=== PATIENT | male | born 1965 | race Caucasian/White ===

== ENCOUNTER → 2019-05-02 08:43 | Outpatient (BNVA) | payer MEDICARE, SELFPAY | PROVIDERS: Family Provider Family Medicine; PCP Family Medicine; Visit Provider Nurse Practitioner | DX: F25.9 Schizoaffective disorder, unspecified (principal); F41.1 Generalized anxiety disorder; F17.210 Nicotine dependence, cigarettes, uncomplicated | CPT/HCPCS: 99213 ==

== ENCOUNTER 2019-07-16 07:11 | Day surgery (SDC) | payer MEDICARE, SELFPAY ==
[2019-07-13 14:31] VITALS: BMI 25.8
[2019-07-16 07:33] VITALS: BP 123/80; PULSE 85; RESP 18; TEMP 36.7; O2SAT 100
--- NOTE | 2019-07-16 07:41 | ANES.PREANE2 ---
Pre-Anesthetic Assessment Pre-Anesthetic Assessment: Height/Weight: Height 1.75 m Weight 79.379 kg Temp Pulse Resp BP Pulse Ox 98.1 F 85 18 123/80 100 07/16/19 07:33 07/16/19 07:33 07/16/19 07:33 07/16/19 07:33 07/16/19 07:33 Preop Diagnosis: p Proposed Procedure: Operation Date: 07/16/19 08:35 Proposed Procedures p Colonoscopy G0105 Z86.010(Not Applicable) - Lex Babcock MD Last intake: Intake Last Liquid Date 07/16/19 Last Liquid Time 00:00 Last Solid Date 07/14/19 Social: Social History: Alcohol and Tobacco Exam: Pre-Anes Outpt Exam: alert, oriented x 3, clear to auscultation bilaterally and regular rate & rhythm Airway: Submandibular: WNL Cervical ROM: WNL MP: 2 Dentition: False (upper and lower) History/ROS: No significant history except as noted Pulmonary: Pulmonary: COPD CV/HEM: CV/HEM: None reported : : None reported Hepatic: Hepatic: None reported GI: GI: GERD Metabolic: Metabolic: Hyperlipidemia Musc/skel: Musc/skel: Lower Back Pain Neuropsych: Comments: schizoaffective disorder Anesthetic Plan: ASA status: 3 Anesthesia: Anesthesia Evaluation and MAC Risk of > 500 ml blood loss (7ml/kg in children): No PFSH Anesthesia PFSH: Medical History Anxiety BPH (benign prostatic hyperplasia) Chronic low back pain COPD (chronic obstructive pulmonary disease) Dyslipidemia Enrolled in chronic care management Generalized anxiety disorder GERD (gastroesophageal reflux disease) Nicotine dependence, cigarettes, uncomplicated Schizoaffective disorder, unspecified Surgical History History of appendectomy History of tonsillectomy Family History Other Cancer Social History Smoking and tobacco status: current every day smoker cigarettes Packs smoked per day: 1 and smokeless tobacco Smoking risk assessment/counseling performed?: Yes Tobacco counseling given: counseling >3 minutes Alcohol intake: never Data Anesthesia Cardiac Studies: No Data to Display
[2019-07-16] MEDS: sodium chloride 0.9% 1,000 ML 30 ML IV (07:43)
--- NOTE | 2019-07-16 08:35 | P.HP_ITS ---
Same Day Surgery H&P Indication for Procedure/HPI DATE OF PROCEDURE: July 16, 2019 CHIEF COMPLAINT/INDICATIONFOR SURGICAL PROCEDURE: History of colon polyp PREOP DIAGNOSIS: p PLANNED PROCEDRUE: Operation Date: 07/16/19 08:35 Proposed Procedures p Colonoscopy G0105 Z86.010(Not Applicable) - Lex Babcock MD Medications/Allergies* Home Medications Medication Instructions Recorded Confirmed Type albuterol sulfate 90 mcg/actuation 2 puff INHALATION Q6H PRN 04/11/19 07/16/19 History aerosol inhaler aspirin 81 mg tablet,delayed 81 mg PO DAILY 06/18/19 07/16/19 History release pukthetmanajchkp-ygmmsewsq-nbnhaqr 1 each PO PRN PRN 06/18/19 07/16/19 History 2 mg-7.8 mg-325 mg efferves. tablet celecoxib 200 mg PO DAILY 07/16/19 07/16/19 History famotidine mg PO DAILY PRN 07/16/19 History Allergies/Adverse Reactions Allergy/AdvReac Type Severity Reaction Status Date / Time Penicillins Allergy Severe throat Verified 06/18/19 09:40 swell Current Medications: Generic Name Dose Route Start Last Admin Trade Name Freq PRN Reason Stop Dose Admin Sodium Chloride 1,000 mls @ 30 mls/hr 07/16/19 07:30 07/16/19 07:43 Sodium Chloride 0.9% IV 30 mls/hr .Q24H [place] Administration Pertinent History/Comorbid Conditions* Medical History (Updated 06/18/19 @ 09:54 by Lex Babcock MD) Anxiety BPH (benign prostatic hyperplasia) Chronic low back pain COPD (chronic obstructive pulmonary disease) Dyslipidemia Enrolled in chronic care management Generalized anxiety disorder GERD (gastroesophageal reflux disease) Nicotine dependence, cigarettes, uncomplicated Schizoaffective disorder, unspecified Surgical History (Updated 04/17/19 @ 09:09 by Mali Lerma DO) History of appendectomy History of tonsillectomy Family History (Updated 04/11/19 @ 15:59 by Christina De Leon LPN) Cancer Social History Smoking and tobacco status: current every day smoker cigarettes Packs smoked per day: 1 and smokeless tobacco Smoking risk assessment/counseling performed?: Yes Tobacco counseling given: counseling >3 minutes Alcohol intake: never Pertinent Exam Findings alert, oriented x 3, clear to auscultation bilaterally, regular rate & rhythm, operative site marked and procedure specific exam findings Recommendations Surgery/Procedure today Coding Level of Care Code Acute 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
[2019-07-16 08:54] VITALS: BP 127/87; PULSE 77; RESP 18; TEMP 36.7; O2SAT 99
[2019-07-16 09:17] VITALS: BP 119/92; PULSE 79; RESP 18; O2SAT 98
== END 2019-07-16 09:20 | disposition home or self-care (01) ==
PROVIDERS: Family Provider Family Medicine; PCP Family Medicine; Visit Provider Internal Medicine
PROC: 0DJD8ZZ Inspection of Lower Intestinal Tract, Via Natural or Artificial Opening Endoscopic (ICD-10-PCS; CPT 45378; principal; 2019-07-16 08:30)
DX: Z86.010 Personal history of colon polyps (principal); J44.9 Chronic obstructive pulmonary disease, unspecified; K21.9 Gastro-esophageal reflux disease without esophagitis; E78.5 Hyperlipidemia, unspecified; F17.210 Nicotine dependence, cigarettes, uncomplicated; F25.9 Schizoaffective disorder, unspecified
CPT/HCPCS: 45378; 12345; J2001; J2704; J7030

== ENCOUNTER → 2019-07-25 07:41 | Outpatient (BNVA) | payer MEDICARE, SELFPAY | PROVIDERS: Family Provider Family Medicine; PCP Family Medicine; Visit Provider Nurse Practitioner | DX: F25.9 Schizoaffective disorder, unspecified (principal); F41.1 Generalized anxiety disorder | CPT/HCPCS: 99213 ==

== ENCOUNTER → 2019-09-24 08:21 | Outpatient (BNVA) | payer MEDICARE, SELFPAY | PROVIDERS: Family Provider Family Medicine; PCP Family Medicine; Visit Provider Family Medicine | DX: E78.5 Hyperlipidemia, unspecified (principal); N40.1 Benign prostatic hyperplasia with lower urinary tract symptoms; R35.0 Frequency of micturition; Z79.891 Long term (current) use of opiate analgesic; G89.29 Other chronic pain; M54.5 Low back pain; Z12.5 Encounter for screening for malignant neoplasm of prostate; F17.210 Nicotine dependence, cigarettes, uncomplicated | CPT/HCPCS: 80053; 80061; 80307; 80373; 85025; G0103 ==

== ENCOUNTER → 2019-11-02 09:58 | Outpatient (BNVA) | payer MEDICARE, SELFPAY | PROVIDERS: Family Provider Family Medicine; PCP Family Medicine; Visit Provider Nurse Practitioner | DX: F41.1 Generalized anxiety disorder (principal); F25.9 Schizoaffective disorder, unspecified; F17.210 Nicotine dependence, cigarettes, uncomplicated | CPT/HCPCS: 99213 ==

== ENCOUNTER → 2020-02-06 16:05 | Outpatient (BNVA) | payer MEDICARE, SELFPAY | PROVIDERS: Family Provider Family Medicine; PCP Family Medicine; Visit Provider Nurse Practitioner Family | DX: Z20.828 Contact with and (suspected) exposure to other viral communicable diseases (principal); J06.9 Acute upper respiratory infection, unspecified | CPT/HCPCS: 87635 ==

== ENCOUNTER → 2020-02-20 07:45 | Outpatient (BNVA) | payer MEDICARE, SELFPAY | PROVIDERS: Family Provider Family Medicine; PCP Family Medicine; Visit Provider Nurse Practitioner | DX: F25.9 Schizoaffective disorder, unspecified (principal); F41.1 Generalized anxiety disorder | CPT/HCPCS: 99213 ==

== ENCOUNTER → 2020-06-09 07:38 | Outpatient (BNVA) | payer MEDICARE, SELFPAY | PROVIDERS: Family Provider Family Medicine; PCP Family Medicine; Visit Provider Nurse Practitioner | DX: F25.9 Schizoaffective disorder, unspecified (principal); F41.1 Generalized anxiety disorder | CPT/HCPCS: 99214 ==

== ENCOUNTER → 2020-09-11 09:43 | Outpatient (BNVA) | payer MEDICARE, SELFPAY | PROVIDERS: Family Provider Family Medicine; PCP Family Medicine; Visit Provider Nurse Practitioner | DX: F41.1 Generalized anxiety disorder (principal); F25.9 Schizoaffective disorder, unspecified; F17.210 Nicotine dependence, cigarettes, uncomplicated | CPT/HCPCS: 99214 ==

== ENCOUNTER → 2020-11-20 09:17 | Outpatient (BNVA) | payer MEDICARE, SELFPAY | PROVIDERS: Family Provider Family Medicine; PCP Family Medicine; Visit Provider Family Medicine | DX: E78.5 Hyperlipidemia, unspecified (principal); N40.1 Benign prostatic hyperplasia with lower urinary tract symptoms; R35.0 Frequency of micturition; M54.5 Low back pain; G89.29 Other chronic pain; J43.1 Panlobular emphysema; F17.219 Nicotine dependence, cigarettes, with unspecified nicotine-induced disorders | CPT/HCPCS: 80053; 80061; 85025; G0103 ==

== ENCOUNTER → 2020-12-08 08:45 | Outpatient (BNVA) | payer MEDICARE, SELFPAY | PROVIDERS: Family Provider Family Medicine; PCP Family Medicine; Visit Provider Nurse Practitioner | DX: F25.9 Schizoaffective disorder, unspecified (principal); F41.1 Generalized anxiety disorder; F17.210 Nicotine dependence, cigarettes, uncomplicated | CPT/HCPCS: 99214 ==

== ENCOUNTER → 2021-03-10 09:20 | Outpatient (BNVA) | payer MEDICARE, SELFPAY | PROVIDERS: Family Provider Family Medicine; PCP Family Medicine; Visit Provider Nurse Practitioner | DX: F41.1 Generalized anxiety disorder (principal); F25.9 Schizoaffective disorder, unspecified; F17.219 Nicotine dependence, cigarettes, with unspecified nicotine-induced disorders | CPT/HCPCS: 99214 ==

== ENCOUNTER → 2021-06-09 10:59 | Outpatient (BNVA) | payer MEDICARE, SELFPAY | PROVIDERS: Family Provider Family Medicine; PCP Family Medicine; Visit Provider Nurse Practitioner | DX: F41.1 Generalized anxiety disorder (principal); F25.9 Schizoaffective disorder, unspecified; F17.210 Nicotine dependence, cigarettes, uncomplicated | CPT/HCPCS: 99214 ==

== ENCOUNTER 2021-09-07 11:43 | Inpatient (IN) | payer MEDICARE, SELFPAY ==
[2021-09-07] VITALS (7 sets, daily range): BP systolic 121–131; BP diastolic 76–88; PULSE 58–77; RESP 16–18; TEMP 36.4–36.9; O2SAT 95–98; BMI 3319.7; BMI 23.0
--- NOTE | 2021-09-07 11:51 | W.ED.NAVMDI ---
HPI - Nausea/Vomiting/Diarrhea General: Chief complaint: Nausea/Vomiting/Diarrhea Stated complaint: n/v Time Seen by Provider: 09/07/21 11:50 Limitations: altered mental status History of Present Illness: Mr. Munoz is a 56-year-old gentleman with history of COPD, long-term opiate use, hypertension, hyperlipidemia, psychiatric disorder who presents to the emergency department due to altered mental status. He is accompanied by a neighbor who provide some clinical history. The patient himself has difficulty articulating why he is at the emergency department. He reports feeling generally unwell including abdominal pain and cough however cannot articulate associated symptoms. Per neighbor patient seemed to be somewhat off baseline yesterday however was markedly confused today. Typically he is alert and oriented. History otherwise limited by mental status. Onset (ago): unknown Review of Systems General: Reports: ROS unobtainable due to mental status [facility] PFSH: Medical History (Updated 09/17/21 @ 00:02 by Angie Spears MD) Anxiety BPH (benign prostatic hyperplasia) BPH w urinary obs/LUTS Chronic dryness of both eyes Chronic low back pain COPD (chronic obstructive pulmonary disease) Dyslipidemia Enrolled in chronic care management Generalized anxiety disorder GERD (gastroesophageal reflux disease) History of colon polyps Nicotine dependence, cigarettes, uncomplicated Psychiatric care Schizoaffective disorder, unspecified Urinary retention Surgical History History of appendectomy History of tonsillectomy Family History Other Cancer Social History Smoking and tobacco status: current every day smoker cigarettes Packs smoked per day: 1.5 and smokeless tobacco Smoking risk assessment/counseling performed?: Yes Tobacco counseling given: counseling >3 minutes Alcohol intake: never Physical Exam Const: COMMON NORMALS: alert GENERAL APPEARANCE: cooperative and well developed HENMT: COMMON NORMALS: normocephalic and atraumatic HEAD & SCALP: normocephalic and atraumatic THROAT: posterior oropharynx normal Eye: COMMON NORMALS: conjunctivae normal CONJUNCTIVA: Yes conjunctivae normal SCLERA: sclerae normal Neck/C-Spine: COMMON NORMALS: supple and no meningeal signs GENERAL: Yes trachea midline Resp: COMMON NORMALS: clear to auscultation bilaterally EFFORT & INSPECTION: Yes able to speak in complete sentences AUSCULTATION: clear to auscultation bilaterally Cardio: COMMON NORMALS: regular rate and regular rhythm RATE: regular rate RHYTHM: regular rhythm GI: COMMON NORMALS: Soft to palpation PALPATION: Yes Soft to palpation, Yes Tenderness to palpation present (GI), No Guarding due to palpation present (GI) and No Rigid due to palpation Extremity: GENERAL: Yes normal exam except as noted and No edema Neuro: COMMON NORMALS: CN's II-XII intact bilaterally, moves all extremities, no focal motor deficits and no sensory deficits noted SENSORIUM/ORIENTATION: Yes alert and No Orientation impaired MENINGEAL SIGNS: Yes no meningeal signs Psych: MEMORY/COGNITION: Yes memory grossly impaired Course ED course: - Patient was seen and evaluated by me at bedside - Patient placed on cardiac monitors, IV access obtained - Initial evaluation notable for exam as above. No focal neurologic deficits however patient mental status clearly abnormal, he is impulsive and inappropriate. No nuchal rigidity or reported fevers. - Labs personally interpreted by me. EKG with interventricular conduction delay/QRS segment abnormalities. No STEMI. - Ativan ordered, banana bag ordered. - Labs notable for no leukocytosis, normal hemoglobin. Metabolic panel with evidence of dehydration. ABG with minimal hypoxemia, no carboxyhemoglobin elevation. Urinalysis not concerning for urinary tract infection. Toxic ingestions negative. - Imaging notable for no acute pathology identified on head CT. No acute pathology identified on chest abdomen pelvis CT. - Upon serial reexamination after treatment the patient was similar. He continues to act somewhat bizarrely. - Based on patient history, evaluation, and testing as interpreted the most likely cause of the patient's condition is altered mental status of unclear cause - The results of ED evaluation were discussed with the patient including plan for admission due to requirement for level of care not available if discharged to prevent significant worsening/deterioration. - Admitting service was contacted and Dr Loving With the hospitalist service agreed to admit the patient - Patient was admitted without further deterioration or significant events. Note: Click bubbles or prepopulated ballard in note writing are used for assistance with data collection and billing and are inherently more limited than narrative and other text portions of this note. Please use narrative for additional clinical history and defer to narrative/free test for any case of contradictory information. If information appears in only free text or click bubble it should be considered present or absent as reported. Please contact note conventional mortgage underwriter for clarifications of clinical information or contradictory information. MDM is a brief summary, contradictory or erroneous seeming information should be clarified and full note should be reviewed. Vital Signs: Vital signs: Vital Signs Temperature 98.0 F 09/16/21 17:44 Pulse Rate 80 09/16/21 17:44 Respiratory Rate 16 09/16/21 17:44 Blood Pressure 131/76 09/16/21 17:44 Pulse Oximetry 100 09/16/21 17:44 MDM - Nausea/Vomiting/Diarrhea Medical Decision Making 56-year-old gentleman presenting with mental status change. Patient has nonfocal neurologic exam and is outside of tPA window. Patient has bizarre behavior at times with impulse control limitations. Admitted for further management with no clear etiology identified on ED evaluation. Medical Records I reviewed the patient's medical records. Lab Data I reviewed the patient's lab results. : 09/16/21 04:40 09/16/21 04:40 Radiology Impressions Chest/Abdomen/Pelvis CT 09/07/21 12:10 IMPRESSION: 1. No acute findings. 2. Emphysematous changes of the lungs. IMPRESSION: No acute findings. Large colonic stool burden. Head CT 09/07/21 12:10 IMPRESSION: No acute intracranial abnormality. Chest X-Ray 09/09/21 14:15 Impression: Atherosclerosis. Abdomen/Pelvis CT 09/11/21 08:02 IMPRESSION: 1. Mild gallbladder wall enhancement with suggestion of gallbladder wall edema and fluid in the gallbladder fossa. This appears new from previous. Recommend further evaluation with ultrasound. Visualized common bile duct appears decompressed. No visualized cholelithiasis 2. Tiny bilateral pleural effusions with compressive atelectasis in the lung bases is new from previous. 3. Urine distended bladder with small cystocele. 4. Mild RIGHT ureterectasis with surrounding induration is new from previous. No obstructing calculi. This may be due to chronic bladder outlet obstruction or developing pyelonephritis. Recommend correlation for UTI. 5. Prominent prostate measures 5.1 CM. Notified Kaya Burns MD at 09/11/2021 11:24 AM. Abdomen Ultrasound 09/11/21 11:33 IMPRESSION: 1. Diffuse gallbladder wall thickening without evidence of gallstones. Imaging appearance is nonspecific and could reflect cholecystitis or represent sequela of a secondary etiology. Correlate with clinical exam. 2. Mild hepatomegaly. Hepatobiliary Scan Nuclear Medicine 09/14/21 07:50 IMPRESSION: 1. Normal gallbladder filling and visualization of the small bowel. No cystic or common bile duct obstruction. 2. No gallbladder contraction after fatty meal. Gallbladder dysfunction/dyskinesia. Laboratory Results WBC 7.0 10^3/uL (4.0-10.0) 09/07/21 13:04 RBC 4.20 10^6/uL (4.1-5.3) 09/07/21 13:04 Hgb 13.2 g/dL (11.7-16.6) 09/07/21 13:04 Hct 36.4 % (42.0-52.0) L 09/07/21 13:04 MCV 86.7 fl (80-94) 09/07/21 13:04 MCH 31.4 pg (28.0-34.0) 09/07/21 13:04 MCHC 36.3 g/dL (30.0-36.0) H 09/07/21 13:04 RDW 11.6 % (12.1-15.1) L 09/07/21 13:04 Plt Count 369 10^3/cmm (130-400) 09/07/21 13:04 MPV 9.2 fL (7.4-10.4) 09/07/21 13:04 Neut % (Auto) 76.7 % 09/07/21 13:04 Lymph % (Auto) 17.2 % 09/07/21 13:04 [place] % (Auto) 5.3 % 09/07/21 13:04 Eos % (Auto) 0.4 % 09/07/21 13:04 Baso % (Auto) 0.1 % 09/07/21 13:04 Neut # (Auto) 5.40 10^3/uL (1.8-7.7) 09/07/21 13:04 Lymph # (Auto) 1.2 10^3/uL (0.8-4.8) 09/07/21 13:04 [place] # (Auto) 0.4 10^3/uL (0.2-0.9) 09/07/21 13:04 Eos # (Auto) 0.0 10^3/uL (0.0-0.8) 09/07/21 13:04 Baso # (Auto) 0.0 10^3/uL (0.0-0.1) 09/07/21 13:04 Nucleated RBC % (auto) 0 % 09/07/21 13:04 Nucleated RBCs # 0.0 /100WBC 09/07/21 13:04 Sodium 127 mmol/L (136-145) L 09/07/21 13:04 Potassium 3.9 mmol/L (3.5-5.1) 09/07/21 13:04 Chloride 90 mmol/L (98-107) L 09/07/21 13:04 Carbon Dioxide 22 mmol/L (22-29) 09/07/21 13:04 Anion Gap 18.9 (5-19) 09/07/21 13:04 BUN 15 mg/dL (6-20) 09/07/21 13:04 Creatinine 0.7 mg/dL (0.7-1.2) 09/07/21 13:04 GFR Calculation 115.8 mL/min (90-130) 09/07/21 13:04 Glucose 119 mg/dL (65-115) H 09/07/21 13:04 POC Glucose 109 mg/dL (70-110) 09/07/21 12:30 Calculated Osmolality 266 mOsm/kg (285-295) L 09/07/21 13:04 Lactate 0.9 mmol/L (0.5-2.2) 09/07/21 13:04 Calcium 8.9 mg/dL (8.5-10.5) 09/07/21 13:04 Total Bilirubin 0.3 mg/dL (0.15-1.2) 09/07/21 13:04 AST 37 U/L (0-40) 09/07/21 13:04 ALT 36 U/L (0-41) 09/07/21 13:04 Alkaline Phosphatase 54 IU/L (40-130) 09/07/21 13:04 Ammonia 31 umol/L (16-60) 09/07/21 13:04 Troponin T Baseline 10 ng/L (0-15) 09/07/21 13:04 Troponin T 120 Minute 9.87 ng/L (0-15) 09/07/21 14:59 Delta Troponin T -0.13 ABS# (0-10) L 09/07/21 14:59 C-Reactive Protein 3.0 mg/L (0.0-4.9) 09/07/21 13:04 Total Protein 7.0 g/dL (6.6-8.7) 09/07/21 13:04 Albumin 4.6 g/dL (3.5-5.2) 09/07/21 13:04 Globulin 2.4 g/dL (1.3-4.6) 09/07/21 13:04 TSH 0.34 uIU/mL (0.27-4.20) 09/07/21 13:04 Urine Color Yellow (Yellow) 09/07/21 15:13 Urine Appearance Clear (CLEAR) 09/07/21 15:13 Urine pH 5 (5-7) 09/07/21 15:13 Ur Specific [place] 1.020 (1.005-1.030) 09/07/21 15:13 Urine Protein Neg (Negative) 09/07/21 15:13 Urine Glucose (UA) Norm (Normal) 09/07/21 15:13 Urine Ketones 1+ (Negative) H 09/07/21 15:13 Urine Blood Neg (Negative) 09/07/21 15:13 Urine Nitrate Negative (Negative) 09/07/21 15:13 Urine Bilirubin Neg (Negative) 09/07/21 15:13 Urine Urobilinogen Norm mg/dL (Negative) 09/07/21 15:13 Ur Leukocyte Esterase Negative (Negative) 09/07/21 15:13 Salicylates < 0.3 mg/dL (3-10) L 09/07/21 13:04 Urine Opiates Screen Negative ng/mL (Negative) 09/07/21 15:13 Acetaminophen < 5.0 ug/mL (10-30) L 09/07/21 13:04 Ur Barbiturates Screen Negative ng/mL (Negative) 09/07/21 15:13 Ur Phencyclidine Scrn Negative ng/mL (Negative) 09/07/21 15:13 Ur Amphetamines Screen Negative ng/mL (Negative) 09/07/21 15:13 U Benzodiazepines Scrn Negative ng/mL (Negative) 09/07/21 15:13 Urine Cocaine Screen Negative ng/mL (Negative) 09/07/21 15:13 U Marijuana (THC) Screen Negative ng/mL (Negative) 09/07/21 15:13 Ethyl Alcohol < 10 mg/dL (0-10) 09/07/21 13:04 Discharge Plan Discharge Patient Disposition: Admitted As Inpatient Admit Provider: Andreea Loving Clinical Impression: Altered mental status, Hyponatremia, Constipation Condition: Stable Discharge Diet: Advance as tolerated Discharge Activity: Increase activity as tolerated Coding Level of Care Code ED Milieu Counselor for Chg Fwd Exam Comprehensive
--- NOTE | 2021-09-07 12:10 | CTR_ITS ---
PROCEDURE INFORMATION: Exam: CT Head Without Contrast Exam date and time: 09/07/2021 12:41 PM Age: 56 years old Clinical indication: Altered mental status/memory loss and dizziness; Confusion or disorientation; Additional info: AMS TECHNIQUE: Imaging protocol: Computed tomography of the head without contrast. Radiation optimization: All CT scans at this facility use at least one of these dose optimization techniques: automated exposure control; mA and/or kV adjustment per patient size (includes targeted exams where dose is matched to clinical indication); or iterative reconstruction. COMPARISON: No relevant prior studies available. RADIATION DOSE METRICS: Total DLP (mGy-cm): 826.7 FINDINGS: Brain: No hemorrhage. No edema. Mild diffuse cerebral atrophy. No significant white matter disease. No mass effect. Cerebral ventricles: No ventriculomegaly. Paranasal sinuses: Visualized sinuses are unremarkable. No fluid levels. Mastoid air cells: Visualized mastoid air cells are well aerated. Bones/joints: Unremarkable. No acute fracture. Soft tissues: Unremarkable. CT/CT head wo con* [id number] IMPRESSION: No acute intracranial abnormality.
--- NOTE | 2021-09-07 12:10 | CTR_ITS ---
PROCEDURE INFORMATION: Exam: CT Chest Without Contrast; Diagnostic Exam date and time: 09/07/2021 12:44 PM Age: 56 years old Clinical indication: Nausea and vomiting; Abdominal pain; Generalized; Cough; Chest pressure; Prior surgery; Surgery date: 6+ months; Surgery type: Appy; Additional info: AMS, cough, abd pain TECHNIQUE: Imaging protocol: Diagnostic computed tomography of the chest without contrast. Radiation optimization: All CT scans at this facility use at least one of these dose optimization techniques: automated exposure control; mA and/or kV adjustment per patient size (includes targeted exams where dose is matched to clinical indication); or iterative reconstruction. COMPARISON: CR Chest 2 views* [id number] 04/22/2015 2:02 PM RADIATION DOSE METRICS: Total DLP (mGy-cm): 1687.54 FINDINGS: Lungs: Mild to moderate centrilobular emphysematous changes centered in the upper lobes. Posterior dependent atelectasis noted. No consolidation. No masses. Pleural spaces: Unremarkable. No pneumothorax. No pleural effusion. Heart: No coronary artery calcifications. No cardiomegaly. No pericardial effusion. Lymph nodes: Unremarkable. No enlarged lymph nodes. Vasculature: Unremarkable. No aortic aneurysm. Bones/joints: Unremarkable. No acute fracture. Soft tissues: Unremarkable. PROCEDURE INFORMATION: Exam: CT Abdomen And Pelvis Without Contrast Exam date and time: 09/07/2021 12:44 PM Age: 56 years old Clinical indication: Nausea and vomiting; Abdominal pain; Generalized; Cough; Chest pressure; Prior surgery; Surgery date: 6+ months; Surgery type: Appy; Additional info: AMS, cough, abd pain TECHNIQUE: Imaging protocol: Computed tomography of the abdomen and pelvis without contrast. Radiation optimization: All CT scans at this facility use at least one of these dose optimization techniques: automated exposure control; mA and/or kV adjustment per patient size (includes targeted exams where dose is matched to clinical indication); or iterative reconstruction. COMPARISON: No relevant prior studies available. RADIATION DOSE METRICS: Total DLP (mGy-cm): 1687.54 FINDINGS: Liver: Normal. No mass. Gallbladder and bile ducts: Normal. No calcified stones. No ductal dilation. Pancreas: Normal. No ductal dilation. Spleen: Normal. No splenomegaly. Adrenal glands: Normal. No mass. Kidneys and ureters: No renal stones. No hydronephrosis. Stomach and bowel: Large colonic stool burden. No obstruction. No mucosal thickening. Appendix: Appendectomy. Intraperitoneal space: Unremarkable. No free air. No significant fluid collection. Vasculature: Unremarkable. No abdominal aortic aneurysm. Lymph nodes: Unremarkable. No enlarged lymph nodes. Urinary bladder: Unremarkable as visualized. Reproductive: Unremarkable as visualized. Bones/joints: No acute fracture. Soft tissues: Unremarkable. CT/CT chest abdpel [id number] IMPRESSION: 1. No acute findings. 2. Emphysematous changes of the lungs. IMPRESSION: No acute findings. Large colonic stool burden.
--- NOTE | 2021-09-07 12:11 | ECG_ITS ---
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 Measurements Intervals [place] Rate: 69 P: 34 LA: 175 QRS: 22 QRSD: 113 T: 47 QT: 419 QTc: 450 Interpretive Statements SINUS RHYTHM INCOMPLETE RIGHT BUNDLE BRANCH BLOCK [90+ ms QRS DURATION, TERMINAL R IN V1/V2, 40+ ms S IN I/aVL/V4/V5/V6] No previous ECG available for comparison Electronically Signed On 09-08-2021 16:43:00 CDT by Sonny Baum M.D. [email or web address] [email or web address] [id number]
[2021-09-07 12:34] LABS: Glucose Point of Care 109 mg/dL (70-110)
[2021-09-07 13:10] LABS: Basophils % 0.1 %; Eosinophils % 0.4 %; Hematocrit 36.4 % (42.0-52.0); Hemoglobin 13.2 g/dL (11.7-16.6); Lymphocytes # 1.2 10^3/uL (0.8-4.8); Lymphocytes % 17.2 %; Mean Corpuscular HGB Conc 36.3 g/dL (30.0-36.0); Mean Corpuscular Hemoglobin 31.4 pg (28.0-34.0); Mean Corpuscular Volume 86.7 fl (80-94); Mean Platelet Volume 9.2 fL (7.4-10.4); Monocytes # 0.4 10^3/uL (0.2-0.9); Monocytes % 5.3 %; Neutrophils % 76.7 %; Nucleated Red Blood Cells % 0 %; Platelet Count 369 10^3/cmm (130-400); Red Cell Distribution Width 11.6 % (12.1-15.1)
[2021-09-07 13:31] LABS: Lactate (Lactic Acid level) 0.9 mmol/L (0.5-2.2)
[2021-09-07 13:34] LABS: Troponin(5th) Baseline 10 ng/L (0-15)
--- NOTE | 2021-09-07 13:35 | PC.PHAR ---
pt unable to verify meds due to ams- medications verified using external med list- pt takes care of his own medications-
[2021-09-07 13:44] LABS: Alanine Aminotransferase 36 U/L (0-41); Albumin Level 4.6 g/dL (3.5-5.2); Alkaline Phosphatase 54 IU/L (40-130); Anion Gap 18.9 (5-19); Aspartate Amino Transferase 37 U/L (0-40); Blood Urea Nitrogen 15 mg/dL (6-20); Calcium 8.9 mg/dL (8.5-10.5); Carbon Dioxide 22 mmol/L (22-29); Chloride 90 mmol/L (98-107); Globulin 2.4 g/dL (1.3-4.6); Glomerular Filtration Rate 115.8 mL/min (90-130); Glucose 119 mg/dL (65-115); Osmolality Calculated 266 mOsm/kg (285-295); Potassium 3.9 mmol/L (3.5-5.1); Sodium 127 mmol/L (136-145); Thyroid Stimulating Hormone 0.34 uIU/mL (0.27-4.20); Total Bilirubin 0.3 mg/dL (0.15-1.2)
[2021-09-07 13:45] LABS: Acetaminophen < 5.0 ug/mL (10-30); Alcohol Level < 10 mg/dL (0-10); Salicylate < 0.3 mg/dL (3-10)
[2021-09-07 13:56] LABS: Ammonia 31 umol/L (16-60)
[2021-09-07] MEDS: LORazepam 2 mg/mL INJ 1 mL 1 MG IM (14:19)
[2021-09-07 15:21] LABS: Troponin 5 2HR 9.87 ng/L (0-15)
[2021-09-07 15:27] LABS: Troponin 5 2HR Delta -0.13 ABS# (0-10)
[2021-09-07 15:30] LABS: Add Urine Microscopic? NO; Charge for UA Resulting for Rev
[2021-09-07 15:41] LABS: Amphetamines Screen Urine Negative (Negative); Barbiturates Screen Urine Negative (Negative); Benzodiazepines Screen Urine Negative (Negative); Cocaine Screen Urine Negative (Negative); Opiate Screen Urine Negative (Negative); PCP Screen Urine Negative (Negative); THC Screen Urine Negative (Negative)
[2021-09-07 15:45] LABS: Bilirubin Urine Neg (Negative); Blood Urine Neg (Negative); Glucose Urine UA Norm (Normal); Ketones Urine 1+ (Negative); Leukocyte Esterase Urine Negative (Negative); Nitrate Urine Negative (Negative); Protein Urine Neg (Negative); Urine Appearance Clear (CLEAR); Urine Color Yellow (Yellow); Urobilinogen Urine Norm (Negative); pH Urine 5 (5-7)
[2021-09-07] MEDS: folic acid 1 MG, multivitamin inj 10 ML, thiamine 100 MG in sodium chloride 0.9% 1,000 ML 252.8 MG IV (16:01)
[2021-09-07 16:10] LABS: ABG PH Result 7.43 (7.35-7.45); Alveolar-Arterial Oxygen Gradi 3.7 mmHg (5-10); Base Excess ABG 0.2 mmol/L (-2.0-2.0); Blood Gas Allen Test Pos; Blood Gas Operator Identificat CAK; Blood Gas Sample Site Radial, left; Blood Gas Sample Type Arterial; Carboxyhemoglobin 1.4 %THgb (0.4-20.1); HCO3 ABG 24.3 mmol/L (22-26); HGB O2 Sat 93.8 % (95-100); Ionized Calcium Level - ABG 1.2 mmol/L (1.1-1.4); Methemoglobin 0.9 % (0.4-1.5); Oxygen Device ROOM AIR; PO2 ABG 74.4 mmHg (80.0-100.0); Potassium Level - ABG 3.9 mmol/L (3.5-5.0)
[2021-09-07 16:35] LABS: Rapid Plasma Reagin Syphilis Nonreactive (Nonreactive)
--- NOTE | 2021-09-07 16:52 | PC.NURSE ---
right hand jerking motion intermittent
--- NOTE | 2021-09-07 17:38 | P.HP_ITS ---
Providers/Chief Complaint Admitting Physician: Andreea Loving MD Primary Care Provider: Mali Lerma DO Chief Complaint: n/v History of Present Illness Michael Munoz IV is a 56 year old male who presented today with chief complaint altered mental status. Patient was reported by his neighbors today when he was acting not himself today. His thoughts were disorganized that prompted his visit to the ER. He lives alone, patient is stating that he cooks for himself and takes care of his daily activities, his son has not been in touch with him lately. Patient is stating that he was baptized lately and he wants to preach the world and spread the good. His speech is disorganized, tangential conversation. He is endorsing constipation and problems with his urination. When asked about his last bowel movement he stated it was a few years ago. He is endorsing weeks urinary stream, however no fever, dysuria. Hospital service was requested to admit him for management of constipation and hyponatremia Review of Systems Const: Reports: body aches Eyes: Denies: change in vision ENMT: Denies: throat pain Card: Denies: chest pain Resp: Denies: dyspnea GI: Denies: abdominal pain : Denies: flank pain Musc: Denies: neck pain Skin/Breast: Denies: rash Neuro: Denies: headache(s) Psych: Denies: anxiety Endo: Denies: polyuria Gerry/Lymph: Denies: easy bruising All/Imm: Denies: urticaria Medications/Allergies Home Medications Medication Instructions Recorded Confirmed Last Taken Type aspirin 81 mg tablet,delayed 81 mg PO DAILY 06/18/19 09/07/21 07/13/19 History release (Adult Aspirin Regimen) famotidine 10 mg tablet 10 mg PO DAILY PRN 07/16/19 09/07/21 Unknown History albuterol sulfate 90 mcg/actuation 2 puff INHALATION Q6H PRN #8.5 g 07/31/21 09/07/21 Unknown Rx aerosol inhaler (Ventolin HFA) celecoxib 200 mg capsule 200 mg PO DAILY #90 cap 07/31/21 09/07/21 Unknown Rx fluticasone 500 mcg-salmeterol 50 1 inh INHALATION BID #60 each 07/31/21 09/07/21 Unknown Rx mcg/dose blistr powdr for inhalation (Advair Diskus) tramadol 50 mg tablet 50 mg PO TID PRN #90 tab 07/31/21 09/07/21 Unknown Rx sertraline 50 mg tablet (Zoloft) 50 mg PO DAILY #90 tab 08/10/21 09/07/21 Unknown Rx benztropine 2 mg tablet 2 mg PO DAILY #90 tab 09/01/21 09/07/21 Unknown Rx hydroxyzine pamoate 25 mg capsule 25 mg PO TID PRN #270 cap 09/01/21 09/07/21 Unknown Rx (Vistaril) mirtazapine 30 mg tablet 30 mg PO .at bed #90 tab 09/01/21 09/07/21 Unknown Rx trazodone 100 mg tablet 100 mg PO .HS #90 tab 09/01/21 09/07/21 Unknown Rx ziprasidone HCl 80 mg capsule 80 mg PO BID #180 cap 09/01/21 09/07/21 Unknown Rx (Geodon) clonazepam 0.5 mg tablet (Klonopin) 0.5 mg PO DAILY #30 tab 09/02/21 09/07/21 Unknown Rx bupropion HCl 150 mg 24 hr tablet, 150 mg PO DAILY 09/07/21 09/07/21 Unknown H istory extended release fluticasone 500 mcg-salmeterol 50 1 ea INHALATION BID 09/07/21 09/07/21 Unknown History mcg/dose blistr powdr for inhalation (Wixela Inhub) gemfibrozil 600 mg tablet 600 mg PO BID 09/07/21 09/07/21 Unknown History Allergies Allergy/AdvReac Type Severity Reaction Status Date / Time Penicillins Allergy Severe throat Verified 09/07/21 13:34 swell PFSH Acute PFSH: Medical History Anxiety BPH (benign prostatic hyperplasia) Chronic dryness of both eyes Chronic low back pain COPD (chronic obstructive pulmonary disease) Dyslipidemia Enrolled in chronic care management Generalized anxiety disorder GERD (gastroesophageal reflux disease) Nicotine dependence, cigarettes, uncomplicated Psychiatric care Schizoaffective disorder, unspecified Surgical History History of appendectomy History of tonsillectomy Family History Other Cancer Social History Smoking and tobacco status: current every day smoker cigarettes Packs smoked per day: 1.5 and smokeless tobacco Smoking risk assessment/counseling performed?: Yes Tobacco counseling given: counseling >3 minutes Alcohol intake: never Vitals/I&O/Wt Last Vital Signs Temp 97.6 F 09/07/21 11:46 Pulse 68 09/07/21 16:30 Resp 16 09/07/21 11:46 BP 130/81 09/07/21 16:00 Pulse Ox 96 09/07/21 16:30 Weight last 48 hrs Weight 77.111 kg Weight 77.111 kg Physical Exam Narrative: elderly male Seems dehydrated S1, S2 No signs of stroke NIH 0 Abdomen soft No signs of edema Saturated on room air Disorganized thinking Delusional, manic phase Data : 09/08/21 04:48 09/08/21 04:48 A&P Assessment and plan (1) Altered mental status: Status: Acute (2) Hyponatremia: Status: Acute (3) Constipation: Status: Acute (4) COPD (chronic obstructive pulmonary disease): Status: Chronic Qualifiers: COPD type: emphysema Emphysema type: panlobular Qualified Code(s): J43.1 - Panlobular emphysema (5) BPH (benign prostatic hyperplasia): Status: Chronic Qualifiers: Lower urinary tract symptom detail: urinary frequency Lower urinary tract symptom presence: symptoms present Qualified Code(s): N40.1 - Benign prostatic hyperplasia with lower urinary tract symptoms; R35.0 - Frequency of micturition (6) Generalized anxiety disorder: Status: Acute Plan Metabolic encephalopathy: Multifactorial Delirium which could be related to hyponatremia Patient does carry history of schizoaffective disorder Chronicity is unknown at this point We will start him on normal saline Stop antidepressants and antipsychotic We will start him on normal saline Check TSH, urine and serum osmolarity, cortisol level Gentle fluid hydration Patient has been taking SSRI and antipsychotics, rule out SIADH Constipation : I will give him enema, mag citrate and lactulose COPD without acute exacerbation Patient is full code Regular diet DVT prophylaxis on board Will consult Dr. Sadler tomorrow Patient is not suicidal Attestations Medical Necessity Statement*: Anticipating discharge within 48 hours IV fluid hydration Time Spent in Patient Care: 30 Coding Level of Care Code Acute Time Study Observer for Chg Fwd Diagnoses Altered mental status R41.82 Hyponatremia E87.1 Constipation K59.00 COPD (chronic obstructive pulmonary disease) J43.1 COPD type: emphysema Emphysema type: panlobular BPH (benign prostatic hyperplasia) N40.1; R35.0 Lower urinary tract symptom detail: urinary frequency Lower urinary tract symptom presence: symptoms present Generalized anxiety disorder F41.1
[2021-09-07] MEDS: lactulose oral liq 20 gm/30 mL UDC 10 GM PO (18:06)
[2021-09-07] MEDS: magnesium citrate Btl 296 mL 150 ML PO (18:06)
[2021-09-07] MEDS: sodium chloride 0.9% 1,000 ML 75 ML IV (18:06)
[2021-09-07] MEDS: sennosides-docusate Tablet 1 TAB PO (18:07)
--- NOTE | 2021-09-07 18:11 | ECG_ITS ---
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 Measurements Intervals Geronimo Rate: 69 P: 50 MD: 164 QRS: 46 QRSD: 118 T: 54 QT: 413 QTc: 443 Interpretive Statements SINUS RHYTHM INCOMPLETE RIGHT BUNDLE BRANCH BLOCK [90+ ms QRS DURATION, TERMINAL R IN V1/V2, 40+ ms S IN I/aVL/V4/V5/V6] POSSIBLE INFERIOR MYOCARDIAL INFARCTION , OF INDETERMINATE AGE [30 ms Q WAVE IN II/aVF] Compared to ECG 09/07/2021 12:22:02 Myocardial infarct finding now present Electronically Signed On 09-08-2021 16:54:42 CDT by Sonny Baum M.D. [id number]
[2021-09-07 18:33] LABS: Procalcitonin 0.04 ng/mL (0-0.5)
[2021-09-07 19:41] LABS: Troponin 5 6HR 10.72 ng/L (0-15)
[2021-09-07 19:48] LABS: Troponin 5 6HR Delta 0.72 ng/L (0-12)
[2021-09-07 20:48] LABS: Glucose Point of Care 113 mg/dL (70-110)
--- NOTE | 2021-09-07 23:26 | PC.NURSE ---
Patient pulled out figueroa catheter
--- NOTE | 2021-09-07 23:31 | PC.NURSE ---
Spoke with Dr Hargrove at 2260 and ok to reinsert figueroa catheter per Dr Bbo who will assess patient in the a.m.
[2021-09-08] VITALS (8 sets, daily range): BP systolic 119–136; BP diastolic 74–96; PULSE 62–73; RESP 16–18; TEMP 36.6–36.8; O2SAT 94–98
[2021-09-08 05:14] LABS: Basophils % 0.2 %; Eosinophils # 0.1 10^3/uL (0.0-0.8); Eosinophils % 0.7 %; Hematocrit 37.5 % (42.0-52.0); Hemoglobin 13.6 g/dL (11.7-16.6); Lymphocytes # 1.4 10^3/uL (0.8-4.8); Lymphocytes % 13.5 %; Mean Corpuscular HGB Conc 36.3 g/dL (30.0-36.0); Mean Corpuscular Hemoglobin 31.2 pg (28.0-34.0); Mean Platelet Volume 9.2 fL (7.4-10.4); Monocytes # 0.7 10^3/uL (0.2-0.9); Monocytes % 6.3 %; Neutrophils # 8.41 10^3/uL (1.8-7.7); Nucleated Red Blood Cells % 0 %; Platelet Count 371 10^3/cmm (130-400); Red Blood Count 4.36 10^6/uL (4.1-5.3); Red Cell Distribution Width 11.6 % (12.1-15.1); White Blood Count 10.6 10^3/uL (4.0-10.0)
[2021-09-08 05:35] LABS: Blood Urea Nitrogen 8 mg/dL (6-20); Carbon Dioxide 23 mmol/L (22-29); Chloride 93 mmol/L (98-107); Glomerular Filtration Rate 138.4 mL/min (90-130); Glucose 98 mg/dL (65-115); Magnesium 2.1 mg/dL (1.7-2.3); Osmolality Calculated 262 mOsm/kg (285-295); Sodium 127 mmol/L (136-145)
[2021-09-08 05:36] LABS: Anion Gap 15.1 (5-19); Potassium 4.1 mmol/L (3.5-5.1)
[2021-09-08 05:47] LABS: Cortisol Random 28.36 ug/dL (2.47-19.5)
[2021-09-08 06:43] LABS: Glucose Point of Care 121 mg/dL (70-110)
[2021-09-08] MEDS: sennosides-docusate Tablet 1 TAB PO ×2 (08:07→16:40)
[2021-09-08] MEDS: sodium chloride 0.9% 1,000 ML 75 ML IV (08:07)
--- NOTE | 2021-09-08 10:42 | P.PN_ITS ---
Subjective Subjective: Sodium is at same level Patient was agitated last night however verbally redirectable He is not suicidal Is still talking about being baptized I have updated Dr. Sadler to evaluate him at the bedside Vitals/I&O/Wt Last Vital Signs Temp 98.1 F 09/08/21 07:29 Pulse 64 09/08/21 09:31 Resp 16 09/08/21 09:31 BP 136/85 09/08/21 07:29 Pulse Ox 94 09/08/21 09:31 09/07/21 09/08/21 09/08/21 22:59 06:59 14:59 Intake Total 240 / 240 1240 / 1240 Output Total 1200 / 1200 1075 / 2275 Balance -960 / -960 -1075 / -2035 1240 / 1240 Weight last 48 hrs Weight 77.111 kg Weight 77.111 kg Physical Exam Narrative: Patient looks euvolemic Disorganized thinking Delusional NIH 0 Nonfocal neuro exam S1, S2 Abdomen soft Saturating well on room air Pleasant and cooperative during my evaluation Urinary Catheter Management: Park: Cath Placed During This Visit: yes, but has since been removed by the nurse Reason for Continuing Indwelling Catheter: Accurate Measurement of Urinary Output in Critically Ill Patients Urinary Catheter Date of Insertion: 09/07/21 Urinary Catheter Time of Insertion: 23:15 Date Urinary Catheter Removed: 09/07/21 Time Urinary Catheter Discontinued: 22:50 Data : 09/08/21 04:48 09/08/21 04:48 A&P Assessment and plan (1) Altered mental status: Status: Acute (2) Hyponatremia: Status: Acute (3) Constipation: Status: Acute (4) Schizoaffective disorder, unspecified: Status: Acute (5) Generalized anxiety disorder: Status: Acute (6) Delusional disorder: Status: Acute Plan His altered mental status seems mostly factorial Dehydration, History of schizoaffective disorder Constipation Hyponatremia Concern related to SIADH He is euvolemic Cortisol TSH normal Sodium has not improved with normal saline Added salt tablets today Consulted Dr. Sadler Patient is not safe to return home at this point I have stopped his antipsychotics and antidepressants BPH: Park catheter was placed which patient has removed in agitation last night, Park catheter has been replaced this morning I do not see any active hematuria Added tamsulosin Constipation: Patient was given enema and bowel regimen Continue senna S, MiraLAX and lactulose Full code Might need transfer to neuropsych DVT prophylaxis added Attestations Medical Necessity Statement*: Transfer to neuropsych Time Spent in Patient Care: 30 Coding Level of Care Code Acute Priming Machine Operator for Chg Fwd Diagnoses Altered mental status R41.82 Hyponatremia E87.1 Constipation K59.00 Schizoaffective disorder, unspecified F25.9 Generalized anxiety disorder F41.1 Delusional disorder F22
[2021-09-08 11:41] LABS: Glucose Point of Care 129 mg/dL (70-110)
[2021-09-08] MEDS: enoxaparin 40 mg/0.4 mL Syringe SUBCUT (11:47)
[2021-09-08] MEDS: sodium chloride 1 gm Tablet PO ×2 (11:48→16:40)
--- NOTE | 2021-09-08 12:50 | PC.CHAP ---
Pastoral Care Encounter/Spiritual Assessment Type of Contact [] Declined merchandise coordinator visit [] Patient/Family/Request visit [] Outpatient visit [] Follow-up visit [] Physician referral [] Code/Alert [x] Routine visit [] Staff referral [] Actively dying [] Patient sleeping [] Family support [] [] Out of room [] Palliative care [] [x] Receiving care in room [] Pre-surgical visit [] Trauma [] Long length of stay [] ICU visit [] Other: Relational/Emotional Strength [] Patient feels connected with others/family/visitors/staff [] Distress [] Loneliness/isolation [] Abandonment Spirituality of Patient [] Person of Juliet [] Attends Mandaeism of their [place] [] Believes in Prayer [] Reads Bible or Methodist materials [] There are Spiritual issues to be addressed Wind Field Service Manager Interventions [] Prayer [] Active listening [] Non-anxious presence [] Spiritual/emotional support [] Crisis/trauma care [] Spiritual counseling [] Bereavement support [] Provided bereavement packet [] Provided Bible/devotional materials [] Provided toy/stuffed animal, coloring book to patient or family member [] Provided Communion [] Anointing/[place] [] Salvation [] Completed spiritual assessment [] Other: Impact on Illness or Injury [] Angry [] Fearful [] Anxious [] Often cries [] Exhaustion [] Unable to work [] Unable to attend methodist [] Unable to walk/stand [] Unable to read [] Unable to drive [] Unable to eat/drink [] Unable to sleep [] Unable to be with family [] Patient intubated [] Other: Summary Time spent with patient
[2021-09-08 18:01] LABS: Sodium 130 mmol/L (136-145)
--- NOTE | 2021-09-08 18:21 | PC.NURSE ---
Patient had been attempting to remove catheter during psychiatrist bedside assessment. Upon evaluation, this nurse found bulb at the base of patient's penis. Bulb was deflated and catheter was placed back into place. While aide was at bedside with patient's roommate, patient proceeded to completely remove figueroa catheter and hide under his leg. Patient reports he will not allow another one to be placed. Dr Loving notified.
--- NOTE | 2021-09-08 20:02 | P.NPUHP_ITS ---
Providers/Chief Complaint Admitting Physician: Andreea Loving MD Primary Care Provider: Mali Lerma DO Chief Complaint: n/v HPI NPU History of Present Illness History of Present Illness Michael Munoz IV is a 56 year old male with schizoaffective disorder depressed type currently on multiple psychiatric medications. Per note on admission to medical floor, patient had been more confused and disorganized for a few days prior to his admission. The patient reports that he is here in the hospital to help others that may benefit from his special abilities. The patient was admitted for hyponatremia and management of constipation. Hospital service was requested to admit him for management of constipation and hyponatremia. The patient reports history of auditory hallucinations in the past and reports that he had been compliant with his medications provided by Dr. Lerma. He reports no suicidal or homicidal thoughts. He reports problems with concentration and reports that he is ready to go home. Past Psychiatric Hx: notable for multiple inpatient hospitalizations, most recent two years ago outpatient tx: [facility] in the distant past per patient Medications: Geodon 80mg twice a day, Cogentin 2mg/daily, zoloft 50mg in am, Mirtazipine 30mg at night, Buproprion [id number] in am, Trazodone 100mg at night, Klonopin .5mg at night, Medical History? Anxiety BPH (benign prostatic hyperplasia) Chronic dryness of both eyes Chronic low back pain COPD (chronic obstructive pulmonary disease) Dyslipidemia Enrolled in chronic care management Generalized anxiety disorder GERD (gastroesophageal reflux disease) Nicotine dependence, cigarettes, uncomplicated ??Surgical History? History of appendectomy History of tonsillectomy Home Medications: Home Medications ?Medication ?Instructions ?Recorded ?Confirmed ?Last Taken ?Type aspirin 81 mg tablet,delayed 81 mg PO DAILY 06/18/19 09/07/2110/24 History release (Adult Aspirin Regimen) ? famotidine 10 mg tablet 10 mg PO DAILY PRN 07/16/19 09/07/21 Unknown History albuterol sulfate 90 mcg/actuation 2 puff INHALATION Q6H PRN #8.5 g 07/31/21 09/07/21 Unknown Rx aerosol inhaler (Ventolin HFA) ? celecoxib 200 mg capsule 200 mg PO DAILY #90 cap 07/31/21 09/07/21 Un known Rx fluticasone 500 mcg-salmeterol 50 1 inh INHALATION BID #60 each 07/31/21 09/07/21 Unknown Rx mcg/dose blistr powdr for ? inhalation (Advair Diskus) ? tramadol 50 mg tablet 50 mg PO TID PRN #90 tab 07/31/21 09/07/21 Unkn own Rx sertraline 50 mg tablet (Zoloft) 50 mg PO DAILY #90 tab 08/10/21 07/06/26 Unknown Rx benztropine 2 mg tablet 2 mg PO DAILY #90 tab 09/01/21 09/07/21 Unkno wn Rx hydroxyzine pamoate 25 mg capsule 25 mg PO TID PRN #270 cap 09/01/21 09/07/21 Unknown Rx (Vistaril) ? mirtazapine 30 mg tablet 30 mg PO .at bed #90 tab 09/01/21 09/07/21A Unknown Rx trazodone 100 mg tablet 100 mg PO .HS #90 tab 09/01/21 09/07/21 Unkno wn Rx ziprasidone HCl 80 mg capsule 80 mg PO BID #180 cap 09/01/21 09/07/21 Unknown Rx (Geodon) ? clonazepam 0.5 mg tablet (Klonopin) 0.5 mg PO DAILY #30 tab 09/02/21 09/07/21 Unknown Rx bupropion HCl 150 mg 24 hr tablet, 150 mg PO DAILY 09/07/2109/07 Unknown History extended release ? ?A ? ? ? fluticasone 500 mcg-salmeterol 50 1 ea INHALATION BID 09/07/21 Unknown History mcg/dose blistr powdr for ? inhalation (Wixela Inhub) ? gemfibrozil 600 mg tablet 600 mg PO BID 09/07/21 09/07/21 Unkno wn History Social Hx: born in [facility], raised by 2 parents, has 1 sibling, no hx of sexual, physical or emotional abuse, he is on disability, reports living in [place] by himself, has been x2, has adult aged children, reports [facility] a history of learning problems. 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 Drug/EtoH hx: denies, he smokes 1.5 ppd for several years. Meds NPU Home Medications Medication Instructions Recorded Confirmed Last Taken Type aspirin 81 mg tablet,delayed 81 mg PO DAILY 06/18/19 09/07/21 07/13/19 History release (Adult Aspirin Regimen) famotidine 10 mg tablet 10 mg PO DAILY PRN 07/16/19 09/07/21 Unknown History albuterol sulfate 90 mcg/actuation 2 puff INHALATION Q6H PRN #8.5 g 07/31/2106/26 Unknown Rx aerosol inhaler (Ventolin HFA) celecoxib 200 mg capsule 200 mg PO DAILY #90 cap 07/31/21 09/07/21 Unknown Rx fluticasone 500 mcg-salmeterol 50 1 inh INHALATION BID #60 each 07/31/21 09/07/21 Unknown Rx mcg/dose blistr powdr for inhalation (Advair Diskus) tramadol 50 mg tablet 50 mg PO TID PRN #90 tab 07/31/21 09/07/21 Unknown Rx sertraline 50 mg tablet (Zoloft) 50 mg PO DAILY #90 tab 08/10/21 09/07/21 Unknown Rx benztropine 2 mg tablet 2 mg PO DAILY #90 tab 09/01/21 09/07/21 Unknown Rx hydroxyzine pamoate 25 mg capsule 25 mg PO TID PRN #270 cap 09/01/21 09/07/21 Unknown Rx (Vistaril) mirtazapine 30 mg tablet 30 mg PO .at bed #90 tab 09/01/21 09/07/21 Unknown Rx trazodone 100 mg tablet 100 mg PO .HS #90 tab 09/01/21 09/07/21 Unknown Rx ziprasidone HCl 80 mg capsule 80 mg PO BID #180 cap 09/01/21 09/07/21 Unknown Rx (Geodon) clonazepam 0.5 mg tablet (Klonopin) 0.5 mg PO DAILY #30 tab 09/02/21 09/07/21 Unknown Rx bupropion HCl 150 mg 24 hr tablet, 150 mg PO DAILY 09/07/21 09/07/21 Unknown History extended release fluticasone 500 mcg-salmeterol 50 1 ea INHALATION BID 09/07/21 09/07/21 Unknown History mcg/dose blistr powdr for inhalation (Titodarren Danielub) gemfibrozil 600 mg tablet 600 mg PO BID 09/07/21 09/07/21 Unknown History Allergies Allergy/AdvReac Type Severity Reaction Status Date / Time Penicillins Allergy Severe throat Verified 09/07/21 13:34 swell PFS NPU PFS: Medical History Anxiety BPH (benign prostatic hyperplasia) Chronic dryness of both eyes Chronic low back pain COPD (chronic obstructive pulmonary disease) Dyslipidemia Enrolled in chronic care management Generalized anxiety disorder GERD (gastroesophageal reflux disease) Nicotine dependence, cigarettes, uncomplicated Psychiatric care Schizoaffective disorder, unspecified Surgical History History of appendectomy History of tonsillectomy Family History Other Cancer Social History Smoking and tobacco status: current every day smoker cigarettes Packs smoked per day: 1.5 and smokeless tobacco Smoking risk assessment/counseling performed?: Yes Tobacco counseling given: counseling >3 minutes Alcohol intake: never Mental Status Exam MSE Comments: Very confused white male who was sitting on the bed, he appeared to be uncomfortable and was trying to pull out his catheter repeatedly. He was difficult to redirect, on interview. His hygiene was poor. His gait was unable to assess. He knew his birthday, but was not alert and oriented to person place and time. His mood was described as allright, His affect was odd. He did not appear to be responding to internal stimuli. He was unable to spell the word world backwards. Attention appreciated his immediate recall was 3 out of 3 with 0 out of 3 words remembered after 3 minutes He he was unable to interpret any abstract proverbs with clear evidence of disorganized thinking, thought content show no evidence of thoughts to hurt himself or others his insight was impaired his judgment was poor Vitals/I&O/Wt Last Vital Signs Temp 98.1 F 09/08/21 11:01 Pulse 64 09/08/21 15:45 Resp 16 09/08/21 15:45 BP 119/96 09/08/21 15:45 Pulse Ox 96 09/08/21 15:45 09/08/21 09/08/21 09/08/21 06:59 14:59 22:59 Intake Total 1480 / 1480 240 / 1720 Output Total 1075 / 2275 1600 / 1600 Balance -1075 / -2035 1480 / 1480 -1360 / 120 Weight last 48 hrs Weight 77.111 kg Weight 77.111 kg Physical Exam Urinary Catheter Management: Park: Cath Placed During This Visit: yes, but has since been removed by the nurse Reason for Continuing Indwelling Catheter: Decision to DC Catheter Urinary Catheter Date of Insertion: 09/07/21 Urinary Catheter Time of Insertion: 23:15 Date Urinary Catheter Removed: 09/08/21 Time Urinary Catheter Discontinued: 18:00 Data NPU : 09/08/21 04:48 09/08/21 17:35 A&P Assessment and plan (1) Altered mental status: Status: Acute (2) Schizoaffective disorder, unspecified: Status: Acute (3) Hyponatremia: Status: Acute (4) Constipation: Status: Acute Plan 56 year old white male with acute mental status changes with a history of psycho sis currently with no reported outpatient provider. Once delirium resolves he would benefit from inpatient hospitalization at NPU to adjust medications. I will follow while on medicine floor. Attestations NPU Medical Necessity Statement*: He will continue to require at least 2 midnights on NPU once stabilized on medical floor with likely stay at NPU 4-6 additional days. 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
[2021-09-09] VITALS (8 sets, daily range): BP systolic 78–136; BP diastolic 60–79; PULSE 59–124; RESP 12–22; TEMP 36.5–39.1; O2SAT 90–100
[2021-09-09] MEDS: sodium chloride 0.9% 1,000 ML 75 ML IV ×2 (00:02→19:07)
[2021-09-09] MEDS: ziprasidone hcl 40 mg Capsule PO ×3 (00:45→11:11)
[2021-09-09] MEDS: ziprasidone 20 mg/mL SDV 10 MG IM (02:10)
[2021-09-09] MEDS: haloperidol inj 5 mg/mL INJ 1 mL 4 MG IM (02:53)
[2021-09-09 08:35] LABS: Basophils % 0.3 %; Eosinophils # 0.1 10^3/uL (0.0-0.8); Eosinophils % 0.3 %; Hematocrit 37.5 % (42.0-52.0); Hemoglobin 13.5 g/dL (11.7-16.6); Lymphocytes # 0.7 10^3/uL (0.8-4.8); Lymphocytes % 4.6 %; Mean Corpuscular Hemoglobin 31.3 pg (28.0-34.0); Mean Corpuscular Volume 86.8 fl (80-94); Mean Platelet Volume 9.3 fL (7.4-10.4); Monocytes # 0.2 10^3/uL (0.2-0.9); Monocytes % 1.3 %; Neutrophils # 13.85 10^3/uL (1.8-7.7); Neutrophils % 92.8 %; Nucleated Red Blood Cells % 0 %; Platelet Count 344 10^3/cmm (130-400); Red Blood Count 4.32 10^6/uL (4.1-5.3); Red Cell Distribution Width 11.8 % (12.1-15.1); White Blood Count 14.9 10^3/uL (4.0-10.0)
[2021-09-09] MEDS: sodium chloride 1 gm Tablet PO ×2 (08:36→17:54)
[2021-09-09] MEDS: sennosides-docusate Tablet 1 TAB PO (08:36)
[2021-09-09] MEDS: tamsulosin 0.4 mg Capsule 0.8 MG PO (08:36)
[2021-09-09 09:04] LABS: Anion Gap 15.6 (5-19); Blood Urea Nitrogen 8 mg/dL (6-20); Calcium 8.1 mg/dL (8.5-10.5); Carbon Dioxide 24 mmol/L (22-29); Chloride 95 mmol/L (98-107); Glomerular Filtration Rate 138.4 mL/min (90-130); Glucose 107 mg/dL (65-115); Osmolality Calculated 271 mOsm/kg (285-295); Potassium 3.6 mmol/L (3.5-5.1); Sodium 131 mmol/L (136-145)
--- NOTE | 2021-09-09 09:48 | PC.NURSE ---
patient is confused and attempting to disturb adjoining patient. Nurse and security have been notified.
[2021-09-09] MEDS: nitrofurantoin SR (BID) 100 mg Capsule PO ×2 (11:12→17:59)
--- NOTE | 2021-09-09 14:15 | XR_ITS ---
WS: [id number] Portable AP semiupright chest, PA and lateral chest, 04/22/2015. Clinical Data: r/o pneumonia Comparison: None. Findings: No nodules, masses or effusions are seen. The heart is normal. The pulmonary vascularity is not increased. No pneumonia or pneumothorax is seen. The aortic arch and descending thoracic aorta s how mild tortuosity. XR/XR chest 1V portable [id number] Impression: Atherosclerosis.
[2021-09-09] MEDS: acetaminophen 500 mg Tablet PO ×2 (14:44→21:22)
[2021-09-09] MEDS: enoxaparin 40 mg/0.4 mL Syringe SUBCUT (14:45)
[2021-09-09 16:17] LABS: Osmolality Serum 257 mOsm/kg (278-305)
[2021-09-09 16:17] LABS: Osmolality Urine 420 mOsm/kg (50-1200)
--- NOTE | 2021-09-09 16:35 | PM.MISC ---
Miscellaneous Note Purpose of Documentation: Courtesy note UROLOGY Note: I came to check on the patient today after having a conversation with Dr. leal night the patient pulled his Park catheter out. Catheter was replaced by nursing staff later without difficulty and his urine cleared. Since then the catheter has been removed and he has been voiding okay according to his one-on-one attendant. No further recommendations at this time. Please call if difficulty voiding becomes an issue. It would not surprise me if he had some intermittent blood in his urine related to forcible catheter withdrawal
[2021-09-09 17:06] LABS: Urine Random Sodium 93 mmol/L
[2021-09-09] MEDS: ziprasidone hcl 40 mg Capsule 80 MG PO (17:54)
--- NOTE | 2021-09-09 19:07 | P.PN_ITS ---
Subjective Subjective: Seen this morning. Patient forcefully removed out his Park yesterday but later it was removed. He is voiding okay since then. He also pulled out his IV several times. He spiked a fever 101.3 this morning and has elevated white count 14.9. He is requiring one-to-one sitter. Eventually he is to go to [facility]. Vitals/I&O/Wt Last Vital Signs Temp 102.4 F H 09/09/21 15:58 Pulse 124 H 09/09/21 15:58 Resp 12 09/09/21 15:58 BP 106/62 09/09/21 15:58 Pulse Ox 90 09/09/21 15:58 09/09/21 09/09/21 09/09/21 06:59 14:59 22:59 Intake Total 100 / 2820 240 / 240 Balance 100 / 1220 240 / 240 Physical Exam Narrative: Alert oriented Delusional disorganized thinking Nonfocal neuro exam Normal S1-S2 no murmurs rubs or gallops Abdomen soft, nontender Saturating well on room air Pleasant and cooperative during my evaluation however as I was leaving the room patient attempted to pull out his IV and tried to get out of bed again. Later on he was attempting to say prayers on his roommate. He has been hallucinating as well. Urinary Catheter Management: Park: Cath Placed During This Visit: yes, but has since been removed by the nurse Reason for Continuing Indwelling Catheter: Decision to DC Catheter Urinary Catheter Date of Insertion: 09/07/21 Urinary Catheter Time of Insertion: 23:15 Date Urinary Catheter Removed: 09/08/21 Time Urinary Catheter Discontinued: 18:00 Data : 09/09/21 08:12 09/09/21 08:12 A&P Assessment and plan (1) Delusional disorder: Status: Acute (2) Altered mental status: Status: Acute (3) Hyponatremia: Status: Acute (4) Constipation: Status: Acute (5) COPD (chronic obstructive pulmonary disease): Status: Chronic Qualifiers: COPD type: emphysema Emphysema type: panlobular Qualified Code(s): J43.1 - Panlobular emphysema (6) Dyslipidemia: Status: Chronic (7) BPH (benign prostatic hyperplasia): Status: Chronic Qualifiers: Lower urinary tract symptom presence: symptoms present Lower urinary tract symptom detail: urinary frequency Qualified Code(s): N40.1 - Benign prostatic hyperplasia with lower urinary tract symptoms; R35.0 - Frequency of micturition (8) Generalized anxiety disorder: Status: Acute (9) Schizoaffective disorder, unspecified: Status: Acute Plan #Schizoaffective disorder #Hyponatremia most likely secondary to SIADH #BPH #Constipation #Generalized anxiety disorder #Delusional disorder ?Sodium is better today. Continue salt tablets. 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 Will discuss with ps ychiatrdung regarding this. ? Psych following patient. Patient is supposed to go to Neuropsych Unit at some point once medically cleared. ? Patient had a temp of 101.3 today. WBC count rising. Unsure what source of infection might be. I will do urine culture and chest x-ray. I will monitor patient on floor today. Continue IV fluids for now. Since patient has been pulling out IVs over and over again I will treat for UTI empirically with Macrobid for now. Patient was complaining of abdominal pain when he first presented to the hospital. Urine culture to be sent as well. I will check procalcitonin. ?Park catheter removed yesterday. Dr. Garcia saw patient today as well. Urine has been clear. He is voiding without any issues. Tamsulosin is added and we will continue for now. ?Continue patient on bowel regimen Full code Transfer to neuropsych once medically clear. DVT prophylaxis added Attestations Medical Necessity Statement*: Patient will go to neuropsychiatric unit once medically cleared. I expect him to stay in the hospital at least next few days. 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
[2021-09-09 19:20] LABS: Urine Appearance Hazy (CLEAR); Urine Color Yellow (Yellow)
[2021-09-09 19:21] LABS: Add Urine Culture? Yes; Add Urine Microscopic? YES; Bacteria Urine 3+ /hpf; Bilirubin Urine Neg (Negative); Blood Urine 3+ (Negative); Glucose Urine UA Norm (Normal); Ketones Urine 1+ (Negative); Leukocyte Esterase Urine 2+ (Negative); Nitrate Urine Negative (Negative); Protein Urine Neg (Negative); RBC Urine 0-4 /hpf (0-2); Urobilinogen Urine Norm (Negative); WBC Urine TOO NUMEROUS TO CNT /hpf (0-5); pH Urine 7 (5-7)
[2021-09-10] VITALS (7 sets, daily range): BP systolic 87–110; BP diastolic 54–69; PULSE 60–90; RESP 12–18; TEMP 36.5–37.2; O2SAT 92–100
[2021-09-10] MEDS: ciprofloxacin 400 MG/200 ML PREMIX 200 MG IV (01:07)
[2021-09-10 01:19] LABS: Basophils % 0.2 %; Hematocrit 32.9 % (42.0-52.0); Hemoglobin 11.9 g/dL (11.7-16.6); Lymphocytes # 0.4 10^3/uL (0.8-4.8); Lymphocytes % 2.3 %; Mean Corpuscular HGB Conc 36.2 g/dL (30.0-36.0); Mean Corpuscular Hemoglobin 31.1 pg (28.0-34.0); Mean Corpuscular Volume 85.9 fl (80-94); Mean Platelet Volume 9.4 fL (7.4-10.4); Monocytes # 0.2 10^3/uL (0.2-0.9); Monocytes % 0.9 %; Neutrophils # 15.44 10^3/uL (1.8-7.7); Neutrophils % 95.9 %; Nucleated Red Blood Cells % 0 %; Platelet Count 230 10^3/cmm (130-400); Red Blood Count 3.83 10^6/uL (4.1-5.3); Red Cell Distribution Width 11.9 % (12.1-15.1); White Blood Count 16.1 10^3/uL (4.0-10.0)
[2021-09-10 01:44] LABS: Anion Gap 16.3 (5-19); Blood Urea Nitrogen 16 mg/dL (6-20); Calcium 7.7 mg/dL (8.5-10.5); Carbon Dioxide 21 mmol/L (22-29); Chloride 95 mmol/L (98-107); Creatinine Clr Calc Pharmacy 110.1938; Glomerular Filtration Rate 99.3 mL/min (90-130); Glucose 102 mg/dL (65-115); Magnesium 1.9 mg/dL (1.7-2.3); Osmolality Calculated 269 mOsm/kg (285-295); Potassium 3.3 mmol/L (3.5-5.1); Sodium 129 mmol/L (136-145)
[2021-09-10 01:44] LABS: Lactate (Lactic Acid level) 1.2 mmol/L (0.5-2.2)
[2021-09-10 01:50] LABS: Procalcitonin 24.95 ng/mL (0-0.5)
[2021-09-10] MEDS: ziprasidone hcl 40 mg Capsule 80 MG PO ×2 (06:25→17:06)
--- NOTE | 2021-09-10 06:27 | PC.NURSE ---
acording to sitter, patient was masturbating earlier and had asked sitter for vaseline
[2021-09-10] MEDS: sodium chloride 0.9% 1,000 ML 75 ML IV ×2 (06:29→20:54)
--- NOTE | 2021-09-10 07:44 | P.PN_ITS ---
Subjective Subjective: Seen this morning. Blood pressure overnight dropped. Procalcitonin 24. Blood cultures were drawn. Patient was started on IV ciprofloxacin. Nursing staff was able to obtain IV access. Urine culture still pending. WBC count 16,000 Denies chest pain, abdominal pain, urinary complaints. ROS completely negative except a mild cough. He is a smoker and attributes it to smoking. Howver patient is delusional and confused at times. Disorganized thoughts and thinking. Unable to provide a HPI Vitals/I&O/Wt Last Vital Signs Temp 97.7 F 09/10/21 07:42 Pulse 72 09/10/21 07:42 Resp 18 09/10/21 07:42 BP 106/68 09/10/21 07:42 Pulse Ox 98 09/10/21 07:42 09/09/21 09/10/21 09/10/21 22:59 06:59 14:59 Intake Total 360 / 1600 1152.5 / 2752.5 Output Total 425 / 425 Balance 360 / 1600 727.5 / 2327.5 Physical Exam Narrative: Alert oriented Delusional disorganized thinking Nonfocal neuro exam Normal S1-S2 no murmurs rubs or gallops Abdomen soft, nontender Saturating well on room air Pleasant and cooperative during my evaluation. Unable to provide a history. Urinary Catheter Management: Park: Cath Placed During This Visit: yes, but has since been removed by the nurse Reason for Continuing Indwelling Catheter: Acute Urinary Retention or Obstruction Urinary Catheter Date of Insertion: 09/07/21 Urinary Catheter Time of Insertion: 23:15 Date Urinary Catheter Removed: 09/08/21 Time Urinary Catheter Discontinued: 18:00 Data : 09/10/21 01:09 09/10/21 01:09 Micro: Microbiology 09/10/21 01:03 Blood Culture - Preliminary Blood SPECIMEN COLLECTED 09/10/21 01:09 Blood Culture - Preliminary Blood SPECIMEN COLLECTED A&P Assessment and plan (1) Delusional disorder: Status: Acute (2) Altered mental status: Status: Acute (3) Hyponatremia: Status: Acute (4) COPD (chronic obstructive pulmonary disease): Status: Chronic Qualifiers: COPD type: emphysema Emphysema type: panlobular Qualified Code(s): J43.1 - Panlobular emphysema (5) Dyslipidemia: Status: Chronic (6) BPH (benign prostatic hyperplasia): Status: Chronic Qualifiers: Lower urinary tract symptom detail: urinary frequency Lower urinary tract symptom presence: symptoms present Qualified Code(s): N40.1 - Benign prostatic hyperplasia with lower urinary tract symptoms; R35.0 - Frequency of micturition (7) Generalized anxiety disorder: Status: Acute (8) Schizoaffective disorder, unspecified: Status: Acute (9) Nicotine dependence, cigarettes, with unspecified nicotine-induced disorders: Status: Chronic Plan #Schizoaffective disorder #Hyponatremia most likely secondary to SIADH #BPH #Constipation #Generalized anxiety disorder #Delusional disorder #Sepsis secondary to unknown source, leukocytosis, hypotension ?Continue salt tablets.? Work-up consistent with SIADH. ? Psych following patient.? Patient is supposed to go to Neuropsych Unit at some point once medically cleared. ? Patient had temperature 101.3 yesterday. WBC count rising. Unknown source of infection at this time. Unable to start IV antibiotics due to multiple attempts by nursing staff to obtain IV but repeatedly patient pulling them out. He was placed on oral Macrobid to cover for potential UTI. Overnight he was started on IV ciprofloxacin since IV access was obtained. ? Blood cultures repeated and pending ? Urine culture pending ? Check sputum gram stain culture ? Chest CT abdomen pelvis done on admission 09/07 did not show any gross pathology. -We will switch to broad-spectrum antibiotics at this time Vanco, aztreonam. Patient is allergic to penicillins and has throat swelling due to it. ?Park catheter removed 09/08.? Dr. Garcia saw patient today as well.? Urine has been clear.? He is voiding without any issues.? Tamsulosin is added and we will continue for now. ?Continue patient on bowel regimen Full code Transfer to neuropsych once medically clear. DVT prophylaxis: Lovenox 40 daily Attestations Medical Necessity Statement*: Patient want to stay in the hospital for management of sepsis secondary to unknown source of infection at this time. After being medically cleared he will be transferred to psych unit for further management of its schizoaffective disorder. Coding Level of Care Code Acute Environmental Associate for [facility] Diagnoses Delusional disorder F22 Altered mental status R41.82 Hyponatremia E87.1 COPD (chronic obstructive pulmonary disease) J43.1 COPD type: emphysema Emphysema type: panlobular Dyslipidemia E78.5 BPH (benign prostatic hyperplasia) N40.1; R35.0 Lower urinary tract symptom detail: urinary frequency Lower urinary tract symptom presence: symptoms present Generalized anxiety disorder F41.1 Schizoaffective disorder, unspecified F25.9 Nicotine dependence, cigarettes, with unspecified nicotine-induced disorders F17.219
[2021-09-10] MEDS: aztreonam 1,000 MG in sodium chloride 0.9% (plus) 50 ML 100 MG IV ×2 (08:00→20:53)
[2021-09-10] MEDS: sennosides-docusate Tablet 1 TAB PO ×2 (08:04→17:06)
[2021-09-10] MEDS: tamsulosin 0.4 mg Capsule 0.8 MG PO (08:04)
[2021-09-10] MEDS: potassium chloride ER 20 mEq Tablet 40 MEQ PO (08:04)
[2021-09-10] MEDS: sodium chloride 1 gm Tablet PO ×2 (08:04→17:06)
[2021-09-10] MEDS: enoxaparin 40 mg/0.4 mL Syringe SUBCUT (12:25)
--- NOTE | 2021-09-10 18:01 | PC.NURSE ---
Patient sitting at side of bed and has been resting in bed most of shift, OOBTC and restroom. Patient continues to have sitter at bedside, confused inappropriate thoughts, family visited during shift. Patient pulled out an IV early in the day and has kept new one in. Frequent self turns, room clean and clutter free with call light in reach.
[2021-09-10] MEDS: trazodone 50 mg Tablet 25 MG PO (21:55)
[2021-09-10] MEDS: acetaminophen 500 mg Tablet PO (22:13)
[2021-09-11] VITALS (10 sets, daily range): BP systolic 98–130; BP diastolic 50–81; PULSE 70–137; RESP 16–21; TEMP 36.7–38.8; O2SAT 95–100
--- NOTE | 2021-09-11 00:01 | USCV_ITS ---
Michael Munoz IV Age: 56 Gender: M : 1965 Exam Date: 09/11/2021 00:14 Ordering Phys: Victoriano Hargrove MD Technologist: RUBY [place] [facility] [place]: 2+ pitting edema RUE x 2 hrs following IV infiltrate. RT arm feels hot to the touch, is painful. No hx DVT per patient. HISTORY: 2+ pitting edema RUE x 2 hrs following IV infiltrate. RT arm feels hot to the touch, is painful. No hx DVT per patient. PROCEDURES: Venous duplex imaging was performed in only the right upper extremity. The following venous structures were evaluated: internal jugular vein, subclavian vein, axillary vein, and brachial veins.in addition, the basilic vein, cephalic vein, radial vein, and ulnar vein. Serial compression, augmentation maneuvers, and spectral Doppler flow evaluation were performed which were normal. FINDINGS: The veins of the right upper extremity are readily compressible with normal venous flow dynamics including spontaneous flow, respiratory phasic variation and augmentation. CONCLUSIONS No right upper extremity DVT. Dr. Lora Hubbard DO (Electronically Signed) Final Date: 11 September 2021 07:26 S
[2021-09-11] MEDS: acetaminophen 500 mg Tablet PO (00:05)
--- NOTE | 2021-09-11 02:34 | PC.NURSE ---
IV line to right AC infiltrated, right arm hard, and swollen, IV removed, right arm elevated and warm compress applied, new IV started to left forearm, around 2300, Hospitalist notified, fever spiked to 101.9, BP dropped to 98/50 manually, pulse increased to 134, call placed to Hospitalist and new order received for one time dose of tylenol 500 mg, blood culture stat ordered and venous Doppler to right arm. cool compress applied to decrease temp, patient denied chest pain, nausea, SOB. Tele placed for continued monitoring.
[2021-09-11 06:30] LABS: Hematocrit 32.4 % (42.0-52.0); Hemoglobin 11.6 g/dL (11.7-16.6); Mean Corpuscular HGB Conc 35.8 g/dL (30.0-36.0); Mean Corpuscular Hemoglobin 30.8 pg (28.0-34.0); Mean Corpuscular Volume 85.9 fl (80-94); Mean Platelet Volume 10.2 fL (7.4-10.4); Platelet Count 167 10^3/cmm (130-400); Red Blood Count 3.77 10^6/uL (4.1-5.3); Red Cell Distribution Width 12.1 % (12.1-15.1); White Blood Count 11.9 10^3/uL (4.0-10.0)
[2021-09-11] MEDS: ziprasidone hcl 40 mg Capsule 80 MG PO ×2 (06:34→17:23)
[2021-09-11 06:47] LABS: Anion Gap 15.4 (5-19); Blood Urea Nitrogen 14 mg/dL (6-20); Calcium 7.7 mg/dL (8.5-10.5); Carbon Dioxide 21 mmol/L (22-29); Chloride 97 mmol/L (98-107); Glomerular Filtration Rate 115.8 mL/min (90-130); Glucose 116 mg/dL (65-115); Osmolality Calculated 271 mOsm/kg (285-295); Potassium 3.4 mmol/L (3.5-5.1); Sodium 130 mmol/L (136-145)
[2021-09-11 07:13] LABS: Slide Review Slide Review Perform
[2021-09-11 07:14] LABS: Absolute Segmented Neutrophil 8.8 10/cmm (1.6-7.1); Band Neutrophils Absolute 2.6 10^3/cmm (0.0-1.2); Lymphocytes 2 %; Segmented Neutrophils 74 %; Total Cells Counted 100 (0-100)
[2021-09-11 07:15] LABS: Eosinophils 0 %; Lymphocytes Absolute 0.2 10^3/cmm (1.2-3.4); Monocytes Absolute 0.2 10^3/cmm (0.1-0.6)
[2021-09-11 07:16] LABS: Absolute Neutrophil 11.4 10^3/cmm (1.4-6.5); Platelet Estimate Normal (Normal)
--- NOTE | 2021-09-11 08:02 | CT_ITS ---
WS: [id number] CT ABDOMEN PELVIS TECHNIQUE: Contrast-enhanced CT of the abdomen and pelvis with coronal and sagittal reformatted image s. CLINICAL INFORMATION: bandemia, urine positive for gram neg rods COMPARISON: CT September 07, 2021 DLP: 978.[address] scans at [facility] use at least one of these dose optimization techniques: automated e xposure control; mA and/or kV adjustment per patient size (includes targeted exams where dose is matc hed to clinical indication); or iterative reconstruction. FINDINGS: Tiny bilateral pleural effusions with slight atelectasis in the lung bases is new from September 07, 2021L rip bases otherwise well aerated. Mild diffuse fatty infiltration liver. Mild hepatomegaly. Normal spleen. Small esophageal hiatal anna ia. Normal portal vein and splenic vein. Mild gallbladder wall enhancement. Suggestion of a small bob unt of fluid in the gallbladder fossa with mild wall thickening. Recommend correlation with biliary f unction studies. This can be further evaluated with ultrasound. Adrenal glands are normal. Normal renal parenchymal enhancement. Mild to moderate RIGHT ureterectasis is new from previous with surrounding induration although no obstructing renal or ureteral calculi. Marked urinary distention of the bladder. Recommend correlation for UTI. Mild perinephric edema about both kidneys is nonspecific but can be seen with developing pyelonephritis. No significant hydroneph rosis in either kidney. Normal caliber abdominal aorta. Celiac and SMA are normal. Mild aortic calcification.Urine distended bladder. Small cystocele. No evidence of high-grade small or large bowel obstruction. Normal lumbar s pine. Prominent prostate measuring 5.[address]/CT abdomen pelvis w con* [id number] IMPRESSION: 1. Mild gallbladder wall enhancement with suggestion of gallbladder wall edema and fluid in the gallbladder fossa. This appears new from previous. Recommend further evaluation with ultrasound. Visualized common bile duct appears decompr essed. No visualized cholelithiasis 2. Tiny bilateral pleural effusions with compressive atelectasis in the lung b ases is new from previous. 3. Urine distended bladder with small cystocele. 4. Mild RIGHT ureterectasis with surrounding induration is new from previous. No obstructing calculi. This may be due to chronic bladder outlet obstruction or developing pyelonephritis. Recommend correlation for UTI. 5. Prominent prostate measures 5.1 CM. Notified Kaya Burns MD at 09/11/2021 11:24 AM.
[2021-09-11] MEDS: sodium chloride 1 gm Tablet PO ×2 (09:10→17:23)
[2021-09-11] MEDS: meropenem 1,000 MG in sodium chloride 0.9% (plus) 50 ML 100 MG IV (09:10)
[2021-09-11] MEDS: levofloxacin-dextrose 5 % 500 MG/100 ML PREMIX 100 MG IV (09:10)
[2021-09-11] MEDS: tamsulosin 0.4 mg Capsule 0.8 MG PO (09:11)
[2021-09-11] MEDS: sennosides-docusate Tablet 1 TAB PO ×2 (09:11→17:23)
[2021-09-11] MEDS: sodium chloride 0.9% 1,000 ML 75 ML IV (09:21)
[2021-09-11] MEDS: potassium chloride ER 20 mEq Tablet 40 MEQ PO ×2 (09:21→17:23)
[2021-09-11] MEDS: iohexol 350 mg/mL 100 mL Btl IV (10:54)
--- NOTE | 2021-09-11 11:33 | USR_ITS ---
PROCEDURE INFORMATION: Exam: US Abdomen, Limited; Right Upper Quadrant Exam date and time: 09/11/2021 4:34 PM Age: 56 years old Clinical indication: Other: See CT; Patient HX: PT denied pain. PT is npo; Additional info: R/O cholecystitis, TECHNIQUE: Imaging protocol: Real time ultrasound of the abdomen with image documentation. Limited exam focused on the right upper quadrant. COMPARISON: CT abdomen pelvis w con* [id number] 09/11/2021 10:46 AM FINDINGS: Liver: Mildly enlarged with the right hepatic lobe measuring 18.8 cm in length. No masses. Gallbladder: No evidence of gallstones, trace gallbladder sludge. Nonspecific gallbladder wall thickening. Biliary ducts: Normal. No stones. No dilation. Pancreas: Poorly visualized due to overlying bowel gas and soft tissues. Right kidney: Right kidney measures 13.1 cm in length. No mass. No hydronephrosis. US/US abdomen limited [id number] IMPRESSION: 1. Diffuse gallbladder wall thickening without evidence of gallstones. Imaging appearance is nonspecific and could reflect cholecystitis or represent sequela of a secondary etiology. Correlate with clinical exam. 2. Mild hepatomegaly.
--- NOTE | 2021-09-11 11:41 | PM.PN ---
Subjective Subjective: Seen this morning. Patient has developed a bandemia elevated white count. Overnight developed a fever. His IV infiltrated once again so a new 1 was placed. Does complain of some dysuria but otherwise no abdominal pain or any other symptoms at this time. Has a very mild cough which he attributes this to be his chronic cough. Vitals/I&O/Wt Last Vital Signs Temp 98.6 F 09/11/21 11:35 Pulse 88 09/11/21 11:35 Resp 16 09/11/21 11:35 BP 130/80 09/11/21 11:35 Pulse Ox 100 09/11/21 11:35 09/10/21 09/11/21 09/11/21 22:59 06:59 14:59 Intake Total 1530 / 2710 850 / 3560 1293.75 / 1293.75 Output Total 530 / 1130 1675 / 2805 Balance 1000 / 1580 -825 / 755 1293.75 / 1293.75 Physical Exam Narrative: Alert oriented Delusional disorganized thinking Nonfocal neuro exam Normal S1-S2 no murmurs rubs or gallops Abdomen soft, nontender overall with very mild tenderness at pelvic region, Lungs clear to auscultation b/l, no wheezes/ronchi or crackles Saturating well on room air Pleasant and cooperative during my evaluation. Unable to provide a history. Urinary Catheter Management: Figueroa: Cath Placed During This Visit: yes, but has since been removed by the nurse Reason for Continuing Indwelling Catheter: Other Urinary Catheter Date of Insertion: 09/07/21 Urinary Catheter Time of Insertion: 23:15 Date Urinary Catheter Removed: 09/10/21 Time Urinary Catheter Discontinued: 18:00 Data : 09/11/21 06:08 09/11/21 06:08 Micro: Microbiology 09/09/21 15:33 Urine Culture - Final Urine,Clean Catch Escherichia coli 09/10/21 01:03 Blood Culture - Preliminary Blood NEGATIVE TO DATE 09/10/21 06:08 Blood Culture - Preliminary Blood SPECIMEN COLLECTED 09/10/21 06:08 Blood Culture - Preliminary Blood SPECIMEN COLLECTED 09/10/21 01:09 Blood Culture - Preliminary Blood NEGATIVE TO DATE A&P Assessment and plan (1) Delusional disorder: Status: Acute (2) Altered mental status: Status: Acute (3) Hyponatremia: Status: Acute (4) Constipation: Status: Acute (5) Chronic dryness of both eyes: Status: Acute (6) COPD (chronic obstructive pulmonary disease): Status: Chronic Qualifiers: COPD type: emphysema Emphysema type: panlobular Qualified Code(s): J43.1 - Panlobular emphysema (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: Status: Acute (8) Dyslipidemia: Status: Chronic (9) Generalized anxiety disorder: Status: Acute (10) Schizoaffective disorder, unspecified: Status: Acute (11) Nicotine dependence, cigarettes, with unspecified nicotine-induced disorders: Status: Chronic (12) Chronic low back pain: Status: Chronic Qualifiers: Back pain laterality: bilateral Sciatica presence: without sciatica Qualified Code(s): M54.5 - Low back pain; G89.29 - Other chronic pain (13) BPH (benign prostatic hyperplasia): Status: Chronic Qualifiers: Lower urinary tract symptom presence: symptoms present Lower urinary tract symptom detail: urinary frequency Qualified Code(s): N40.1 - Benign prostatic hyperplasia with lower urinary tract symptoms; R35.0 - Frequency of micturition (14) UTI (urinary tract infection): Status: Acute (15) Hydronephrosis: Status: Acute (16) Ureteral dilatation: Status: Acute Plan #Sepsis secondary to UTI/Early Pyelonephritis/Need to rule out cholecystitis #Schizoaffective disorder #Hyponatremia most likely secondary to SIADH #BPH #Constipation #Generalized anxiety disorder #Delusional disorder ?Continue salt tablets.? Work-up consistent with SIADH. ? Psych following patient.? Patient is supposed to go to Neuropsych Unit at some point once medically cleared. ? Again febrile overnight. - UCx shows E.Coli pansensitive. Will switch to IV ciprofloxacin - CT abd/pevlis today shows: unilateral hydronephrosis, bladder outlet obstruction, fluid in GB fossa. Will check RUQ US. - Discussed with Dr. Garcia over phone. He will be back Tuesday. Will place figueroa. Challenge with this patient is to keep figueroa in because he keeps pulling it out. Will try with 2 stat locks and anchor it where he cannot reach it. ? Blood cultures repeated and pending ? Sputum gram stain culture pending. Not expectorating. ? Chest CT abdomen pelvis done on admission 09/07 did not show any gross pathology. ?Continue patient on bowel regimen Full code Transfer to neuropsych once medically clear. DVT prophylaxis: Lovenox 40 daily Attestations Medical Necessity Statement*: Patient want to st ay in the hospital for management of sepsis secondary to UTI/early pyelo .? After being med ically cleared he will be transferre d to psych unit fo r further manageme nt of its schizoaf fective disorder. Coding Level of Care Code Acute Information Clerk for [facility] Diagnoses Delusional disorder F22 Altered mental status R41.82 Hyponatremia E87.1 Constipation K59.00 Chronic dryness of both eyes H04.123 COPD (chronic obstructive pulmonary disease) J43.1 COPD type: emphysema Emphysema type: panlobular longterm (current) use of opiate analgesic Z79.891 Dyslipidemia E78.5 Generalized anxiety disorder F41.1 Schizoaffective disorder, unspecified F25.9 Nicotine dependence, cigarettes, with unspecified nicotine-induced disorders F17.219 Chronic low back pain M54.5; G89.29 Back pain laterality: bilateral Sciatica presence: without sciatica BPH (benign prostatic hyperplasia) N40.1; R35.0 Lower urinary tract symptom presence: symptoms present Lower urinary tract symptom detail: urinary frequency UTI (urinary tract infection) N39.0 Hydronephrosis N13.30 Ureteral dilatation N28.82 Time Spent (min) 30
[2021-09-11] MEDS: enoxaparin 40 mg/0.4 mL Syringe SUBCUT (12:53)
[2021-09-11] MEDS: lactulose oral liq 20 gm/30 mL UDC PO ×2 (12:53→22:52)
[2021-09-11] MEDS: ciprofloxacin 400 MG/200 ML PREMIX 200 MG IV ×2 (12:54→20:36)
[2021-09-11 21:04] LABS: Vancomycin Trough 5.5 ug/mL (10-15)
[2021-09-12] VITALS (11 sets, daily range): BP systolic 118–163; BP diastolic 72–84; PULSE 65–92; RESP 16–18; TEMP 36.2–36.9; O2SAT 93–99
[2021-09-12] MEDS: sodium chloride 0.9% 1,000 ML 75 ML IV ×2 (02:21→15:44)
[2021-09-12] MEDS: ciprofloxacin 400 MG/200 ML PREMIX 200 MG IV ×3 (04:17→20:26)
[2021-09-12 05:09] LABS: Basophils # 0.1 10^3/uL (0.0-0.1); Basophils % 0.5 %; Eosinophils % 0.3 %; Hematocrit 35.1 % (42.0-52.0); Hemoglobin 11.6 g/dL (11.7-16.6); Lymphocytes % 8.2 %; Mean Corpuscular Hemoglobin 30.5 pg (28.0-34.0); Mean Corpuscular Volume 92.4 fl (80-94); Mean Platelet Volume 10.7 fL (7.4-10.4); Monocytes # 0.5 10^3/uL (0.2-0.9); Monocytes % 4.3 %; Neutrophils # 10.47 10^3/uL (1.8-7.7); Neutrophils % 85.7 %; Nucleated Red Blood Cells % 0 %; Platelet Count 157 10^3/cmm (130-400); Red Cell Distribution Width 12.8 % (12.1-15.1); White Blood Count 12.2 10^3/uL (4.0-10.0)
[2021-09-12 05:31] LABS: Anion Gap 15.1 (5-19); Blood Urea Nitrogen 11 mg/dL (6-20); Calcium 8.2 mg/dL (8.5-10.5); Carbon Dioxide 20 mmol/L (22-29); Chloride 101 mmol/L (98-107); Glomerular Filtration Rate 138.4 mL/min (90-130); Glucose 102 mg/dL (65-115); Osmolality Calculated 274 mOsm/kg (285-295); Potassium 4.1 mmol/L (3.5-5.1); Sodium 132 mmol/L (136-145)
[2021-09-12 05:36] LABS: Slide Review Slide Review Perform
[2021-09-12] MEDS: ziprasidone hcl 40 mg Capsule 80 MG PO ×2 (06:28→17:26)
--- NOTE | 2021-09-12 07:41 | P.PN_ITS ---
Subjective Subjective: Seen this morning. No acute events overnight. Figueroa catheter was placed yesterday and is draining well. Afebrile overnight. WBC count 12,000 today. Blood culture positive 1 out of 4 bottles for gram-positive cocci with clusters therefore Vanco was reordered. Patient denies any pain, shortness of breath, nausea, vomiting. Does not talk very much as usual. Vitals/I&O/Wt Last Vital Signs Temp 98.4 F 09/12/21 04:00 Pulse 70 09/12/21 07:28 Resp 16 09/12/21 07:28 BP 128/81 09/12/21 04:00 Pulse Ox 95 09/12/21 07:28 09/11/21 09/12/21 09/12/21 22:59 06:59 14:59 Intake Total 1260 / 3153.75 450 / 3603.75 Output Total 2625 / 3075 375 / 3450 Balance -1365 / 78.75 75 / 153.75 Physical Exam Narrative: Alert oriented Delusional disorganized thinking but better today Nonfocal neuro exam Normal S1-S2 no murmurs rubs or gallops Abdomen soft, nontender overall with very mild tenderness at pelvic region (improved) Lungs clear to auscultation b/l, no wheezes/ronchi or crackles Saturating well on room air Urinary Catheter Management: Figueroa: Cath Placed During This Visit: yes, but has since been removed by the nurse Reason for Continuing Indwelling Catheter: Other Urinary Catheter Date of Insertion: 09/07/21 Urinary Catheter Time of Insertion: 23:15 Date Urinary Catheter Removed: 09/10/21 Time Urinary Catheter Discontinued: 18:00 Data : 09/12/21 04:26 09/12/21 04:26 Micro: Microbiology 09/10/21 06:08 Blood Culture - Preliminary Blood NEGATIVE TO DATE 09/10/21 06:08 Blood Culture - Preliminary Blood NEGATIVE TO DATE 09/10/21 13:35 MRSA Culture - Final Nose 09/10/21 01:03 Blood Culture - Preliminary Blood 09/09/21 15:33 Urine Culture - Final Urine,Clean Catch Escherichia coli A&P Assessment and plan (1) Ureteral dilatation: Status: Acute (2) UTI (urinary tract infection): Status: Acute (3) Hyponatremia: Status: Acute (4) Constipation: Status: Acute (5) Chronic dryness of both eyes: Status: Acute (6) COPD (chronic obstructive pulmonary disease): Status: Chronic Qualifiers: COPD type: emphysema Emphysema type: panlobular Qualified Code(s): J43.1 - Panlobular emphysema (7) Dyslipidemia: Status: Chronic (8) Generalized anxiety disorder: Status: Acute (9) Schizoaffective disorder, unspecified: Status: Acute (10) Nicotine dependence, cigarettes, with unspecified nicotine-induced disorders: Status: Chronic (11) BPH (benign prostatic hyperplasia): Status: Chronic Qualifiers: Lower urinary tract symptom detail: urinary frequency Lower urinary tract symptom presence: symptoms present Qualified Code(s): N40.1 - Benign prostatic hyperplasia with lower urinary tract symptoms; R35.0 - Frequency of micturition Plan #Sepsis secondary to UTI/Early Pyelonephritis, #R/o cholecystitis , Gall bladder wall thickening #Schizoaffective disorder #Hyponatremia secondary to SIADH #BPH #Constipation #Generalized anxiety disorder #Delusional disorder #Unilateral ureteral dilation, bladder outlet obstruction, no hydronephrosis. #Gallbladder sludge ?Continue salt tablets.? Work-up consistent with SIADH. ? Psych following patient.? Patient is supposed to go to Neuropsych Unit at some point once medically cleared. - UCx shows E.Coli pansensitive. COntinue ciprofloxacin - BCx 03/10 + for GM+ cocci in clusters. Bcx repeated and pending. COntinue on vancomycin. IF contaminant and second set negative, will dc vanc. - Continue figueroa catheter. - Discussed with Dr. Garcia over phone. Dr. Garcia will see patient Tuesday. Challenge with this patient is to keep figueroa in because he keeps pulling it out - CT abd/pevlis 09/11 shows: unilateral ureteral dilation, bladder outlet obstruction, fluid in GB fossa. Will check RUQ US. - RUQ US did not show cholecystitis but does have some sludging and gall bladder wall thickening. Will order HIDA scan. ? Sputum gram stain culture pending. Not expectorating. ? Chest CT abdomen pelvis done on admission 09/07 did not show any gross pathology. ?Continue patient on bowel regimen - He will need 14 days of antibiotics for UTI/Early pyelonephritis. Full code Transfer to neuropsych once medically clear. DVT prophylaxis: Lovenox 40 daily Attestations Medical Necessity Statement*: Needs continued hospitalization for management of UTI/Pyelo and psychiatric tx. Coding Level of Care Code Acute Sagger Preparer for Chg Fwd Diagnoses Ureteral dilatation N28.82 UTI (urinary tract infection) N39.0 Hyponatremia E87.1 Constipation K59.00 Chronic dryness of both eyes H04.123 COPD (chronic obstructive pulmonary disease) J43.1 COPD type: emphysema Emphysema type: panlobular Dyslipidemia E78.5 Generalized anxiety disorder F41.1 Schizoaffective disorder, unspecified F25.9 Nicotine dependence, cigarettes, with unspecified nicotine-induced disorders F17.219 BPH (benign prostatic hyperplasia) N40.1; R35.0 Lower urinary tract symptom detail: urinary frequency Lower urinary tract symptom presence: symptoms present
[2021-09-12] MEDS: acetaminophen 500 mg Tablet PO (09:34)
[2021-09-12] MEDS: sodium chloride 1 gm Tablet PO ×2 (09:35→17:25)
[2021-09-12] MEDS: tamsulosin 0.4 mg Capsule 0.8 MG PO (09:35)
[2021-09-12] MEDS: sennosides-docusate Tablet 1 TAB PO ×2 (09:35→17:26)
[2021-09-12] MEDS: lactulose oral liq 20 gm/30 mL UDC PO (11:57)
[2021-09-12] MEDS: enoxaparin 40 mg/0.4 mL Syringe SUBCUT (11:57)
--- NOTE | 2021-09-12 13:32 | PC.SOCIAL ---
IMM update pg 2 of IMM updated and reviewed w/ patient. Copy provided and Copy placed in chart.
[2021-09-13] VITALS (13 sets, daily range): BP systolic 128–150; BP diastolic 79–95; PULSE 55–73; RESP 15–18; TEMP 36.4–36.9; O2SAT 97–98
[2021-09-13] MEDS: lactulose oral liq 20 gm/30 mL UDC PO ×3 (00:01→23:22)
[2021-09-13] MEDS: trazodone 50 mg Tablet 25 MG PO (01:33)
[2021-09-13] MEDS: ciprofloxacin 400 MG/200 ML PREMIX 200 MG IV ×3 (03:38→21:09)
[2021-09-13] MEDS: sodium chloride 0.9% 1,000 ML 75 ML IV ×2 (05:23→18:38)
[2021-09-13] MEDS: ziprasidone hcl 40 mg Capsule 80 MG PO ×2 (06:09→17:36)
--- NOTE | 2021-09-13 07:34 | PM.PN ---
Subjective Subjective: Seen this morning no acute events overnight. He did have some n/v this morning right after breakfast. He says he ate too much and had a very heavy breakfast that he normally doesnt. Pt given zofran and he felt better. Vitals/I&O/Wt Last Vital Signs Temp 98.4 F 09/13/21 04:00 Pulse 55 L 09/13/21 05:49 Resp 16 09/13/21 04:00 BP 140/91 09/13/21 04:00 Pulse Ox 97 09/13/21 04:00 09/12/21 09/13/21 09/13/21 22:59 06:59 14:59 Intake Total 1868 / 3048 1630 / 4678 Output Total 2950 / 5500 1775 / 7275 Balance -1082 / -2452 -145 / -2597 Physical Exam Narrative: Alert orientedx3 Delusional disorganized thinking overall but apepars to be quite normal today Nonfocal neuro exam Normal S1-S2 no murmurs rubs or gallops Abdomen soft, nontender, BS + all 4 quadrants. Mild RUQ pain present to palpation. Lungs clear to auscultation b/l, no wheezes/ronchi or crackles Saturating well on room air Urinary Catheter Management: Figueroa: Cath Placed During This Visit: yes, but has since been removed by the nurse Reason for Continuing Indwelling Catheter: Other Urinary Catheter Date of Insertion: 09/07/21 Urinary Catheter Time of Insertion: 23:15 Date Urinary Catheter Removed: 09/10/21 Time Urinary Catheter Discontinued: 18:00 Data : 09/12/21 04:26 09/12/21 04:26 Micro: Microbiology 09/10/21 06:08 Blood Culture - Preliminary Blood NEGATIVE TO DATE 09/10/21 06:08 Blood Culture - Preliminary Blood NEGATIVE TO DATE A&P Assessment and plan (1) Ureteral dilatation: Status: Acute (2) Hydronephrosis: Status: Acute (3) UTI (urinary tract infection): Status: Acute (4) Delusional disorder: Status: Acute (5) Hyponatremia: Status: Acute (6) COPD (chronic obstructive pulmonary disease): Status: Chronic Qualifiers: COPD type: emphysema Emphysema type: panlobular Qualified Code(s): J43.1 - Panlobular emphysema (7) Dyslipidemia: Status: Chronic (8) BPH (benign prostatic hyperplasia): Status: Chronic Qualifiers: Lower urinary tract symptom detail: urinary frequency Lower urinary tract symptom presence: symptoms present Qualified Code(s): N40.1 - Benign prostatic hyperplasia with lower urinary tract symptoms; R35.0 - Frequency of micturition (9) Schizoaffective disorder, unspecified: Status: Acute (10) Generalized anxiety disorder: Status: Acute Plan #Sepsis secondary to UTI/Early Pyelonephritis, #R/o cholecystitis , Gall bladder wall thickening #Schizoaffective disorder #Hyponatremia secondary to SIADH #BPH #Constipation #Generalized anxiety disorder #Delusional disorder #Unilateral ureteral dilation, bladder outlet obstruction, no hydronephrosis. #Gallbladder sludge ?Continue salt tablets.? Work-up consistent with SIADH. ? Psych following patient.? Patient is supposed to go to Neuropsych Unit at some point once medically cleared. - UCx shows E.Coli pansensitive. COntinue ciprofloxacin - BCx 03/10 + for GM+ cocci in clusters. Bcx repeated and pending. COntinue on vancomycin. IF contaminant and second set negative, will dc vanc. - Continue figueroa catheter. - Discussed with Dr. Garcia over phone. Dr. Garcia will see patient Tuesday. Challenge with this patient is to keep figueroa in because he keeps pulling it out - CT abd/pevlis 09/11 shows: unilateral ureteral dilation, bladder outlet obstruction, fluid in GB fossa. Will check RUQ US. - RUQ US did not show acute cholecystitis but does have some sludging and gall bladder wall thickening with some free fluid.? Will order HIDA scan to rule out acalculous cholecystitis. WIll cover with cipro and flagyl. ? Sputum gram stain culture pending. Not expectorating. ? Chest CT abdomen pelvis done on admission 09/07 did not show any gross pathology. ?Continue patient on bowel regimen - He will need 14 days of antibiotics for UTI/Early pyelonephritis. - HIDA scan in AM Full code Transfer to neuropsych once medically clear. DVT prophylaxis: Lovenox 40 daily Attestations Medical Necessity Statement*: Needs continued ho spitalization for management of UTI/ Pyelo and psychiat anupam tx. Coding Level of Care Code Acute Scenic Designer for Chg Fwd Diagnoses Ureteral dilatation N28.82 Hydronephrosis N13.30 UTI (urinary tract infection) N39.0 Delusional disorder F22 Hyponatremia E87.1 COPD (chronic obstructive pulmonary disease) J43.1 COPD type: emphysema Emphysema type: panlobular Dyslipidemia E78.5 BPH (benign prostatic hyperplasia) N40.1; R35.0 Lower urinary tract symptom detail: urinary frequency Lower urinary tract symptom presence: symptoms present Schizoaffective disorder, unspecified F25.9 Generalized anxiety disorder F41.1
[2021-09-13] MEDS: sodium chloride 1 gm Tablet PO ×2 (09:32→17:36)
[2021-09-13] MEDS: sennosides-docusate Tablet 1 TAB PO ×2 (09:33→17:36)
[2021-09-13] MEDS: tamsulosin 0.4 mg Capsule 0.8 MG PO (09:33)
[2021-09-13] MEDS: ondansetron 2 mg/ML SDV 2 mL 4 MG IVP ×2 (09:42→17:36)
[2021-09-13] MEDS: enoxaparin 40 mg/0.4 mL Syringe SUBCUT (12:25)
[2021-09-13] MEDS: metroNIDAZOLE IV 500 MG/100 ML PREMIX 100 MG IV ×2 (14:07→21:18)
[2021-09-13 17:57] LABS: Vancomycin Trough 19.3 ug/mL (10-15)
--- NOTE | 2021-09-13 18:40 | PC.PHAR ---
Mr. Agosto Vancomycin trough at dosage of 1500mg IVPB every 8 hours is 19.3 which is within normal limits; however, because it is so close to our upper limit of 20 I am ordering another trough level to be obtained on 09/15/21 at 0145 just to be sure it does not go too high. Thank you, FIDELIA Solis.
[2021-09-14] VITALS (9 sets, daily range): BP systolic 124–154; BP diastolic 76–92; PULSE 59–77; RESP 16–17; TEMP 36.5–37.1; O2SAT 96–99
[2021-09-14] MEDS: metroNIDAZOLE IV 500 MG/100 ML PREMIX 100 MG IV ×3 (05:15→21:15)
[2021-09-14] MEDS: ciprofloxacin 400 MG/200 ML PREMIX 200 MG IV ×3 (05:15→21:13)
[2021-09-14 05:41] LABS: Basophils % 0.4 %; Eosinophils # 0.1 10^3/uL (0.0-0.8); Eosinophils % 1.3 %; Hematocrit 37.2 % (42.0-52.0); Hemoglobin 12.9 g/dL (11.7-16.6); Lymphocytes # 2.1 10^3/uL (0.8-4.8); Lymphocytes % 30.9 %; Mean Corpuscular HGB Conc 34.7 g/dL (30.0-36.0); Mean Corpuscular Volume 89.4 fl (80-94); Mean Platelet Volume 10.4 fL (7.4-10.4); Monocytes # 0.6 10^3/uL (0.2-0.9); Monocytes % 8.5 %; Neutrophils # 3.84 10^3/uL (1.8-7.7); Neutrophils % 57.6 %; Nucleated Red Blood Cells % 0 %; Platelet Count 254 10^3/cmm (130-400); Red Blood Count 4.16 10^6/uL (4.1-5.3); Red Cell Distribution Width 12.8 % (12.1-15.1); White Blood Count 6.7 10^3/uL (4.0-10.0)
[2021-09-14 06:06] LABS: Anion Gap 12.6 (5-19); Blood Urea Nitrogen 8 mg/dL (6-20); Calcium 8.5 mg/dL (8.5-10.5); Carbon Dioxide 25 mmol/L (22-29); Chloride 101 mmol/L (98-107); Glomerular Filtration Rate 138.4 mL/min (90-130); Glucose 105 mg/dL (65-115); Osmolality Calculated 279 mOsm/kg (285-295); Potassium 3.6 mmol/L (3.5-5.1); Sodium 135 mmol/L (136-145)
[2021-09-14 06:10] LABS: Procalcitonin 5.32 ng/mL (0-0.5)
[2021-09-14] MEDS: ziprasidone hcl 40 mg Capsule 80 MG PO ×2 (06:55→17:33)
--- NOTE | 2021-09-14 07:50 | NM_ITS ---
WS: [id number] NUCLEAR MEDICINE HIDA SCAN WITH GALLBLADDER EJECTION FRACTION HISTORY: HIDA scan, r/o acalculus cholecystitis COMPARISON: CT 09/11/2021 and ultrasound. TECHNIQUE: The patient was intravenously injected with 8.7 mCi of TC99m Mebrofenin. Immediate imaging over the right upper quadrant was followed by 5 minute image and additional images for a total of 60 minutes. Normal uptake of radiotracer throughout the liver. Activity identified in the gallbladder at 10 minutes and moderately distended by 60 minutes. Activity in the proximal small bowel was seen by 20 minutes. Good washout of the radiotracer from the liver by 60 minutes. The patient then drank 8 ounces of Ensure Plus. At 60 minutes the gallbladder did not contract and th ere was no ejection fraction. Gallbladder continued to mildly filled with contrast. Common bile duct is patent. Post fatty meal symptoms: None. NM/NM hepatobiliary w phar* [id number] IMPRESSION: 1. Normal gallbladder filling and visualization of the small bowel. No cystic or common bile duct obstruction. 2. No gallbladder contraction after fatty meal. Gallbladder dysfunction/dyskin esia.
--- NOTE | 2021-09-14 07:59 | PM.PN ---
Subjective Subjective: Seen this morning. He feels better. Labs normalized. Just returned from HIDA scan. Report pending Mental status also improved. Vitals/I&O/Wt Last Vital Signs Temp 97.7 F 09/14/21 07:32 Pulse 59 L 09/14/21 07:32 Resp 16 09/14/21 07:32 BP 137/81 09/14/21 07:32 Pulse Ox 97 09/14/21 07:32 09/13/21 09/14/21 09/14/21 22:59 06:59 14:59 Intake Total 1583.75 / 2273.75 850 / 3123.75 Output Total 1800 / 3125 1200 / 4325 Balance -216.25 / -851.25 -350 / -1201.25 Physical Exam Narrative: Alert orientedx3 Delusional disorganized thinking overall but apepars to be quite normal today Nonfocal neuro exam Normal S1-S2 no murmurs rubs or gallops Abdomen soft, nontender, BS + all 4 quadrants. Non tender to palpation Lungs clear to auscultation b/l, no wheezes/ronchi or crackles Saturating well on room air Urinary Catheter Management: Figueroa: Cath Placed During This Visit: yes, but has since been removed by the nurse Reason for Continuing Indwelling Catheter: Other Urinary Catheter Date of Insertion: 09/07/21 Urinary Catheter Time of Insertion: 23:15 Date Urinary Catheter Removed: 09/10/21 Time Urinary Catheter Discontinued: 18:00 Data : 09/14/21 04:47 09/14/21 04:47 A&P Assessment and plan (1) Ureteral dilatation: Status: Acute (2) UTI (urinary tract infection): Status: Acute (3) Delusional disorder: Status: Acute (4) Hyponatremia: Status: Acute (5) Constipation: Status: Acute (6) Chronic dryness of both eyes: Status: Acute (7) COPD (chronic obstructive pulmonary disease): Status: Chronic Qualifiers: COPD type: emphysema Emphysema type: panlobular Qualified Code(s): J43.1 - Panlobular emphysema (8) Dyslipidemia: Status: Chronic (9) BPH (benign prostatic hyperplasia): Status: Chronic Qualifiers: Lower urinary tract symptom presence: symptoms present Lower urinary tract symptom detail: urinary frequency Qualified Code(s): N40.1 - Benign prostatic hyperplasia with lower urinary tract symptoms; R35.0 - Frequency of micturition (10) Generalized anxiety disorder: Status: Acute (11) Schizoaffective disorder, unspecified: Status: Acute (12) Nicotine dependence, cigarettes, with unspecified nicotine-induced disorders: Status: Chronic Plan #Sepsis secondary to UTI/Early Pyelonephritis, - Resolving, improving #R/o cholecystitis , Gall bladder wall thickening #Schizoaffective disorder #Hyponatremia secondary to SIADH #BPH #Constipation #Generalized anxiety disorder #Delusional disorder #Unilateral ureteral dilation, bladder outlet obstruction, no hydronephrosis. #Gallbladder sludge ?Continue salt tablets.? Work-up consistent with SIADH. ? Psych following patient.? Patient is supposed to go to Neuropsych Unit at some point once medically cleared. - UCx shows E.Coli pansensitive. COntinue ciprofloxacin - BCx 03/10 + for GM+ cocci in clusters. Bcx repeated and pending. COntinue on vancomycin. IF contaminant and second set negative, will dc vanc. - Continue figueroa catheter. - Discussed with Dr. Garcia over phone. Dr. Garcia will see patient Tuesday. Challenge with this patient is to keep figueroa in because he keeps pulling it out - CT abd/pevlis 09/11 shows: unilateral ureteral dilation, bladder outlet obstruction, fluid in GB fossa. - RUQ US did not show acute cholecystitis but does have some sludging and gall bladder wall thickening with some free fluid.? Will order HIDA scan to rule out acalculous cholecystitis. WIll cover with cipro and flagyl. ? Sputum gram stain culture pending. Not expectorating. ? Chest CT abdomen pelvis done on admission 09/07 did not show any gross pathology. ?Continue patient on bowel regimen - He will need 14 days of antibiotics for UTI/Early pyelonephritis. - HIDA scan today. Report pending. - Will discuss with psych for further management Full code DVT prophylaxis: Lovenox 40 daily Will update son over the phone today. Attestations Medical Necessity Statement*: patient will need psych consult before discharge. medically improved. Coding Level of Care Code Acute Briquetting Machine Operator for g Fwd Diagnoses Ureteral dilatation N28.82 UTI (urinary tract infection) N39.0 Delusional disorder F22 Hyponatremia E87.1 Constipation K59.00 Chronic dryness of both eyes H04.123 COPD (chronic obstructive pulmonary disease) J43.1 COPD type: emphysema Emphysema type: panlobular Dyslipidemia E78.5 BPH (benign prostatic hyperplasia) N40.1; R35.0 Lower urinary tract symptom presence: symptoms present Lower urinary tract symptom detail: urinary frequency Generalized anxiety disorder F41.1 Schizoaffective disorder, unspecified F25.9 Nicotine dependence, cigarettes, with unspecified nicotine-induced disorders F17.219
[2021-09-14] MEDS: tamsulosin 0.4 mg Capsule 0.8 MG PO (10:47)
[2021-09-14] MEDS: sodium chloride 1 gm Tablet PO ×2 (10:47→17:29)
[2021-09-14] MEDS: sennosides-docusate Tablet 1 TAB PO ×2 (10:47→17:29)
[2021-09-14] MEDS: ondansetron 2 mg/ML SDV 2 mL 4 MG IVP ×2 (10:57→17:28)
[2021-09-14] MEDS: sodium chloride 0.9% 1,000 ML 75 ML IV (10:59)
[2021-09-14] MEDS: lactulose oral liq 20 gm/30 mL UDC PO (10:59)
--- NOTE | 2021-09-14 11:29 | PC.SOCIAL ---
IMM Updated Updated pt on IMM. No questions voiced. Provided pt a copy. Initialed, dated, & timed copy in chart.
[2021-09-14] MEDS: enoxaparin 40 mg/0.4 mL Syringe SUBCUT (12:55)
[2021-09-15] VITALS (9 sets, daily range): BP systolic 130–143; BP diastolic 78–89; PULSE 56–76; RESP 15–18; TEMP 36.6–37.1; O2SAT 96–100
[2021-09-15] MEDS: lactulose oral liq 20 gm/30 mL UDC PO ×2 (01:08→12:32)
[2021-09-15] MEDS: sodium chloride 0.9% 1,000 ML 75 ML IV ×2 (03:05→16:56)
[2021-09-15] MEDS: ciprofloxacin 400 MG/200 ML PREMIX 200 MG IV ×3 (03:05→20:02)
[2021-09-15] MEDS: metroNIDAZOLE IV 500 MG/100 ML PREMIX 100 MG IV ×3 (04:45→21:43)
[2021-09-15] MEDS: ziprasidone hcl 40 mg Capsule 80 MG PO ×2 (06:40→16:57)
[2021-09-15] MEDS: tamsulosin 0.4 mg Capsule 0.8 MG PO (08:51)
[2021-09-15] MEDS: sodium chloride 1 gm Tablet PO ×2 (08:51→16:56)
[2021-09-15] MEDS: sennosides-docusate Tablet 1 TAB PO ×2 (08:51→16:56)
[2021-09-15] MEDS: ondansetron 2 mg/ML SDV 2 mL 4 MG IVP ×2 (10:18→20:27)
--- NOTE | 2021-09-15 11:41 | PM.CONSULT ---
Providers/Reason For Consult Consulting Physician/Specialty*: Kevlin Rodriguez MD Reason for Consult*: Repeated nausea and vomiting Attending Physician: Kaya Burns MD Primary Care Provider: Mali Lerma DO History of Present Illness History of Present Illness Mr. Michael Munoz IV is a pleasant 56 year old male got admitted to the hospitalist service for management of constipation and hyponatremia. Apparently the patient has history of schizoaffective disorder on different psychiatric medications. Repeated episodes of nausea and vomiting without obvious explanation, further work-up was done and a CT of the abdomen pelvis with contrast was obtained on 09/11/2021 and did show; 1.? Mild gallbladder wall enhancement with suggestion of gallbladder wall edema and fluid in the gallbladder fossa. This appears new from previous. Recommend further evaluation with ultrasound. Visualized common bile duct appears decompressed. No visualized cholelithiasis 2.? Tiny bilateral pleural effusions with compressive atelectasis in the lung bases is new from previous. 3.? Urine distended bladder with small cystocele. 4.? Mild RIGHT? ureterectasis with surrounding induration is new from previous. No obstructing calculi. This may be due to chronic bladder outlet obstruction or developing pyelonephritis. Recommend correlation for UTI. 5.? Prominent prostate measures 5.1 CM. Following that an ultrasound of the gallbladder was done and showed 1. Diffuse gallbladder wall thickening without evidence of gallstones. Imaging appearance is nonspecific and could reflect cholecystitis or represent sequela of a secondary etiology. Correlate with clinical exam. 2. Mild hepatomegaly. ? HIDA scan was obtained; 1.? Normal gallbladder filling and visualization of the small bowel. No cystic or common bile duct obstruction. 2.? No gallbladder contraction after fatty meal. Gallbladder dysfunction/dyskinesia. ? General surgery was consulted for further management. During the evaluation on [facility] floor patient was having a dinner of spaghetti and meat loaf and seems that he has been enjoying his meal. Moreover patient undergone a HIDA scan and when I asked him during drinking his Ensure and getting the IV medication for his HIDA scan to be completed. Did not encounter any nausea vomiting bloating or abdominal pain or loose stools. Nursing staff on the floor mentioned that the patient whenever he starts his IV Flagyl he got nauseous Review of Systems General: Reports: 10 or more systems reviewed and unremarkable except in HPI and below Medications/Allergies Home Medications Medication Instructions Recorded Confirmed Last Taken Type aspirin 81 mg tablet,delayed 81 mg PO DAILY 06/18/19 09/07/21 07/13/19 History release (Adult Aspirin Regimen) famotidine 10 mg tablet 10 mg PO DAILY PRN 07/16/19 09/07/21 Unknown History albuterol sulfate 90 mcg/actuation 2 puff INHALATION Q6H PRN #8.5 g 07/31/21 09/07/21 Unknown Rx aerosol inhaler (Ventolin HFA) celecoxib 200 mg capsule 200 mg PO DAILY #90 cap 07/31/21 09/07/21 Unknown Rx fluticasone 500 mcg-salmeterol 50 1 inh INHALATION BID #60 each 07/31/21 09/07/21 Unknown Rx mcg/dose blistr powdr for inhalation (Advair Diskus) tramadol 50 mg tablet 50 mg PO TID PRN #90 tab 07/31/21 09/07/21 Unknown Rx sertraline 50 mg tablet (Zoloft) 50 mg PO DAILY #90 tab 08/10/21 09/07/21 Unknown Rx benztropine 2 mg tablet 2 mg PO DAILY #90 tab 09/01/21 09/07/21 Unknown Rx hydroxyzine pamoate 25 mg capsule 25 mg PO TID PRN #270 cap 09/01/21 09/07/21 Unknown Rx (Vistaril) mirtazapine 30 mg tablet 30 mg PO .at bed #90 tab 09/01/21 09/07/21 Unknown Rx trazodone 100 mg tablet 100 mg PO .HS #90 tab 09/01/21 09/07/21 Unknown Rx ziprasidone HCl 80 mg capsule 80 mg PO BID #180 cap 09/01/21 09/07/21 Unknown Rx (Geodon) clonazepam 0.5 mg tablet (Klonopin) 0.5 mg PO DAILY #30 tab 09/02/21 09/07/21 Unknown Rx bupropion HCl 150 mg 24 hr tablet, 150 mg PO DAILY 09/07/21 09/07/21 Unknown History extended release fluticasone 500 mcg-salmeterol 50 1 ea INHALATION BID 09/07/21 09/07/21 Unknown History mcg/dose blistr powdr for inhalation (Wixela Inhub) gemfibrozil 600 mg tablet 600 mg PO BID 09/07/21 09/07/21 Unknown History Allergies Allergy/AdvReac Type Severity Reaction Status Date / Time Penicillins Allergy Severe throat Verified 09/15/21 17:20 karyn Current Medications Generic Name Dose Route Start Last Admin Trade Name Freq PRN Reason Stop Dose Admin Acetaminophen 500 mg 09/07/21 17:39 09/12/21 09:34 Acetaminophen 500 Mg Tablet PO 500 mg Q4H PRN Administration fever Enoxaparin Sodium 40 mg 09/08/21 12:00 09/14/21 12:55 Enoxaparin 40 Mg/0.4 Ml Syringe SUBCUT 40 mg Q24H [place] Administration Sodium Chloride 1,000 mls @ 75 mls/hr 09/07/21 17:45 09/15/21 03:05 Sodium Chloride 0.9% IV 75 mls/hr .[id number] [place] Administration Ciprofloxacin/Dextrose 400 mg in 200 mls @ 200 mls/hr 09/11/21 12:00 09/15/21 05:02 Cipro IV Infused Q8H [place] Infusion Protocol Metronidazole 500 mg in 100 mls @ 100 mls/hr 09/13/21 12:45 09/15/21 06:09 Flagyl Iv IV Infused Q8H [place] Infusion Protocol Lactulose 20 gm 09/11/21 11:45 09/15/21 01:08 Lactulose Oral Liq 20 Gm/30 Ml Udc PO 20 gm Q12H [place] Administration Ondansetron HCl 4 mg 09/07/21 17:39 09/15/21 10:18 Ondansetron 2 Mg/Ml Sdv 2 Ml IVP 4 mg Q6H PRN Administration NAUSEA AND VOMITING Senna/Docusate Sodium 1 tab 09/07/21 18:00 09/15/21 08:51 Sennosides-Docusate Tablet PO 1 tab BID [place] Administration Sodium Chloride 1 gm 09/08/21 10:45 09/15/21 08:51 Sodium Chloride 1 Gm Tablet PO 1 gm BID [place] Administration Tamsulosin HCl 0.8 mg 09/09/21 09:00 09/15/21 08:51 Tamsulosin 0.4 Mg Capsule PO 0.8 mg DAILY [place] Administration Trazodone HCl 25 mg 09/10/21 21:38 09/13/21 01:33 Trazodone 50 Mg Tablet PO 25 mg BEDTIME PRN Administration insomnia Ziprasidone 80 mg 09/09/21 17:00 09/15/21 06:40 Ziprasidone Hcl 40 Mg Capsule PO 80 mg 0700,1700 [place] Administration PFSH Acute PFSH: Medical History Anxiety BPH (benign prostatic hyperplasia) Chronic dryness of both eyes Chronic low back pain COPD (chronic obstructive pulmonary disease) Dyslipidemia Enrolled in chronic care management Generalized anxiety disorder GERD (gastroesophageal reflux disease) Nicotine dependence, cigarettes, uncomplicated Psychiatric care Schizoaffective disorder, unspecified Surgical History History of appendectomy History of tonsillectomy Family History Other Cancer Social History Smoking and tobacco status: current every day smoker cigarettes Packs smoked per day: 1.5 and smokeless tobacco Smoking risk assessment/counseling performed?: Yes Tobacco counseling given: counseling >3 minutes Alcohol intake: never Vitals/I&O/Wt Last Vital Signs Temp 98.1 F 09/15/21 11:27 Pulse 73 09/15/21 11:27 Resp 15 09/15/21 11:27 BP 130/82 09/15/21 11:27 Pulse Ox 98 09/15/21 11:27 09/14/21 09/15/21 09/15/21 22:59 06:59 14:59 Intake Total 911.25 / 2821.25 893.75 / 3715.00 260 / 260 Output Total 775 / 775 1600 / 1600 Balance 911.25 / 2821.25 118.75 / 2940.00 -1340 / -1340 Physical Exam Const: COMMON NORMALS: no acute distress and patient oriented x3 GENERAL APPEARANCE: cooperative ORIENTATION/CONSCIOUSNESS: Yes awake, Yes oriented to person, Yes oriented to place and Yes oriented to time HENMT: COMMON NORMALS: normocephalic HEAD & SCALP: normocephalic Eye: COMMON NORMALS: Equal, round and reactive pupils present and no scleral icterus PUPIL: Yes Equal, round and reactive pupils present Lymph: LYMPHATIC: no lymphadenopathy noted Chest: COMMONS NORMALS: normal inspection of the chest Resp: COMMON NORMALS: normal respiratory effort and clear to auscultation bilaterally AUSCULTATION: clear to auscultation bilaterally Cardio: COMMON NORMALS: S1 normal heart sound present and S2 normal heart sound present; negative for No murmurs present (Cardio) HEART SOUNDS: S1 normal heart sound present and S2 normal heart sound present GI: COMMON NORMALS: Soft to palpation; negative for No hepatosplenomegaly present INSPECTION: Yes normal to inspection PALPATION: Yes Soft to palpation, No Firmness to palpation present (GI), No Tenderness to palpation present (GI), No Guarding due to palpation present (GI), No Rigid due to palpation and No No hepatosplenomegaly present Neuro: COMMON NORMALS: patient oriented x3 SENSORIUM/ORIENTATION: Yes oriented to person, Yes oriented to place and Yes oriented to time Psych: COMMON NORMALS: mental status grossly normal Skin: COMMON NORMALS: no rashes or lesions noted GENERAL SKIN EXAM: no rashes or lesions noted Urinary Catheter Management: [place]: Cath Placed During This Visit: yes, but has since been removed by the nurse Reason for Continuing Indwelling Catheter: Other Urinary Catheter Date of Insertion: 09/07/21 Urinary Catheter Time of Insertion: 23:15 Date Urinary Catheter Removed: 09/10/21 Time Urinary Catheter Discontinued: 18:00 Data : 09/16/21 04:40 09/16/21 04:40 Micro: Microbiology 09/10/21 01:09 Blood Culture - Final Blood NO GROWTH AFTER 5 DAYS 09/10/21 01:03 Blood Culture - Preliminary Blood Micrococcus and related genera A&P Assessment and plan (1) Dyskinesia of gallbladder: Based on history taking physical exam and reviewing the images with my personal interpretation. I believe that the patient's current status does not match with the findings of the HIDA scan. Patient seems to be enjoying and tolerating his dinner. Probably it would be better to have the patient follow-up as an outpatient for further evaluation and may potentially benefit from further work-up. Diagnostic EGD and potential gallbladder surgery down the road. I do not see an acute indication for surgical intervention at the moment, meanwhile as patient undergoing antimicrobial treatment for concern of pyelonephritis, I do believe that should be managed first before any potential surgical intervention and definitely follow-up as an outpatient. Patient agrees on the plan of care Assurance and education All questions have been answered and all concerns have been addressed to patient's satisfaction. Status: Chronic Consult Attestations Medical Necessity Statement: Per admitting service Coding Level of Care Code Acute Athletic Equipment Manager for Chg Fwd Exam Comprehensive Diagnoses Dyskinesia of gallbladder K82.8
[2021-09-15] MEDS: enoxaparin 40 mg/0.4 mL Syringe SUBCUT (12:31)
--- NOTE | 2021-09-15 13:00 | P.PN_ITS ---
Subjective Subjective: Seen this morning. Nursing staff reported that patient was vomiting yesterday. Also the patient is having nausea after every single meal. Even today when I saw him he was holding up a bucket and has been out quite a bit. Otherwise he has been afebrile overnight Figueroa catheter draining clear ye llow urine freely. Doing well. Mental status significantly improved. Also complains of pain in RUQ region. Vitals/I&O/Wt Last Vital Signs Temp 98.1 F 09/15/21 11:27 Pulse 73 09/15/21 11:27 Resp 15 09/15/21 11:27 BP 130/82 09/15/21 11:27 Pulse Ox 98 09/15/21 11:27 09/14/21 09/15/21 09/15/21 22:59 06:59 14:59 Intake Total 911.25 / 2821.25 893.75 / 3715.00 500 / 500 Output Total 775 / 775 1600 / 1600 Balance 911.25 / 2821.25 118.75 / 2940.00 -1100 / -1100 Physical Exam Narrative: Alert orientedx3, appears slightly uncomfortable, Delusional disorganized thinking overall but appears to be quite normal today Nonfocal neuro exam Normal S1-S2 no murmurs rubs or gallops Abdomen soft, nontender, BS + all 4 quadrants. Non tender to palpation overall except there is mild discomfort to palpation in RUQ region on deep palpation. Lungs clear to auscultation b/l, no wheezes/ronchi or crackles Saturating well on room air Urinary Catheter Management: Figueroa: Cath Placed During This Visit: yes, but has since been removed by the nurse Reason for Continuing Indwelling Catheter: Other Urinary Catheter Date of Insertion: 09/07/21 Urinary Catheter Time of Insertion: 23:15 Date Urinary Catheter Removed: 09/10/21 Time Urinary Catheter Discontinued: 18:00 Data : 09/14/21 04:47 09/14/21 04:47 Micro: Microbiology 09/10/21 01:09 Blood Culture - Final Blood NO GROWTH AFTER 5 DAYS 09/10/21 01:03 Blood Culture - Preliminary Blood Micrococcus and related genera A&P Assessment and plan (1) Ureteral dilatation: Status: Acute (2) Hydronephrosis: Status: Acute (3) UTI (urinary tract infection): Status: Acute (4) Delusional disorder: Status: Acute (5) Hyponatremia: Status: Acute (6) Constipation: Status: Acute (7) COPD (chronic obstructive pulmonary disease): Status: Chronic Qualifiers: COPD type: emphysema Emphysema type: panlobular Qualified Code(s): J43.1 - Panlobular emphysema (8) Dyslipidemia: Status: Chronic (9) BPH (benign prostatic hyperplasia): Status: Chronic Qualifiers: Lower urinary tract symptom presence: symptoms present Lower urinary tract symptom detail: urinary frequency Qualified Code(s): N40.1 - Benign prostatic hyperplasia with lower urinary tract symptoms; R35.0 - Frequency of micturition (10) Generalized anxiety disorder: Status: Acute (11) Schizoaffective disorder, unspecified: Status: Acute (12) Nicotine dependence, cigarettes, with unspecified nicotine-induced disorders: Status: Chronic (13) Chronic low back pain: Status: Chronic Qualifiers: Back pain laterality: bilateral Sciatica presence: without sciatica Qualified Code(s): M54.5 - Low back pain; G89.29 - Other chronic pain (14) Dyskinesia of gallbladder: Status: Acute Plan #Sepsis secondary to UTI/Early Pyelonephritis, - Resolving, improving #R/o cholecystitis , Gall bladder wall thickening #Schizoaffective disorder #Hyponatremia secondary to SIADH #BPH #Constipation #Generalized anxiety disorder #Delusional disorder #Unilateral ureteral dilation, bladder outlet obstruction, no hydronephrosis. #Dyskinetic gallbladder, abnormal HIDA ?Continue salt tablets.? Work-up consistent with SIADH. ? Psych following patient.? Patient is supposed to go to Neuropsych Unit at some point once medically cleared. - UCx shows E.Coli pansensitive. COntinue ciprofloxacin - BCx 03/10 + for GM+ cocci in clusters. Bcx repeated and pending. Cx shows micrococcus most likely contaminant. Stopped vancomycin. - Continue figueroa catheter. To remove as outpatient. Will need outpatient appt with Dr. Garcia. ? Chest CT abdomen pelvis done on admission 09/07 did not show any gross pathology. - CT abd/pevlis 09/11 shows: unilateral ureteral dilation, bladder outlet obstruction, fluid in GB fossa. - RUQ US did not show acute cholecystitis but does have some sludging and gall bladder wall thickening with some free fluid.? HIDA scan done showed dyskinetic gallbladder and no contraction after fatty meal. Most likely chronic cholecystitis. - Continue ciprofloxacin and flagyl. Antibiotics started on 09/11/2021. Will need to complete 14 days total for possibly early developing pyelno and confirmed UTI. ? Sputum gram stain culture ordered but not obtained since patient not expectorating. ?Continue patient on bowel regimen - Will discuss with psych for further management. THey will see patient today and make medication recommendations. - Discussed gallbladder with gen surgery. Initial plan was to manage as outpatient after discharge for cholecystectomy but due to patient's continued nausea after every meal along with RUQ pain, will consult gen surg for possible surgical intervention during hospital stay. Full code DVT prophylaxis: Lovenox 40 daily Updated son 09/14 over the phone. Attestations Medical Necessity Statement*: Will need surgical evaluation for cholecystect jaleel and needs psychiatric evaluation and medication adjustments for management of schizophrenia. Discharge to be decided after psych and surgical eval. He may be able to discharged in next 24-48 hours. Coding Level of Care Code Acute Court Administrator for g Fwd Diagnoses Ureteral dilatation N28.82 Hydronephrosis N13.30 UTI (urinary tract infection) N39.0 Delusional disorder F22 Hyponatremia E87.1 Constipation K59.00 COPD (chronic obstructive pulmonary disease) J43.1 COPD type: emphysema Emphysema type: panlobular Dyslipidemia E78.5 BPH (benign prostatic hyperplasia) N40.1; R35.0 Lower urinary tract symptom presence: symptoms present Lower urinary tract symptom detail: urinary frequency Generalized anxiety disorder F41.1 Schizoaffective disorder, unspecified F25.9 Nicotine dependence, cigarettes, with unspecified nicotine-induced disorders F17.219 Chronic low back pain M54.5; G89.29 Back pain laterality: bilateral Sciatica presence: without sciatica Dyskinesia of gallbladder K82.8
[2021-09-15] MEDS: trazodone 50 mg Tablet 25 MG PO (21:43)
[2021-09-16] VITALS (8 sets, daily range): BP systolic 127–154; BP diastolic 76–87; PULSE 65–80; RESP 12–17; TEMP 36.6–36.9; O2SAT 95–100
[2021-09-16] MEDS: lactulose oral liq 20 gm/30 mL UDC PO ×2 (00:37→11:09)
[2021-09-16] MEDS: ciprofloxacin 400 MG/200 ML PREMIX 200 MG IV ×2 (03:41→12:15)
[2021-09-16 04:51] LABS: Basophils # 0.1 10^3/uL (0.0-0.1); Basophils % 0.6 %; Eosinophils # 0.2 10^3/uL (0.0-0.8); Eosinophils % 1.8 %; Hematocrit 34.9 % (42.0-52.0); Hemoglobin 12.4 g/dL (11.7-16.6); Lymphocytes # 2.5 10^3/uL (0.8-4.8); Lymphocytes % 29.3 %; Mean Corpuscular HGB Conc 35.5 g/dL (30.0-36.0); Mean Corpuscular Hemoglobin 30.7 pg (28.0-34.0); Mean Corpuscular Volume 86.4 fl (80-94); Mean Platelet Volume 9.7 fL (7.4-10.4); Monocytes # 0.8 10^3/uL (0.2-0.9); Monocytes % 9.1 %; Neutrophils # 4.65 10^3/uL (1.8-7.7); Neutrophils % 55.5 %; Nucleated Red Blood Cells % 0 %; Platelet Count 319 10^3/cmm (130-400); Red Blood Count 4.04 10^6/uL (4.1-5.3); Red Cell Distribution Width 12.4 % (12.1-15.1); White Blood Count 8.4 10^3/uL (4.0-10.0)
[2021-09-16] MEDS: metroNIDAZOLE IV 500 MG/100 ML PREMIX 100 MG IV ×2 (05:05→13:47)
[2021-09-16 05:10] LABS: Anion Gap 12.7 (5-19); Blood Urea Nitrogen 9 mg/dL (6-20); Calcium 8.2 mg/dL (8.5-10.5); Carbon Dioxide 25 mmol/L (22-29); Chloride 97 mmol/L (98-107); Glomerular Filtration Rate 138.4 mL/min (90-130); Glucose 103 mg/dL (65-115); Osmolality Calculated 271 mOsm/kg (285-295); Potassium 3.7 mmol/L (3.5-5.1); Sodium 131 mmol/L (136-145)
[2021-09-16] MEDS: ondansetron 2 mg/ML SDV 2 mL 4 MG IVP (05:28)
[2021-09-16] MEDS: ziprasidone hcl 40 mg Capsule 80 MG PO (06:40)
[2021-09-16] MEDS: sodium chloride 1 gm Tablet PO (08:12)
[2021-09-16] MEDS: famotidine 20 mg Tablet PO (08:12)
[2021-09-16] MEDS: sennosides-docusate Tablet 1 TAB PO (08:13)
[2021-09-16] MEDS: tamsulosin 0.4 mg Capsule 0.8 MG PO (08:13)
--- NOTE | 2021-09-16 09:29 | PC.SOCIAL ---
IMM Update Pg. 2 of IMM Updated and reviewed with patient, who verbalized understanding. Copy provided.
--- NOTE | 2021-09-16 09:37 | PM.CONSULT ---
Providers/Reason For Consult Consulting Physician/Specialty*: Urology/Garcia Reason for Consult*: Urinary retention Requesting Physician: Dr. Burns Attending Physician: Angie Spears MD Primary Care Provider: Mali Lerma DO History of Present Illness History of Present Illness Michael Munoz IV is a 56 year old male who I evaluated for the first time at this hospital stay. He was admitted for altered mental status. CT scan was performed of his chest abdomen pelvis on admission showed a very distended bladder and a Park catheter was placed. On admission his creatinine was 0.6. On the day of our following his admission he forcibly withdrew his Park catheter. It was replaced without difficulty and urethral bleeding subsided and stopped eventually. Catheter was then taken down and he failed that voiding trial. CT scan of abdomen pelvis done for increasing abdominal discomfort showed again his bladder was distended and now he had new onset of right hydronephrosis. It was felt that the hydronephrosis was secondary to bladder outlet obstruction. Catheter has been maintained since that time and he seems to be tolerating it well. He does report some difficulty voiding previously. He is not able to give a lot of details but he did mention that shortly before he came to the hospital he drank 3 bottles of water and was not able to void. Cannot really give a history of how long he might of been having lower urinary tract symptoms. Recommended that the catheter maintained in place at discharge and follow-up in my office in 2 to 3 weeks for cystoscopy, voiding trial, possible self cath training. Would also start TAMSULOSIN 0.4 mg p.o. nightly at discharge. Medications/Allergies Home Medications Medication Instructions Recorded Confirmed Last Taken Type aspirin 81 mg tablet,delayed 81 mg PO DAILY 06/18/19 09/07/21 07/13/19 History release (Adult Aspirin Regimen) famotidine 10 mg tablet 10 mg PO DAILY PRN 07/16/19 09/07/21 Unknown History albuterol sulfate 90 mcg/actuation 2 puff INHALATION Q6H PRN #8.5 g 07/31/21 09/07/21 Unknown Rx aerosol inhaler (Ventolin HFA) celecoxib 200 mg capsule 200 mg PO DAILY #90 cap 07/31/21 09/07/21 Unknown Rx fluticasone 500 mcg-salmeterol 50 1 inh INHALATION BID #60 each 07/31/21 09/07/21 Unknown Rx mcg/dose blistr powdr for inhalation (Advair Diskus) tramadol 50 mg tablet 50 mg PO TID PRN #90 tab 07/31/21 09/07/21 Unknown Rx sertraline 50 mg tablet (Zoloft) 50 mg PO DAILY #90 tab 08/10/21 09/07/21 Unknown Rx benztropine 2 mg tablet 2 mg PO DAILY #90 tab 09/01/21 09/07/21 Unknown Rx hydroxyzine pamoate 25 mg capsule 25 mg PO TID PRN #270 cap 09/01/21 09/07/21 Unknown Rx (Vistaril) mirtazapine 30 mg tablet 30 mg PO .at bed #90 tab 09/01/21 09/07/21 Unknown Rx trazodone 100 mg tablet 100 mg PO .HS #90 tab 09/01/21 09/07/21 Unknown Rx ziprasidone HCl 80 mg capsule 80 mg PO BID #180 cap 09/01/21 09/07/21 Unknown Rx (Geodon) clonazepam 0.5 mg tablet (Klonopin) 0.5 mg PO DAILY #30 tab 09/02/21 09/07/21 Unknown Rx bupropion HCl 150 mg 24 hr tablet, 150 mg PO DAILY 09/07/21 09/07/21 Unknown History extended release fluticasone 500 mcg-salmeterol 50 1 ea INHALATION BID 09/07/21 09/07/21 Unknown History mcg/dose blistr powdr for inhalation (Wixela Inhub) gemfibrozil 600 mg tablet 600 mg PO BID 09/07/21 09/07/21 Unknown History Allergies Allergy/AdvReac Type Severity Reaction Status Date / Time Penicillins Allergy Severe throat Verified 09/15/21 17:20 karyn Current Medications Generic Name Dose Route Start Last Admin Trade Name Freq PRN Reason Stop Dose Admin Acetaminophen 500 mg 09/07/21 17:39 09/12/21 09:34 Acetaminophen 500 Mg Tablet PO 500 mg Q4H PRN Administration fever Enoxaparin Sodium 40 mg 09/08/21 12:00 09/15/21 12:31 Enoxaparin 40 Mg/0.4 Ml Syringe SUBCUT 40 mg Q24H MARIETTA Administration Famotidine 20 mg 09/16/21 09:00 09/16/21 08:12 Famotidine 20 Mg Tablet PO 20 mg BID MAR[place]ET[place] Administration Sodium Chloride 1,000 mls @ 75 mls/hr 09/07/21 17:45 09/15/21 16:56 Sodium Chloride 0.9% IV 75 mls/hr .[id number] MAIRETTA Administration Ciprofloxacin/Dextrose 400 mg in 200 mls @ 200 mls/hr 09/11/21 12:00 09/16/21 04:46 Cipro IV Infused Q8H [facility] Infusion Protocol Metronidazole 500 mg in 100 mls @ 100 mls/hr 09/13/21 12:45 09/16/21 06:31 Flagyl Iv IV Infused Q8H [facility] Infusion Protocol Lactulose 20 gm 09/11/21 11:45 09/16/21 00:37 Lactulose Oral Liq 20 Gm/30 Ml Udc PO 20 gm Q12H [place] Administration Ondansetron HCl 4 mg 09/07/21 17:39 09/16/21 05:28 Ondansetron 2 Mg/Ml Sdv 2 Ml IVP 4 mg Q6H PRN Administration NAUSEA AND VOMITING Senna/Docusate Sodium 1 tab 09/07/21 18:00 09/16/21 08:13 Sennosides-Docusate Tablet PO 1 tab BID [place] Administration Sodium Chloride 1 gm 09/08/21 10:45 09/16/21 08:12 Sodium Chloride 1 Gm Tablet PO 1 gm BID MAR[place]ETTA Administration Tamsulosin HCl 0.8 mg 09/09/21 09:00 09/16/21 08:13 Tamsulosin 0.4 Mg Capsule PO 0.8 mg DAILY MAR[place]ETTA Administration Trazodone HCl 25 mg 09/10/21 21:38 09/15/21 21:43 Trazodone 50 Mg Tablet PO 25 mg BEDTIME PRN Administration insomnia Ziprasidone 80 mg 09/09/21 17:00 09/16/21 06:40 Ziprasidone Hcl 40 Mg Capsule PO 80 mg 0700,1700 MAR[place]ETTA Administration PFSH Acute PFSH: Medical History (Updated 09/16/21 @ 09:46 by Misael Garcia MD) Anxiety BPH (benign prostatic hyperplasia) BPH w urinary obs/LUTS Chronic dryness of both eyes Chronic low back pain COPD (chronic obstructive pulmonary disease) Dyslipidemia Enrolled in chronic care management Generalized anxiety disorder GERD (gastroesophageal reflux disease) Nicotine dependence, cigarettes, uncomplicated Psychiatric care Schizoaffective disorder, unspecified Urinary retention Surgical History History of appendectomy History of tonsillectomy Family History Other Cancer Social History Smoking and tobacco status: current every day smoker cigarettes Packs smoked per day: 1.5 and smokeless tobacco Smoking risk assessment/counseling performed?: Yes Tobacco counseling given: counseling >3 minutes Alcohol intake: never Vitals/I&O/Wt Last Vital Signs Temp 98.5 F 09/16/21 07:48 Pulse 73 09/16/21 08:00 Resp 16 09/16/21 08:00 BP 127/80 09/16/21 07:48 Pulse Ox 96 09/16/21 08:00 09/15/21 09/16/21 09/16/21 22:59 06:59 14:59 Intake Total 1440 / 2240 759 / 2999 Output Total 1150 / 2750 1175 / 3925 750 / 750 Balance 290 / -510 -416 / -926 -750 / -750 Physical Exam Narrative: General: Alert, appropriate, cooperative. No acute distress. HEENT: Atraumatic normocephalic Neck: Good range of motion Chest: normal movements Respiratory: No labored respiration or audible wheezes Cardiovascular: Regular rhythm Abdomen is soft nontender, Bladder nondistended. Park draining clear urine Urinary Catheter Management: Park: Cath Placed During This Visit: yes, but has since been removed by the nurse Reason for Continuing Indwelling Catheter: Other Urinary Catheter Date of Insertion: 09/07/21 Urinary Catheter Time of Insertion: 23:15 Date Urinary Catheter Removed: 09/10/21 Time Urinary Catheter Discontinued: 18:00 Data : 09/16/21 04:40 09/16/21 04:40 Micro: Microbiology 09/10/21 06:08 Blood Culture - Final Blood NO GROWTH AFTER 5 DAYS 09/10/21 06:08 Blood Culture - Final Blood NO GROWTH AFTER 5 DAYS 09/10/21 01:03 Blood Culture - Final Blood Micrococcus and related genera A&P Assessment and plan (1) BPH w urinary obs/LUTS: Appears to be chronic. We will start TAMSULOSIN 0.4 mg p.o. nightly Status: Acute (2) Ureteral dilatation: Appears to be related to chronic bladder Neil obstruction. Status: Acute (3) Urinary retention: Etiology unclear but bladder was very distended at admission. Some sporadic history of voiding dysfunction but not clear Status: Acute (4) UTI (urinary tract infection): Status: Acute (5) Hydronephrosis: Secondary to bladder outlet obstruction Status: Acute Plan 1. Discharge with Park catheter in place. 2. Follow-up in 2 to 3 weeks with cystoscopy, voiding trial, [facility] instruction possibly. 3. Initiate TAMSULOSIN 0.4 mg p.o. nightly now and at discharge. Consult Attestations Medical Necessity Statement: See attending Coding Level of Care Code Acute Public Service Director for 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 Diagnoses BPH w urinary obs/LUTS N40.1; N13.8 Ureteral dilatation N28.82 Urinary retention R33.9 UTI (urinary tract infection) N39.0 Hydronephrosis N13.30
[2021-09-16] MEDS: enoxaparin 40 mg/0.4 mL Syringe SUBCUT (12:14)
[2021-09-16] MEDS: sodium chloride 0.9% 1,000 ML 75 ML IV (12:16)
--- NOTE | 2021-09-16 15:54 | P.DS_ITS ---
Discharge Providers Date of Admission: 09/07/21 15:49 Date of Discharge: September 16, 2021 Attending Provider at Admission: Andreea Loving MD Attending Provider at Discharge: Angie Spears MD Consults: Dr James with psychiatry Dr. Garcia with urology Dr Rodriguez with surgery Primary Care Provider: Mali Lerma DO Diagnoses at Discharge Discharge Diagnosis (1) Acute psychosis: Status: Acute (2) Urinary retention: Status: Acute (3) Ureteral dilatation: Status: Acute (4) BPH w urinary obs/LUTS: Status: Acute (5) Pyelonephritis due to Escherichia coli: Status: Acute (6) Sepsis due to Escherichia coli without acute organ dysfunction: Status: Acute (7) Dyskinesia of gallbladder: Status: Chronic (8) Hydronephrosis: Status: Acute Qualifiers: Hydronephrosis type: other Qualified Code(s): N13.39 - Other hydronephrosis (9) Schizoaffective disorder, unspecified: Status: Chronic Qualifiers: Schizoaffective disorder type: depressive Qualified Code(s): F25.1 - Schizoaffective disorder, depressive type Reason for Visit Reason for Visit: n/v Brief History: From H&P: Michael Munoz IV is a 56 year old male who presented today with chief complaint altered mental status.? Patient was reported by his neighbors today when he was acting not himself today.? His thoughts were disorganized that prompted his visit to the ER.? He lives alone, patient is stating that he cooks for himself and takes care of his daily activities, his son has not been in touch with him lately.? Patient is stating that he was baptized lately and he wants to preach the world and spread the good.? His speech is disorganized, tangential conversation.? He is endorsing constipation and problems with his urination.? When asked about his last bowel movement he stated it was a few years ago.? He is endorsing weeks urinary stream, however no fever, dysuria. Hospital Course Hospital Course Mr. Singleton was admitted due to sodium of 127 at presentation associated with altered mental status changes. He was having acute psychosis on top of his chronic schizoaffective depressive disorder. This was present at admission and escalated. He had had complaints of constipation and lower abdominal pain and ultimately was identified as having significant urinary retention for which a Figueroa catheter was placed. As his psychoses escalated he pulled out several Figueroa catheters. Psychiatry saw him and adjustments were made to multiple psychiatric medications. In addition he was started on antibiotics for urinary tract infection. There was suspicion of urinary tract infection at presentation based on symptoms. Initial urinalysis showed ketones. Initial CT imaging did not reveal acute abnormalities involving the kidneys. After repeated patient self removal of Figueroa combined with urinary retention from enlarged prostate, patient ended up developing hydronephrosis and ureterectasis with some induration but no obstructing calculi. Differential included chronic bladder outlet obstruction or developing pyelonephritis. White count peaked at 16,000, lactic acid was normal. Urine cultures grew out E. coli that was pansensitive. In the end patient was felt to have sepsis without organ dysfunction due to E. coli. He was identified as having fluid in the gallbladder. HIDA scan was suggestive of chronic cholecystitis and dyskinesia of the gallbladder. Dr. Rodriguez saw Mr. Munoz in the hospital setting. Even with the abnormalities noted, patient was tolerating oral intake without significant pain. Patient can follow-up with Dr. Rodriguez for outpatient EGD and potential gallbladder surgery down the road. No indication for surgical intervention at this time. With the acute psychosis here multiple psychiatric medications that have been on patient's home medication list as confirmed had been held during the hospital stay. At the time of discharge tramadol, sertraline, Vistaril, Remeron and bupropion are all being held until follow-up with [facility] for further discussion. Geodon dosing was continued. A lower dose of trazodone was continued. Cogentin has been continued as has as needed Klonopin. With this combination and treatment of genitourinary issues, patient had improvement quite remarkably. He was seen by Dr. Garcia who will follow him up in a few weeks. With recurrent urinary retention Mr. Singleton will be going home with Figueroa catheter and Flomax. He has evidence of prostate enlargement as well as constipation contributing to urinary retention but need to consider the possibility of medication side effect adding to this as well. At the time of discharge patient was alert and oriented to person, place and situation. He did not have any acutely obvious hallucinations or persistent outward delusions impacting his care. He was comfortable with managing his catheter. Arrangements were made for home health care to assist him via [facility]. He was excited about going home. He had a regular rhythm and lungs were clear. He received written and verbal instructions on management of the catheter as well as a review of medications that were being held. Home health will assist with medication management and adjusting his pillbox at home. It should be noted that I failed to initially prescribe Cipro and Flagyl but these were sent electronically to the pharmacy. Patient will be updated. Discharge Data Studies Completed and Pending Completed Studies During Hospitalization Category Date Time Status CT abdomen pelvis w con* [id number] Urgent Cat Scan 09/11/21 08:[address] chest abdomen pelvis [[place] [id number] Cat Scan 09/07/21 12:10 Completed ] Urgent CT head wo con* [id number] Urgent Cat Scan 09/07/21 12:10 Completed XR chest 1V portable [id number] Urgent Exams 09/09/21 14:15 Completed NM hepatobiliary w phar* [id number] Routine Nuc Med 09/14/21 07:50 [place] [id number] Routine Ultrasound 09/11/21 00:01 Completed US abdomen limited [id number] Stat Ultrasound 09/11/21 11:33 Completed Pending at discharge Category Date Time Status Sputum Culture and Gram Stain Stat Lab 09/10/21 07:44 Uncollected Radiology Impressions Chest/Abdomen/Pelvis CT 09/07/21 12:10 IMPRESSION: 1. No acute findings. 2. Emphysematous changes of the lungs. IMPRESSION: No acute findings. Large colonic stool burden. Head CT 09/07/21 12:10 IMPRESSION: No acute intracranial abnormality. Chest X-Ray 09/09/21 14:15 Impression: Atherosclerosis. Abdomen/Pelvis CT 09/11/21 08:02 IMPRESSION: 1. Mild gallbladder wall enhancement with suggestion of gallbladder wall edema and fluid in the gallbladder fossa. This appears new from previous. Recommend further evaluation with ultrasound. Visualized common bile duct appears decompressed. No visualized cholelithiasis 2. Tiny bilateral pleural effusions with compressive atelectasis in the lung bases is new from previous. 3. Urine distended bladder with small cystocele. 4. Mild RIGHT ureterectasis with surrounding induration is new from previous. No obstructing calculi. This may be due to chronic bladder outlet obstruction or developing pyelonephritis. Recommend correlation for UTI. 5. Prominent prostate measures 5.1 CM. Notified Kaya Burns MD at 09/11/2021 11:24 AM. Abdomen Ultrasound 09/11/21 11:33 IMPRESSION: 1. Diffuse gallbladder wall thickening without evidence of gallstones. Imaging appearance is nonspecific and could reflect cholecystitis or represent sequela of a secondary etiology. Correlate with clinical exam. 2. Mild hepatomegaly. Hepatobiliary Scan Nuclear Medicine 09/14/21 07:50 IMPRESSION: 1. Normal gallbladder filling and visualization of the small bowel. No cystic or common bile duct obstruction. 2. No gallbladder contraction after fatty meal. Gallbladder dysfunction/dyskinesia. Laboratory Results WBC 8.4 10^3/uL (4.0-10.0) 09/16/21 04:40 RBC 4.04 10^6/uL (4.1-5.3) L 09/16/21 04:40 Hgb 12.4 g/dL (11.7-16.6) 09/16/21 04:40 Hct 34.9 % (42.0-52.0) L 09/16/21 04:40 MCV 86.4 fl (80-94) 09/16/21 04:40 MCH 30.7 pg (28.0-34.0) 09/16/21 04:40 MCHC 35.5 g/dL (30.0-36.0) 09/16/21 04:40 RDW 12.4 % (12.1-15.1) 09/16/21 04:40 Plt Count 319 10^3/cmm (130-400) 09/16/21 04:40 MPV 9.7 fL (7.4-10.4) 09/16/21 04:40 Neut % (Auto) 55.5 % 09/16/21 04:40 Lymph % (Auto) 29.3 % 09/16/21 04:40 [place] % (Auto) 9.1 % 09/16/21 04:40 Eos % (Auto) 1.8 % 09/16/21 04:40 Baso % (Auto) 0.6 % 09/16/21 04:40 Neut # (Auto) 4.65 10^3/uL (1.8-7.7) 09/16/21 04:40 Lymph # (Auto) 2.5 10^3/uL (0.8-4.8) 09/16/21 04:40 [place] # (Auto) 0.8 10^3/uL (0.2-0.9) 09/16/21 04:40 Eos # (Auto) 0.2 10^3/uL (0.0-0.8) 09/16/21 04:40 Baso # (Auto) 0.1 10^3/uL (0.0-0.1) 09/16/21 04:40 Nucleated RBC % (auto) 0 % 09/16/21 04:40 Total Counted 100 (0-100) 09/11/21 06:08 Atypical Lymphs % 0.0 % (0-5) 09/11/21 06:08 Absolute Neutrophils 11.4 10^3/cmm (1.4-6.5) H 09/11/21 06:08 Segmented Neutrophils 74 % 09/11/21 06:08 Abs Segm Neuts (Man) 8.8 10/cmm (1.6-7.1) H 09/11/21 06:08 Band Neutrophils 22.0 % 09/11/21 06:08 Abs Band Neuts (Man) 2.6 10^3/cmm (0.0-1.2) H 09/11/21 06:08 Absolute Lymphocytes 0.2 10^3/cmm (1.2-3.4) L 09/11/21 06:08 Lymphocytes (Manual) 2 % 09/11/21 06:08 Monocytes (Manual) 2.0 % 09/11/21 06:08 Absolute Monocytes 0.2 10^3/cmm (0.1-0.6) 09/11/21 06:08 Eosinophils (Manual) 0 % 09/11/21 06:08 Absolute Eosinophils 0.0 10^3/cmm (0.0-0.7) 09/11/21 06:08 Basophils (Manual) 0.0 % 09/11/21 06:08 Absolute Basophils 0.0 10^3/cmm (0.0-0.2) 09/11/21 06:08 Metamyelocytes 0.0 % 09/11/21 06:08 Myelocytes 0.0 % 09/11/21 06:08 Nucleated RBCs # 0.0 /100WBC 09/16/21 04:40 Platelet Estimate Normal (Normal) 09/11/21 06:08 Specimen Type Arterial 09/07/21 15:59 Sample Site Radial, left 09/07/21 15:59 ABG pH 7.43 (7.35-7.45) 09/07/21 15:59 ABG pCO2 37.0 mmHg (35-45) 09/07/21 15:59 ABG pO2 74.4 mmHg (80.0-100.0) L 09/07/21 15:59 ABG HCO3 24.3 mmol/L (22-26) 09/07/21 15:59 ABG O2 Saturation 96.0 09/07/21 15:59 ABG Base Excess 0.2 mmol/L (-2.0-2.0) 09/07/21 15:59 Yury Test Pos 09/07/21 15:59 A-a O2 Gradient 3.7 mmHg (5-10) L 09/07/21 15:59 Hematocrit 40.0 % (42-52) L 09/07/21 15:59 Hgb O2 Saturation 93.8 % (95-100) L 09/07/21 15:59 Carboxyhemoglobin 1.4 %THgb (0.4-20.1) 09/07/21 15:59 Methemoglobin 0.9 % (0.4-1.5) 09/07/21 15:59 Total Hemoglobin 13.0 g/dL (14-18) L 09/07/21 15:59 Sodium 125.0 mmol/L (131-143) L 09/07/21 15:59 Potassium 3.9 mmol/L (3.5-5.0) 09/07/21 15:59 Glucose 110.0 mg/dL (70-115) 09/07/21 15:59 Ionized Calcium 1.2 mmol/L (1.1-1.4) 09/07/21 15:59 O2 Delivery Device Room air 09/07/21 15:59 FiO2 21.0 % 09/07/21 15:59 Final Inspection Supervisor ID Cak 09/07/21 15:59 Sodium 131 mmol/L (136-145) L 09/16/21 04:40 Potassium 3.7 mmol/L (3.5-5.1) 09/16/21 04:40 Chloride 97 mmol/L (98-107) L 09/16/21 04:40 Carbon Dioxide 25 mmol/L (22-29) 09/16/21 04:40 Anion Gap 12.7 (5-19) 09/16/21 04:40 BUN 9 mg/dL (6-20) 09/16/21 04:40 Creatinine 0.6 mg/dL (0.7-1.2) L 09/16/21 04:40 GFR Calculation 138.4 mL/min (90-130) H 09/16/21 04:40 Glucose 103 mg/dL (65-115) 09/16/21 04:40 POC Glucose 129 mg/dL (70-110) H 09/08/21 10:58 Serum Osmolality 257 mOsm/kg (278-305) L 09/07/21 19:13 Calculated Osmolality 271 mOsm/kg (285-295) L 09/16/21 04:40 Lactate 1.2 mmol/L (0.5-2.2) 09/10/21 01:03 Calcium 8.2 mg/dL (8.5-10.5) L 09/16/21 04:40 Magnesium 1.9 mg/dL (1.7-2.3) 09/10/21 01:09 Total Bilirubin 0.3 mg/dL (0.15-1.2) 09/07/21 13:04 AST 37 U/L (0-40) 09/07/21 13:04 ALT 36 U/L (0-41) 09/07/21 13:04 Alkaline Phosphatase 54 IU/L (40-130) 09/07/21 13:04 Ammonia 31 umol/L (16-60) 09/07/21 13:04 Troponin T Baseline 10 ng/L (0-15) 09/07/21 13:04 Troponin T 120 Minute 9.87 ng/L (0-15) 09/07/21 14:59 Delta Troponin T -0.13 ABS# (0-10) L 09/07/21 14:59 Troponin T Hi Sens 6Hr 10.72 ng/L (0-15) 09/07/21 19:13 Troponin T Hi Sens 6Hr Delta 0.72 ng/L (0-12) 09/07/21 19:13 C-Reactive Protein 3.0 mg/L (0.0-4.9) 09/08/21 04:48 Total Protein 7.0 g/dL (6.6-8.7) 09/07/21 13:04 Albumin 4.6 g/dL (3.5-5.2) 09/07/21 13:04 Globulin 2.4 g/dL (1.3-4.6) 09/07/21 13:04 Procalcitonin 5.32 ng/mL (0-0.5) H 09/14/21 04:47 TSH 0.34 uIU/mL (0.27-4.20) 09/07/21 13:04 Random Cortisol 28.36 ug/dL (2.47-19.5) H 09/08/21 04:48 Urine Color Yellow (Yellow) 09/09/21 15:33 Urine Appearance Hazy (CLEAR) A 09/09/21 15:33 Urine pH 7 (5-7) 09/09/21 15:33 Ur Specific [place] 1.010 (1.005-1.030) 09/09/21 15:33 Urine Protein Neg (Negative) 09/09/21 15:33 Urine Glucose (UA) Norm (Normal) 09/09/21 15:33 Urine Ketones 1+ (Negative) H 09/09/21 15:33 Urine Blood 3+ (Negative) H 09/09/21 15:33 Urine Nitrate Negative (Negative) 09/09/21 15:33 Urine Bilirubin Neg (Negative) 09/09/21 15:33 Urine Urobilinogen Norm mg/dL (Negative) 09/09/21 15:33 Ur Leukocyte Esterase 2+ (Negative) H 09/09/21 15:33 Urine RBC 0-4 /hpf (0-2) H 09/09/21 15:33 Urine WBC Too numerous to cnt /hpf (0-5) H 09/09/21 15:33 Ur Squamous Epith Cells 5-10 /hpf (0-5) H 09/09/21 15:33 Amorphous Sediment Not Reportable 09/09/21 15:33 Urine Bacteria 3+ /hpf (NONE) H 09/09/21 15:33 Urine Osmolality 420 mOsm/kg (50-1200) 09/07/21 18:15 Ur Random Sodium 93 mmol/L 09/09/21 15:33 Vancomycin Trough 19.3 ug/mL (10-15) H 09/13/21 17:13 Salicylates < 0.3 mg/dL (3-10) L 09/07/21 13:04 Urine Opiates Screen Negative ng/mL (Negative) 09/07/21 15:13 Acetaminophen < 5.0 ug/mL (10-30) L 09/07/21 13:04 Ur Barbiturates Screen Negative ng/mL (Negative) 09/07/21 15:13 Ur Phencyclidine Scrn Negative ng/mL (Negative) 09/07/21 15:13 Ur Amphetamines Screen Negative ng/mL (Negative) 09/07/21 15:13 U Benzodiazepines Scrn Negative ng/mL (Negative) 09/07/21 15:13 Urine Cocaine Screen Negative ng/mL (Negative) 09/07/21 15:13 U Marijuana (THC) Screen Negative ng/mL (Negative) 09/07/21 15:13 Ethyl Alcohol < 10 mg/dL (0-10) 09/07/21 13:04 RPR Nonreactive (Nonreactive) 09/07/21 15:58 Vitals Last Vital Signs Temp 98.0 F 09/16/21 15:38 Pulse 80 09/16/21 15:38 Resp 16 09/16/21 15:38 BP 131/76 09/16/21 15:38 Pulse Ox 100 09/16/21 15:38 Discharge Plan Discharge Patient Disposition: Home Health Service Condition: Stable Prescriptions: New tamsulosin 0.4 mg Capsule 0.8 mg PO DAILY Qty: 60 12RF sodium chloride 1 gram Tablet 1 g PO BID Qty: 60 0RF Cipro 500 mg tablet 500 mg PO BID Qty: 14 0RF metronidazole 500 mg tablet 500 mg PO TID Qty: 21 0RF Continued albuterol sulfate [Ventolin HFA] 90 mcg/actuation HFA aerosol inhaler 2 puff INHALATION Q6H PRN (Reason: Shortness Of Breath) Qty: 8.5 5RF celecoxib 200 mg capsule 200 mg PO DAILY Qty: 90 1RF benztropine 2 mg tablet 2 mg PO DAILY Qty: 90 0RF Wixela Inhub 500-50 mcg/dose blister with device 1 ea inhalation BID 0RF gemfibrozil 600 mg tablet 600 mg PO BID 0RF Changed trazodone 100 mg tablet 50 mg PO BEDTIME PRN (Reason: insomnia) Qty: 90 0RF Geodon 80 mg capsule 80 mg PO BID@07,17 Qty: 180 0RF Rx Instructions: with food Klonopin 0.5 mg tablet 0.5 mg PO DAILY PRN (Reason: Anxiety) Qty: 30 2RF Held tramadol 50 mg tablet 50 mg PO TID PRN (Reason: pain) Qty: 90 2RF Hold Instructions: hold until discuss need to resume with psychiatry/[facility] upon follow up sertraline [Zoloft] 50 mg tablet 50 mg PO DAILY Qty: 90 0RF Hold Instructions: hold until discuss need to resume with psychiatry/[facility] upon follow up hydroxyzine pamoate [Vistaril] 25 mg capsule 25 mg PO TID PRN (Reason: anxiety) Qty: 270 0RF Hold Instructions: hold until discuss need to resume with psychiatry/[facility] upon follow up mirtazapine 30 mg tablet 30 mg PO .at bed Qty: 90 0RF Hold Instructions: hold until discuss need to resume with psychiatry/[facility] upon follow up bupropion HCl 150 mg tablet extended release 24 hr 150 mg PO DAILY 0RF Hold Instructions: hold until discuss need to resume with psychiatry/[facility] upon follow up Discontinued fluticasone propion-salmeterol [Advair Diskus] 500-50 mcg/dose blister with device 1 inh INHALATION BID Qty: 60 5RF aspirin [Adult Aspirin Regimen] 81 mg tablet,delayed release (DR/EC) 81 mg PO DAILY 0RF famotidine 10 mg Tablet 10 mg PO DAILY PRN (Reason: Acid Reflux) 0RF Discharge Orders: Discharge Order (Routine); Ordered 09/16/21 Ordered By: Angie Spears Referrals: [facility] [Outside] Kaycee Yung, PMHNP [Staff Physician] - 09/18/21 10:15 am (Acute psychosis/delusions, multiple psych medications held, see dc summary for details, had urinary issues, figueroa in place right now for plan 2-3 weeks) Misael Garcia MD [Physician] - 2 weeks (Dr. Garcia's office will call you with an appointment. 2 to 3 weeks: Cystoscopy, voiding trial, possible [facility] instruction.) Lambert,Mali, DO [Primary Care Provider] - 1-3 days (Dr. Lerma's office will call you with an appointment.) Discharge Diet: Advance as tolerated Discharge Activity: Increase activity as tolerated Patient Instructions: Tamsulosin (By mouth), Figueroa Catheter Care, How to Stop Smoking (ED), Urinary Retention in Men (GEN), Enlarged Prostate (BPH) (DC), Urinary Leg Bag (GEN), Opioid Safety Activity Restrictions/Additional Instructions: Urology instructions: 1. Maintain Figueroa catheter until follow-up in my office in 2 to 3 weeks after discharge. 2. Continue TAMSULOSIN for treating your prostate. Discharge Attestations Time Spent in Discharge Care*: greater than 30 min Specific Discharge Activities: educating patient, discussing with pcp/other providers, discussing with pillowcase cleaner/social workers/dc planners, documenting/other paperwork and evaluating patient/reviewing data Quality Metrics Clinical Quality Measures [ No reported AMI, CVA or VTE this stay] Coding Level of Care Code Acute Chg FW DC note Diagnoses BPH w urinary obs/LUTS N40.1; N13.8 Ureteral dilatation N28.82 Urinary retention R33.9 Hydronephrosis N13.39 Hydronephrosis type: other Acute psychosis F23 Schizoaffective disorder, unspecified F25.1 Schizoaffective disorder type: depressive Pyelonephritis due to Escherichia coli N12; B96.20 Sepsis due to Escherichia coli without acute organ dysfunction A41.51 Dyskinesia of gallbladder K82.8
--- NOTE | 2021-09-16 17:12 | PC.NURSE ---
Discharged orders, follow up appointments and medications discussed with patient. Verbalized understanding.
== END 2021-09-16 17:19 | disposition home health service (06) | DRG 643 ==
LOC: ER 15:48 → MEDSURG 17:56
PROVIDERS: Internal Medicine; Admitting Provider Internal Medicine; Emergency Provider Emergency Medicine; PCP Family Medicine; Visit Provider Hospitalist
DX: E22.2 Syndrome of inappropriate secretion of antidiuretic hormone (principal); A41.51 Sepsis due to Escherichia coli [E. coli]; G93.41 Metabolic encephalopathy; F23 Brief psychotic disorder; N12 Tubulo-interstitial nephritis, not specified as acute or chronic; N39.0 Urinary tract infection, site not specified; N13.6 Pyonephrosis; N13.8 Other obstructive and reflux uropathy; N32.0 Bladder-neck obstruction; F22 Delusional disorders; K59.00 Constipation, unspecified; N40.1 Benign prostatic hyperplasia with lower urinary tract symptoms; R33.8 Other retention of urine; R35.0 Frequency of micturition; N28.82 Megaloureter; B96.20 Unspecified Escherichia coli [E. coli] as the cause of diseases classified elsewhere; F25.1 Schizoaffective disorder, depressive type; K82.8 Other specified diseases of gallbladder; F17.210 Nicotine dependence, cigarettes, uncomplicated; J43.1 Panlobular emphysema; E78.5 Hyperlipidemia, unspecified; F41.1 Generalized anxiety disorder; K21.9 Gastro-esophageal reflux disease without esophagitis; D72.825 Bandemia; R11.2 Nausea with vomiting, unspecified; Z79.82 Long term (current) use of aspirin
CPT/HCPCS: 36415; 36416; 36600; 51701; 51702; 51798; 70450; 71045; 71250; 74176; 74177; 76705; 78227; 80048; 80051; 80053; 80202; 80306; 80307; 81001; 81003; 82140; 82330; 82533; 82805; 82962; 83605; 83735; 83930; 83935; 84145; 84295; 84300; 84443; 84484; 85007; 85025; 86140; 86592; 87040; 87077; 87086; 87186; 87641; 92523; 92610; 93005; 93971; 96372; 99285; A9537; G0378; J0744; J1630; J1650; J1956; J2060; J2185; J2405; J3370; J3411; J3486; J3490; J7030; J7050; Q9967; S0030

== ENCOUNTER → 2021-10-09 10:11 | Outpatient (BNVA) | payer MEDICARE, SELFPAY | PROVIDERS: PCP Family Medicine; Visit Provider Urology | DX: R33.9 Retention of urine, unspecified (principal); N13.39 Other hydronephrosis; N12 Tubulo-interstitial nephritis, not specified as acute or chronic; B96.20 Unspecified Escherichia coli [E. coli] as the cause of diseases classified elsewhere; N28.82 Megaloureter; S37.30XA Unspecified injury of urethra, initial encounter | CPT/HCPCS: 52000; 99214 ==

== ENCOUNTER 2021-10-27 14:32 | Outpatient (CLI) | payer MEDICARE, SELFPAY ==
--- NOTE | 2021-10-27 14:30 | US_ITS ---
WS: [id number] TESTICULAR ULTRASOUND HISTORY: testicle swelling, LEFT scrotal pain. COMPARISON: 08/23/2011 TECHNIQUE: Real-time and color Doppler imaging or utilized to perform a testicular ultrasound. Right testicle: 4.9 cm x 2.1 cm x 1.7 cm. Normal size and echogenicity. No mass or torsion. Normal color Doppler is present throughout. Systolic and diastolic velocities are both present. No significant hydrocele. Right epididymis: Normal epididymis with no increased vascularity. Left testicle: 4.6 cm x 3.2 cm x 2.9 cm. Normal sized testicle. Marked increased vascularity throughout the testicle. There is also mild varia ble echogenicity. Small mildly complex hydrocele surrounding the testicle. Left epididymis: Enlarged epididymis with increased vascularity and heterogeneity. US/US scrotum [id number] IMPRESSION: 1. Acute LEFT epididymo-orchitis. 2. Normal RIGHT testicle.
== END 2021-10-27 14:33 | disposition home or self-care (01) ==
PROVIDERS: PCP Family Medicine; Visit Provider Family Medicine
DX: N50.89 Other specified disorders of the male genital organs (principal); N45.3 Epididymo-orchitis
CPT/HCPCS: 76870

== ENCOUNTER → 2021-10-28 08:25 | Outpatient (BNVA) | payer MEDICARE, SELFPAY | PROVIDERS: PCP Family Medicine; Visit Provider Family Medicine | DX: N45.1 Epididymitis (principal); N50.89 Other specified disorders of the male genital organs | CPT/HCPCS: 87086; 87491; 87591 ==

== ENCOUNTER → 2021-11-24 09:57 | Outpatient (BNVA) | payer MEDICARE, SELFPAY | PROVIDERS: PCP Family Medicine; Visit Provider Urology | DX: R33.9 Retention of urine, unspecified (principal); S37.30XA Unspecified injury of urethra, initial encounter; N40.1 Benign prostatic hyperplasia with lower urinary tract symptoms; N13.8 Other obstructive and reflux uropathy | CPT/HCPCS: 51741; 51798; 99213 ==

== ENCOUNTER → 2021-11-30 09:02 | Outpatient (BNVA) | payer MEDICARE, SELFPAY | PROVIDERS: PCP Family Medicine; Visit Provider Urology | DX: N40.1 Benign prostatic hyperplasia with lower urinary tract symptoms (principal); N13.8 Other obstructive and reflux uropathy; R33.9 Retention of urine, unspecified; S37.30XA Unspecified injury of urethra, initial encounter | CPT/HCPCS: 81003 ==

== ENCOUNTER → 2022-01-15 08:28 | Outpatient (BNVA) | payer MEDICARE, SELFPAY | PROVIDERS: PCP Family Medicine; Visit Provider Urology | DX: N40.1 Benign prostatic hyperplasia with lower urinary tract symptoms (principal); N13.8 Other obstructive and reflux uropathy; X58.XXXA Exposure to other specified factors, initial encounter | CPT/HCPCS: 51798; 99213 ==

== ENCOUNTER 2022-01-31 11:32 | Emergency (ER) | payer MEDICARE, MEDICAID, SELFPAY ==
[2022-01-31 11:41] VITALS: BP 121/77; PULSE 82; RESP 16; TEMP 36.4; O2SAT 96
[2022-01-31 14:17] VITALS: BP 138/94; PULSE 65; O2SAT 97
[2022-01-31 14:45] VITALS: BP 127/91; PULSE 73; RESP 16; O2SAT 97
--- NOTE | 2022-01-31 14:48 | ED_ITS ---
HPI - Male Genitourinary General: Chief complaint: Urogenital-Male Stated complaint: possible UTI Time Seen by Provider: 01/31/22 14:20 Source: patient Mode of arrival: ambulatory History of Present Illness: 56-year-old male presents emergency room states he wants his urine sample checked because he normally self caths when asked him what was going on that made him think that there may be an issue with his bladder he was somewhat confused. He does not really have any symptoms no flank pain he denies any hematuria. He denies any fever sweats or chills. After conversing with him for a bit I cannot gather anything from other than he just wants a urine sample checked. He chronically self caths has not had any problems recently. The nurses notes from triage mentions there is some confusion on the part of the patient but the is not at the bedside at the time I seen him to give us any further history. Onset (ago): unknown Relieving factors: none Exacerbating factors: none Associated symptoms: Deny discharge, dysuria, fevers/chills, hematuria, nausea, rash, swelling, urinary incontinence, urinary retention, mass or vomiting Review of Systems Const: Denies: fever(s), chills, body aches, change in appetite, fatigue or ma laise ENMT: Denies: throat pain, ear or mastoid pain, nasal discharge or nasal congestion Card: Denies: chest pain, edema, dyspnea on exertion or orthopnea Resp: Denies: dyspnea, productive cough or non-productive cough GI: Denies: nausea or vomiting : Denies: dysuria, urinary incontinence or hematuria Skin/Breast: Denies: rash or pruritus [facility] ED PFSH: Medical History Anxiety BPH (benign prostatic hyperplasia) BPH w urinary obs/LUTS Chronic dryness of both eyes Chronic low back pain COPD (chronic obstructive pulmonary disease) Dyslipidemia Enrolled in chronic care management Generalized anxiety disorder GERD (gastroesophageal reflux disease) History of colon polyps Nicotine dependence, cigarettes, uncomplicated Psychiatric care Schizoaffective disorder, unspecified Urinary retention Surgical History History of appendectomy History of tonsillectomy Family History Father , AT AGE 67 Cancer LUNG Mother , AT AGE 63 Lung disease Social History Smoking and tobacco status: current some day smoker cigarettes Packs smoked per day: 1 and smokeless tobacco Smoking risk assessment/counseling performed?: Yes Tobacco counseling given: counseling >3 minutes Alcohol intake: never Marital status: Current occupational status: disabled History of recent travel: No Physical Exam Const: COMMON NORMALS: no acute distress GENERAL APPEARANCE: cooperative and comfortable ORIENTATION/CONSCIOUSNESS: Yes awake, Yes oriented to person, Yes oriented to place and Yes oriented to time HENMT: COMMON NORMALS: normocephalic, atraumatic, hearing grossly normal jayjay aterally, external ears normal, EAC's normal, TM's normal bilaterally, Normal nasal mucous membranes and turbinates present, moist oral mucous membranes and oropharynx normal HEAD & SCALP: normocephalic and atraumatic NOSE: Normal nasal mucous membranes and turbinates present EXTERNAL EAR: Yes external ears normal EXTERNAL AUDITORY CANAL: EAC's normal TYMPANIC MEMBRANE: TM's normal bilaterally Eye: COMMON NORMALS: Equal, round and reactive pupils present, EOMs intact bilaterally, conjunctivae normal and no scleral icterus CONJUNCTIVA: Yes conjunctivae normal PUPIL: Yes Equal, round and reactive pupils present Neck/C-Spine: COMMON NORMALS: full ROM, no lymphadenopathy, supple and no JVD Lymph: LYMPHATIC: no lymphadenopathy noted and no lymphedema noted Resp: COMMON NORMALS: normal respiratory effort, No retractions, No use of accessory muscles and clear to auscultation bilaterally AUSCULTATION: clear to auscultation bilaterally Cardio: COMMON NORMALS: no JVD, regular rate, regular rhythm and No murmurs present (Cardio) RATE: regular rate RHYTHM: regular rhythm GI: COMMON NORMALS: Soft to palpation and No hepatosplenomegaly present AUSCULTATION: Yes normoactive bowel sounds PALPATION: Yes Soft to palpation, No Tenderness to palpation present (GI), No Guarding due to palpation present (GI) and Yes No hepatosplenomegaly present Extremity: COMMON NORMALS: normal to inspection, capillary refill normal, no clubbing, cyanosis or edema, no calf tenderness and no pedal edema Neuro: SENSORIUM/ORIENTATION: Yes oriented to person, Yes oriented to place and Yes oriented to time Skin: COMMON NORMALS: no rashes or lesions noted GENERAL SKIN EXAM: no r ashes or lesions noted Course Vital Signs: Vital signs: Vital Signs Temperature 97.5 F L 01/31/22 11:41 Pulse Rate 73 01/31/22 14:45 Respiratory Rate 16 01/31/22 14:45 Blood Pressure 127/91 01/31/22 14:45 Pulse Oximetry 97 01/31/22 14:45 Oxygen Delivery Me thod 01/31/22 14:45 MDM - Male Medical Decision Making UA is positive we will treat for bladder infection pending culture start on Bactrim Medical Records I reviewed the patient's medical records. Lab Data I reviewed the patient's lab results. 01/31/22 14:54 01/31/22 14:54 Laboratory Results WBC 7.2 10^3/uL (4.0-10.0) 01/31/22 14:54 RBC 4.19 10^6/uL (4.1-5.3) 01/31/22 14:54 Hgb 12.8 g/dL (11.7-16.6) 01/31/22 14:54 Hct 36.2 % (42.0-52.0) L 01/31/22 14:54 MCV 86.4 fl (80-94) 01/31/22 14:54 MCH 30.5 pg (28.0-34.0) 01/31/22 14:54 MCHC 35.4 g/dL (30.0-36.0) 01/31/22 14:54 RDW 12.6 % (12.1-15.1) 01/31/22 14:54 Plt Count 382 10^3/cmm (130-400) 01/31/22 14:54 MPV 9.1 fL (7.4-10.4) 01/31/22 14:54 Neut % (Auto) 62.6 % 01/31/22 14:54 Lymph % (Auto) 27.8 % 01/31/22 14:54 [place] % (Auto) 8.8 % 01/31/22 14:54 Eos % (Auto) 0.4 % 01/31/22 14:54 Baso % (Auto) 0.1 % 01/31/22 14:54 Neut # (Auto) 4.53 10^3/uL (1.8-7.7) 01/31/22 14:54 Lymph # (Auto) 2.0 10^3/uL (0.8-4.8) 01/31/22 14:54 [place] # (Auto) 0.6 10^3/uL (0.2-0.9) 01/31/22 14:54 Eos # (Auto) 0.0 10^3/uL (0.0-0.8) 01/31/22 14:54 Baso # (Auto) 0.0 10^3/uL (0.0-0.1) 01/31/22 14:54 Nucleated RBC % (auto) 0 % 01/31/22 14:54 Nucleated RBCs # 0.0 /100WBC 01/31/22 14:54 Sodium 122 mmol/L (136-145) L 01/31/22 14:54 Potassium 3.5 mmol/L (3.5-5.1) 01/31/22 14:54 Chloride 87 mmol/L (98-107) L 01/31/22 14:54 Carbon Dioxide 23 mmol/L (22-29) 01/31/22 14:54 Anion Gap 15.5 (5-19) 01/31/22 14:54 BUN 11 mg/dL (6-20) 01/31/22 14:54 Creatinine 0.6 mg/dL (0.7-1.2) L 01/31/22 14:54 GFR Calculation 138.4 mL/min (90-130) H 01/31/22 14:54 Glucose 113 mg/dL (65-115) 01/31/22 14:54 Calculated Osmolality 254 mOsm/kg (285-295) L 01/31/22 14:54 Calcium 9.3 mg/dL (8.5-10.5) 01/31/22 14:54 Urine Color Yellow (Yellow) 01/31/22 14:29 Urine Appearance Clear (CLEAR) 01/31/22 14:29 Urine pH 6 (5-7) 01/31/22 14:29 Ur Specific [place] 1.030 (1.005-1.030) 01/31/22 14:29 Urine Protein 1+ (Negative) H 01/31/22 14:29 Urine Glucose (UA) Trace (Normal) H 01/31/22 14:29 Urine Ketones 1+ (Negative) H 01/31/22 14:29 Urine Blood Trace (Negative) H 01/31/22 14:29 Urine Nitrate Positive (Negative) H 01/31/22 14:29 Urine Bilirubin Neg (Negative) 01/31/22 14:29 Urine Urobilinogen Neg mg/dL (Negative) 01/31/22 14:29 Ur Leukocyte Esterase 2+ (Negative) H 01/31/22 14:29 Urine RBC None /hpf (0-2) 01/31/22 14:29 Urine WBC 15-25 /hpf (0-5) H 01/31/22 14:29 Ur Squamous Epith Cells 0-4 /hpf (0-5) H 01/31/22 14: Amorphous Sediment Not Reportable 01/31/22 14: Urine Bacteria 4+ /hpf (NONE) H 01/31/22 14:29 Discharge Plan Discharge Patient Disposition: Home Clinical Impression: Cystitis Condition: Stable Prescriptions: New Bactrim DS 800-160 mg tablet 1 tab PO BID 7 Days Qty: 14 0RF No Action fluticasone propion-salmeterol [Advair Diskus] 500-50 mcg/dose blister with device 1 inh INHALATION BID Qty: 60 5RF albuterol sulfate [Ventolin HFA] 90 mcg/actuation HFA aerosol inhaler 2 puff INHALATION Q6H PRN (Reason: Shortness Of Breath) Qty: 8.5 5RF tramadol 50 mg tablet 50 mg PO TID PRN (Reason: pain) Qty: 90 2RF Hold Instructions: hold until discuss need to resume with psychiatry/[facility] upon follow up celecoxib 200 mg capsule 200 mg PO DAILY Qty: 90 1RF gemfibrozil 600 mg tablet 600 mg PO BID Qty: 180 1RF Geodon 80 mg capsule 80 mg PO BID@,17 Qty: 180 0RF Rx Instructions: with food hydroxyzine pamoate [Vistaril] 25 mg capsule 25 mg PO TID PRN (Reason: anxiety) Qty: 270 0RF Hold Instructions: hold until discuss need to resume with psychiatry/[facility] upon follow up eszopiclone [Lunesta] 3 mg tablet 3 mg PO .HS Qty: 30 2RF clonazepam [Klonopin] 0.5 mg tablet 0.5 mg PO DAILY PRN (Reason: Anxiety) Qty: 30 2RF benztropine 2 mg tablet 2 mg PO DAILY Qty: 90 0RF tamsulosin 0.4 mg capsule See Rx Instructions .ROUTE .COMPLEX Qty: 180 3RF Dose Instruction: TAKE 2 CAPSULES BY MOUTH DAILY Rx Instructions: TAKE 2 CAPSULES BY MOUTH DAILY omeprazole 40 mg capsule,delayed release(DR/EC) See Rx Instructions .ROUTE .COMPLEX Qty: 90 0RF Dose Instruction: TAKE 1 CAPSULE BY MOUTH EVERY DAY Rx Instructions: TAKE 1 CAPSULE BY MOUTH EVERY DAY Discharge Orders: Discharge ED (Routine); Ordered 01/31/22 Ordered By: Baltazar Mueller Referrals: Mali Lerma DO [Primary Care Provider] - Discharge Diet: Usual diet Discharge Activity: Increase activity as tolerated Patient Instructions: Opioid Safety, Pain Management Activity Restrictions/Additional Instructions: You were seen today for a bladder infection. We will start on Bactrim 1 pill twice daily for 7 days. Culture results are pending if that shows any resistant bacteria we will contact you with any appropriate changes. Recommend you incr ease fluid intake. Coding Level of Care Code ED Molded [employer] Cutter for Chg Fwd Exam Comprehensive
[2022-01-31 15:10] LABS: Basophils % 0.1 %; Eosinophils % 0.4 %; Hematocrit 36.2 % (42.0-52.0); Hemoglobin 12.8 g/dL (11.7-16.6); Lymphocytes % 27.8 %; Mean Corpuscular HGB Conc 35.4 g/dL (30.0-36.0); Mean Corpuscular Hemoglobin 30.5 pg (28.0-34.0); Mean Corpuscular Volume 86.4 fl (80-94); Mean Platelet Volume 9.1 fL (7.4-10.4); Monocytes # 0.6 10^3/uL (0.2-0.9); Monocytes % 8.8 %; Neutrophils # 4.53 10^3/uL (1.8-7.7); Neutrophils % 62.6 %; Nucleated Red Blood Cells % 0 %; Platelet Count 382 10^3/cmm (130-400); Red Blood Count 4.19 10^6/uL (4.1-5.3); Red Cell Distribution Width 12.6 % (12.1-15.1); White Blood Count 7.2 10^3/uL (4.0-10.0)
[2022-01-31 15:14] LABS: Blood Urine Trace (Negative); Glucose Urine UA Trace (Normal); Ketones Urine 1+ (Negative); Nitrate Urine Positive (Negative); Protein Urine 1+ (Negative); Urine Appearance Clear (CLEAR); Urine Color Yellow (Yellow); pH Urine 6 (5-7)
[2022-01-31 15:15] LABS: Add Urine Microscopic? YES; Bilirubin Urine Neg (Negative); Leukocyte Esterase Urine 2+ (Negative); Urobilinogen Urine Neg (Negative)
[2022-01-31 15:34] LABS: Add Urine Culture? Yes; Bacteria Urine 4+ /hpf; Squamous Epithelial Cell Urine 0-4 /hpf (0-5); WBC Urine 15-25 /hpf (0-5)
[2022-01-31 15:36] LABS: Anion Gap 15.5 (5-19); Blood Urea Nitrogen 11 mg/dL (6-20); Calcium 9.3 mg/dL (8.5-10.5); Carbon Dioxide 23 mmol/L (22-29); Chloride 87 mmol/L (98-107); Creatinine Clr Calc Pharmacy 150.2961; Glomerular Filtration Rate 138.4 mL/min (90-130); Glucose 113 mg/dL (65-115); Osmolality Calculated 254 mOsm/kg (285-295); Potassium 3.5 mmol/L (3.5-5.1); Sodium 122 mmol/L (136-145)
== END 2022-01-31 15:29 | disposition home or self-care (01) ==
PROVIDERS: Emergency Medicine; Emergency Provider Family Medicine; PCP Family Medicine
DX: N30.90 Cystitis, unspecified without hematuria (principal)
CPT/HCPCS: 80048; 81001; 85025; 87077; 87086; 87186; 99283

== ENCOUNTER 2022-02-01 10:17 | Emergency (ER) | payer MEDICARE, SELFPAY ==
[2022-02-01 11:30] VITALS: BP 137/79; PULSE 76; RESP 16; TEMP 36.4; O2SAT 98
--- NOTE | 2022-02-01 12:14 | W.ED.MALEGU ---
Documented by User: TISHA Arambula 02/02/22 08:46 HPI - Male Genitourinary General: Chief complaint: Urogenital-Male Stated complaint: back for possible uti Time Seen by Provider: 02/01/22 11:39 History of Present Illness: Patient is a 56-year-old male comes to the ED with UTI. Patient was seen here in the ED yesterday January 31 for same complaint. He left before discharge paperwork was given to him so he did not get his antibiotic as prescribed. His PCP told him to come here to the ED to be evaluated. Patient denies any SI or HI. Patient used to self cath but says he has not had to self cath in over a month. He says he is able to urinate out any problems. Associated symptoms: Deny dysuria, hematuria, nausea or vomiting Review of Systems Const: Denies: fever(s), chills or fatigue Eyes: Denies: change in vision or eye discomfort ENMT: Denies: throat pain, odynophagia, nasal discharge or nasal congestion Card: Denies: chest pain, palpitations, edema, swelling of feet/ankles, dyspnea on exertion or orthopnea Resp: Denies: dyspnea, productive cough or non-productive cough GI: Denies: abdominal pain, nausea, vomiting, diarrhea, constipation or hematochezia : Denies: flank pain, difficulty urinating, dysuria or hematuria Musc: Denies: neck pain, back pain or extremity swelling Skin/Breast: Denies: rash or new lesions Neuro: Denies: headache(s), numbness in extremities or weakness in extremities PFS ED PFSH: Medical History Anxiety BPH (benign prostatic hyperplasia) BPH w urinary obs/LUTS Chronic dryness of both eyes Chronic low back pain COPD (chronic obstructive pulmonary disease) Dyslipidemia Enrolled in chronic care management Generalized anxiety disorder GERD (gastroesophageal reflux disease) History of colon polyps Nicotine dependence, cigarettes, uncomplicated Psychiatric care Schizoaffective disorder, unspecified Urinary retention Surgical History History of appendectomy History of tonsillectomy Family History Father , AT AGE 67 Cancer LUNG Mother , AT AGE 63 Lung disease Social History Smoking and tobacco status: current some day smoker cigarettes Packs smoked per day: 1 and smokeless tobacco Smoking risk assessment/counseling performed?: Yes Tobacco counseling given: counseling >3 minutes Alcohol intake: never Marital status: Current occupational status: disabled History of recent travel: No Physical Exam Const: COMMON NORMALS: patient oriented x3 and alert GENERAL APPEARANCE: cooperative HENMT: COMMON NORMALS: normocephalic HEAD & SCALP: normocephalic MOUTH: Normal oral and palatal mucosa present THROAT: posterior oropharynx normal and uvula midline Eye: COMMON NORMALS: Equal, round and reactive pupils present and conjunctivae normal CONJUNCTIVA: Yes conjunctivae normal PUPIL: Yes Equal, round and reactive pupils present Neck/C-Spine: COMMON NORMALS: supple GENERAL: Yes normal visual inspection Resp: COMMON NORMALS: normal respiratory effort, No retractions, No use of accessory muscles and clear to auscultation bilaterally AUSCULTATION: clear to auscultation bilaterally Cardio: COMMON NORMALS: regular rate, regular rhythm, S1 normal heart sound present, S2 normal heart sound present, No gallops present (Cardio), No clicks present (Cardio), No murmurs present (Cardio) and Peripheral pulses 2+ throughout RATE: regular rate RHYTHM: regular rhythm HEART SOUNDS: S1 normal heart sound present and S2 normal heart sound present PERIPHERAL PULSES: Peripheral pulses 2+ throughout GI: COMMON NORMALS: Normal to inspection, nondistended, normoactive bowel sounds present, Soft to palpation, non-tender and no masses PALPATION: Yes Soft to palpation : COMMON NORMALS: Yes no CVA tenderness BLADDER/KIDNEY EXAM: Yes no CVA tenderness Back/Pelvis: COMMON NORMALS: no CVA tenderness Extremity: COMMON NORMALS: normal to inspection Neuro: COMMON NORMALS: patient oriented x3 SENSORIUM/ORIENTATION: Yes alert GAIT: Yes Normal gait present Skin: GENERAL SKIN EXAM: dry skin Course Vital Signs: Vital signs: Vital Signs Temperature 97.8 F 02/01/22 16:28 Pulse Rate 72 02/01/22 16:28 Respiratory Rate 16 02/01/22 16:28 Blood Pressure 132/79 02/01/22 16:28 Pulse Oximetry 99 02/01/22 16:28 Oxygen Delivery Me thod 02/01/22 11:30 MDM - Male Medical Decision Making Patient is a 56-year-old male comes to the ED with UTI. Patient was seen here in the ED yesterday January 31 for same complaint. He left before discharge paperwork was given to him so he did not get his antibiotic as prescribed. His PCP told him to come here to the ED to be evaluated. Patient denies any SI or HI. Patient used to self cath but says he has not had to self cath in over a month. He says he is able to urinate out any problems. Vitals are stable. Patient appears in no acute distress or pain. He is coherent and able to answer all my questions accordingly. Rest of exam is benign. Sodium of 125 and the rest of labs were unremarkable. UA from yesterday shows a UTI. patient was given a dose of Rocephin and 1 L of IV fluids. He was diagnosed with a UTI and hyponatremia. Told to follow-up with PCP within the next week for reevaluation. He was sent home with a prescription for Bactrim. Patient understood and agreed with plan. Dr. Mueller reviewed case and agreed with plan. Lab Data I reviewed the patient's lab results. 02/01/22 12:37 02/01/22 12:37 Laboratory Results WBC 8.6 10^3/uL (4.0-10.0) 02/01/22 12:37 RBC 4.39 10^6/uL (4.1-5.3) 02/01/22 12:37 Hgb 13.5 g/dL (11.7-16.6) 02/01/22 12:37 Hct 38.2 % (42.0-52.0) L 02/01/22 12:37 MCV 87.0 fl (80-94) 02/01/22 12:37 MCH 30.8 pg (28.0-34.0) 02/01/22 12:37 MCHC 35.3 g/dL (30.0-36.0) 02/01/22 12:37 RDW 12.4 % (12.1-15.1) 02/01/22 12:37 Plt Count 423 10^3/cmm (130-400) H 02/01/22 12:37 MPV 9.5 fL (7.4-10.4) 02/01/22 12:37 Neut % (Auto) 75.2 % 02/01/22 12:37 Lymph % (Auto) 17.2 % 02/01/22 12:37 [place] % (Auto) 7.0 % 02/01/22 12:37 Eos % (Auto) 0.2 % 02/01/22 12:37 Baso % (Auto) 0.2 % 02/01/22 12:37 Neut # (Auto) 6.46 10^3/uL (1.8-7.7) 02/01/22 12:37 Lymph # (Auto) 1.5 10^3/uL (0.8-4.8) 02/01/22 12:37 [place] # (Auto) 0.6 10^3/uL (0.2-0.9) 02/01/22 12:37 Eos # (Auto) 0.0 10^3/uL (0.0-0.8) 02/01/22 12:37 Baso # (Auto) 0.0 10^3/uL (0.0-0.1) 02/01/22 12:37 Nucleated RBC % (auto) 0 % 02/01/22 12:37 Nucleated RBCs # 0.0 /100WBC 02/01/22 12:37 Sodium 125 mmol/L (136-145) L 02/01/22 12:37 Potassium 4.0 mmol/L (3.5-5.1) 02/01/22 12:37 Chloride 89 mmol/L (98-107) L 02/01/22 12:37 Carbon Dioxide 23 mmol/L (22-29) 02/01/22 12:37 Anion Gap 17.0 (5-19) 02/01/22 12:37 BUN 14 mg/dL (6-20) 02/01/22 12:37 Creatinine 0.7 mg/dL (0.7-1.2) 02/01/22 12:37 GFR Calculation 115.8 mL/min (90-130) 02/01/22 12:37 Glucose 99 mg/dL (65-115) 02/01/22 12:37 Calculated Osmolality 261 mOsm/kg (285-295) L 02/01/22 12:37 Calcium 9.3 mg/dL (8.5-10.5) 02/01/22 12:37 Total Bilirubin 0.3 mg/dL (0.15-1.2) 02/01/22 12:37 AST 69 U/L (0-40) H 02/01/22 12:37 ALT 50 U/L (0-41) H 02/01/22 12:37 Alkaline Phosphatase 57 U/L (40-130) 02/01/22 12:37 Total Protein 7.1 g/dL (6.6-8.7) 02/01/22 12:37 Albumin 4.5 g/dL (3.5-5.2) 02/01/22 12:37 Globulin 2.6 g/dL (1.3-4.6) 02/01/22 12:37 Discharge Plan Discharge Patient Disposition: Home Clinical Impression: Hyponatremia UTI (urinary tract infection) Qualifiers: Urinary tract infection type: acute cystitis Hematuria presence: with hematuria Qualified Code(s): N30.01 - Acute cystitis with hematuria Condition: Stable Prescriptions: New sulfamethoxazole-trimethoprim [Bactrim DS] 800-160 mg tablet 1 tab PO BID 7 Days Qty: 14 0RF No Action fluticasone propion-salmeterol [Advair Diskus] 500-50 mcg/dose blister with device 1 inh INHALATION BID Qty: 60 5RF albuterol sulfate [Ventolin HFA] 90 mcg/actuation HFA aerosol inhaler 2 puff INHALATION Q6H PRN (Reason: Shortness Of Breath) Qty: 8.5 5RF tramadol 50 mg tablet 50 mg PO TID PRN (Reason: pain) Qty: 90 2RF Hold Instructions: hold until discuss need to resume with psychiatry/[facility] upon follow up celecoxib 200 mg capsule 200 mg PO DAILY Qty: 90 1RF gemfibrozil 600 mg tablet 600 mg PO BID Qty: 180 1RF Geodon 80 mg capsule 80 mg PO BID@,17 Qty: 180 0RF Rx Instructions: with food hydroxyzine pamoate [Vistaril] 25 mg capsule 25 mg PO TID PRN (Reason: anxiety) Qty: 270 0RF Hold Instructions: hold until discuss need to resume with psychiatry/[facility] upon follow up clonazepam [Klonopin] 0.5 mg tablet 0.5 mg PO DAILY PRN (Reason: Anxiety) Qty: 30 2RF benztropine 2 mg tablet 2 mg PO DAILY Qty: 90 0RF omeprazole 40 mg capsule,delayed release(DR/EC) 40 mg PO DAILY tamsulosin 0.4 mg capsule 0.8 mg PO DAILY Lunesta 3 mg tablet 3 mg PO BEDTIME trazodone 100 mg tablet 100 mg PO BEDTIME bupropion HCl 150 mg tablet extended release 24 hr 150 mg PO DAILY Discharge Orders: Discharge ED (Routine); Ordered 02/01/22 Ordered By: Ugo Mattson Referrals: Mali Lerma DO [Primary Care Provider] - Discharge Diet: Regular Discharge Activity: Increase activity as tolerated Patient Instructions: Urinary Tract Infection in Men (DC), Hyponatremia (ED) Activity Restrictions/Additional Instructions: Follow-up with medical provider as directed in the next 2 to 3 days for reevaluation and to have sodium levels rechecked. Take medications as prescribed. Return to the ER or your medical provider if condition worsens. Please read and understand discharge instructions. Thank you for choosing [facility] for your healthcare needs today. Please realize this is an emergency room and that we are providing you with a medical screening exam and this may not be complete and all inclusive of all the testing and or work up that you may need to determine your ailment or severity of your illness. It is very important that you follow up as instructed or that you return to the Emergency Department should you have concerns or if your condition changes or worsens in any way. Coding Level of Care Code ED Polymer Scientist for Chg Fwd Exam Comprehensive Documented by User: Baltazar Mueller DO 02/04/22 07:03 HPI - Male Genitourinary General: Chief complaint: Urogenital-Male Stated complaint: back for possible uti Time Seen by Provider: 02/01/22 11:39 [facility] ED PFSH: Medical History Anxiety BPH (benign prostatic hyperplasia) BPH w urinary obs/LUTS Chronic dryness of both eyes Chronic low back pain COPD (chronic obstructive pulmonary disease) Dyslipidemia Enrolled in chronic care management Generalized anxiety disorder GERD (gastroesophageal reflux disease) History of colon polyps Nicotine dependence, cigarettes, uncomplicated Psychiatric care Schizoaffective disorder, unspecified Urinary retention Surgical History History of appendectomy History of tonsillectomy Family History Father , AT AGE 67 Cancer LUNG Mother , AT AGE 63 Lung disease Social History Smoking and tobacco status: current some day smoker cigarettes Packs smoked per day: 1 and smokeless tobacco Smoking risk assessment/counseling performed?: Yes Tobacco counseling given: counseling >3 minutes Alcohol intake: never Marital status: Current occupational status: disabled History of recent travel: No Course Vital Signs: Vital signs: Vital Signs Temperature 97.8 F 02/01/22 16:28 Pulse Rate 72 02/01/22 16:28 Respiratory Rate 16 02/01/22 16:28 Blood Pressure 132/79 02/01/22 16:28 Pulse Oximetry 99 02/01/22 16:28 Oxygen Delivery Me thod 02/01/22 11:30 MDM - Male Medical Decision Making Patient is a 56-year-old male comes to the ED with UTI. Patient was seen here in the ED yesterday January 31 for same complaint. He left before discharge paperwork was given to him so he did not get his antibiotic as prescribed. His PCP told him to come here to the ED to be evaluated. Patient denies any SI or HI. Patient used to self cath but says he has not had to self cath in over a month. He says he is able to urinate out any problems. Vitals are stable. Patient appears in no acute distress or pain. He is coherent and able to answer all my questions accordingly. Rest of exam is benign. Sodium of 125 and the rest of labs were unremarkable. UA from yesterday shows a UTI. patient was given a dose of Rocephin and 1 L of IV fluids. He was diagnosed with a UTI and hyponatremia. Told to follow-up with PCP within the next week for reevaluation. He was sent home with a prescription for Bactrim. Patient understood and agreed with plan. Dr. Mueller reviewed case and agreed with plan. Chart reviewed and patient discussed with midlevel. Agree with assessment and plan. Lab Data 02/01/22 12:37 02/01/22 12:37 Laboratory Results WBC 8.6 10^3/uL (4.0-10.0) 02/01/22 12:37 RBC 4.39 10^6/uL (4.1-5.3) 02/01/22 12:37 Hgb 13.5 g/dL (11.7-16.6) 02/01/22 12:37 Hct 38.2 % (42.0-52.0) L 02/01/22 12:37 MCV 87.0 fl (80-94) 02/01/22 12:37 MCH 30.8 pg (28.0-34.0) 02/01/22 12:37 MCHC 35.3 g/dL (30.0-36.0) 02/01/22 12:37 RDW 12.4 % (12.1-15.1) 02/01/22 12:37 Plt Count 423 10^3/cmm (130-400) H 02/01/22 12:37 MPV 9.5 fL (7.4-10.4) 02/01/22 12:37 Neut % (Auto) 75.2 % 02/01/22 12:37 Lymph % (Auto) 17.2 % 02/01/22 12:37 [place] % (Auto) 7.0 % 02/01/22 12:37 Eos % (Auto) 0.2 % 02/01/22 12:37 Baso % (Auto) 0.2 % 02/01/22 12:37 Neut # (Auto) 6.46 10^3/uL (1.8-7.7) 02/01/22 12:37 Lymph # (Auto) 1.5 10^3/uL (0.8-4.8) 02/01/22 12:37 [place] # (Auto) 0.6 10^3/uL (0.2-0.9) 02/01/22 12:37 Eos # (Auto) 0.0 10^3/uL (0.0-0.8) 02/01/22 12:37 Baso # (Auto) 0.0 10^3/uL (0.0-0.1) 02/01/22 12:37 Nucleated RBC % (auto) 0 % 02/01/22 12:37 Nucleated RBCs # 0.0 /100WBC 02/01/22 12:37 Sodium 125 mmol/L (136-145) L 02/01/22 12:37 Potassium 4.0 mmol/L (3.5-5.1) 02/01/22 12:37 Chloride 89 mmol/L (98-107) L 02/01/22 12:37 Carbon Dioxide 23 mmol/L (22-29) 02/01/22 12:37 Anion Gap 17.0 (5-19) 02/01/22 12:37 BUN 14 mg/dL (6-20) 02/01/22 12:37 Creatinine 0.7 mg/dL (0.7-1.2) 02/01/22 12:37 GFR Calculation 115.8 mL/min (90-130) 02/01/22 12:37 Glucose 99 mg/dL (65-115) 02/01/22 12:37 Calculated Osmolality 261 mOsm/kg (285-295) L 02/01/22 12:37 Calcium 9.3 mg/dL (8.5-10.5) 02/01/22 12:37 Total Bilirubin 0.3 mg/dL (0.15-1.2) 02/01/22 12:37 AST 69 U/L (0-40) H 02/01/22 12:37 ALT 50 U/L (0-41) H 02/01/22 12:37 Alkaline Phosphatase 57 U/L (40-130) 02/01/22 12:37 Total Protein 7.1 g/dL (6.6-8.7) 02/01/22 12:37 Albumin 4.5 g/dL (3.5-5.2) 02/01/22 12:37 Globulin 2.6 g/dL (1.3-4.6) 02/01/22 12:37 Discharge Plan Discharge Patient Disposition: Home Clinical Impression: Hyponatremia UTI (urinary tract infection) Qualifiers: Urinary tract infection type: acute cystitis Hematuria presence: with hematuria Qualified Code(s): N30.01 - Acute cystitis with hematuria Condition: Stable Prescriptions: New sulfamethoxazole-trimethoprim [Bactrim DS] 800-160 mg tablet 1 tab PO BID 7 Days Qty: 14 0RF No Action fluticasone propion-salmeterol [Advair Diskus] 500-50 mcg/dose blister with device 1 inh INHALATION BID Qty: 60 5RF albuterol sulfate [Ventolin HFA] 90 mcg/actuation HFA aerosol inhaler 2 puff INHALATION Q6H PRN (Reason: Shortness Of Breath) Qty: 8.5 5RF tramadol 50 mg tablet 50 mg PO TID PRN (Reason: pain) Qty: 90 2RF Hold Instructions: hold until discuss need to resume with psychiatry/[facility] upon follow up celecoxib 200 mg capsule 200 mg PO DAILY Qty: 90 1RF gemfibrozil 600 mg tablet 600 mg PO BID Qty: 180 1RF Geodon 80 mg capsule 80 mg PO BID@07,17 Qty: 180 0RF Rx Instructions: with food hydroxyzine pamoate [Vistaril] 25 mg capsule 25 mg PO TID PRN (Reason: anxiety) Qty: 270 0RF Hold Instructions: hold until discuss need to resume with psychiatry/[facility] upon follow up clonazepam [Klonopin] 0.5 mg tablet 0.5 mg PO DAILY PRN (Reason: Anxiety) Qty: 30 2RF benztropine 2 mg tablet 2 mg PO DAILY Qty: 90 0RF omeprazole 40 mg capsule,delayed release(DR/EC) 40 mg PO DAILY tamsulosin 0.4 mg capsule 0.8 mg PO DAILY Lunesta 3 mg tablet 3 mg PO BEDTIME trazodone 100 mg tablet 100 mg PO BEDTIME bupropion HCl 150 mg tablet extended release 24 hr 150 mg PO DAILY Discharge Orders: Discharge ED (Routine); Ordered 02/01/22 Ordered By: Ugo Mattson Referrals: Mali Lerma DO [Primary Care Provider] - Discharge Diet: Regular Discharge Activity: Increase activity as tolerated Patient Instructions: Urinary Tract Infection in Men (DC), Hyponatremia (ED) Activity Restrictions/Additional Instructions: Follow-up with medical provider as directed in the next 2 to 3 days for reevaluation and to have sodium levels rechecked. Take medications as prescribed. Return to the ER or your medical provider if condition worsens. Please read and understand discharge instructions. Thank you for choosing [facility] for your healthcare needs today. Please realize this is an emergency room and that we are providing you with a medical screening exam and this may not be complete and all inclusive of all the testing and or work up that you may need to determine your ailment or severity of your illness. It is very important that you follow up as instructed or that you return to the Emergency Department should you have concerns or if your condition changes or worsens in any way. Coding Level of Care Code ED Polymer Scientist for 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 Exam Comprehensive
[2022-02-01 13:24] LABS: Basophils % 0.2 %; Eosinophils % 0.2 %; Hematocrit 38.2 % (42.0-52.0); Hemoglobin 13.5 g/dL (11.7-16.6); Lymphocytes # 1.5 10^3/uL (0.8-4.8); Lymphocytes % 17.2 %; Mean Corpuscular HGB Conc 35.3 g/dL (30.0-36.0); Mean Corpuscular Hemoglobin 30.8 pg (28.0-34.0); Mean Platelet Volume 9.5 fL (7.4-10.4); Monocytes # 0.6 10^3/uL (0.2-0.9); Neutrophils # 6.46 10^3/uL (1.8-7.7); Neutrophils % 75.2 %; Nucleated Red Blood Cells % 0 %; Platelet Count 423 10^3/cmm (130-400); Red Blood Count 4.39 10^6/uL (4.1-5.3); Red Cell Distribution Width 12.4 % (12.1-15.1); White Blood Count 8.6 10^3/uL (4.0-10.0)
[2022-02-01 13:48] LABS: Alanine Aminotransferase 50 U/L (0-41); Albumin Level 4.5 g/dL (3.5-5.2); Alkaline Phosphatase 57 U/L (40-130); Aspartate Amino Transferase 69 U/L (0-40); Blood Urea Nitrogen 14 mg/dL (6-20); Calcium 9.3 mg/dL (8.5-10.5); Carbon Dioxide 23 mmol/L (22-29); Chloride 89 mmol/L (98-107); Globulin 2.6 g/dL (1.3-4.6); Glomerular Filtration Rate 115.8 mL/min (90-130); Glucose 99 mg/dL (65-115); Osmolality Calculated 261 mOsm/kg (285-295); Sodium 125 mmol/L (136-145); Total Bilirubin 0.3 mg/dL (0.15-1.2); Total Protein 7.1 g/dL (6.6-8.7)
[2022-02-01] MEDS: sodium chloride 0.9% 1,000 ML 999 ML IV (14:22)
[2022-02-01] MEDS: cefTRIAXone 1,000 MG in sodium chloride 0.9% (plus) 50 ML 100 MG IV (14:50)
[2022-02-01 16:28] VITALS: BP 132/79; PULSE 72; RESP 16; TEMP 36.6; O2SAT 99
== END 2022-02-01 16:30 | disposition home or self-care (01) ==
PROVIDERS: Emergency Provider Physician Assistant; PCP Family Medicine
DX: N30.01 Acute cystitis with hematuria (principal); E87.1 Hypo-osmolality and hyponatremia
CPT/HCPCS: 36415; 80053; 85025; 96365; 99284; J0696; J7030

== ENCOUNTER 2022-02-02 06:54 | Inpatient (IN) | payer MEDICARE, SELFPAY ==
[2022-02-02 06:55] VITALS: BMI 24.3
[2022-02-02 07:07] VITALS: BP 116/60; PULSE 68; RESP 16; TEMP 36.8; O2SAT 98
--- NOTE | 2022-02-02 07:09 | PC.NURSE ---
When asked what brought pt into ER, pt states that he doesn't really know, that he just needs to take his medication and go the other way. Pt reports it has been awhile since he has taken his medication. Pt denies SI/HI. Pt denies hallucinations. Pt does reports nausea and vomiting since he has been trying to forgive his sins. Pt frequently talking about liars, cheaters, and heaven. Reports he did have abdominal pain but that is resolved. denies diarrhea or fevers. Pt is alert and oriented to self only. when asked about place, pt [place] [employer] [place] Pt noted to arrive by law enforcement, wearing two different boots. Clothing appears to be covered in dirt, leaves falling out of clothes as pt changed into paper scrubs.
--- NOTE | 2022-02-02 07:21 | W.ED.PSYCHS ---
HPI - Psych General: Chief Complaint: Psychiatric Symptoms Stated Complaint: Psych Evaluation Time Seen by Provider: 02/02/22 07:09 History of Present Illness: Patient is a 56-year-old male comes to the ED via police for psych evaluation. Past medical history of schizoaffective disorder, acute psychosis and anxiety. Police were called out to house because patient was trying to gain entry into another person's house. The people in the house did not know patient. Police say that patient was making odd statements while in custody. He also stated that he is not taking any of his current medications. Here in the ED patient is calm. He is aware that he was trying to get into a different house but states he was sleepwalking. He understands that he does need to get some help and admits that he is not taking any of his medications. The staff air tactical officer filled out an affidavit. Patient will be placed on 96-hour hold. Associated symptoms: Deny homicidal ideation or suicidal ideation Review of Systems Const: Denies: fever(s), chills or fatigue Eyes: Denies: change in vision or eye discomfort ENMT: Denies: throat pain, odynophagia, nasal discharge or nasal congestion Card: Denies: chest pain, palpitations, edema, swelling of feet/ankles, dyspnea on exertion or orthopnea Resp: Denies: dyspnea, productive cough or non-productive cough GI: Denies: abdominal pain, nausea, vomiting, diarrhea, constipation or hematochezia : Denies: flank pain, difficulty urinating, dysuria or hematuria Musc: Denies: neck pain, back pain or extremity swelling Skin/Breast: Denies: rash or new lesions Neuro: Denies: headache(s), numbness in extremities or weakness in extremities Psych: Reports: other (acute psychosis); Denies: suicidal ideation or homicidal ideation [facility] ED PFSH: Medical History Anxiety BPH (benign prostatic hyperplasia) BPH w urinary obs/LUTS Chronic dryness of both eyes Chronic low back pain COPD (chronic obstructive pulmonary disease) Dyslipidemia Enrolled in chronic care management Generalized anxiety disorder GERD (gastroesophageal reflux disease) History of colon polyps Nicotine dependence, cigarettes, uncomplicated Psychiatric care Schizoaffective disorder, unspecified Urinary retention Surgical History History of appendectomy History of tonsillectomy Family History Father , AT AGE 67 Cancer LUNG Mother , AT AGE 63 Lung disease Social History Smoking and tobacco status: current some day smoker cigarettes Packs smoked per day: 1 and smokeless tobacco Smoking risk assessment/counseling performed?: Yes Tobacco counseling given: counseling >3 minutes Alcohol intake: never Marital status: Current occupational status: disabled History of recent travel: No Physical Exam Const: COMMON NORMALS: patient oriented x3 and alert GENERAL APPEARANCE: cooperative HENMT: COMMON NORMALS: normocephalic HEAD & SCALP: normocephalic MOUTH: Normal oral and palatal mucosa present THROAT: posterior oropharynx normal and uvula midline Neck/C-Spine: COMMON NORMALS: supple GENERAL: Yes normal visual inspection Resp: COMMON NORMALS: normal respiratory effort, No retractions, No use of accessory muscles and clear to auscultation bilaterally AUSCULTATION: clear to auscultation bilaterally Cardio: COMMON NORMALS: regular rate, regular rhythm, S1 normal heart sound present, S2 normal heart sound present, No gallops present (Cardio), No clicks present (Cardio), No murmurs present (Cardio) and Peripheral pulses 2+ throughout RATE: regular rate RHYTHM: regular rhythm HEART SOUNDS: S1 normal heart sound present and S2 normal heart sound present PERIPHERAL PULSES: Peripheral pulses 2+ throughout GI: COMMON NORMALS: Normal to inspection, nondistended, normoactive bowel sounds present, Soft to palpation, non-tender and no masses PALPATION: Yes Soft to palpation : COMMON NORMALS: Yes no CVA tenderness BLADDER/KIDNEY EXAM: Yes no CVA tenderness Back/Pelvis: COMMON NORMALS: no CVA tenderness Extremity: COMMON NORMALS: normal to inspection Neuro: COMMON NORMALS: patient oriented x3 SENSORIUM/ORIENTATION: Yes alert GAIT: Yes Normal gait present Skin: GENERAL SKIN EXAM: dry skin Course Vital Signs: Vital signs: Vital Signs Temperature 98.3 F 02/02/22 07:07 Pulse Rate 68 02/02/22 07:07 Respiratory Rate 16 02/02/22 07:07 Blood Pressure 116/60 02/02/22 07:07 Pulse Oximetry 98 02/02/22 07:07 Oxygen Delivery Me thod 02/02/22 07:07 MDM - Psych Medical Decision Making Patient is a 56-year-old male comes to the ED via police for psych evaluation. Past medical history of schizoaffective disorder, acute psychosis and anxiety. Police were called out to house because patient was trying to gain entry into another person's house. staff antisubmarine officer signed affidavit. Patient was put on a 96-hour hold. Labs performed and patient medically cleared for NPU. I called Dr. Salinas and told him about patient case and he agreed with admission of patient to the NPU. Dr. Valladares placed the admitting orders. Lab Data I reviewed the patient's lab results. 02/02/22 07:26 02/02/22 07:26 Laboratory Results WBC 6.2 10^3/uL (4.0-10.0) 02/02/22 07: RBC 4.32 10^6/uL (4.1-5.3) 02/02/22 07:26 Hgb 13.1 g/dL (11.7-16.6) 02/02/22 07: Hct 38.0 % (42.0-52.0) L 02/02/22 07: MCV 88.0 fl (80-94) 02/02/22 07:26 MCH 30.3 pg (28.0-34.0) 02/02/22 07: MCHC 34.5 g/dL (30.0-36.0) 02/02/22 07: RDW 12.6 % (12.1-15.1) 02/02/22 07:26 Plt Count 396 10^3/cmm (130-400) 02/02/22 07:26 MPV 9.2 fL (7.4-10.4) 02/02/22 07: Neut % (Auto) 76.1 % 02/02/22 07: Lymph % (Auto) 15.6 % 02/02/22 07:26 Florence % (Auto) 7.6 % 02/02/22 07:26 Eos % (Auto) 0.2 % 02/02/22 07:26 Baso % (Auto) 0.2 % 02/02/22 07:26 Neut # (Auto) 4.70 10^3/uL (1.8-7.7) 02/02/22 07:26 Lymph # (Auto) 1.0 10^3/uL (0.8-4.8) 02/02/22 07:26 Florence # (Auto) 0.5 10^3/uL (0.2-0.9) 02/02/22 07:26 Eos # (Auto) 0.0 10^3/uL (0.0-0.8) 02/02/22 07:26 Baso # (Auto) 0.0 10^3/uL (0.0-0.1) 02/02/22 07:26 Nucleated RBC % (auto) 0 % 02/02/22 07: Nucleated RBCs # 0.0 /100WBC 02/02/22 07:26 Sodium 132 mmol/L (136-145) L 02/02/22 07:26 Potassium 3.5 mmol/L (3.5-5.1) 02/02/22 07:26 Chloride 97 mmol/L (98-107) L 02/02/22 07:26 Carbon Dioxide 26 mmol/L (22-29) 02/02/22 07:26 Anion Gap 12.5 (5-19) 02/02/22 07:26 BUN 13 mg/dL (6-20) 02/02/22 07:26 Creatinine 0.7 mg/dL (0.7-1.2) 02/02/22 07:26 GFR Calculation 115.8 mL/min (90-130) 02/02/22 07:26 Glucose 127 mg/dL (65-115) H 02/02/22 07:26 Calculated Osmolality 276 mOsm/kg (285-295) L 02/02/22 07:26 Calcium 9.1 mg/dL (8.5-10.5) 02/02/22 07:26 Total Bilirubin 0.2 mg/dL (0.15-1.2) 02/02/22 07:26 AST 66 U/L (0-40) H 02/02/22 07:26 ALT 53 U/L (0-41) H 02/02/22 07:26 Alkaline Phosphatase 54 U/L (40-130) 02/02/22 07:26 Total Protein 6.8 g/dL (6.6-8.7) 02/02/22 07:26 Albumin 4.4 g/dL (3.5-5.2) 02/02/22 07:26 Globulin 2.4 g/dL (1.3-4.6) 02/02/22 07:26 Salicylates < 0.3 mg/dL (3-10) L 02/02/22 07:26 Acetaminophen < 5.0 ug/mL (10-30) L 02/02/22 07:26 Ethyl Alcohol < 10 mg/dL (0-10) 02/02/22 07:26 Discharge Plan Discharge Patient Disposition: Admitted As Inpatient Admit Provider: Santana James Clinical Impression: Acute psychosis Condition: Stable Coding Level of Care Code ED Environmental Studies Professor for Bakari Fwd Exam Comprehensive
[2022-02-02 07:37] LABS: Basophils % 0.2 %; Eosinophils % 0.2 %; Hemoglobin 13.1 g/dL (11.7-16.6); Lymphocytes % 15.6 %; Mean Corpuscular HGB Conc 34.5 g/dL (30.0-36.0); Mean Corpuscular Hemoglobin 30.3 pg (28.0-34.0); Mean Platelet Volume 9.2 fL (7.4-10.4); Monocytes # 0.5 10^3/uL (0.2-0.9); Monocytes % 7.6 %; Neutrophils % 76.1 %; Nucleated Red Blood Cells % 0 %; Platelet Count 396 10^3/cmm (130-400); Red Blood Count 4.32 10^6/uL (4.1-5.3); Red Cell Distribution Width 12.6 % (12.1-15.1); White Blood Count 6.2 10^3/uL (4.0-10.0)
[2022-02-02 07:58] LABS: Alanine Aminotransferase 53 U/L (0-41); Albumin Level 4.4 g/dL (3.5-5.2); Alkaline Phosphatase 54 U/L (40-130); Anion Gap 12.5 (5-19); Aspartate Amino Transferase 66 U/L (0-40); Blood Urea Nitrogen 13 mg/dL (6-20); Calcium 9.1 mg/dL (8.5-10.5); Carbon Dioxide 26 mmol/L (22-29); Chloride 97 mmol/L (98-107); Creatinine Clr Calc Pharmacy 121.4453; Globulin 2.4 g/dL (1.3-4.6); Glomerular Filtration Rate 115.8 mL/min (90-130); Glucose 127 mg/dL (65-115); Osmolality Calculated 276 mOsm/kg (285-295); Potassium 3.5 mmol/L (3.5-5.1); Sodium 132 mmol/L (136-145); Total Bilirubin 0.2 mg/dL (0.15-1.2); Total Protein 6.8 g/dL (6.6-8.7)
[2022-02-02 08:05] LABS: Acetaminophen < 5.0 ug/mL (10-30); Alcohol Level < 10 mg/dL (0-10); Salicylate < 0.3 mg/dL (3-10)
--- NOTE | 2022-02-02 08:18 | PC.PHAR ---
pt states he takes care of his own medications-pt states he has been flushing his medications down the toilet-pt states he cant remember the names of his meds or what pharmacy he uses-medications entered are meds that ext med history shows has been filled recently-zoloft 50mg daily filled 10/30/21 90d/s the audit ext history shows dced 12/11/21 by alma rwoell-notes are made in the pharmacy comments with last fill dates
--- NOTE | 2022-02-02 08:47 | P.NPUHP_ITS ---
Providers/Chief Complaint Admitting Physician: Santana James MD Primary Care Provider: Mali Lerma DO Chief Complaint: Psych Evaluation HPI NPU History of Present Illness Michael Munoz IV is a 56 year old male [facility]. The patient acknowledges that the police had been called out to a house in the middle of the night as the patient had been apparently trying to gain entry into another person's house. The police during this time had apparently reported that the patient was making unusual statements while under their custody and he was reporting that he had been trying to protect the house that he was at in the middle of the night. He was placed on a 96-hour hold upon arrival in the emergency department and admitted for further psychiatric evaluation on the neuropsychiatric unit. The patient had acknowledged having been previously diagnosed with schizoaffective disorder depressed type and he reports that a few weeks ago he decided to throw away all of his psychiatric medications and reports that mother Soledad had told me to do this . The patient had reported that he had been pretending for too long that he needed drugs and decided to stop taking his medications. 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 He did acknowledge having special abilities and manzanares and stated that he did not want the rest of the people here to know about his manzanares. Previous records state that the patient has been having more recent confusion and disorganized behavior with a past history of auditory hallucinations along with depressed mood. The patient had reported that he had been sleepwalking and stated that he lived just up the road from the house that he was picked up at by the police. Inpatient psychiatric history: There is a history of multiple inpatient hospitalizations with the most recent hospitalization having occurred in 2019. He had been evaluated by the writer technical publications of this note earlier this year on the medical floor. Outpatient psychiatric history: He had been receiving services at the [facility] with most recent visit in December 2021 with a nurse at the behavioral health clinic. Cogentin .5mg bid clonazepam 0.5 mg daily Vistaril 25 mg up to 3 times daily esta to 3 mg at bedtime today Geodon 80 mg twice daily with food Wellbubtrin XL 150mg daily Drug and alcohol history: He denies other than smoking half to 1-1/2 packs of cigarettes a day for several years. Medical history: Benign prostatic hyperplasia lower back pain, COPD, dyslipidemia, GERD, Allergies: Penicillin Surgical history: Appendectomy, tonsillectomy Medications: See below Family psychiatric history: Unknown Social history: He reports that he was born in [facility] and raised by his 2 parents. He has 1 brother. He denied any history of trauma during his childhood. 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 He states that he currently lives by himself in the mobile home in [place]. He has been 2 times and has several adult aged children and numerous grandchildren. He reports that he is on disability for psychiatric reasons. Meds NPU Home Medications Medication Instructions Recorded Confirmed Last Taken Type benztropine 2 mg tablet 2 mg PO DAILY #90 tabs 12/11/21 02/02/22 Unknown Rx clonazepam 0.5 mg tablet (Klonopin) 0.5 mg PO DAILY PRN Anxiety #30 12/11/21 02/02/22 Unknown Rx tabs hydroxyzine pamoate 25 mg capsule 25 mg PO TID PRN anxiety #270 caps 12/11/21 02/02/22 Unknown Rx (Vistaril) ziprasidone HCl 80 mg capsule 80 mg PO BID@,17 #180 caps 12/11/21 02/02/22 Unknown Rx (Geodon) albuterol sulfate 90 mcg/actuation 2 puff inhalation Q6H PRN 01/19/22 02/02/22 Unknown Rx aerosol inhaler (Ventolin HFA) Shortness Of Breath #8.5 grams celecoxib 200 mg capsule 200 mg PO DAILY #90 caps 01/19/22 02/02/22 Unknown Rx fluticasone 500 mcg-salmeterol 50 1 inh inhalation BID #60 ea 01/19/22 02/02/22 Unknown Rx mcg/dose blistr powdr for inhalation (Advair Diskus) gemfibrozil 600 mg tablet 600 mg PO BID #180 tabs 01/19/22 02/02/22 Unknown Rx tramadol 50 mg tablet 50 mg PO TID PRN pain #90 tabs 01/19/22 02/02/22 Unknown Rx sulfamethoxazole 800 1 tab PO BID 7 days #14 tabs 02/01/22 02/02/22 Unknown Rx mg-trimethoprim 160 mg tablet (Bactrim DS) bupropion HCl 150 mg 24 hr tablet, 150 mg PO DAILY 02/02/22 02/02/22 Unknown History extended release eszopiclone 3 mg tablet (Lunesta) 3 mg PO BEDTIME 02/02/22 02/02/22 Unknown History omeprazole 40 mg capsule,delayed 40 mg PO DAILY 02/02/22 02/02/22 Unknown History release tamsulosin 0.4 mg capsule 0.8 mg PO DAILY 02/02/22 02/02/22 Unknown History trazodone 100 mg tablet 100 mg PO BEDTIME 02/02/22 02/02/22 Unknown History Allergies Allergy/AdvReac Type Severity Reaction Status Date / Time Penicillins Allergy Severe throat Verified 01/31/22 11:44 karyn [facility] NPU PFS: Medical History Anxiety BPH (benign prostatic hyperplasia) BPH w urinary obs/LUTS Chronic dryness of both eyes Chronic low back pain COPD (chronic obstructive pulmonary disease) Dyslipidemia Enrolled in chronic care management Generalized anxiety disorder GERD (gastroesophageal reflux disease) History of colon polyps Nicotine dependence, cigarettes, uncomplicated Psychiatric care Schizoaffective disorder, unspecified Urinary retention Surgical History History of appendectomy History of tonsillectomy Family History Father , AT AGE 67 Cancer LUNG Mother , AT AGE 63 Lung disease Social History Smoking and tobacco status: current some day smoker cigarettes Packs smoked per day: 1 and smokeless tobacco Smoking risk assessment/counseling performed?: Yes Tobacco counseling given: counseling >3 minutes Alcohol intake: never Marital status: Current occupational status: disabled History of recent travel: No Mental Status Exam MSE Comments: Patient is a casually dressed white male with poor hygiene and good eye contact. His gait appeared within normal limits. There was no evidence of any abnormal involuntary motor movements tics or tremors appreciated. His speech was monotone in quality and reduced in volume and normal in rate. He was alert and oriented to month and year, but not date or day of the week. he had recognized that he was in [facility] in the psychiatric hospital. His mood was described as all right. His affect was somewhat subdued. His thought process was nonlinear and illogical. His thought content showed no evidence of homicidal or suicidal ideation. There was clear evidence of disorganized thinking. He also had some systemic delusions that were noted on interview. His ability to abstract proverbs was impaired. His immediate recall was 0 out of 3 words after 5 minutes. His attention span appeared impaired as he was unable to spell the word world backwards. His insight appeared impaired his judgment was poor. His impulse control appeared impaired. Vitals/I&O/Wt Last Vital Signs Temp 98.3 F 02/02/22 07:07 Pulse 68 02/02/22 07:07 Resp 16 02/02/22 07:07 BP 116/60 02/02/22 07:07 Pulse Ox 98 02/02/22 07:07 O2 Del Method 02/02/22 07:07 Weight last 48 hrs Weight 77.111 kg Data NPU 02/02/22 07:26 02/02/22 07:26 A&P Assessment and plan (1) Schizoaffective disorder, unspecified: Qualifiers: Schizoaffective disorder type: depressive Qualified Code(s): F25.1 - Schizoaffective disorder, depressive type (2) Acute psychosis: Plan Michael is a 56-year-old white male with a previous history of a chronic mental illness currently reporting having been noncompliant with his medications who presents psychotic with unusual behavior currently on an involuntary basis. 1.? Restart previous medications. 2.? Encourage individual, group and milieu therapy 3.? Continue q-15 minute check for safety 4.? Recommend sober living treatment at the highest level of care to which the patient is willing to commit. Attestations NPU Medical Necessity Statement*: Inpatient hospitalization is medically necessary and the clinically appropriate intervention at this time. We will monitor medications and make changes as indicated. Patient will be in the hospital for over two midnights. Likely length of stay is 5-7 days. Coding Level of Care Code New Pt Acute Putter In for 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 Patient Type New History Problem Focused Exam Problem Focused Medical Decision Making Straight Forward Diagnoses Schizoaffective disorder, unspecified F25.1 Schizoaffective disorder type: depressive Acute psychosis F23
[2022-02-02 09:49] LABS: Add Urine Microscopic? YES; Bilirubin Urine Neg (Negative); Blood Urine Neg (Negative); Glucose Urine UA Norm (Normal); Ketones Urine 1+ (Negative); Leukocyte Esterase Urine 1+ (Negative); Nitrate Urine Positive (Negative); Protein Urine Neg (Negative); Urine Appearance Hazy (CLEAR); Urine Color Amber (Yellow); Urobilinogen Urine Norm (Negative); pH Urine 6 (5-7)
[2022-02-02 09:50] LABS: Add Urine Culture? Yes; Bacteria Urine 4+ /hpf; RBC Urine 0-4 /hpf (0-2); Squamous Epithelial Cell Urine 0-4 /hpf (0-5); WBC Urine 55-80 /hpf (0-5)
[2022-02-02 10:00] LABS: Amphetamines Screen Urine Negative (Negative); Barbiturates Screen Urine Negative (Negative); Benzodiazepines Screen Urine Negative (Negative); Cocaine Screen Urine Negative (Negative); Opiate Screen Urine Negative (Negative); PCP Screen Urine Negative (Negative); THC Screen Urine Negative (Negative)
[2022-02-02 10:37] VITALS: BP 131/84; PULSE 77; RESP 18; TEMP 36.8; O2SAT 98
[2022-02-02] MEDS: haloperidol 5 mg Tablet PO ×3 (10:50→23:16)
[2022-02-02] MEDS: LORazepam 2 mg Tablet PO ×3 (10:50→23:16)
[2022-02-02 14:00] VITALS: BP 125/86; PULSE 70; RESP 17; TEMP 36.8; O2SAT 100
[2022-02-02] MEDS: diphenhydrAMINE 50 mg Capsule PO ×2 (16:03→23:16)
[2022-02-02] MEDS: benztropine 1 mg Tablet PO (17:25)
[2022-02-02 19:56] VITALS: BP 135/85; PULSE 84; RESP 18; TEMP 36.4; O2SAT 95
[2022-02-02] MEDS: trazodone 50 mg Tablet PO (23:16)
[2022-02-03] MEDS: trazodone 50 mg Tablet PO (00:43)
[2022-02-03] MEDS: OLANZapine 5 mg ODT PO (00:43)
[2022-02-03] MEDS: hyDROXYzine 25 mg Capsule 50 MG PO ×2 (00:43→22:18)
[2022-02-03] MEDS: nicotine 2 mg Gum BUCCAL (05:52)
[2022-02-03 06:00] VITALS: BP 119/84; PULSE 86; RESP 18; TEMP 37.1; O2SAT 99
[2022-02-03] MEDS: ziprasidone hcl 40 mg Capsule PO ×2 (07:13→17:03)
[2022-02-03] MEDS: ziprasidone hcl 20 mg Capsule PO ×2 (07:13→17:02)
[2022-02-03] MEDS: diphenhydrAMINE 50 mg Capsule PO ×3 (08:05→20:04)
[2022-02-03] MEDS: buPROPion XL (24 HR) 150 mg Tablet PO (08:05)
[2022-02-03] MEDS: LORazepam 2 mg Tablet PO ×3 (08:05→20:04)
[2022-02-03] MEDS: benztropine 1 mg Tablet PO ×2 (08:06→17:04)
[2022-02-03] MEDS: haloperidol 5 mg Tablet PO ×3 (08:06→20:04)
[2022-02-03] MEDS: acetaminophen 325 mg Tablet 650 MG PO (10:46)
[2022-02-03 14:00] VITALS: BP 123/73; PULSE 85; RESP 17; TEMP 36.6; O2SAT 100
--- NOTE | 2022-02-03 16:41 | W.PM.NPUPNS ---
Subjective NPU Subjective: Patient is a 56-year-old white male with schizoaffective disorder who had reported noncompliance with his medications. The patient had appeared very confused on the unit. He had repeatedly entered into other people's rooms and appeared confused in regards to his whereabouts. He had appeared to show evidence of increased confusion at night. He had urinated on the floor and had reported that he was here due to mother Soledad's influence. He continued to speak about having ideas to save the future. He had required significant redirection on the milieu. Mental Status Exam MSE Comments: Patient is a casually dressed white male older than stated age with poor hygiene and good eye contact. The patient had a slow and steady gait with some evidence of psychomotor slowing. His speech was soft and monotone in quality. his hygiene was poor. he had recognized that he was in [facility] in the psychiatric hospital. He was not oriented to place date or time today. His mood was described as good His affect was somewhat subdued. His thought process was nonlinear and illogical. His thought content showed no evidence of homicidal or suicidal ideation. His thought process showed evidence of derailment. There was clear evidence of disorganized thinking. He also had some systemic delusions that were noted on interview. His ability to abstract proverbs was impaired. His immediate recall was 0 out of 3 words after 5 minutes. His attention span appeared impaired as he was unable to spell the word world backwards. His insight appeared impaired his judgment was poor. His impulse control appeared impaired. Vitals/I&O/Wt Last Vital Signs Temp 97.9 F 02/03/22 14:00 Pulse 85 02/03/22 14:00 Resp 17 02/03/22 14:00 BP 123/73 02/03/22 14:00 Pulse Ox 100 02/03/22 14:00 O2 Del Method 02/02/22 16:59 Weight last 48 hrs Weight 77.111 kg Data NPU 02/02/22 07:26 02/02/22 07:26 Micro: Microbiology 02/02/22 09:30 Urine Culture - Preliminary Urine,Clean Catch Microbiology 02/02/22 09:30 Urine,Clean Catch Urine Culture - Preliminary A&P Assessment and plan (1) Schizoaffective disorder, unspecified: Qualifiers: Schizoaffective disorder type: depressive Qualified Code(s): F25.1 - Schizoaffective disorder, depressive type (2) Acute psychosis: Sharita Rodriguez is a 56-year-old white male with a previous history of a chronic mental illness currently reporting having been noncompliant with his medications who presents psychotic with unusual behavior currently on an involuntary basis. 1.? Continue Wellbutrin Xl 150mg in am, continue Geodon at 60mg bid with titration up to 160mg/day. 2.? Encourage individual, group and milieu therapy 3.? Continue q-15 minute check for safety 4.? Recommend sober living treatment at the highest level of care to which the patient is willing to commit. Involuntary Hold Information 96 Hour Hold: 96 Hour Involuntary Admission: Yes 96 Hour Hold Ending Date: 02/08/22 96 Hour Hold Ending Time: 08:00 Attestations NPU Medical Necessity Statement*: Inpatient hospitalization is medically necessary and the clinically appropriate intervention at this time. We will monitor medications and make changes as indicated. Patient will be in the hospitalized with likely length of stay 5-7 days. Coding Level of Care Code Established Pt Acute Credit Control Administrator for Acg Leighann Patient Type Established History Problem Focused Exam Problem Focused Medical Decision Making Straight Forward Diagnoses Schizoaffective disorder, unspecified F25.1 Schizoaffective disorder type: depressive Acute psychosis F23
--- NOTE | 2022-02-03 18:40 | PC.NURSE ---
PT HAS BEEN WONDERING HALLS, GOING INTO OTHER PTS ROOMS, NEEDING CONSTANT REDIRECTION, PT CAME OUT OF ROOM WITH BARE FEET THAT WERE WET WELL HIS PANTS BEING WET WITH URINE. PT HAD URINATED IN ROOM FLOOR AND WALKED THRU IT, SOCKS WERE IN FLOOR IN URINE. PT CONFUSED AND WAS TAKEN TO BATHROOM IN BORGES TO CLEAN SELF UP AND CHANGE CLOTHES, PT LEFT TO CHANGE IN BR, WHEN CHECKING ON PT HE HAD PUT SCRUB PANTS IN TOILET AND WHEN ASKED WHY HE DID THAT HE SAID HE LEFT IT FOR THE NEXT GENERATION PT ROOM CLEANED BY STAFF AND PT WAS DIRECTED TO DAYROOM TO KEEP BUSY AND NOT WONDER INTO ROOMS
[2022-02-03 20:28] VITALS: BP 122/82; PULSE 99; RESP 18; TEMP 36.2; O2SAT 98
[2022-02-04] MEDS: nicotine 2 mg Gum BUCCAL ×2 (02:09→18:30)
[2022-02-04 06:00] VITALS: BP 125/94; PULSE 98; RESP 18; TEMP 36.5; O2SAT 100
[2022-02-04] MEDS: ziprasidone hcl 20 mg Capsule PO ×2 (06:57→16:42)
[2022-02-04] MEDS: ziprasidone hcl 40 mg Capsule PO ×2 (06:57→16:42)
[2022-02-04] MEDS: benztropine 1 mg Tablet PO ×2 (08:57→20:51)
[2022-02-04] MEDS: buPROPion XL (24 HR) 150 mg Tablet PO (08:57)
[2022-02-04] MEDS: acetaminophen 325 mg Tablet 650 MG PO (09:17)
--- NOTE | 2022-02-04 12:00 | W.PM.NPUPNS ---
Subjective NPU Subjective: Patient presented today reporting that he was feeling a little better. He does endorse as his family has suggested that if he does not take his medication he does become confused. We discussed the fact it appears he has a UTI and we discussed appropriate medication options with hospitalist and labs and 500 mg of Levaquin was initiated given the agent (Klebsiella) in his culture. And he agreed to initiate medication after discussion of the risks, benefits and alternatives. Mental Status Exam MSE Comments: This is a well-nourished well-developed white male looking older than his stated age with limited grooming and adequate eye contact. No abnormal movements except for significant psychomotor retardation. Cooperative with exam in mild distress. Speech was limited and decreased rate and volume. Mood described as okay, affect subdued and slowed. Thought process linear with apparent improvement in organization. Thought content: Patient denied suicidal or homicidal ideation, there were no delusions reported or noted, he denied. He attending to internal stimuli. Attention and concentration are improving and memory appeared more reliable but none were formally tested. He is alert and oriented x3. Insight and judgment are improving and impulse control is limited. Vitals/I&O/Wt Last Vital Signs Temp 97.7 F 02/04/22 06:00 Pulse 98 02/04/22 06:00 Resp 18 02/04/22 06:00 BP 125/94 02/04/22 06:00 Pulse Ox 100 02/04/22 06:00 O2 Del Method 02/04/22 06:00 Data NPU 02/04/22 17:32 02/04/22 17:32 Micro: Microbiology 02/04/22 17:32 Blood Culture - Preliminary Blood SPECIMEN COLLECTED 02/04/22 17:32 Blood Culture - Preliminary Blood SPECIMEN COLLECTED 02/02/22 09:30 Urine Culture - Final Urine,Clean Catch Microbiology 02/04/22 17:32 Blood Blood Culture - Preliminary SPECIMEN COLLECTED 02/04/22 17:32 Blood Blood Culture - Preliminary SPECIMEN COLLECTED 02/02/22 09:30 Urine,Clean Catch Urine Culture - Final A&P Assessment and plan (1) Schizoaffective disorder, unspecified: Qualifiers: Schizoaffective disorder type: depressive Qualified Code(s): F25.1 - Schizoaffective disorder, depressive type (2) Acute psychosis: Sharita Rodriguez is a 56-year-old white male with a previous history of a chronic mental illness currently reporting having been noncompliant with his medications who presents psychotic with unusual behavior currently on an involuntary basis. 1.? Continue Wellbutrin Xl 150mg in am, continue Geodon at 60mg bid with titration up to 160mg/day. 2.? Encourage individual, group and milieu therapy 3.? Continue q-15 minute check for safety 4.? Recommend sober living treatment at the highest level of care to which the patient is willing to commit. 5. We did some basic labs and start Levaquin 500 mg p.o. daily for 7 days for UTI. We will review labs with hospitalist to decide if actual consult is needed. Involuntary Hold Information 96 Hour Hold: 96 Hour Involuntary Admission: Yes 96 Hour Hold Ending Date: 02/08/22 96 Hour Hold Ending Time: 08:00 Attestations NPU Medical Necessity Statement*: Inpatient hospitalization is medically necessary and the clinically appropriate intervention at this time. We will monitor medications and make changes as indicated. Likely length of stay 3-5 days. 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
[2022-02-04] MEDS: hyDROXYzine 25 mg Capsule 50 MG PO ×2 (12:09→20:51)
[2022-02-04] MEDS: nicotine 21 mg Patch 1 PATCH TRANSDERMA (12:14)
[2022-02-04 14:00] VITALS: BP 144/92; PULSE 82; RESP 18; TEMP 36.6; O2SAT 100
[2022-02-04] MEDS: levoFLOXacin 500 mg Tablet PO (16:41)
[2022-02-04 17:47] LABS: Basophils % 0.3 %; Eosinophils # 0.1 10^3/uL (0.0-0.8); Hematocrit 37.3 % (42.0-52.0); Hemoglobin 12.6 g/dL (11.7-16.6); Lymphocytes # 1.8 10^3/uL (0.8-4.8); Lymphocytes % 25.6 %; Mean Corpuscular HGB Conc 33.8 g/dL (30.0-36.0); Mean Corpuscular Hemoglobin 30.9 pg (28.0-34.0); Mean Corpuscular Volume 91.4 fl (80-94); Monocytes # 0.6 10^3/uL (0.2-0.9); Monocytes % 8.5 %; Neutrophils # 4.59 10^3/uL (1.8-7.7); Neutrophils % 64.3 %; Nucleated Red Blood Cells % 0 %; Platelet Count 390 10^3/cmm (130-400); Red Blood Count 4.08 10^6/uL (4.1-5.3); Red Cell Distribution Width 13.2 % (12.1-15.1); White Blood Count 7.1 10^3/uL (4.0-10.0)
[2022-02-04 18:31] LABS: Alanine Aminotransferase 44 U/L (0-41); Albumin Level 4.2 g/dL (3.5-5.2); Alkaline Phosphatase 60 U/L (40-130); Anion Gap 14.4 (5-19); Aspartate Amino Transferase 29 U/L (0-40); Blood Urea Nitrogen 16 mg/dL (6-20); Calcium 9.5 mg/dL (8.5-10.5); Carbon Dioxide 28 mmol/L (22-29); Chloride 95 mmol/L (98-107); Glomerular Filtration Rate 99.3 mL/min (90-130); Glucose 88 mg/dL (65-115); Osmolality Calculated 277 mOsm/kg (285-295); Potassium 4.4 mmol/L (3.5-5.1); Sodium 133 mmol/L (136-145); Total Bilirubin 0.2 mg/dL (0.15-1.2); Total Protein 7.2 g/dL (6.6-8.7)
[2022-02-04 20:43] VITALS: BP 128/76; PULSE 73; RESP 16; TEMP 36.7; O2SAT 97
[2022-02-04] MEDS: trazodone 50 mg Tablet PO (20:52)
[2022-02-04] MEDS: nicotine 4 mg lozenge MUCOUS MEM (20:52)
[2022-02-04] MEDS: diphenhydrAMINE 50 mg Capsule PO (23:46)
[2022-02-04] MEDS: OLANZapine 5 mg ODT PO (23:46)
[2022-02-05] MEDS: levoFLOXacin 500 mg Tablet PO (05:29)
[2022-02-05 06:00] VITALS: BP 124/81; PULSE 73; RESP 17; TEMP 36.6; O2SAT 99
[2022-02-05] MEDS: ziprasidone hcl 40 mg Capsule PO ×2 (06:03→17:11)
[2022-02-05] MEDS: ziprasidone hcl 20 mg Capsule PO ×2 (06:03→17:11)
[2022-02-05] MEDS: nicotine 2 mg Gum BUCCAL ×2 (07:43→23:26)
[2022-02-05] MEDS: buPROPion XL (24 HR) 150 mg Tablet PO (09:08)
[2022-02-05] MEDS: benztropine 1 mg Tablet PO ×2 (09:09→20:54)
[2022-02-05 14:00] VITALS: BP 128/88; PULSE 85; RESP 20; TEMP 37.1; O2SAT 97
--- NOTE | 2022-02-05 15:35 | W.PM.NPUPNS ---
Subjective NPU Subjective: Patient attended today reporting being thankful for the assistance that he received here at the neuropsychiatric unit. He reported everybody to help some time. We discussed the resumption of his psychiatric medications as well as the Levaquin for his UTI likely being the foundation of his clear improvement. He agreed and again was thankful. He reports that his son visited and reports that he thinks he is doing better. We discussed the likelihood of watching him over the weekend with likely plan for discharge on Tuesday and he endorsed being very comfortable with that plan. Mental Status Exam MSE Comments: This is a well-nourished well-developed white male looking older than his stated age with limited grooming and adequate eye contact. No abnormal movements except for resolving mild psychomotor retardation. Cooperative with exam in no acute distress. Speech was more spontaneous and more normal rate and volume. Mood described as a little better, affect less subdued and slowed. Thought process linear with apparent improvement in organization. Thought content: Patient denied suicidal or homicidal ideation, there were no delusions reported or noted, he denied. He attending to internal stimuli. Attention and concentration are improving and memory appeared more reliable but none were formally tested. He is alert and oriented x3. Insight and judgment are improving and impulse control is limited, but improving. Vitals/I&O/Wt Last Vital Signs Temp 98.7 F 02/05/22 14:00 Pulse 85 02/05/22 14:00 Resp 20 H 02/05/22 14:00 BP 128/88 02/05/22 14:00 Pulse Ox 97 02/05/22 14:00 O2 Del Method 02/05/22 14:00 Data NPU 02/04/22 17:32 02/04/22 17:32 Micro: Microbiology 02/04/22 17:32 Blood Culture - Preliminary Blood NEGATIVE TO DATE 02/04/22 17:32 Blood Culture - Preliminary Blood NEGATIVE TO DATE Microbiology 02/04/22 17:32 Blood Blood Culture - Preliminary NEGATIVE TO DATE 02/04/22 17:32 Blood Blood Culture - Preliminary NEGATIVE TO DATE A&P Assessment and plan (1) Schizoaffective disorder, unspecified: Qualifiers: Schizoaffective disorder type: depressive Qualified Code(s): F25.1 - Schizoaffective disorder, depressive type (2) Acute psychosis: Sharita Rodriguez is a 56-year-old white male with a previous history of a chronic mental illness currently reporting having been noncompliant with his medications who presents psychotic with unusual behavior currently on an involuntary basis. 1.? Continue Wellbutrin Xl 150mg in am, continue Geodon at 60mg bid with titration up to 160mg/day. 2.? Encourage individual, group and milieu therapy 3.? Continue q-15 minute check for safety 4.? Recommend sober living treatment at the highest level of care to which the patient is willing to commit. 5. We did some basic labs and start Levaquin 500 mg p.o. daily for 7 days for UTI. We will review labs with hospitalist to decide if actual consult is needed. Involuntary Hold Information 96 Hour Hold: 96 Hour Involuntary Admission: Yes 96 Hour Hold Ending Date: 02/08/22 96 Hour Hold Ending Time: 08:00 Attestations NPU Medical Necessity Statement*: Inpatient hospitalization is medically necessary and the clinically appropriate intervention at this time. We will monitor medications and make changes as indicated. Likely length of stay 2-4 days. 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
[2022-02-05] MEDS: acetaminophen 325 mg Tablet 650 MG PO (18:32)
[2022-02-05 19:40] VITALS: BP 133/84; PULSE 69; RESP 18; O2SAT 100
[2022-02-05] MEDS: OLANZapine 5 mg ODT PO (20:54)
[2022-02-05] MEDS: diphenhydrAMINE 50 mg Capsule PO (20:54)
[2022-02-05] MEDS: trazodone 50 mg Tablet PO (20:54)
--- NOTE | 2022-02-05 20:58 | PC.NURSE ---
pt dropped trazodone on floor . wasted in pixis removed another trazodone administered to pt.
[2022-02-05] MEDS: zolpidem 5 mg Tablet PO (22:08)
[2022-02-05] MEDS: LORazepam 2 mg Tablet PO (23:26)
[2022-02-06] MEDS: levoFLOXacin 500 mg Tablet PO (05:11)
[2022-02-06 06:00] VITALS: BP 110/79; PULSE 101; RESP 18; TEMP 36.7; O2SAT 100
[2022-02-06] MEDS: ziprasidone hcl 20 mg Capsule PO ×2 (06:05→17:02)
[2022-02-06] MEDS: ziprasidone hcl 40 mg Capsule PO ×2 (06:05→17:02)
[2022-02-06] MEDS: nicotine 2 mg Gum BUCCAL ×2 (06:59→21:41)
[2022-02-06] MEDS: buPROPion XL (24 HR) 150 mg Tablet PO (08:58)
[2022-02-06] MEDS: benztropine 1 mg Tablet PO ×2 (08:59→21:40)
[2022-02-06] MEDS: nicotine 21 mg Patch 1 PATCH TRANSDERMA (09:45)
--- NOTE | 2022-02-06 10:44 | P.NPUPN_ITS ---
Subjective NPU Subjective: Patient attended today reporting slow to continue improvement. This was notable in both his cognition, his gait and overall alertness. He endorsed looking forward to the possibility discharge at the beginning of the and denied any problems. Sleep and appetite seem to be returning to normal. Mental Status Exam MSE Comments: This is a well-nourished well-developed white male looking older than his stated age with limited grooming and adequate eye contact. No abnormal movements except for resolving mild psychomotor retardation. Cooperative with exam in no acute distress. Speech was more spontaneous and more normal rate and volume. Mood described as better, affect congruent. Thought process linear with clear improvement in organization. Thought content: Patient denied suicidal or homicidal ideation, there were no delusions reported or noted, he denied auditory or visual hallucinations. He was not attending to internal stimuli. Attention and concentration are improving and memory appeared more reliable but none were formally tested. He is alert and oriented x3. Insight and judgment are improving and impulse control is limited, but improving. Vitals/I&O/Wt Last Vital Signs Temp 98.0 F 02/06/22 06:00 Pulse 101 H 02/06/22 06:00 Resp 18 02/06/22 06:00 BP 110/79 02/06/22 06:00 Pulse Ox 100 02/06/22 06:00 O2 Del Method 02/05/22 14:00 Data NPU 02/04/22 17:32 02/04/22 17:32 Micro: Microbiology 02/04/22 17:32 Blood Culture - Preliminary Blood NEGATIVE TO DATE 02/04/22 17:32 Blood Culture - Preliminary Blood NEGATIVE TO DATE Microbiology 02/04/22 17:32 Blood Blood Culture - Preliminary NEGATIVE TO DATE 02/04/22 17:32 Blood Blood Culture - Preliminary NEGATIVE TO DATE A&P Assessment and plan (1) Schizoaffective disorder, unspecified: Qualifiers: Schizoaffective disorder type: depressive Qualified Code(s): F25.1 - Schizoaffective disorder, depressive type (2) Acute psychosis: Sharita Rodriguez is a 56-year-old white male with a previous history of a chronic mental illness currently reporting having been noncompliant with his medications who presents psychotic with unusual behavior currently on an involuntary basis. 1.? Continue Wellbutrin Xl 150mg in am, continue Geodon at 60mg bid with titration up to 160mg/day. 2.? Encourage individual, group and milieu therapy 3.? Continue q-15 minute check for safety 4.? Recommend sober living treatment at the highest level of care to which the patient is willing to commit. 5. We did some basic labs and start Levaquin 500 mg p.o. daily for 7 days for UTI. We will review labs with hospitalist to decide if actual consult is needed. Involuntary Hold Information 96 Hour Hold: 96 Hour Involuntary Admission: Yes 96 Hour Hold Ending Date: 02/08/22 96 Hour Hold Ending Time: 08:00 Attestations NPU Medical Necessity Statement*: Inpatient hospitalization is medically necessary and the clinically appropriate intervention at this time. We will monitor me dications and make changes as indicated. Likely length of stay 2-3 days. 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
[2022-02-06] MEDS: acetaminophen 325 mg Tablet 650 MG PO (11:59)
[2022-02-06 14:00] VITALS: BP 132/87; PULSE 84; RESP 18; TEMP 36.3; O2SAT 100
[2022-02-06 19:57] VITALS: BP 113/78; PULSE 91; RESP 16; TEMP 37; O2SAT 98
[2022-02-06] MEDS: docusate sodium 100 mg Capsule PO (21:40)
[2022-02-06] MEDS: trazodone 50 mg Tablet PO (21:40)
[2022-02-06] MEDS: zolpidem 5 mg Tablet PO (21:41)
[2022-02-06] MEDS: haloperidol 5 mg Tablet PO (21:41)
[2022-02-06] MEDS: hyDROXYzine 25 mg Capsule 50 MG PO (21:41)
--- NOTE | 2022-02-06 22:20 | PC.NURSE ---
Patient given ordered Trazadone 50mg PO and Vistaril 50 mg PO for sleep and anxiety; Respectively, with good results. Also Colace 100mg PO for constipation; No reported results yet.
[2022-02-07] MEDS: nicotine 2 mg Gum BUCCAL (05:22)
[2022-02-07] MEDS: levoFLOXacin 500 mg Tablet PO (05:22)
[2022-02-07 06:00] VITALS: BP 124/88; PULSE 111; RESP 17; TEMP 36.5; O2SAT 97
[2022-02-07] MEDS: ziprasidone hcl 20 mg Capsule PO ×2 (06:02→16:23)
[2022-02-07] MEDS: ziprasidone hcl 40 mg Capsule PO ×2 (06:02→16:23)
[2022-02-07] MEDS: buPROPion XL (24 HR) 150 mg Tablet PO (08:38)
[2022-02-07] MEDS: benztropine 1 mg Tablet PO ×2 (08:38→20:26)
[2022-02-07] MEDS: nicotine 21 mg Patch 1 PATCH TRANSDERMA (08:59)
--- NOTE | 2022-02-07 11:43 | W.PM.NPUPNS ---
Subjective NPU Subjective: Patient presented today reporting that he is feeling better each day. He continues to have notable improvements in his affect with increasing stability of gait. He is sleeping well and not having any complaints or confusion. We continued to discuss the possibility of discharge in the next 48 hours. Mental Status Exam MSE Comments: This is a well-nourished well-developed white male looking older than his stated age with limited grooming and adequate eye contact. No abnormal movements except for resolving mild psychomotor retardation. Cooperative with exam in no acute distress. Speech was more spontaneous and more normal rate and volume. Mood described as better, affect congruent. Thought process linear with clear improvement in organization. Thought content: Patient denied suicidal or homicidal ideation, there were no delusions reported or noted, he denied auditory or visual hallucinations. He was not attending to internal stimuli. Attention and concentration are improving and memory appeared more reliable but none were formally tested. He is alert and oriented x3. Insight and judgment are improving and impulse control is limited, but improving. Vitals/I&O/Wt Last Vital Signs Temp 97.7 F 02/07/22 06:00 Pulse 111 H 02/07/22 06:00 Resp 17 02/07/22 06:00 BP 124/88 02/07/22 06:00 Pulse Ox 97 02/07/22 06:00 O2 Del Method 02/07/22 06:00 Weight last 48 hrs Weight 75.387 kg Data NPU 02/04/22 17:32 02/04/22 17:32 A&P Assessment and plan (1) Schizoaffective disorder, unspecified: Qualifiers: Schizoaffective disorder type: depressive Qualified Code(s): F25.1 - Schizoaffective disorder, depressive type (2) Acute psychosis: Plan Michael is a 56-year-old white male with a previous history of a chronic mental illness currently reporting having been noncompliant with his medications who presents psychotic with unusual behavior currently on an involuntary basis. 1.? Continue Wellbutrin Xl 150mg in am, continue Geodon at 60mg bid with titration up to 160mg/day. 2.? Encourage individual, group and milieu therapy 3.? Continue q-15 minute check for safety 4.? Recommend sober living treatment at the highest level of care to which the patient is willing to commit. 5. We did some basic labs and start Levaquin 500 mg p.o. daily for 7 days for UTI. We will review labs with hospitalist to decide if actual consult is needed. Involuntary Hold Information 96 Hour Hold: 96 Hour Involuntary Admission: Yes 96 Hour Hold Ending Date: 02/08/22 96 Hour Hold Ending Time: 08:00 Attestations NPU Medical Necessity Statement*: Inpatient hospitalization is medically necessary and the clinically appropriate intervention at this time. We will monitor medications and make changes as indicated. Likely length of stay 1-2 days. 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
[2022-02-07 14:00] VITALS: BP 128/87; PULSE 78; RESP 18; TEMP 36.7; O2SAT 99
[2022-02-07] MEDS: hyDROXYzine 25 mg Capsule 50 MG PO (18:49)
[2022-02-07] MEDS: zolpidem 5 mg Tablet PO (20:24)
[2022-02-07 21:27] VITALS: BP 124/88; PULSE 86; RESP 18; TEMP 36.3; O2SAT 100
[2022-02-08] MEDS: nicotine 2 mg Gum BUCCAL ×2 (00:21→09:08)
[2022-02-08 06:00] VITALS: BP 118/82; PULSE 106; RESP 18; TEMP 36.7; O2SAT 96
[2022-02-08] MEDS: levoFLOXacin 500 mg Tablet PO (06:00)
[2022-02-08] MEDS: ziprasidone hcl 20 mg Capsule PO (06:00)
[2022-02-08] MEDS: ziprasidone hcl 40 mg Capsule PO (06:00)
[2022-02-08] MEDS: hyDROXYzine 25 mg Capsule 50 MG PO ×2 (06:35→15:07)
[2022-02-08] MEDS: benztropine 1 mg Tablet PO (08:46)
[2022-02-08] MEDS: buPROPion XL (24 HR) 150 mg Tablet PO (08:46)
--- NOTE | 2022-02-08 12:33 | W.PM.NPUDCS ---
Diagnoses at Discharge Discharge Diagnosis (1) Schizoaffective disorder, unspecified: Status: Chronic Qualifiers: Schizoaffective disorder type: depressive Qualified Code(s): F25.1 - Schizoaffective disorder, depressive type (2) Acute psychosis: Status: Deleted Reason for Visit Reason for Visit: Psych Evaluation Brief History: History of Present Illness Michael Munoz IV is a 56 year old male who presented to the emergency department through the police for an evaluation. The patient acknowledges that the police had been called out to a house in the middle of the night as the patient had been apparently trying to gain entry into another person's house. The police during this time had apparently reported that the patient was making unusual statements while under their custody and he was reporting that he had been trying to protect the house that he was at in the middle of the night. He was placed on a 96-hour hold upon arrival in the emergency department and admitted for further psychiatric evaluation on the neuropsychiatric unit. The patient had acknowledged having been previously diagnosed with schizoaffective disorder depressed type and he reports that a few weeks ago he decided to throw away all of his psychiatric medications and reports that mother Soledad had told me to do this . The patient had reported that he had been pretending for too long that he needed drugs and decided to stop taking his medications. 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 He did acknowledge having special abilities and manzanares and stated that he did not want the rest of the people here to know about his manzanares. Previous records state that the patient has been having more recent confusion and disorganized behavior with a past history of auditory hallucinations along with depressed mood. The patient had reported that he had been sleepwalking and stated that he lived just up the road from the house that he was picked up at by the police. Inpatient psychiatric history: There is a history of multiple inpatient hospitalizations with the most recent hospitalization having occurred in 2019. He had been evaluated by the personal lines underwriter of this note earlier this year on the medical floor. Outpatient psychiatric history: He had been receiving services at the [facility] with most recent visit in December 2021 with a nurse at the behavioral health clinic. Cogentin .5mg bid clonazepam 0.5 mg daily Vistaril 25 mg up to 3 times daily Lunesta to 3 mg at bedtime today Geodon 80 mg twice daily with food Wellbubtrin XL 150mg daily Drug and alcohol history: He denies other than smoking half to 1-1/2 packs of cigarettes a day for several years. Medical history: Benign prostatic hyperplasia lower back pain, COPD, dyslipidemia, GERD, Allergies: Penicillin Surgical history: Appendectomy, tonsillectomy Medications: See below Family psychiatric history: Unknown Social history: He reports that he was born in [facility] and raised by his 2 parents. He has 1 brother. He denied any history of trauma during his childhood. 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 He states that he currently lives by himself in the mobile home in [place]. He has been 2 times and has several adult aged children and numerous grandchildren. He reports that he is on disability for psychiatric reasons. Hospital Course Hospital Course He slowly acclimated to the individual, group and milieu therapies provided.? He was identified as having a UTI and Levaquin 500 mg daily for 1 week was initiated with 2 doses remaining at discharge. His home medications were restarted which he had been having some difficulties with adherence. His Cogentin was changed from 2 mg daily to 1 mg twice a day, his Klonopin was discontinued. He had significant improvement during the hospitalization and was able to contract for safety outside of the hospital prior to discharge.? During hospitalization he had routine laboratory studies which were within normal limits except for a few outliers including his urinalysis.? Additionally had a general medical evaluation which is also within normal limits and revealed no new acute processes. Discharge summary: At the time of discharge, he was absent lethality and psychosis.? Mood and anxiety were well managed.? Patient endorsed a plan to avoid all drugs of abuse and follow-up with the aftercare recommendations of the treatment team.? Patient was evaluated and deemed to be absent credible lethality, and had achieved the maximum benefit from an inpatient hospitalization, so was discharged. Involuntary Hold Information 96 Hour Hold: 96 Hour Involuntary Admission: Yes 96 Hour Hold Ending Date: 02/08/22 96 Hour Hold Ending Time: 08:00 Mental Status Exam MSE Comments: This is a well-nourished well-developed white male looking older than his stated age with limited grooming and adequate eye contact. No abnormal movements except for resolving mild psychomotor retardation. Cooperative with exam in no acute distress. Speech was more spontaneous and more normal rate and volume. Mood described as better, affect congruent. Thought process linear with clear improvement in organization. Thought content: Patient denied suicidal or homicidal ideation, there were no delusions reported or noted, he denied auditory or visual hallucinations. He was not attending to internal stimuli. Attention and concentration are improving and memory appeared more reliable but none were formally tested. He is alert and oriented x3. Insight and judgment are improving and impulse control is limited, but improving. Discharge Data Studies Completed and Pending: Pending at discharge Category Date Time Status Blood Culture Sta t Lab 02/04/22 17:32 Results Laboratory Results WBC 7.1 10^3/uL (4.0- 10.0) 02/04/22 17:32 RBC 4.08 10^6/uL (4.1 -5.3) L 02/04/22 17:32 Hgb 12.6 g/dL (11.7-1 6.6) 02/04/22 17:32 Hct 37.3 % (42.0-52.0 ) L 02/04/22 17:32 MCV 91.4 fl (80-94) 02/04/22 17:32 MCH 30.9 pg (28.0-34. 0) 02/04/22 17:32 MCHC 33.8 g/dL (30.0-3 6.0) 02/04/22 17:32 RDW 13.2 % (12.1-15.1 ) 02/04/22 17:32 Plt Count 390 10^3/cmm (130 -400) 02/04/22 17:32 MPV 9.0 fL (7.4-10.4) 02/04/22 17:32 Neut % (Auto) 64.3 % 02/04/22 17:32 Lymph % (Auto) 25.6 % 02/04/22 17:32 Highland % (Auto) 8.5 % 02/04/22 17:32 Eos % (Auto) 1.0 % 02/04/22 17:32 Baso % (Auto) 0.3 % 02/04/22 17:32 Neut # (Auto) 4.59 10^3/uL (1.8 -7.7) 02/04/22 17:32 Lymph # (Auto) 1.8 10^3/uL (0.8- 4.8) 02/04/22 17:32 Highland # (Auto) 0.6 10^3/uL (0.2- 0.9) 02/04/22 17:32 Eos # (Auto) 0.1 10^3/uL (0.0- 0.8) 02/04/22 17:32 Baso # (Auto) 0.0 10^3/uL (0.0- 0.1) 02/04/22 17:32 Nucleated RBC % (a uto) 0 % 02/04/22 17:32 Nucleated RBCs # 0.0 /100WBC 02/04/22 17:32 Sodium 133 mmol/L (136-1 45) L 02/04/22 17:32 Potassium 4.4 mmol/L (3.5-5 .1) 02/04/22 17:32 Chloride 95 mmol/L (98-107 ) L 02/04/22 17:32 Carbon Dioxide 28 mmol/L (22-29) 02/04/22 17:32 Anion Gap 14.4 (5-19) 02/04/22 17:32 BUN 16 mg/dL (6-20) 02/04/22 17:32 Creatinine 0.8 mg/dL (0.7-1. 2) 02/04/22 17:32 GFR Calculation 99.3 mL/min (90-1 30) 02/04/22 17:32 Glucose 88 mg/dL (65-115) 02/04/22 17:32 Calculated Osmolal ity 277 mOsm/kg (285- 295) L 02/04/22 17:32 Calcium 9.5 mg/dL (8.5-10 .5) 02/04/22 17:32 Total Bilirubin 0.2 mg/dL (0.15-1 .2) 02/04/22 17:32 AST 29 U/L (0-40) 02/04/22 17:32 ALT 44 U/L (0-41) H 02/04/22 17:32 Alkaline Phosphata se 60 U/L (40-130) 02/04/22 17:32 Total Protein 7.2 g/dL (6.6-8.7 ) 02/04/22 17:32 Albumin 4.2 g/dL (3.5-5.2 ) 02/04/22 17:32 Globulin 3.0 g/dL (1.3-4.6 ) 02/04/22 17:32 Urine Color Lucie (Yellow) 02/02/22 09:30 Urine Appearance Hazy (CLEAR) A 02/02/22 09:30 Urine pH 6 (5-7) 02/02/22 09:30 Ur Specific Gravit y 1.020 (1.005-1.0 30) 02/02/22 09:30 Urine Protein Neg (Negative) 02/02/22 09:30 Urine Glucose (UA) Norm (Normal) 02/02/22 09:30 Urine Ketones 1+ (Negative) H 02/02/22 09:30 Urine Blood Neg (Negative) 02/02/22 09:30 Urine Nitrate Positive (Negati ve) H 02/02/22 09:30 Urine Bilirubin Neg (Negative) 02/02/22 09:30 Urine Urobilinogen Norm mg/dL (Negat aleida) 02/02/22 09:30 Ur Leukocyte Alona ase 1+ (Negative) H 02/02/22 09:30 Urine RBC 0-4 /hpf (0-2) H 02/02/22 09:30 Urine WBC 55-80 /hpf (0-5) H 02/02/22 09:30 Ur Squamous Epith Cells 0-4 /hpf (0-5) H 02/02/22 09:30 Amorphous Sediment Not Reportable 02/02/22 09:30 Urine Bacteria 4+ /hpf (NONE) H 02/02/22 09:30 Salicylates < 0.3 mg/dL (3-10 ) L 02/02/22 07:26 Urine Opiates Scre en Negative ng/mL (N egative) 02/02/22 09:30 Acetaminophen < 5.0 ug/mL (10-3 0) L 02/02/22 07:26 Ur Barbiturates Sc reen Negative ng/mL (N egative) 02/02/22 09:30 Ur Phencyclidine S crn Negative ng/mL (N egative) 02/02/22 09:30 Ur Amphetamines Sc reen Negative ng/mL (N egative) 02/02/22 09:30 U Benzodiazepines Scrn Negative ng/mL (N egative) 02/02/22 09:30 Urine Cocaine Scre en Negative ng/mL (N egative) 02/02/22 09:30 U Marijuana (THC) Screen Negative ng/mL (N egative) 02/02/22 09:30 Ethyl Alcohol < 10 mg/dL (0-10) 02/02/22 07:26 Vitals: Last Vital Signs Temp 98.1 F 02/08/22 06:00 Pulse 106 H 02/08/22 06:00 Resp 18 02/08/22 06:00 BP 118/82 02/08/22 06:00 Pulse Ox 96 02/08/22 06:00 O2 Del Method 02/07/22 06:00 Discharge Plan Discharge Patient Disposition: Home Condition: Stable Prescriptions: New benztropine 1 mg Tablet 1 mg PO 899,2099 30 Days Qty: 60 1RF Continued fluticasone propion-salmeterol [Advair Diskus] 500-50 mcg/dose blister with device 1 inh INHALATION BID Qty: 60 5RF albuterol sulfate [Ventolin HFA] 90 mcg/actuation HFA aerosol inhaler 2 puff INHALATION Q6H PRN (Reason: Shortness Of Breath) Qty: 8.5 5RF tramadol 50 mg tablet 50 mg PO TID PRN (Reason: pain) Qty: 90 2RF Hold Instructions: hold until discuss need to resume with psychiatry/[facility] upon follow up celecoxib 200 mg capsule 200 mg PO DAILY Qty: 90 1RF gemfibrozil 600 mg tablet 600 mg PO BID Qty: 180 1RF hydroxyzine pamoate [Vistaril] 25 mg capsule 25 mg PO TID PRN (Reason: anxiety) Qty: 270 0RF Hold Instructions: hold until discuss need to resume with psychiatry/[facility] upon follow up omeprazole 40 mg capsule,delayed release(DR/EC) 40 mg PO DAILY tamsulosin 0.4 mg capsule 0.8 mg PO DAILY Lunesta 3 mg tablet 3 mg PO BEDTIME trazodone 100 mg tablet 100 mg PO BEDTIME ziprasidone HCl 80 mg capsule 80 mg PO BID@ Qty: 180 0RF Rx Instructions: with food bupropion HCl 150 mg tablet extended release 24 hr 150 mg PO DAILY 30 Days Qty: 30 1RF Discontinued clonazepam [Klonopin] 0.5 mg tablet 0.5 mg PO DAILY PRN (Reason: Anxiety) Qty: 30 2RF benztropine 2 mg tablet 2 mg PO DAILY Qty: 90 0RF sulfamethoxazole-trimethoprim [Bactrim DS] 800-160 mg tablet 1 tab PO BID 7 Days Qty: 14 0RF Discharge Orders: Discharge Order (Routine); Ordered 02/08/22 Ordered By: Tj Sadler Referrals: Kaycee Yung PMHNP [Staff Physician] - 02/10/22 10:15 am Mali Lerma DO [Primary Care Provider] - Discharge Diet: Regular Discharge Activity: Resume usual activity Patient Instructions: Benztropine Mesylate (By mouth), Levofloxacin (By mouth), Urinary Tract Infection in Men (DC), Schizoaffective Disorder (DC), Opioid Safety Discharge Attestations NPU Time Spent in Discharge Care*: less than 30 min Specific Discharge Activities: Specific discharge activities: educating patient, discussing with medical case worker/social workers/dc planners, documenting/other paperwork and evaluating patient/reviewing data Coding Level of Care Code Acute Chg FW DC note Diagnoses Schizoaffective disorder, unspecified F25.1 Schizoaffective disorder type: depressive Acute psychosis F23
[2022-02-08 12:41] VITALS: BP 118/82; PULSE 106; RESP 18; TEMP 36.7; O2SAT 96
--- NOTE | 2022-02-08 13:45 | DCPLANNER ---
IMM completed on 02/08/22 @ 1616. Copy was given to pt and he stated he understood his Medicaid rights.
[2022-02-08] MEDS: nicotine 21 mg Patch 1 PATCH TRANSDERMA (13:52)
== END 2022-02-08 15:30 | disposition home or self-care (01) | DRG 885 ==
LOC: ER 08:11 → NP 08:29
PROVIDERS: Student in an Organized Health Care Education/Training Program; Admitting Provider Psychiatry & Neurology Psychiatry; Emergency Provider Physician Assistant; PCP Family Medicine; Visit Provider Psychiatry & Neurology Psychiatry
DX: F25.1 Schizoaffective disorder, depressive type (principal); N39.0 Urinary tract infection, site not specified; T43.506A Underdosing of unspecified antipsychotics and neuroleptics, initial encounter; Z91.128 Patient's intentional underdosing of medication regimen for other reason; Z88.0 Allergy status to penicillin; N40.1 Benign prostatic hyperplasia with lower urinary tract symptoms; R33.8 Other retention of urine; G89.29 Other chronic pain; M54.50 Low back pain, unspecified; J44.9 Chronic obstructive pulmonary disease, unspecified; E78.5 Hyperlipidemia, unspecified; F41.1 Generalized anxiety disorder; K21.9 Gastro-esophageal reflux disease without esophagitis; F17.210 Nicotine dependence, cigarettes, uncomplicated; Z79.51 Long term (current) use of inhaled steroids; Z79.891 Long term (current) use of opiate analgesic
CPT/HCPCS: 36415; 80048; 80053; 80306; 80307; 81001; 85025; 87040; 87077; 87086; 87186; 94664; 97150; 97165; 99283; 99285; Q0163

== ENCOUNTER 2022-03-06 23:48 | Emergency (ER) | payer MEDICARE, MEDICAID, SELFPAY ==
[2022-03-06 23:51] VITALS: BP 159/80; PULSE 77; RESP 18; TEMP 36.3; O2SAT 100; BMI 24.3
--- NOTE | 2022-03-07 00:05 | ED_ITS ---
HPI - Extremity Problem General: Chief complaint: Extremity Injury, Upper Stated complaint: left should pain Time Seen by Provider: 03/07/22 00:02 History of Present Illness: 56 yo male patient presents to the ER with left shoulder pain x 2-3 weeks. Pt states he lifted his arms over his shoulder reaching for something and has had pain ever. since. Pt denies any chest pain or SOB. Pt denies any numbness or tingling. Associated symptoms: Deny chest pain, fever(s) or rash Review of Systems Const: Denies: fever(s), chills, body aches, change in appetite, change in weight, fatigue, malaise or diaphoresis Eyes: Denies: change in vision, blurry vision, blind spots, photophobia, eye discomfort, eye discharge, eye redness, floaters or seeing flashes ENMT: Denies: throat pain, uvular edema, enlarged tonsils, odynophagia, hoarseness, mouth pain, swelling of lips/tongue, oral sores, bleeding gums, dental pain, dry mouth, ear or mastoid pain, ear discharge, change in hearing, tinnitus, disequilibrium, nasal discharge, nasal congestion, post nasal drip or sinus pain Card: Denies: chest pain, palpitations, irregular heart rhythm, edema, swelling of feet/ankles, lightheadedness, syncope, pre-syncope, dyspnea on exertion, orthopnea, leg pain with exertion or acrocyanosis Resp: Denies: dyspnea, productive cough, non-productive cough, wheezing, stridor, pain on inspiration, change in phlegm color, hemoptysis or chest congestion GI: Denies: abdominal pain, nausea, vomiting, hematemesis, dysphagia, diarrhea, constipation, GI cramping, change in bowel habits or rectal pain : Denies: flank pain, dysuria, urinary frequency, urinary urgency, urinary hesitancy or hematuria Musc: Denies: neck pain, back pain, extremity swelling, joint pain, joint swelling, joint redness, joint warmth or deformity Skin/Breast: Denies: rash, pruritus, erythema, sores, new lesions, changes in skin color or dry skin Neuro: Denies: headache(s), numbness in extremities, weakness in extremities, sensory changes, lack of coordination, difficulty walking, frequent falls, dizziness, vertigo, confusion, behavioral changes, Slurred speech present, difficulty communicating thoughts or seizure-like activity Psych: Denies: anxiety, depression, suicidal ideation or homicidal ideation Endo: Denies: polyuria, polydipsia, tired all the time, cold intolerance, excessive sweating, flushing, hot flashes or heat intolerance Gerry/Lymph: Denies: easy bruising, easy bleeding, petechiae, purpura, enlarged lymph nodes or tender lymph nodes All/Imm: Denies: urticaria, throat swelling, tongue swelling, facial swelling, acute wheezing or itchy eyes PFSH ED PFSH: Medical History Anxiety BPH (benign prostatic hyperplasia) BPH w urinary obs/LUTS Chronic dryness of both eyes Chronic low back pain COPD (chronic obstructive pulmonary disease) Dyslipidemia Enrolled in chronic care management Generalized anxiety disorder GERD (gastroesophageal reflux disease) History of colon polyps Nicotine dependence, cigarettes, uncomplicated Psychiatric care Schizoaffective disorder, unspecified Urinary retention Surgical History History of appendectomy History of tonsillectomy Family History Father , AT AGE 67 Cancer LUNG Mother , AT AGE 63 Lung disease Social History Smoking and tobacco status: current some day smoker cigarettes Packs smoked per day: 1 and smokeless tobacco Smoking risk assessment/counseling performed?: Yes Tobacco counseling given: counseling >3 minutes Alcohol intake: current Alcohol intake frequency: holidays/special occasions only Alcohol type: beer Marital status: Current occupational status: disabled History of recent travel: No Physical Exam Const: COMMON NORMALS: no acute distress, average body habitus, patient oriented x3, no limitations, healthy appearing, alert and well nourished HENMT: THROAT: no uvular edema Chest: COMMONS NORMALS: normal inspection of the chest and normal palpation of entire chest wall Resp: COMMON NORMALS: normal respiratory effort and No retractions Cardio: COMMON NORMALS: regular rate and regular rhythm RATE: regular rate RHYTHM: regular rhythm Extremity: LEFT UPPER EXTREMITY: Yes shoulder joint Neuro: COMMON NORMALS: patient oriented x3, CN's II-XII intact bilaterally, moves all extremities, no focal motor deficits and no sensory deficits noted SENSORIUM/ORIENTATION: Yes alert Skin: COMMON NORMALS: no rashes or lesions noted GENERAL SKIN EXAM: no rashes or lesions noted Course Vital Signs: Vital signs: Vital Signs Temperature 97.4 F L 03/06/22 23:51 Pulse Rate 77 03/06/22 23:51 Respiratory Rate 18 03/06/22 23:51 Blood Pressure 159/80 03/06/22 23:51 Pulse Oximetry 100 03/06/22 23:51 MDM - Extremity (Nontraumatic) Medical Decision Making Patient is well appearing non toxic and in no acute distress. 56 yo male patient presents to the ER with left shoulder pain x 2-3 weeks. Pt states he lifted his arms over his shoulder reaching for something and has had pain ever. since. Pt denies any chest pain or SOB. Pt denies any numbness or tingling. Pt's pain is reproducible. Patient does not want a cardiac work up pt does not want an EKG states this pain is his shoulder only and recalls the exact event. Xray is negative for any acute findings, will start on short course of prednisone. Patient advised to follow up with PCP if no improvement Medical Records MS, strain, fracture, dislocation Discharge Plan Discharge Condition: Stable Prescriptions: No Action fluticasone propion-salmeterol [Advair Diskus] 500-50 mcg/dose blister with device 1 inh INHALATION BID Qty: 60 5RF albuterol sulfate [Ventolin HFA] 90 mcg/actuation HFA aerosol inhaler 2 puff INHALATION Q6H PRN (Reason: Shortness Of Breath) Qty: 8.5 5RF tramadol 50 mg tablet 50 mg PO TID PRN (Reason: pain) Qty: 90 2RF Hold Instructions: hold until discuss need to resume with psychiatry/[facility] upon follow up celecoxib 200 mg capsule 200 mg PO DAILY Qty: 90 1RF ziprasidone HCl 80 mg capsule 80 mg PO BID@, Qty: 42 0RF Rx Instructions: with food tamsulosin 0.4 mg capsule 0.8 mg PO DAILY Lunesta 3 mg tablet 3 mg PO BEDTIME trazodone 100 mg tablet 100 mg PO BEDTIME benztropine 1 mg Tablet 1 mg PO 0900,2100 30 Days Qty: 60 1RF Referrals: Mali Lerma DO [Primary Care Provider] - Coding Level of Care Code ED 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
--- NOTE | 2022-03-07 00:05 | XRR_ITS ---
PROCEDURE INFORMATION: Exam: XR Left Shoulder Exam date and time: 03/07/2022 12:16 AM Age: 56 years old Clinical indication: Pain; Shoulder; Left TECHNIQUE: Imaging protocol: Radiologic exam of the Left shoulder. Views: 2 or more views. COMPARISON: CR XR chest 1V portable [id number] 09/09/2021 2:23 PM FINDINGS: Bones/joints: No fracture or dislocation. Mild age-appropriate left shoulder DJD. Soft tissues: Normal. XR/XR shoulder LT min 2V* [id number] IMPRESSION: No acute findings.
[2022-03-07 00:15] VITALS: BP 136/92; PULSE 60; O2SAT 98
== END 2022-03-07 00:45 | disposition home or self-care (01) ==
PROVIDERS: Emergency Provider Registered Nurse; PCP Family Medicine
DX: M25.512 Pain in left shoulder (principal); J44.9 Chronic obstructive pulmonary disease, unspecified; E78.5 Hyperlipidemia, unspecified; F17.210 Nicotine dependence, cigarettes, uncomplicated
CPT/HCPCS: 73030; 99283

== ENCOUNTER 2022-03-12 21:46 | Emergency (ER) | payer MEDICARE, MEDICAID, SELFPAY ==
[2022-03-12 21:54] VITALS: PULSE 83; RESP 18; TEMP 36.4; O2SAT 98; BMI 24.8
[2022-03-13] MEDS: nicotine 21 mg Patch 1 PATCH TRANSDERMA (00:22)
[2022-03-13 01:27] VITALS: BP 144/94; PULSE 80; RESP 18; O2SAT 95
--- NOTE | 2022-03-13 03:33 | W.ED.ANXIETY ---
HPI - Anxiety General: Chief Complaint: Anxiety Stated Complaint: complications UTI Time Seen by Provider: 03/13/22 00:05 Source: patient History of Present Illness: 56-year-old male with a history of schizoaffective disorder. He presents because he has anxiety over quitting smoking and chewing. He is requesting nicotine patches. For me, he has no other complaints. MD complaint: anxiety and other Onset (ago): day(s) Symptoms: palpitations, sense of impending doom and other Severity: mild Quality: intermittent Place: home History of similar episodes: Yes Provoking factors: emotional stress Associated symptoms: Reports palpitations; Deny chest pain, fever(s), headache(s), short of breath or vomiting Review of Systems Const: Denies: fever(s) Card: Reports: palpitations; Denies: chest pain GI: Denies: vomiting Neuro: Denies: headache(s) PFS ED PFSH: Medical History Anxiety BPH (benign prostatic hyperplasia) BPH w urinary obs/LUTS Chronic dryness of both eyes Chronic low back pain COPD (chronic obstructive pulmonary disease) Dyslipidemia Enrolled in chronic care management Generalized anxiety disorder GERD (gastroesophageal reflux disease) History of colon polyps Nicotine dependence, cigarettes, uncomplicated Psychiatric care Schizoaffective disorder, unspecified Urinary retention Surgical History History of appendectomy History of tonsillectomy Family History Father , AT AGE 67 Cancer LUNG Mother , AT AGE 63 Lung disease Social History Smoking and tobacco status: current some day smoker cigarettes Packs smoked per day: 1 and smokeless tobacco Smoking risk assessment/counseling performed?: Yes Tobacco counseling given: counseling >3 minutes Alcohol intake: current Alcohol intake frequency: holidays/special occasions only Alcohol type: beer Marital status: Current occupational status: disabled History of recent travel: No Physical Exam Const: COMMON NORMALS: no acute distress GENERAL APPEARANCE: cooperative; not ill appearing and not frail appearing HENMT: COMMON NORMALS: normocephalic, atraumatic and Normal external nose present HEAD & SCALP: normocephalic and atraumatic FACE & SINUS: normal facial exam and face symmetric NOSE: Normal external nose present Eye: COMMON NORMALS: Equal, round and reactive pupils present and EOMs intact bilaterally PUPIL: Yes Equal, round and reactive pupils present Neck/C-Spine: GENERAL: Yes trachea midline Chest: CHEST: Yes Symmetrical chest wall rise Resp: COMMON NORMALS: normal respiratory effort, No retractions, No use of accessory muscles and clear to auscultation bilaterally AUSCULTATION: clear to auscultation bilaterally Cardio: COMMON NORMALS: regular rate and regular rhythm RATE: regular rate RHYTHM: regular rhythm GI: COMMON NORMALS: Normal to inspection, nondistended, normoactive bowel sounds present Extremity: COMMON NORMALS: no pedal edema Neuro: BRANDON COMA SCALE: document GCS findings [place] coma scale eye opening: Spontaneous [place] coma scale verbal response: Orientated [place] coma scale motor response: Obey commands [place] coma scale total score: 15 SENSORY EXAM: Yes extremities (intact) Psych: COMMON NORMALS: speech normal SPEECH: Yes normal speech Skin: COMMON NORMALS: no rashes or lesions noted GENERAL SKIN EXAM: no rashes or lesions noted Course Vital Signs: Vital signs: Vital Signs Temperature 97.6 F 03/12/22 21:54 Pulse Rate 80 03/13/22 01:27 Respiratory Rate 18 03/13/22 01:27 Blood Pressure 144/94 03/13/22 01:27 Pulse Oximetry 95 03/13/22 01:27 Oxygen Delivery Me thod 03/12/22 21:54 MDM - Anxiety Medical Decision Making Patient is mildly anxious on exam. He does not endorse suicidal or homicidal ideation. His affect is strange, but he has a history of this. He is given a nicotine patch and scripts were written. He will be discharged Discharge Plan Discharge Patient Disposition: Home Clinical Impression: Nicotine dependence, cigarettes, with unspecified nicotine-induced disorders, Acute anxiety Condition: Stable Prescriptions: New nicotine 21 mg/24 hr patch 24 hour 1 patch transdermal Q24H Qty: 28 1RF No Action fluticasone propion-salmeterol [Advair Diskus] 500-50 mcg/dose blister with device 1 inh INHALATION BID Qty: 60 5RF albuterol sulfate [Ventolin HFA] 90 mcg/actuation HFA aerosol inhaler 2 puff INHALATION Q6H PRN (Reason: Shortness Of Breath) Qty: 8.5 5RF tramadol 50 mg tablet 50 mg PO TID PRN (Reason: pain) Qty: 90 2RF Hold Instructions: hold until discuss need to resume with psychiatry/[facility] upon follow up celecoxib 200 mg capsule 200 mg PO DAILY Qty: 90 1RF benztropine 1 mg tablet 1 mg PO 0900,2100 30 Days Qty: 60 1RF Lunesta 3 mg tablet 3 mg PO BEDTIME Qty: 30 1RF ziprasidone HCl 80 mg capsule 80 mg PO BID@, Qty: 60 0RF Rx Instructions: with food trazodone 100 mg tablet 100 mg PO BEDTIME Qty: 30 1RF tamsulosin 0.4 mg capsule 0.8 mg PO DAILY Discharge Orders: Discharge ED (Routine); Ordered 03/13/22 Ordered By: Jose Freeman Referrals: Mali Lerma DO [Primary Care Provider] - 4-7 days Patient Instructions: How to Stop Smoking (ED), Anxiety (ED) Activity Restrictions/Additional Instructions: See your doctor next week. 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
== END 2022-03-13 01:25 | disposition home or self-care (01) ==
PROVIDERS: Emergency Provider Emergency Medicine; PCP Family Medicine
DX: F41.9 Anxiety disorder, unspecified (principal); F17.219 Nicotine dependence, cigarettes, with unspecified nicotine-induced disorders; J44.9 Chronic obstructive pulmonary disease, unspecified; E78.5 Hyperlipidemia, unspecified
CPT/HCPCS: 99283

== ENCOUNTER 2022-03-16 21:19 | Inpatient (IN) | payer MEDICARE, SELFPAY ==
[2022-03-16 21:23] VITALS: BP 130/85; PULSE 88; RESP 18; TEMP 36.9; O2SAT 95; BMI 23.7
--- NOTE | 2022-03-16 21:34 | ED.C_ITS ---
HPI - Psych General: Chief Complaint: Psychiatric Symptoms Stated Complaint: 96 HOUR HOLD Time Seen by Provider: 03/16/22 21:33 Source: police Mode of arrival: other (Police department) Limitations: no limitations History of Present Illness: This patient was transported to our emergency department by [facility] department deputy. Patient's been placed on a 96-hour hold due to unusual and bizarre behavior. He allegedly is been obtaining entrance into and neighbors domicile and rearranging furniture and taking things off the wall. He is presented to the department with court ordered 96-hour hold documents. Patient admits to going into other peoples homes and states the wind blows him there from time to time. He states he has no thoughts of harm to others or to himself. He denies any recent illness cough fever etc. He denies alcohol use but does admit to smoking tobacco as well as chewing tobacco. He states he has been taking all his prescribed medicines. History of same: Yes Relieving factors: medication Associated symptoms: Reports auditory hallucinations and visual hallucinations; Deny homicidal ideation or suicidal ideation Review of Systems 2 Const: Denies: fever(s) or chills Eyes: Denies: change in vision ENMT: Denies: odynophagia, nasal discharge or nasal congestion Card: Denies: chest pain, palpitations or edema Resp: Denies: dyspnea, productive cough, non-productive cough or wheezing GI: Denies: abdominal pain, nausea or vomiting : Denies: flank pain, difficulty urinating or dysuria Musc: Denies: neck pain, back pain, extremity pain or extremity swelling Skin/Breast: Denies: rash Neuro: Denies: headache(s), numbness in extremities or weakness in extremities Psych: Reports: visual hallucinations and auditory hallucinations; Denies: suicidal ideation or homicidal ideation Endo: Denies: polyuria or polydipsia PFS ED PFSH: Medical History Anxiety BPH (benign prostatic hyperplasia) BPH w urinary obs/LUTS Chronic dryness of both eyes Chronic low back pain COPD (chronic obstructive pulmonary disease) Dyslipidemia Enrolled in chronic care management Generalized anxiety disorder GERD (gastroesophageal reflux disease) History of colon polyps Nicotine dependence, cigarettes, uncomplicated Psychiatric care Schizoaffective disorder, unspecified Urinary retention Surgical History History of appendectomy History of tonsillectomy Family History Father , AT AGE 67 Cancer LUNG Mother , AT AGE 63 Lung disease Social History Smoking and tobacco status: current some day smoker cigarettes Packs smoked per day: 1 and smokeless tobacco Smoking risk assessment/counseling performed?: Yes Tobacco counseling given: counseling >3 minutes Alcohol intake: current Alcohol intake frequency: holidays/special occasions only Alcohol type: beer Marital status: Current occupational status: disabled History of recent travel: No Physical Exam Narrative: EXAM NARRATIVE: Patient makes good eye contact. He answers questions readily however he is somewhat disjointed in his thought processes and certainly does not have a linear progression of thought. He is cooperative and appears comfortable. Const: COMMON NORMALS: no acute distress, average body habitus and alert GENERAL APPEARANCE: cooperative and comfortable ORIENTATION/CONSCIOUSNESS: Yes awake and Yes oriented to person HENMT: COMMON NORMALS: normocephalic, atraumatic, Normal nasal mucous membran es and turbinates present and moist oral mucous membranes HEAD & SCALP: n ormocephalic and atraumatic NOSE: Normal nasal mucous membranes and turbi nates present Eye: COMMON NORMALS: Equal, round and reactive pupils present, EOMs intact bilaterally and conjunctivae normal CONJUNCTIVA: Yes conjunctivae normal PUPIL: Yes Equal, round and reactive pupils present Neck/C-Spine: COMMON NORMALS: full ROM, no lymphadenopathy and supple Chest: COMMONS NORMALS: normal inspection of the chest and normal palpation of entire chest wall Resp: COMMON NORMALS: normal respiratory effort, No retractions and clear to auscultation bilaterally AUSCULTATION: clear to auscultation bilaterally Cardio: COMMON NORMALS: regular rate, regular rhythm, No murmurs present (Cardio) and Peripheral pulses 2+ throughout RATE: regular rate RHYTHM: regular rhythm PERIPHERAL PULSES: Peripheral pulses 2+ throughout GI: COMMON NORMALS: Normal to inspection, nondistended, normoactive bowel sounds present, Soft to palpation and non-tender PALPATION: Yes Soft to palpation : COMMON NORMALS: Yes no CVA tenderness BLADDER/KIDNEY EXAM: Yes no CVA tenderness Back/Pelvis: COMMON NORMALS: no CVA tenderness, thoracic and lumbar spine normal to inspection, no thoracic nor lumbar tenderness, thoraco-lumbar ROM normal and straight leg raise negative bilaterally Extremity: COMMON NORMALS: normal to inspection, full ROM and capillary refill normal Neuro: COMMON NORMALS: moves all extremities SENSORIUM/ORIENTATION: Yes alert and Yes oriented to person CRANIAL NERVES: Yes CN normal except as noted GAIT: Yes Normal gait present Psych: COMMON NORMALS: cooperative and speech normal ATTITUDE: Yes calm ACTIVITY/MOTOR BEHAVIOR: Yes appropriate eye contact SPEECH: Yes normal speech MOOD & AFFECT: Yes Flat affect present THOUGHT PROCESS: Circumstantial thought process present, disorganized and Loose association thought process present ATTENTION/CONCENTRATION: Yes attention grossly intact INSIGHT: Limited insight present (Psych) JUDGEMENT: Limited judgement present (Psych) Skin: COMMON NORMALS: no rashes or lesions noted GENERAL SKIN EXAM: no rashes or lesions noted Course Vital Signs: Vital signs: Vital Signs Temperature 98.5 F 03/16/22 21: Pulse Rate 88 03/16/22 21: Respiratory Rate 18 03/16/22 21: Blood Pressure 130/85 03/16/22 21: Pulse Oximetry 95 03/16/22 21: Oxygen Delivery Me thod 03/16/22 21:23 MDM - Psych Medical Decision Making Patient return to this emergency department via Software Team Leader's department with a court ordered 96-hour hold for concerning behavior. Patient has a longstanding history of psychosis. His evaluation here in the emergency department revealed him to be cooperative but clearly some loosening of associations and nonlinear thought patterns. His medical screening evaluation in the emergency department did not find any obvious prick medical precluding issues to prevent further mental health evaluation. Consulting psychiatrist agreed to place the patient in behavioral health for further evaluation as indicated. Differential Diagnosis Likely acute psychosis Medical Records I reviewed the patient's medical records. Lab Data I reviewed the patient's lab results. 03/16/22 21:41 03/16/22 21:41 Laboratory Results WBC 6.9 10^3/uL (4.0-10.0) 03/16/22 21: RBC 4.51 10^6/uL (4.1-5.3) 03/16/22 21:41 Hgb 14.2 g/dL (11.7-16.6) 03/16/22 21: Hct 41.1 % (42.0-52.0) L 03/16/22 21:41 MCV 91.1 fl (80-94) 03/16/22 21:41 MCH 31.5 pg (28.0-34.0) 03/16/22 21:41 MCHC 34.5 g/dL (30.0-36.0) 03/16/22 21:41 RDW 13.2 % (12.1-15.1) 03/16/22 21:41 Plt Count 356 10^3/cmm (130-400) 03/16/22 21:41 MPV 9.3 fL (7.4-10.4) 03/16/22 21:41 Neut % (Auto) 53.3 % 03/16/22 21:41 Lymph % (Auto) 35.9 % 03/16/22 21:41 [place] % (Auto) 8.5 % 03/16/22 21:41 Eos % (Auto) 1.6 % 03/16/22 21:41 Baso % (Auto) 0.4 % 03/16/22 21:41 Neut # (Auto) 3.68 10^3/uL (1.8-7.7) 03/16/22 21:41 Lymph # (Auto) 2.5 10^3/uL (0.8-4.8) 03/16/22 21:41 [place] # (Auto) 0.6 10^3/uL (0.2-0.9) 03/16/22 21:41 Eos # (Auto) 0.1 10^3/uL (0.0-0.8) 03/16/22 21:41 Baso # (Auto) 0.0 10^3/uL (0.0-0.1) 03/16/22 21:41 Nucleated RBC % (auto) 0 % 03/16/22 21:41 Nucleated RBCs # 0.0 /100WBC 03/16/22 21:41 Sodium 130 mmol/L (136-145) L 03/16/22 21:41 Potassium 3.8 mmol/L (3.5-5.1) 03/16/22 21:41 Chloride 95 mmol/L (98-107) L 03/16/22 21:41 Carbon Dioxide 24 mmol/L (22-29) 03/16/22 21:41 Anion Gap 14.8 (5-19) 03/16/22 21:41 BUN 11 mg/dL (6-20) 03/16/22 21:41 Creatinine 0.7 mg/dL (0.7-1.2) 03/16/22 21:41 GFR Calculation 115.8 mL/min (90-130) 03/16/22 21:41 Glucose 149 mg/dL (65-115) H 03/16/22 21:41 Calculated Osmolality 272 mOsm/kg (285-295) L 03/16/22 21:41 Calcium 9.1 mg/dL (8.5-10.5) 03/16/22 21:41 Total Bilirubin 0.4 mg/dL (0.15-1.2) 03/16/22 21:41 AST 40 U/L (0-40) 03/16/22 21:41 ALT 46 U/L (0-41) H 03/16/22 21:41 Alkaline Phosphatase 54 U/L (40-130) 03/16/22 21:41 Total Protein 7.0 g/dL (6.6-8.7) 03/16/22 21:41 Albumin 4.4 g/dL (3.5-5.2) 03/16/22 21:41 Globulin 2.6 g/dL (1.3-4.6) 03/16/22 21:41 TSH 0.74 uIU/mL (0.27-4.20) 03/16/22 21:41 Salicylates 0.5 mg/dL (3-10) L 03/16/22 21:41 Acetaminophen < 5.0 ug/mL (10-30) L 03/16/22 21:41 Discharge Plan Discharge Patient Disposition: Admitted As Inpatient Clinical Impression: Schizoaffective disorder, unspecified, Nicotine dependence, cigarettes, with unspecified nicotine-induced disorders Condition: Stable Prescriptions: No Action fluticasone propion-salmeterol [Advair Diskus] 500-50 mcg/dose blister with device 1 inh INHALATION BID Qty: 60 5RF albuterol sulfate [Ventolin HFA] 90 mcg/actuation HFA aerosol inhaler 2 puff INHALATION Q6H PRN (Reason: Shortness Of Breath) Qty: 8.5 5RF tramadol 50 mg tablet 50 mg PO TID PRN (Reason: pain) Qty: 90 2RF Hold Instructions: hold until discuss need to resume with psychiatry/[facility] upon follow up celecoxib 200 mg capsule 200 mg PO DAILY Qty: 90 1RF benztropine 1 mg tablet 1 mg PO 0900,2100 30 Days Qty: 60 1RF Lunesta 3 mg tablet 3 mg PO BEDTIME Qty: 30 1RF ziprasidone HCl 80 mg capsule 80 mg PO BID@07,17 Qty: 60 0RF Rx Instructions: with food trazodone 100 mg tablet 100 mg PO BEDTIME Qty: 30 1RF tamsulosin 0.4 mg capsule 0.8 mg PO DAILY nicotine 21 mg/24 hr patch 24 hour 1 patch transdermal Q24H Qty: 28 1RF Referrals: Mali Lerma DO [Primary Care Provider] - Coding Level of Care Code ED Zoning Technician for Chg Fwd Exam Comprehensive
[2022-03-16] MEDS: nicotine 21 mg Patch 1 PATCH TRANSDERMA (21:36)
[2022-03-16 21:46] LABS: Basophils % 0.4 %; Eosinophils # 0.1 10^3/uL (0.0-0.8); Eosinophils % 1.6 %; Hematocrit 41.1 % (42.0-52.0); Hemoglobin 14.2 g/dL (11.7-16.6); Lymphocytes # 2.5 10^3/uL (0.8-4.8); Lymphocytes % 35.9 %; Mean Corpuscular HGB Conc 34.5 g/dL (30.0-36.0); Mean Corpuscular Hemoglobin 31.5 pg (28.0-34.0); Mean Corpuscular Volume 91.1 fl (80-94); Mean Platelet Volume 9.3 fL (7.4-10.4); Monocytes # 0.6 10^3/uL (0.2-0.9); Monocytes % 8.5 %; Neutrophils # 3.68 10^3/uL (1.8-7.7); Neutrophils % 53.3 %; Nucleated Red Blood Cells % 0 %; Platelet Count 356 10^3/cmm (130-400); Red Blood Count 4.51 10^6/uL (4.1-5.3); Red Cell Distribution Width 13.2 % (12.1-15.1); White Blood Count 6.9 10^3/uL (4.0-10.0)
[2022-03-16 22:21] LABS: Alanine Aminotransferase 46 U/L (0-41); Albumin Level 4.4 g/dL (3.5-5.2); Alkaline Phosphatase 54 U/L (40-130); Anion Gap 14.8 (5-19); Aspartate Amino Transferase 40 U/L (0-40); Blood Urea Nitrogen 11 mg/dL (6-20); Calcium 9.1 mg/dL (8.5-10.5); Carbon Dioxide 24 mmol/L (22-29); Chloride 95 mmol/L (98-107); Globulin 2.6 g/dL (1.3-4.6); Glomerular Filtration Rate 115.8 mL/min (90-130); Glucose 149 mg/dL (65-115); Osmolality Calculated 272 mOsm/kg (285-295); Potassium 3.8 mmol/L (3.5-5.1); Salicylate 0.5 mg/dL (3-10); Sodium 130 mmol/L (136-145); Thyroid Stimulating Hormone 0.74 uIU/mL (0.27-4.20); Total Bilirubin 0.4 mg/dL (0.15-1.2)
[2022-03-16 22:22] LABS: Acetaminophen < 5.0 ug/mL (10-30)
[2022-03-16 22:31] VITALS: BP 130/79; PULSE 81; RESP 18; TEMP 36.3; O2SAT 100
--- NOTE | 2022-03-16 22:34 | PC.NURSE ---
Pt given copy of 96 HH Rights paper by this nurse and security. Reviewed with patient.
--- NOTE | 2022-03-17 00:12 | PC.NURSE ---
03/16/22 @2307 pt was admitted to NPU from ED on 96 hour hold that ends 03/23/22 @ 5671. pt arrived flat and guarded but cooperative with care. reports coming to the hospital because i slept too much now i am sick . reports alcohol use daily initially then states later that he does not ever drink or do drugs. denies s/i h/i a/vh. pt noted to have distended abdomen. denies discomfort. safety search performed with no contraband noted and no issues noted. oriented to unit and room. reports med compliance at home. no other issues voiced or noted at this time
[2022-03-17] MEDS: hyDROXYzine 25 mg Capsule 50 MG PO (02:48)
[2022-03-17] MEDS: acetaminophen 325 mg Tablet 650 MG PO (04:23)
[2022-03-17 06:00] VITALS: BP 106/74; PULSE 80; RESP 18; TEMP 36.7; O2SAT 99
[2022-03-17 10:28] LABS: Amphetamines Screen Urine Negative (Negative); Barbiturates Screen Urine Negative (Negative); Benzodiazepines Screen Urine Negative (Negative); Cocaine Screen Urine Negative (Negative); Opiate Screen Urine Negative (Negative); PCP Screen Urine Negative (Negative); THC Screen Urine Negative (Negative)
--- NOTE | 2022-03-17 10:33 | W.PM.NPUH&PS ---
Providers/Chief Complaint Admitting Physician: Tj Sadler MD Primary Care Provider: Mali Lerma DO Chief Complaint: 96 HOUR HOLD HPI NPU History of Present Illness Michael Munoz IV is a 56 year old male who presented to the emergency department with the following report: Chief Complaint: Psychiatric Symptoms Stated Complaint: 96 HOUR HOLD Time Seen by Provider: 03/16/22 21:33 Source: police Mode of arrival: other (Police department) Limitations: no limitations History of Present Illness: This patient was transported to our emergency department by [facility]'s department deputy. Patient's been placed on a 96-hour hold due to unusual and bizarre behavior. He allegedly is been obtaining entrance into and neighbors domicile and rearranging furniture and taking things off the wall. He is presented to the department with court ordered 96-hour hold documents. Patient admits to going into other peoples homes and states the wind blows him there from time to time. He states he has no thoughts of harm to others or to himself. He denies any recent illness cough fever etc. He denies alcohol use but does admit to smoking tobacco as well as chewing tobacco. He states he has been taking all Prescribed medicines. History of same: Yes Relieving factors: medication Associated symptoms: Reports auditory hallucinations and visual hallucinations; Deny homicidal ideation or suicidal ideation. He was admitted to the neuropsychiatric unit for definitive treatment of those issues. He presents today much like he did approximately 6 weeks ago wherein he had stopped taking his medication and presented confused. He was brought into the hospital secondary to him wandering the community and going into random houses. He reportedly went to the home of the social media strategist here as well. He presents acknowledging that he had not been taking his medication appropriately but could not give much more data than that. We discussed the importance of him maintaining his medication so that he does not end up in the hospital and also he does not get himself in danger by wandering around into people's homes. 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 We discussed that it was important that he be stable enough to have a job and that taking an injectable will not be different than taking the pill but it will assure us of knowing that he is in fact adherent to his medication. He reported that he might be willing to do that once we discussed which medication that is and we did discuss briefly the different options that exist but agreed we would review his history to see if he has any exposure to Abilify, Invega or Risperdal or Zyprexa in their long-acting forms or oral formulations. Per his 02/08/2022 [facility] inpatient psychiatric discharge summary: Discharge Diagnosis (1) Schizoaffective disorder, unspecified: Status: Chronic Qualifiers: Schizoaffective disorder type: depressive Qualified Code(s): F25.1 - Schizoaffective disorder, depressive type (2) Acute psychosis: Status: Deleted Reason for Visit Reason for Visit: Psych Evaluation Brief History: History of Present Illness Michael Munoz IV is a 56 year old male who presented to the emergency department through the police for an evaluation. The patient acknowledges that the police had been called out to a house in the middle of the night as the patient had been apparently trying to gain entry into another person's house. The police during this time had apparently reported that the patient was making unusual statements while under their custody and he was reporting that he had been trying to protect the house that he was at in the middle of the night. He was placed on a 96-hour hold upon arrival in the emergency department and admitted for further psychiatric evaluation on the neuropsychiatric unit. The patient had acknowledged having been previously diagnosed with schizoaffective disorder depressed type and he reports that a few weeks ago he decided to throw away all of his psychiatric medications and reports that mother Soledad had told me to do this . The patient had reported that he had been pretending for too long that he needed drugs and decided to stop taking his medications. 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 He did acknowledge having special abilities and manzanares and stated that he did not want the rest of the people here to know about his manzanares. Previous records state that the patient has been having more recent confusion and disorganized behavior with a past history of auditory hallucinations along with depressed mood. The patient had reported that he had been sleepwalking and stated that he lived just up the road from the house that he was picked up at by the police. Inpatient psychiatric history: There is a history of multiple inpatient hospitalizations with the most recent hospitalization having occurred in 2019. He had been evaluated by the press writer of this note earlier this year on the medical floor. Outpatient psychiatric history: He had been receiving services at the [facility] with most recent visit in December 2021 with a nurse at the behavioral health clinic. Cogentin .5mg bid clonazepam 0.5 mg daily Vistaril 25 mg up to 3 times daily esta to 3 mg at bedtime today Geodon 80 mg twice daily with food Wellbubtrin XL 150mg daily Drug and alcohol history: He denies other than smoking half to 1-1/2 packs of cigarettes a day for several years. Medical history: Benign prostatic hyperplasia lower back pain, COPD, dyslipidemia, GERD, Allergies: Penicillin Surgical history: Appendectomy, tonsillectomy Medications: See below Family psychiatric history: Unknown Social history: He reports that he was born in [facility] and raised by his 2 parents. He has 1 brother. He denied any history of trauma during his childhood. 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 He states that he currently lives by himself in the mobile home in [place]. He has been 2 times and has several adult aged children and numerous grandchildren. He reports that he is on disability for psychiatric reasons. Hospital Course Hospital Course He slowly acclimated to the individual, group and milieu therapies provided. He was identified as having a UTI and Levaquin 500 mg daily for 1 week was initiated with 2 doses remaining at discharge. His home medications were restarted which he had been having some difficulties with adherence. His Cogentin was changed from 2 mg daily to 1 mg twice a day, his Klonopin was discontinued. He had significant improvement during the hospitalization and was able to contract for safety outside of the hospital prior to discharge. During hospitalization he had routine laboratory studies which were within normal limits except for a few outliers including his urinalysis. Additionally had a general medical evaluation which is also within normal limits and revealed no new acute processes. Discharge summary: At the time of discharge, he was absent lethality and psychosis. Mood and anxiety were well managed. Patient endorsed a plan to avoid all drugs of abuse and follow-up with the aftercare recommendations of the treatment team. Patient was evaluated and deemed to be absent credible lethality, and had achieved the maximum benefit from an inpatient hospitalization, so was discharged. Meds NPU Home Medications Medication Instructions Recorded Confirmed Last Taken Type albuterol sulfate 90 mcg/actuation 2 puff inhalation Q6H PRN 01/19/22 03/11/22 Unknown Rx aerosol inhaler (Ventolin HFA) Shortness Of Breath #8.5 grams celecoxib 200 mg capsule 200 mg PO DAILY #90 caps 01/19/22 03/11/22 Unknown Rx fluticasone 500 mcg-salmeterol 50 1 inh inhalation BID #60 ea 01/19/22 03/11/22 Unknown Rx mcg/dose blistr powdr for inhalation (Advair Diskus) tramadol 50 mg tablet 50 mg PO TID PRN pain #90 tabs 01/19/22 03/11/22 Unknown Rx tamsulosin 0.4 mg capsule 0.8 mg PO DAILY 02/02/22 03/11/22 Unknown History benztropine 1 mg tablet 1 mg PO 0900,2100 30 days #60 tabs 03/11/22 03/11/22 Unknown Rx eszopiclone 3 mg tablet (Lunesta) 3 mg PO BEDTIME #30 tabs 03/11/22 03/11/22 Unknown Rx trazodone 100 mg tablet 100 mg PO BEDTIME #30 tabs 03/11/22 03/11/22 Unknown Rx ziprasidone HCl 80 mg capsule 80 mg PO BID@07,17 #60 caps 03/11/22 03/11/22 Unknown Rx nicotine 21 mg/24 hr daily 1 patch transdermal Q24H #28 ea 03/13/22 Unknown Rx transdermal patch Allergies Allergy/AdvReac Type Severity Reaction Status Date / Time Penicillins Allergy Severe throat Verified 03/11/22 14:19 karyn [facility] NPU PFSH: Medical History Anxiety BPH (benign prostatic hyperplasia) BPH w urinary obs/LUTS Chronic dryness of both eyes Chronic low back pain COPD (chronic obstructive pulmonary disease) Dyslipidemia Enrolled in chronic care management Generalized anxiety disorder GERD (gastroesophageal reflux disease) History of colon polyps Nicotine dependence, cigarettes, uncomplicated Psychiatric care Schizoaffective disorder, unspecified Urinary retention Surgical History History of appendectomy History of tonsillectomy Family History Father , AT AGE 67 Cancer LUNG Mother , AT AGE 63 Lung disease Social History Smoking and tobacco status: current some day smoker cigarettes Packs smoked per day: 1 and smokeless tobacco Smoking risk assessment/counseling performed?: Yes Tobacco counseling given: counseling >3 minutes Alcohol intake: current Alcohol intake frequency: holidays/special occasions only Alcohol type: beer Marital status: Current occupational status: disabled History of recent travel: No Mental Status Exam MSE Comments: This is a well-nourished well-developed white male looking older than his stated age with limited grooming and adequate eye contact. No abnormal movements except for significant psychomotor retardation. Cooperative with exam in mild distress. Speech was limited and decreased rate and volume. Mood described as fine, affect subdued and slowed. Thought process linear with some confusion and disorganization. Thought content: Patient denied suicidal or homicidal ideation, there were no delusions reported but concerns exist for paranoia and bizarre delusions, he did not appear to be attending to internal stimuli but did appear confused and some concern for him attending to internal stimuli. Attention and concentration are limited and memory appeared limited as well but none were formally tested.. He is alert and oriented x to person and place. Insight, judgment and impulse control are impaired. Vitals/I&O/Wt Last Vital Signs Temp 98.0 F L 03/17/22 06:00 Pulse 80 03/17/22 06:00 Resp 18 03/17/22 06:00 BP 106/74 03/17/22 06:00 Pulse Ox 99 03/17/22 06:00 O2 Del Method 03/16/22 23:06 Weight last 48 hrs Weight 77.111 kg Data NPU 03/16/22 21:41 03/16/22 21:41 A&P Assessment and plan (1) Schizoaffective disorder, unspecified: (2) Acute psychosis: Plan This is a 56-year-old white male with a long history of mental health challenges including psychotic illness with recent hospitalization at the beginning of February of last year secondary to him not having appropriate oversight and not taking his medication as prescribed presenting again with a similar circumstance not taking medication. 1.? Restart previous medications. We will work to move towards a long-acting antipsychotic injectable to avoid this recurrence. 2.? Encourage individual, group and milieu therapy 3.? Continue q-15 minute check for safety 4.? Recommend sober living treatment at the highest level of care to which the patient is willing to commit. 5. Get collateral information on previous antipsychotic use and hopefully switch to 1 that is a long-acting injectable. Involuntary Hold Information 96 Hour Hold: 96 Hour Involuntary Admission: Yes 96 Hour Hold Ending Date: 03/23/22 96 Hour Hold Ending Time: 21:19 Attestations NPU Medical Necessity Statement*: Inpatient hospitalization is medically necessary and the clinically appropriate intervention at this time. We will monitor medications and make changes as indicated. Patient will be in the hospital for over two midnights. Likely length of stay is 5-7 days. Coding Level of Care Code Acute Advertising Analyst for Bakari Fwd Diagnoses Schizoaffective disorder, unspecified F25.9 Acute psychosis F23
[2022-03-17] MEDS: nicotine 21 mg Patch 1 PATCH TRANSDERMA (12:22)
[2022-03-17 13:13] VITALS: BP 140/72; PULSE 80; RESP 18; TEMP 37; O2SAT 97
--- NOTE | 2022-03-17 18:37 | PC.NURSE ---
1435 This nurse sat with pt for a moment after this pt had been inapproriate sexual behaviors with female pt's on this floor. Pt yelled out Sorry Grandma I was getting mixed signals . This nurse encouraged pt to keep his hands to himself.
[2022-03-17 19:38] VITALS: BP 120/82; PULSE 97; RESP 17; TEMP 36.8; O2SAT 100
[2022-03-17] MEDS: trazodone 50 mg Tablet PO (20:41)
[2022-03-17] MEDS: OLANZapine 5 mg ODT PO (20:41)
[2022-03-18 05:22] VITALS: BP 133/81; PULSE 87; RESP 17; TEMP 36.3; O2SAT 96
[2022-03-18] MEDS: nicotine 2 mg Gum BUCCAL (05:26)
[2022-03-18] MEDS: LORazepam 2 mg Tablet PO ×2 (08:54→20:50)
[2022-03-18] MEDS: haloperidol 5 mg Tablet PO ×2 (08:54→20:50)
[2022-03-18] MEDS: diphenhydrAMINE 50 mg Capsule PO ×2 (08:54→20:50)
--- NOTE | 2022-03-18 08:55 | PC.NURSE ---
PT UP WALKING INTO OTHER PTS ROOMS AND INCREASED AGITATION WITH PEERS AND STAFF, PRN PO ATIVAN, BENADRYL, HALDOL GIVEN TO DE ESCALATE PT. PT ASKED FOR SOME MEDS FOR MY NERVES . PT TOOK MEDS WITHOUT DIFFICULTY. PT CONT TO PACE HALLS WITH RAMBLING SPEECH
[2022-03-18] MEDS: nicotine 21 mg Patch 1 PATCH TRANSDERMA (09:17)
--- NOTE | 2022-03-18 13:08 | PC.NURSE ---
ELDER ALLAN REPORTS TO THIS NURSE THAT SHE HAS WALKED BY PT ROOM AND HAS CAUGHT PT WITH PANTS AROUND ANKLES AND MASTURBATING. PT WILL IMMEDIATELY STOP AND GO AND WASH HANDS, WILL START ONE TO ONE PT MONITORING TO KEEP PT REDIRECTED
[2022-03-18 14:00] VITALS: BP 133/81; PULSE 87; RESP 17; TEMP 36.3; O2SAT 96
[2022-03-18 15:22] VITALS: BP 118/72; PULSE 95; RESP 20; TEMP 37.1; O2SAT 97
--- NOTE | 2022-03-18 17:10 | W.PM.NPUPNS ---
Subjective NPU Subjective: Patient presented today reporting that he is okay. We reviewed our conversation about considering a medication that could ultimately be delivered in a long-acting injectable. We discussed the risks, benefits and alternatives of a trial of Invega and he understood and agreed to proceed as is documented in this note. He reports that he has no recollection of being on Invega before and a review of the chart shows that he has been on the Geodon for a very long time. He reports that he is willing to give it a try. Mental Status Exam MSE Comments: This is a well-nourished well-developed white male looking older than his stated age with limited grooming and adequate eye contact. No abnormal movements except for significant psychomotor retardation. Cooperative with exam in mild distress. Speech was limited and decreased rate and volume. Mood described as fine, affect subdued and slowed. Thought process linear with some confusion and disorganization. Thought content: Patient denied suicidal or homicidal ideation, there were no delusions reported but concerns exist for paranoia and bizarre delusions, he did not appear to be attending to internal stimuli but did appear confused and some concern for him attending to internal stimuli. Attention and concentration are limited and memory appeared limited as well but none were formally tested.. He is alert and oriented x to person and place. Insight, judgment and impulse control are impaired. Vitals/I&O/Wt Last Vital Signs Temp 98.8 F 03/18/22 15:22 Pulse 95 03/18/22 15:22 Resp 20 H 03/18/22 15:22 BP 118/72 03/18/22 15:22 Pulse Ox 97 03/18/22 15:22 O2 Del Method 03/18/22 15:22 Weight last 48 hrs Weight 77.111 kg Data NPU 03/16/22 21:41 03/16/22 21:41 A&P Assessment and plan (1) Schizoaffective disorder, unspecified: (2) Acute psychosis: Plan This is a 56-year-old white male with a long history of mental health challenges including psychotic illness with recent hospitalization at the beginning of February of last year secondary to him not having appropriate oversight and not taking his medication as prescribed presenting again with a similar circumstance not taking medication. 1.? Restart previous medications. Invega 3 mg tonight and 6 mg daily starting tomorrow. We will work to move towards Invega Sustenna injectable to avoid this recurrence. 2.? Encourage individual, group and milieu therapy 3.? Continue one-to-one observation for safety. 4.? Recommend sober living treatment at the highest level of care to which the patient is willing to commit. 5. Get collateral information on previous antipsychotic use and hopefully switch to 1 that is a long-acting injectable. Involuntary Hold Information 96 Hour Hold: 96 Hour Involuntary Admission: Yes 96 Hour Hold Ending Date: 03/23/22 96 Hour Hold Ending Time: 21:19 Attestations NPU Medical Necessity Statement*: Inpatient hospitalization is medically necessary and the clinically appropriate intervention at this time. We will monitor medications and make changes as indicated. Likely length of stay is 4-6 days. Coding Level of Care Code Acute Code for [facility]g Fwd Diagnoses Schizoaffective disorder, unspecified F25.9 Acute psychosis F23
[2022-03-18 19:48] VITALS: BP 128/94; PULSE 18; RESP 128; O2SAT 97
[2022-03-18] MEDS: paliperidone ER 3 mg Tablet PO (20:50)
[2022-03-18] MEDS: OLANZapine 5 mg ODT PO (22:04)
[2022-03-19] MEDS: acetaminophen 325 mg Tablet 650 MG PO (01:48)
[2022-03-19 04:29] VITALS: BP 142/85; PULSE 62; RESP 18; TEMP 36.4; O2SAT 100
[2022-03-19] MEDS: nicotine 21 mg Patch 1 PATCH TRANSDERMA (08:41)
[2022-03-19] MEDS: diphenhydrAMINE 50 mg Capsule PO ×2 (09:16→19:39)
[2022-03-19] MEDS: paliperidone ER 6 mg Tablet PO (09:16)
[2022-03-19] MEDS: LORazepam 2 mg Tablet PO ×2 (09:16→19:39)
[2022-03-19] MEDS: haloperidol 5 mg Tablet PO ×2 (09:16→19:39)
--- NOTE | 2022-03-19 11:41 | W.PM.NPUPNS ---
Subjective NPU Subjective: Patient presented today reporting that he is feeling better with the Invega. He appeared clearer in the conversation with diminished confusion. He was thankful for the assistance and reporting a desire to get well and be discharged as soon as possible. We talked about transitioning to the Invega injection and he was open to that happening shortly. Mental Status Exam MSE Comments: This is a well-nourished well-developed white male looking older than his stated age with limited grooming and adequate eye contact. No abnormal movements except for decreasing psychomotor retardation. Cooperative with exam in limited distress. Speech was slightly more spontaneous and decreased rate and volume. Mood described as okay, affect subdued but less slowed. Thought process linear with less confusion and disorganization. Thought content: Patient denied suicidal or homicidal ideation, there were no delusions reported but concerns exist for paranoia and bizarre delusions, he did not appear to be attending to internal stimuli but did appear confused and some concern for him attending to internal stimuli. Attention and concentration are limited and memory appeared limited as well but none were formally tested.. He is alert and oriented x to person and place. Insight, judgment and impulse control are impaired. Vitals/I&O/Wt Last Vital Signs Temp 97.6 F 03/19/22 04:29 Pulse 62 03/19/22 04:29 Resp 18 03/19/22 04:29 BP 142/85 03/19/22 04:29 Pulse Ox 100 03/19/22 04:29 O2 Del Method 03/19/22 04:29 Data NPU 03/16/22 21:41 03/16/22 21:41 A&P Assessment and plan (1) Schizoaffective disorder, unspecified: (2) Acute psychosis: Plan This is a 56-year-old white male with a long history of mental health challenges including psychotic illness with recent hospitalization at the beginning of February of last year secondary to him not having appropriate oversight and not taking his medication as prescribed presenting again with a similar circumstance not taking medication. 1.? Restart previous medications. Continue Invega 6 mg p.o. daily. We will work to move towards Invega Sustenna injectable to avoid this recurrence. We will consider decreasing Geodon starting tomorrow. 2.? Encourage individual, group and milieu therapy 3.? Continue one-to-one observation for safety. 4.? Recommend sober living treatment at the highest level of care to which the patient is willing to commit. 5. Get collateral information on previous antipsychotic use and hopefully switch to 1 that is a long-acting injectable. Involuntary Hold Information 96 Hour Hold: 96 Hour Involuntary Admission: Yes 96 Hour Hold Ending Date: 03/23/22 96 Hour Hold Ending Time: 21:19 Attestations NPU Medical Necessity Statement*: Inpatient hospitalization is medically necessary and the clinically appropriate intervention at this time. We will monitor medications and make changes as indicated. Likely length of stay is 4-6 days. Coding Level of Care Code Acute Code for [facility] Fwd Diagnoses Schizoaffective disorder, unspecified F25.9 Acute psychosis F23
[2022-03-19 14:00] VITALS: RESP 18
[2022-03-19 21:11] VITALS: BP 139/96; PULSE 99; RESP 18; TEMP 36.4; O2SAT 93
[2022-03-20] MEDS: trazodone 50 mg Tablet PO ×2 (00:49→20:46)
[2022-03-20 06:00] VITALS: BP 124/87; PULSE 106; RESP 18; TEMP 37; O2SAT 96
[2022-03-20] MEDS: nicotine 2 mg Gum BUCCAL ×4 (07:19→15:18)
[2022-03-20] MEDS: acetaminophen 325 mg Tablet 650 MG PO (08:11)
[2022-03-20] MEDS: paliperidone ER 6 mg Tablet PO (08:11)
[2022-03-20 15:02] LABS: Add Urine Culture? Yes; Add Urine Microscopic? YES; Bacteria Urine 2+ /hpf; Bilirubin Urine Neg (Negative); Blood Urine Neg (Negative); Glucose Urine UA Norm (Normal); Ketones Urine Negative (Negative); Leukocyte Esterase Urine 2+ (Negative); Nitrate Urine Negative (Negative); Protein Urine Neg (Negative); Specific Gravity, Urine 1.015 (1.005-1.030); Urine Appearance Clear (CLEAR); Urine Color Yellow (Yellow); Urobilinogen Urine Norm (Negative); WBC Urine 25-40 /hpf (0-5); pH Urine 7 (5-7)
[2022-03-20 15:41] VITALS: BP 129/65; PULSE 89; RESP 18; TEMP 36.8; O2SAT 98
[2022-03-20] MEDS: ziprasidone hcl 60 mg Capsule PO (16:54)
--- NOTE | 2022-03-20 17:14 | W.PM.NPUPNS ---
Subjective NPU Subjective: Patient presented today reporting that he is doing okay. He is more communicative and able to ask more reasonable questions. On the unit he was trying to be helpful with other patients that were having a rough time. He continued to endorse a willingness to transition to the long-acting injectable. There were some reports of sleep being less than ample and so we restarted some of his evening Geodon at 60 mg while he is transitioning to the Invega Sustenna. Mental Status Exam MSE Comments: This is a well-nourished well-developed white male looking older than his stated age with limited grooming and adequate eye contact. No abnormal movements except for decreasing psychomotor retardation. Cooperative with exam in limited distress. Speech was slightly more spontaneous and decreased rate and volume. Mood described as better, affect subdued but less slowed. Thought process linear with less confusion and disorganization. Thought content: Patient denied suicidal or homicidal ideation, there were no delusions reported but concerns exist for paranoia and bizarre delusions, he did not appear to be attending to internal stimuli but did appear confused and some concern for him attending to internal stimuli. Attention and concentration are limited and memory appeared limited as well but none were formally tested.. He is alert and oriented x to person and place. Insight, judgment and impulse control are impaired. Vitals/I&O/Wt Last Vital Signs Temp 97.7 F 03/20/22 22:00 Pulse 107 H 03/20/22 22:00 Resp 16 03/20/22 22:00 BP 129/65 03/20/22 15:41 Pulse Ox 97 03/20/22 22:00 O2 Del Method 03/20/22 22:00 Weight last 48 hrs Weight 78.018 kg Data NPU 03/16/22 21:41 03/16/22 21:41 A&P Assessment and plan (1) Schizoaffective disorder, unspecified: (2) Acute psychosis: Plan This is a 56-year-old white male with a long history of mental health challenges including psychotic illness with recent hospitalization at the beginning of February of last year secondary to him not having appropriate oversight and not taking his medication as prescribed presenting again with a similar circumstance not taking medication. 1.? Restart previous medications. Continue Invega 6 mg p.o. daily. We will work to move towards Invega Sustenna injectable to avoid this recurrence. Make Geodon 60 mg p.o. every evening. 2.? Encourage individual, group and milieu therapy 3.? Continue one-to-one observation for safety. 4.? Recommend sober living treatment at the highest level of care to which the patient is willing to commit. 5. Continue to evaluate for need for ongoing one-to-one. Involuntary Hold Information 96 Hour Hold: 96 Hour Involuntary Admission: Yes 96 Hour Hold Ending Date: 03/23/22 96 Hour Hold Ending Time: 21:19 Attestations NPU Medical Necessity Statement*: Inpatient hospitalization is medically necessary and the clinically appropriate intervention at this time. We will monitor medications and make changes as indicated. Likely length of stay is 4-6 days. Coding Level of Care Code Acute Code for Chg Fwd Diagnoses Schizoaffective disorder, unspecified F25.9 Acute psychosis F23
[2022-03-20] MEDS: hyDROXYzine 25 mg Capsule 50 MG PO (20:46)
[2022-03-20 22:00] VITALS: PULSE 107; RESP 16; TEMP 36.5; O2SAT 97
[2022-03-21] MEDS: diphenhydrAMINE 50 mg Capsule PO (00:49)
[2022-03-21] MEDS: LORazepam 2 mg Tablet PO (00:49)
[2022-03-21] MEDS: acetaminophen 325 mg Tablet 650 MG PO ×2 (00:49→09:53)
[2022-03-21] MEDS: haloperidol 5 mg Tablet PO (00:49)
--- NOTE | 2022-03-21 07:16 | P.NPUPN_ITS ---
Subjective NPU Subjective: Patient presented today reporting that he does not understand why he is in the hospital. He was wondering about his trailer and his girlfriend and if they are still together. I spent some time refreshing memory about the circumstances that led to his hospitalization and then some of the things that occurred on the unit that have led to him being on a one-to-one and why we are focused on making sure that he is actually prepared to be discharged to keep him in the community safe. Mental Status Exam MSE Comments: This is a well-nourished well-developed white male looking older than his stated age with limited grooming and adequate eye contact. No abnormal movements except for decreasing psychomotor retardation. Cooperative with exam in limited distress. Speech was more spontaneous and decreased rate and volume. Mood described as better, affect subdued but less slowed. Thought process linear with less confusion and disorganization. Thought content: Patient denied suicidal or homicidal ideation, there were no delusions reported and concerns for paranoia and bizarre delusions abating, he did not appear to be attending to internal stimuli. Attention and concentration are improving and memory appeared limited but none were formally tested.. He is alert and oriented x to person and place. Insight, judgment and impulse control are impaired. Vitals/I&O/Wt Last Vital Signs Temp 97.7 F 03/20/22 22:00 Pulse 107 H 03/20/22 22:00 Resp 16 03/20/22 22:00 BP 129/65 03/20/22 15:41 Pulse Ox 97 03/20/22 22:00 O2 Del Method 03/20/22 22:00 Weight last 48 hrs Weight 78.018 kg Data NPU 03/16/22 21:41 03/16/22 21:41 A&P Assessment and plan (1) Schizoaffective disorder, unspecified: (2) Acute psychosis: Plan This is a 56-year-old white male with a long history of mental health challenges including psychotic illness with recent hospitalization at the beginning of February of last year secondary to him not having appropriate oversight and not taking his medication as prescribed presenting again with a similar circumstance not taking medication. 1.?Continue current medications Invega 6 mg p.o. daily. We will work to move towards Invega Sustenna injectable to avoid this recurrence. Continued Geodon 60 mg p.o. every evening. 2.? Encourage individual, group and milieu therapy 3.? Continue one-to-one observation for safety. 4.? Recommend sober living treatment at the highest level of care to which the patient is willing to commit. 5. Continue to evaluate for need for ongoing one-to-one. Involuntary Hold Information 96 Hour Hold: 96 Hour Involuntary Admission: Yes 96 Hour Hold Ending Date: 03/23/22 96 Hour Hold Ending Time: 21:19 Attestations NPU Medical Necessity Statement*: Inpatient hospitalization is medically necessary and the clinically appropriate intervention at this time. We will monitor medications and make changes as indicated. Likely length of stay is 4-6 days. Coding Level of Care Code Acute Code for [facility] Fwd Diagnoses Schizoaffective disorder, unspecified F25.9 Acute psychosis F23
[2022-03-21] MEDS: nicotine 2 mg Gum BUCCAL ×2 (07:20→17:07)
[2022-03-21] MEDS: nicotine 21 mg Patch 1 PATCH TRANSDERMA (09:27)
[2022-03-21] MEDS: paliperidone ER 6 mg Tablet PO (09:27)
[2022-03-21 14:00] VITALS: BP 114/68; PULSE 95; RESP 17; TEMP 36.5; O2SAT 98
[2022-03-21] MEDS: ziprasidone hcl 60 mg Capsule PO (16:20)
[2022-03-21] MEDS: ondansetron 4 MG Tablet PO (18:26)
--- NOTE | 2022-03-21 18:35 | PC.NURSE ---
C/o n/v. Sitter states patient had small emesis of undigested food after eating. Received prn Zofran as ordered.
[2022-03-21] MEDS: trazodone 50 mg Tablet PO (20:12)
[2022-03-21] MEDS: hyDROXYzine 25 mg Capsule 50 MG PO (20:12)
[2022-03-21 21:00] VITALS: BP 141/101; PULSE 92; RESP 18; TEMP 36.3; O2SAT 98
[2022-03-22] MEDS: LORazepam 2 mg Tablet PO ×2 (01:23→21:42)
[2022-03-22] MEDS: nicotine 2 mg Gum BUCCAL ×3 (01:23→21:42)
[2022-03-22] MEDS: haloperidol 5 mg Tablet PO ×2 (01:23→21:42)
[2022-03-22] MEDS: diphenhydrAMINE 50 mg Capsule PO ×2 (01:23→21:42)
--- NOTE | 2022-03-22 01:24 | PC.NURSE ---
PO B-52 (Atavan 2mg, Benadryl 50mg, Haldol 5mg)given for agitation / anxiety / psychosis.
[2022-03-22] MEDS: paliperidone ER 6 mg Tablet PO (08:22)
[2022-03-22] MEDS: nicotine 21 mg Patch 1 PATCH TRANSDERMA (08:22)
--- NOTE | 2022-03-22 12:49 | P.NPUPN_ITS ---
Subjective NPU Subjective: The patient is a 56-year-old white male with schizoaffective disorder admitted with disorganized behavior and paranoia. He continued to appear confused as to why he was hospitalized but did report at times feeling paranoid. He states that his medications have been better. He had continue to require one-to-one staffing due to problems with being able to manage control over his hands as he had been found to be having problems with maintaining appropriate boundaries. The patient had reported no side effects currently from his medication. The patient had apparently shown a positive for MRSA on a urine screen which will be repeated. Mental Status Exam MSE Comments: This is a well-nourished well-developed white male looking older than his stated age with limited grooming and adequate eye contact. No abnormal movements except for moderate psychomotor retardation. Cooperative with exam in limited distress. Speech had limited spontaneity and decreased rate and volume. Mood described as okay, affect subdued and mood incongruent. Thought process was linear but derailed later during the interview. Thought content: Patient denied suicidal or homicidal ideation, there were no delusions reported though he revealed paranoia on interview. He did not appear to be attending to in ternal stimuli. Attention and concentration are improving and memory appeared limited but none were formally tested. He is alert and oriented x to person and place. Insight, judgment and impulse control are impaired. Vitals/I&O/Wt Last Vital Signs Temp 97.4 F L 03/21/22 21:00 Pulse 92 03/21/22 21:00 Resp 18 03/21/22 21:00 BP 141/101 03/21/22 21:00 Pulse Ox 98 03/21/22 21:00 O2 Del Method 03/20/22 22:00 Weight last 48 hrs Weight 78.018 kg Data NPU 03/16/22 21:41 03/16/22 21:41 Micro: Microbiology 03/20/22 11:45 Urine Culture - Preliminary Urine,Clean Catch Coag positive Staphylococcus Microbiology 03/20/22 11:45 Urine,Clean Catch Urine Culture - Preliminary Coag positive Staphylococcus A&P Assessment and plan (1) Schizoaffective disorder, unspecified: (2) Acute psychosis: Plan This is a 56-year-old white male with a long history of mental health challenges including psychotic illness with recent hospitalization at the beginning of February of last year secondary to him not having appropriate oversight and not taking his medication as prescribed presenting again with a similar circumstance not taking medication. 1.?Continue current medications Invega 6 mg p.o. daily. We will work to move towards Invega Sustenna injectable to avoid this recurrence. Decreased Geodon 40 mg p.o. every evening. 2.? Encourage individual, group and milieu therapy 3.? Continue one-to-one observation for safety. 4.? Recommend sober living treatment at the highest level of care to which the patient is willing to commit. 5. Continue to evaluate for need for ongoing one-to-one. Involuntary Hold Information 96 Hour Hold: 96 Hour Involuntary Admission: Yes 96 Hour Hold Ending Date: 03/23/22 96 Hour Hold Ending Time: 21:19 Attestations NPU 2 Medical Necessity Statement*: Inpatient hospitalization is medically necessary and the clinically appropriate intervention at this time. We will monitor medica tions and make changes as indicated. Likely length of stay is 4-6 days. Coding Level of Care Code Established Pt Acute Code for Chg Fwd Patient Type Established History Problem Focused Exam Problem Focused Medical Decision Making Straight Forward Diagnoses Schizoaffective disorder, unspecified F25.9 Acute psychosis F23
[2022-03-22 14:00] VITALS: BP 117/71; PULSE 95; RESP 17; TEMP 36.9; O2SAT 96
[2022-03-22 14:39] LABS: Basophils % 0.4 %; Eosinophils # 0.1 10^3/uL (0.0-0.8); Hematocrit 41.2 % (42.0-52.0); Hemoglobin 13.5 g/dL (11.7-16.6); Lymphocytes # 1.6 10^3/uL (0.8-4.8); Lymphocytes % 20.2 %; Mean Corpuscular HGB Conc 32.8 g/dL (30.0-36.0); Mean Corpuscular Hemoglobin 30.8 pg (28.0-34.0); Mean Corpuscular Volume 94.1 fl (80-94); Mean Platelet Volume 9.4 fL (7.4-10.4); Monocytes # 0.5 10^3/uL (0.2-0.9); Monocytes % 5.9 %; Neutrophils # 5.67 10^3/uL (1.8-7.7); Neutrophils % 72.2 %; Nucleated Red Blood Cells % 0 %; Platelet Count 292 10^3/cmm (130-400); Red Blood Count 4.38 10^6/uL (4.1-5.3); Red Cell Distribution Width 13.2 % (12.1-15.1); White Blood Count 7.8 10^3/uL (4.0-10.0)
[2022-03-22 14:59] LABS: Alanine Aminotransferase 31 U/L (0-41); Alkaline Phosphatase 54 U/L (40-130); Anion Gap 16.2 (5-19); Aspartate Amino Transferase 23 U/L (0-40); Blood Urea Nitrogen 16 mg/dL (6-20); Calcium 8.9 mg/dL (8.5-10.5); Carbon Dioxide 26 mmol/L (22-29); Chloride 96 mmol/L (98-107); Globulin 2.4 g/dL (1.3-4.6); Glomerular Filtration Rate 115.8 mL/min (90-130); Glucose 117 mg/dL (65-115); Osmolality Calculated 280 mOsm/kg (285-295); Potassium 4.2 mmol/L (3.5-5.1); Sodium 134 mmol/L (136-145); Total Bilirubin 0.2 mg/dL (0.15-1.2); Total Protein 6.4 g/dL (6.6-8.7)
[2022-03-22] MEDS: sulfamethoxazole-trimeth DS 160-800 mg Tablet 1 TAB PO (17:05)
[2022-03-22] MEDS: ziprasidone hcl 60 mg Capsule PO (17:05)
[2022-03-22] MEDS: trazodone 50 mg Tablet PO (20:14)
[2022-03-22] MEDS: hyDROXYzine 25 mg Capsule 50 MG PO (20:14)
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
--- NOTE | 2022-03-22 21:43 | PC.NURSE ---
PO B-52 (Atavan 2mg, Benadryl 50mg, Haldol 5mg)given for agitation / anxiety / psychosis.
[2022-03-23 06:00] VITALS: BP 112/82; PULSE 112; RESP 18; TEMP 36.5; O2SAT 97
[2022-03-23] MEDS: nicotine 2 mg Gum BUCCAL ×2 (06:56→18:55)
[2022-03-23] MEDS: sulfamethoxazole-trimeth DS 160-800 mg Tablet 1 TAB PO ×2 (08:17→17:12)
[2022-03-23] MEDS: tamsulosin 0.4 mg Capsule 0.8 MG PO (08:17)
[2022-03-23] MEDS: nicotine 21 mg Patch 1 PATCH TRANSDERMA (08:17)
[2022-03-23] MEDS: paliperidone ER 6 mg Tablet PO (08:53)
[2022-03-23 12:33] LABS: Glucose Point of Care 115 mg/dL (70-110)
[2022-03-23 14:00] VITALS: BP 110/68; PULSE 81; RESP 20; TEMP 36.6; O2SAT 99
[2022-03-23] MEDS: ziprasidone hcl 40 mg Capsule PO (17:12)
--- NOTE | 2022-03-23 17:56 | P.NPUPN_ITS ---
Subjective NPU Subjective: The patient is a 56-year-old white male with schizoaffective disorder admitted with disorganized behavior and paranoia. Patient had ported that he had been placed here in the hospital because he was hearing things. He had acknowledged that he had been entering into peoples homes and had been manipulating their furniture. He reports compliance with medication but states that he still began to hear things despite his compliance. He had reported that he often struggled with maintaining his self-care and stated that he needed some help at home. Patient appeared to be showing evidence of improved ability to maintain boundaries with him and other peers on the unit but remained on a one- on-one at this time. Mental Status Exam MSE Comments: This is a well-nourished, well-developed white male looking older than his stated age with limited grooming and adequate eye contact. No abnormal movements except for moderate psychomotor retardation. Cooperative with exam in limited distress. Speech showed evidence of improved spontaneity and improved rate and volume noted.. Mood described as good., His affect was subdued and mood incongruent. Thought process was linear with less illogical thinking appreciated. Thought content: Patient denied suicidal or homicidal ideation, there were no delusions reported and he appeared less guarded today. He did not appear to be attending to internal stimuli. Attention and concentration are improving and memory appeared limited but none were formally tested. He is alert and oriented x to person and place. Insight, judgment and impulse control are impaired. Vitals/I&O/Wt Last Vital Signs Temp 98 F 03/23/22 14:00 Pulse 81 03/23/22 14:00 Resp 20 H 03/23/22 14:00 BP 110/68 03/23/22 14:00 Pulse Ox 99 03/23/22 14:00 O2 Del Method 03/20/22 22:00 Data NPU 03/22/22 14:33 03/22/22 14:33 Micro: Microbiology 03/20/22 11:45 Urine Culture - Final Urine,Clean Catch Methicillin Resis Staph Aureus Microbiology 03/20/22 11:45 Urine,Clean Catch Urine Culture - Final Methicillin Resis Staph Aureus A&P Assessment and plan (1) Schizoaffective disorder, unspecified: (2) Acute psychosis: Plan This is a 56-year-old white male with a long history of mental health challenges including psychotic illness with recent hospitalization at the beginning of February of last year secondary to him not having appropriate oversight and not taking his medication as prescribed presenting again with a similar circumstance not taking medication. 1.?Continue current medications Invega 6 mg p.o. daily. We will work to move towards Invega Sustenna injectable to avoid this recurrence. Decreased G eodon 20 mg p.o. every evening. 2.? Encourage individual, group and milieu therapy 3.? Continue one-to-one observation for safety. 4.? Recommend sober living treatment at the highest level of care to which the patient is willing to commit. 5. Continue to evaluate for need for ongoing one-to-one. Involuntary Hold Information 96 Hour Hold: 96 Hour Involuntary Admission: Yes 96 Hour Hold Ending Date: 03/23/22 96 Hour Hold Ending Time: 21:19 Attestations NPU Medical Necessity Statement*: Inpatient hospitalization is medically necessary and the clinically appropriate intervention at this time. We will monitor medications and make changes as indicated. Likely length of stay is 4-6 days. Coding Level of Care Code Established Pt Acute Code for Chg Fwd Patient Type Established History Problem Focused Exam Problem Focused Medical Decision Making Straight Forward Diagnoses Schizoaffective disorder, unspecified F25.9 Acute psychosis F23
[2022-03-23] MEDS: hyDROXYzine 25 mg Capsule 50 MG PO (20:38)
[2022-03-23] MEDS: trazodone 50 mg Tablet PO ×2 (20:38→22:57)
[2022-03-23 21:28] VITALS: BP 107/71; PULSE 82; RESP 17; TEMP 36.8; O2SAT 96
[2022-03-24] MEDS: nicotine 2 mg Gum BUCCAL ×5 (04:25→22:18)
[2022-03-24 04:56] LABS: Glucose Point of Care 129 mg/dL (70-110)
[2022-03-24 06:00] VITALS: BP 118/76; PULSE 103; RESP 18; TEMP 36.9; O2SAT 97
[2022-03-24 08:27] LABS: Glucose Point of Care 105 mg/dL (70-110)
[2022-03-24] MEDS: tamsulosin 0.4 mg Capsule 0.8 MG PO (09:01)
[2022-03-24] MEDS: paliperidone ER 6 mg Tablet PO (09:01)
[2022-03-24] MEDS: sulfamethoxazole-trimeth DS 160-800 mg Tablet 1 TAB PO ×2 (09:01→17:26)
[2022-03-24 10:15] LABS: Anion Gap 14.6 (5-19); Blood Urea Nitrogen 14 mg/dL (6-20); Calcium 8.8 mg/dL (8.5-10.5); Carbon Dioxide 27 mmol/L (22-29); Chloride 97 mmol/L (98-107); Glomerular Filtration Rate 99.3 mL/min (90-130); Glucose 172 mg/dL (65-115); Osmolality Calculated 283 mOsm/kg (285-295); Potassium 4.6 mmol/L (3.5-5.1); Sodium 134 mmol/L (136-145)
[2022-03-24 12:37] LABS: Glucose Point of Care 98 mg/dL (70-110)
[2022-03-24 14:00] VITALS: BP 116/74; PULSE 75; RESP 18; TEMP 36.8; O2SAT 95
--- NOTE | 2022-03-24 16:38 | W.PM.NPUPNS ---
Subjective NPU Subjective: The patient is a 56-year-old white male with schizoaffective disorder admitted with disorganized behavior and paranoia. Patient had minimized any inappropriate touching in the past stating that he did not know what the sports book writer was speaking of despite numerous allegations that the patient had been excessively tight she and violating personal space outside of the hospital. He reported that he was no longer hearing voices and stated that he wished to go home soon. He had again reiterated that he had difficulties with managing his medication regimen without additional services. He had reported adequate motivation and minimized depression any depression. Patient had been redirectable but continue to require one-to-one staffing due to the patient in brief moments attempting to enter into other peoples rooms. Staff notes the patient had been showing some improved ability to manage self-care including showering and brushing. Mental Status Exam MSE Comments: This is a well-nourished, well-developed white male looking older than his stated age with limited grooming and adequate eye contact. No abnormal movements except for moderate psychomotor retardation. Cooperative with exam in limited distress. Speech showed evidence of improved spontaneity and improved rate and volume noted.. Mood described as good., His affect was subdued and mood incongruent. Thought process was linear with less illogical thinking appreciated. Thought content: Patient denied suicidal or homicidal ideation, there was no clear evidence of delusions. He appeared more forthcoming and less guarded today. He did not appear to be responding to internal stimuli. Attention and concentration are improving and memory appeared limited but none were formally tested. He is alert and oriented x to person and place with month and year. Insight, judgment and impulse control are impaired. Vitals/I&O/Wt Last Vital Signs Temp 98.2 F 03/24/22 14:00 Pulse 75 03/24/22 14:00 Resp 18 03/24/22 14:00 BP 116/74 03/24/22 14:00 Pulse Ox 95 03/24/22 14:00 O2 Del Method 03/24/22 06:00 Data NPU 03/22/22 14:33 03/24/22 09:32 Micro: Microbiology 03/23/22 21:48 Blood Culture - Preliminary Blood SPECIMEN COLLECTED 03/23/22 21:48 Blood Culture - Preliminary Blood SPECIMEN COLLECTED Microbiology 03/23/22 21:48 Blood Blood Culture - Preliminary SPECIMEN COLLECTED 03/23/22 21:48 Blood Blood Culture - Preliminary SPECIMEN COLLECTED A&P Assessment and plan (1) Schizoaffective disorder, unspecified: (2) Acute psychosis: Plan This is a 56-year-old white male with a long history of mental health challenges including psychotic illness with recent hospitalization at the beginning of February of last year secondary to him not having appropriate oversight and not taking his medication as prescribed presenting again with a similar circumstance not taking medication. 1.?Continue current medications Invega 6 mg p.o. daily. Begin Invega sustenna 234mg IM today or tommorow. Discontinue Geodon 20 mg p.o. tommorow. 2.? Encourage individual, group and milieu therapy 3.? Continue one-to-one observation for safety. 4.? Recommend sober living treatment at the highest level of care to which the patient is willing to commit. 5. Continue to evaluate for need for ongoing one-to-one. Involuntary Hold Information 96 Hour Hold: 96 Hour Involuntary Admission: Yes 96 Hour Hold Ending Date: 03/23/22 96 Hour Hold Ending Time: 21:19 Attestations NPU Medical Necessity Statement*: Inpatient hospitalization is medically necessary and the clinically appropriate intervention at this time. We will monitor medications and make changes as indicated. Likely length of stay is 4-6 days. Coding Level of Care Code Established Pt Acute Code for Chg Fwd Patient Type Established History Problem Focused Exam Problem Focused Medical Decision Making Straight Forward Diagnoses Schizoaffective disorder, unspecified F25.9 Acute psychosis F23
[2022-03-24] MEDS: paliperidone palmitate 234 mg Syringe IM (17:25)
[2022-03-24] MEDS: ziprasidone hcl 20 mg Capsule PO (17:26)
[2022-03-24 17:47] LABS: Glucose Point of Care 85 mg/dL (70-110)
[2022-03-24 19:41] LABS: Glucose Point of Care 119 mg/dL (70-110)
[2022-03-24] MEDS: trazodone 50 mg Tablet PO ×2 (20:14→21:55)
--- NOTE | 2022-03-24 20:18 | P.PN_ITS ---
Subjective Subjective: He states he is doing okay today. Denies any trouble or pain urinating. Denies chest pain or pressure, no shortness of breath or other complaints. Discussed with him results of BMP and pending blood culture. Vitals/I&O/Wt Last Vital Signs Temp 98.2 F 03/24/22 14:00 Pulse 75 03/24/22 14:00 Resp 18 03/24/22 14:00 BP 116/74 03/24/22 14:00 Pulse Ox 95 03/24/22 14:00 O2 Del Method 03/24/22 06:00 Physical Exam Const: COMMON NORMALS: alert GENERAL APPEARANCE: cooperative ORIENTATION/CONSCIOUSNESS: Yes awake HENMT: COMMON NORMALS: oropharynx normal Neck/C-Spine: COMMON NORMALS: no JVD Resp: COMMON NORMALS: normal respiratory effort and clear to auscultation bilaterally AUSCULTATION: clear to auscultation bilaterally Cardio: COMMON NORMALS: no JVD, regular rhythm, S1 normal heart sound present, S2 normal heart sound present and No murmurs present (Cardio) RHYTHM: regular rhythm HEART SOUNDS: S1 normal heart sound present and S2 normal heart sound present GI: COMMON NORMALS: Normal to inspection, nondistended, normoactive bowel sounds present, Soft to palpation and non-tender PALPATION: Yes Soft to palpation Extremity: COMMON NORMALS: no joint enlargement and no pedal edema Neuro: COMMON NORMALS: moves all extremities SENSORIUM/ORIENTATION: Yes alert Skin: COMMON NORMALS: no rashes or lesions noted GENERAL SKIN EXAM: no rashes or lesions noted Data 03/22/22 14:33 03/24/22 09:32 Micro: Microbiology 03/23/22 21:48 Blood Culture - Preliminary Blood SPECIMEN COLLECTED 03/23/22 21:48 Blood Culture - Preliminary Blood SPECIMEN COLLECTED A&P Assessment and plan (1) MRSA (methicillin resistant Staphylococcus aureus) infection: Continue Bactrim. Renal function, potassium, sodium are okay. Reassess BMP in a couple of days. Blood culture obtained. Follow-up blood cultures. (2) UTI (urinary tract infection): As above. Qualifiers: Urinary tract infection type: site unspecified Hematuria presence: without hematuria Qualified Code(s): N39.0 - Urinary tract infection, site not specified (3) BPH w urinary obs/LUTS: Chronically on Flomax (4) Hyperglycemia: In a patient without diabetes, but on antipsychotics, borderline, will need followed with treatment (5) COPD (chronic obstructive pulmonary disease): Chronically on albuterol and fluticasone/salmeterol, chronic, not currently acute Qualifiers: COPD type: emphysema Emphysema type: panlobular Qualified Code(s): J43.1 - Panlobular emphysema (6) Dyslipidemia: Reported diagnosis but not currently on any chronic treatment (7) Hyponatremia: At baseline (8) Schizoaffective disorder, unspecified: (9) Generalized anxiety disorder: Attestations Medical Necessity Statement*: Continue hospitalization for management of psychiatric condition. Coding Level of Care Code Acute Code for [facility] Fwd Diagnoses MRSA (methicillin resistant Staphylococcus aureus) infection A49.02 UTI (urinary tract infection) N39.0 Urinary tract infection type: site unspecified Hematuria presence: without hematuria BPH w urinary obs/LUTS N40.1; N13.8 Hyperglycemia R73.9 COPD (chronic obstructive pulmonary disease) J43.1 COPD type: emphysema Emphysema type: panlobular Dyslipidemia E78.5 Hyponatremia E87.1 Schizoaffective disorder, unspecified F25.9 Generalized anxiety disorder F41.1
[2022-03-24 20:34] VITALS: BP 103/64; PULSE 85; RESP 16; TEMP 36.9; O2SAT 95
[2022-03-24] MEDS: hyDROXYzine 25 mg Capsule 50 MG PO (21:55)
[2022-03-25] MEDS: OLANZapine 5 mg ODT PO (02:57)
[2022-03-25] MEDS: nicotine 2 mg Gum BUCCAL ×4 (03:56→19:03)
[2022-03-25 06:00] VITALS: BP 111/75; PULSE 116; RESP 16; TEMP 36.6; O2SAT 98
[2022-03-25] MEDS: tamsulosin 0.4 mg Capsule 0.8 MG PO (08:14)
[2022-03-25 08:15] LABS: Glucose Point of Care 101 mg/dL (70-110)
[2022-03-25] MEDS: sulfamethoxazole-trimeth DS 160-800 mg Tablet 1 TAB PO ×2 (08:15→17:57)
[2022-03-25] MEDS: paliperidone ER 6 mg Tablet PO (08:15)
[2022-03-25 14:00] VITALS: BP 144/68; PULSE 87; RESP 18; TEMP 36.8; O2SAT 98
--- NOTE | 2022-03-25 16:44 | P.NPUPN_ITS ---
Subjective NPU Subjective: The patient is a 56-year-old white male with schizoaffective disorder admitted with disorganized behavior and paranoia. Patient had reported that he needed help with managing his medications as he had indicated that noncompliance was occurring frequently at home in the past. Patient had rece ived his Invega shot yesterday without any side effects noted. He had appeared to stay in his room and was redirectable and more talkative today. He minimized any auditory hallucinations and reported that his mood had been better. He had continued to report struggling with remembering the details of what had brought him into the hospital. He has been doing well on one-to-one and has shown incr eased improved ability to maintain hygiene over the past few days. Mental Status Exam MSE Comments: This is a well-nourished, well-developed white male looking older than his stated age with improved grooming and improved eye contact. No abnormal movements except for moderate psychomotor retardation. Cooperative with exam in no acute distress speech showed evidence of improved spontaneity and improved rate and volume noted.. Mood described as good., His affect was subdued and mood incongruent. Thought process was linear with less illogical thinking appreciated. Thought content: Patient denied suicidal or homicidal ideation, there was no clear evidence of delusions. He appeared more f orthcoming and less guarded today. He did not appear to be responding to internal stimuli. Attention and concentration are improving and memory appeared limited but none were formally tested. He is alert and oriented x to person and place with month and year. Insight, judgment and impulse control are impaired. Vitals/I&O/Wt Last Vital Signs Temp 98.3 F 03/25/22 14:00 Pulse 87 03/25/22 14:00 Resp 18 03/25/22 14:00 BP 144/68 03/25/22 14:00 Pulse Ox 98 03/25/22 14:00 O2 Del Method 03/25/22 06:00 Data NPU 03/22/22 14:33 03/24/22 09:32 Micro: Microbiology 03/23/22 21:48 Blood Culture - Preliminary Blood NEGATIVE TO DATE 03/23/22 21:48 Blood Culture - Preliminary Blood NEGATIVE TO DATE Microbiology 03/23/22 21:48 Blood Blood Culture - Preliminary NEGATIVE TO DATE 03/23/22 21:48 Blood Blood Culture - Preliminary NEGATIVE TO DATE A&P Assessment and plan (1) Schizoaffective disorder, unspecified: (2) Acute psychosis: Plan This is a 56-year-old white male with a long history of mental health challenges including psychotic illness with recent hospitalization at the beginning of February of last year secondary to him not having appropriate oversight and not taking his medication as prescribed presenting again with a similar circumstance not taking medication. 1.? Invega sustenna 234mg given. Discontinued Geodon, reduce invega oral 3mg with plan for discontinuation. 2.? Encourage individual, group and milieu therapy 3.? Continue one-to-one observation for safety. 4.? Recommend sober living treatment at the highest level of care to which the patient is willing to commit. 5. Continue to evaluate for need for ongoing one-to-one. Involuntary Hold Information 96 Hour Hold: 96 Hour Involuntary Admission: Yes 96 Hour Hold Ending Date: 03/23/22 96 Hour Hold Ending Time: 21:19 Attestations NPU Medical Necessity Statement*: Inpatient hospitalization is medically necessary and the clinically appropriate intervention at this time. We will monitor medications and make changes as indicated. Likely length of stay is 4-6 days. Coding Level of Care Code Established Pt Acute Code for Chg Fwd Patient Type Established History Problem Focused Exam Problem Focused Medical Decision Making Straight Forward Diagnoses Schizoaffective disorder, unspecified F25.9 Acute psychosis F23
[2022-03-25 20:36] LABS: Glucose Point of Care 130 mg/dL (70-110)
[2022-03-25] MEDS: trazodone 50 mg Tablet PO (20:53)
--- NOTE | 2022-03-25 21:18 | PM.PN ---
Subjective Subjective: Reports he is doing well today. Denies any difficulties with urination. Denies any blood in urine. Denies any chest pain or pressure or trouble breathing. Discussed with him regarding pending blood culture. Vitals/I&O/Wt Last Vital Signs Temp 98.3 F 03/25/22 14:00 Pulse 87 03/25/22 14:00 Resp 18 03/25/22 14:00 BP 144/68 03/25/22 14:00 Pulse Ox 98 03/25/22 14:00 O2 Del Method 03/25/22 06:00 Physical Exam Const: COMMON NORMALS: alert GENERAL APPEARANCE: cooperative ORIENTATION/CONSCIOUSNESS: Yes awake HENMT: COMMON NORMALS: oropharynx normal Neck/C-Spine: COMMON NORMALS: no JVD Resp: COMMON NORMALS: normal respiratory effort and clear to auscultation bilaterally AUSCULTATION: clear to auscultation bilaterally Cardio: COMMON NORMALS: no JVD, regular rhythm, S1 normal heart sound present, S2 normal heart sound present and No murmurs present (Cardio) RHYTHM: regular rhythm HEART SOUNDS: S1 normal heart sound present and S2 normal heart sound present GI: COMMON NORMALS: Normal to inspection, nondistended, normoactive bowel sounds present, Soft to palpation and non-tender PALPATION: Yes Soft to palpation Extremity: COMMON NORMALS: no joint enlargement and no pedal edema Neuro: COMMON NORMALS: moves all extremities SENSORIUM/ORIENTATION: Yes alert Skin: COMMON NORMALS: no rashes or lesions noted GENERAL SKIN EXAM: no rashes or lesions noted Data 03/22/22 14:33 03/24/22 09:32 Micro: Microbiology 03/23/22 21:48 Blood Culture - Preliminary Blood NEGATIVE TO DATE 03/23/22 21:48 Blood Culture - Preliminary Blood NEGATIVE TO DATE A&P Assessment and plan (1) MRSA (methicillin resistant Staphylococcus aureus) infection: Continue Bactrim. Renal function, potassium, sodium are okay. Reassess BMP in 1-2 days. Blood culture obtained. Follow-up blood cultures. (2) UTI (urinary tract infection): As above. Qualifiers: Urinary tract infection type: site unspecified Hematuria presence: without hematuria Qualified Code(s): N39.0 - Urinary tract infection, site not specified (3) BPH w urinary obs/LUTS: Chronically on Flomax (4) Hyperglycemia: In a patient without diabetes, but on antipsychotics, borderline, will need followed with treatment (5) COPD (chronic obstructive pulmonary disease): Chronically on albuterol and fluticasone/salmeterol, chronic, not currently acute Qualifiers: COPD type: emphysema Emphysema type: panlobular Qualified Code(s): J43.1 - Panlobular emphysema (6) Dyslipidemia: Reported diagnosis but not currently on any chronic treatment (7) Hyponatremia: At baseline (8) Schizoaffective disorder, unspecified: (9) Generalized anxiety disorder: Attestations Medical Necessity Statement*: Continue admission for psychiatric assessment and management. Coding Level of Care Code Acute Code for [facility] Fwd Diagnoses MRSA (methicillin resistant Staphylococcus aureus) infection A49.02 UTI (urinary tract infection) N39.0 Urinary tract infection type: site unspecified Hematuria presence: without hematuria BPH w urinary obs/LUTS N40.1; N13.8 Hyperglycemia R73.9 COPD (chronic obstructive pulmonary disease) J43.1 COPD type: emphysema Emphysema type: panlobular Dyslipidemia E78.5 Hyponatremia E87.1 Schizoaffective disorder, unspecified F25.9 Generalized anxiety disorder F41.1
[2022-03-25 21:43] VITALS: BP 128/73; PULSE 77; RESP 16; TEMP 36.6; O2SAT 96
[2022-03-26] MEDS: trazodone 50 mg Tablet PO ×2 (00:07→20:57)
[2022-03-26] MEDS: nicotine 2 mg Gum BUCCAL ×5 (00:17→22:49)
--- NOTE | 2022-03-26 01:50 | PC.NURSE ---
Patient pacing halls and unable to sleep after being given trazodone earlier. Attempted to redirect and offer several different interventions with no success. Patient continued to be frustrated and confused. Patient continued to pace halls and appeared to be agitated with staff. PRN zyprexa po given. Patient continues with 1:1.
[2022-03-26] MEDS: OLANZapine 5 mg ODT PO ×2 (01:52→22:47)
--- NOTE | 2022-03-26 02:40 | PC.NURSE ---
Patient continues to be anxious. Offered snacks and diversions with no success. Ativan 2mg po given. Continues with 1:1.
[2022-03-26] MEDS: LORazepam 2 mg Tablet PO ×2 (02:43→22:47)
--- NOTE | 2022-03-26 05:02 | PC.NURSE ---
Patient resting quietly with eyes closed in bed. No further behaviors noted. Continues with 1:1.
[2022-03-26 06:00] VITALS: BP 130/86; PULSE 99; RESP 18; TEMP 36.9; O2SAT 96
[2022-03-26 08:06] LABS: Glucose Point of Care 100 mg/dL (70-110)
[2022-03-26] MEDS: sulfamethoxazole-trimeth DS 160-800 mg Tablet 1 TAB PO ×2 (08:29→17:59)
[2022-03-26] MEDS: paliperidone ER 3 mg Tablet PO (08:29)
[2022-03-26] MEDS: tamsulosin 0.4 mg Capsule 0.8 MG PO (08:29)
[2022-03-26 12:46] LABS: Glucose Point of Care 121 mg/dL (70-110)
--- NOTE | 2022-03-26 13:27 | P.PN_ITS ---
Subjective Subjective: He states he is doing okay. Denies difficult urination, denies any hematuria. Denies any other new symptoms. No chest pain or pressure. Vitals/I&O/Wt Last Vital Signs Temp 98.4 F 03/26/22 06:00 Pulse 99 03/26/22 06:00 Resp 18 03/26/22 06:00 BP 130/86 03/26/22 06:00 Pulse Ox 96 03/26/22 06:00 O2 Del Method 03/26/22 06:00 Physical Exam Narrative: Up in the dayroom. Const: COMMON NORMALS: alert GENERAL APPEARANCE: cooperative ORIENTATION/CONSCIOUSNESS: Yes awake HENMT: COMMON NORMALS: oropharynx normal Neck/C-Spine: COMMON NORMALS: no JVD Resp: COMMON NORMALS: normal respiratory effort and clear to auscultation bila terally AUSCULTATION: clear to auscultation bilaterally Cardio: COMMON NORMALS: no JVD, regular rhythm, S1 normal heart sound present, S2 normal heart sound present and No murmurs present (Cardio) RHYTHM: regular rhythm HEART SOUNDS: S1 normal heart sound present and S2 normal heart sound present GI: COMMON NORMALS: Normal to inspection, nondistended, normoactive bowel sounds present, Soft to palpation and non-tender PALPATION: Yes Soft to palpation Extremity: COMMON NORMALS: no joint enlargement and no pedal edema Neuro: COMMON NORMALS: moves all extremities SENSORIUM/ORIENTATION: Yes alert Skin: COMMON NORMALS: no rashes or lesions noted GENERAL SKIN EXAM: no rashes or lesions noted Data 03/22/22 14:33 03/24/22 09:32 A&P Assessment and plan (1) MRSA (methicillin resistant Staphylococcus aureus) infection: Continue Bactrim. Renal function, potassium, sodium are okay. Reassess BMP in morning. Blood culture obtained. Follow-up blood cultures. (2) UTI (urinary tract infection): As above. Qualifiers: Urinary tract infection type: site unspecified Hematuria presence: without hematuria Qualified Code(s): N39.0 - Urinary tract infection, site not specified (3) BPH w urinary obs/LUTS: Chronically on Flomax (4) Hyperglycemia: Hyperglycemia with improvement. We will stop Accu-Cheks. Should follow-up with primary provider in office. (5) COPD (chronic obstructive pulmonary disease): Chronically on albuterol and fluticasone/salmeterol, chronic, not currently acute Qualifiers: COPD type: emphysema Emphysema type: panlobular Qualified Code(s): J43.1 - Panlobular emphysema (6) Dyslipidemia: Reported diagnosis but not currently on any chronic treatment (7) Hyponatremia: At baseline (8) Schizoaffective disorder, unspecified: (9) Generalized anxiety disorder: Attestations Medical Necessity Statement*: Continue admission for psychiatric assessment and management. Coding Level of Care Code Acute Code for g Fwd Diagnoses MRSA (methicillin resistant Staphylococcus aureus) infection A49.02 UTI (urinary tract infection) N39.0 Urinary tract infection type: site unspecified Hematuria presence: without hematuria BPH w urinary obs/LUTS N40.1; N13.8 Hyperglycemia R73.9 COPD (chronic obstructive pulmonary disease) J43.1 COPD type: emphysema Emphysema type: panlobular Dyslipidemia E78.5 Hyponatremia E87.1 Schizoaffective disorder, unspecified F25.9 Generalized anxiety disorder F41.1
[2022-03-26 14:00] VITALS: BP 152/94; PULSE 86; RESP 18; TEMP 36.9; O2SAT 98
--- NOTE | 2022-03-26 15:26 | W.PM.NPUPNS ---
Subjective NPU Subjective: The patient is a 56-year-old white male with schizoaffective disorder admitted with disorganized behavior and paranoia. The patient continue to remain on one-on-one. He appeared to be having no problems currently with any inappropriate boundaries today. He had reported that the voices were better and stated that he was less worried about people around him. He stated that he would be ready to go home soon. He reported that his mood was okay and denied feeling depressed. He stated that his thoughts were not moving as fast. Mental Status Exam MSE Comments: This is a well-nourished, well-developed white male looking older than his stated age with improved grooming and improved eye contact. No abnormal movements except for moderate psychomotor retardation. Cooperative with exam in no acute distress speech showed evidence of improved spontaneity and improved rate and volume noted.. Mood described as better., His affect was blunted still. Thought process was linear and logical. Thought content: Patient denied suicidal or homicidal ideation, there was no clear evidence of delusions. He appeared more forthcoming and less guarded today. He did not appear to be responding to internal stimuli. Attention and concentration are improving and memory appeared limited but none were formally tested. He is alert and oriented x to person and place with month and year. Insight was poor, His judgment appeared to be improving. His impulse control is impaired. Vitals/I&O/Wt Last Vital Signs Temp 98.4 F 03/26/22 14:00 Pulse 86 03/26/22 14:00 Resp 18 03/26/22 14:00 BP 152/94 03/26/22 14:00 Pulse Ox 98 03/26/22 14:00 O2 Del Method 03/26/22 14:00 Data NPU 03/22/22 14:33 03/24/22 09:32 A&P Assessment and plan (1) Schizoaffective disorder, unspecified: (2) Acute psychosis: Plan This is a 56-year-old white male with a long history of mental health challenges including psychotic illness with recent hospitalization at the beginning of February of last year secondary to him not having appropriate oversight and not taking his medication as prescribed presenting again with a similar circumstance not taking medication. 1.? Invega sustenna 234mg given. Discontinued oral invega. 158mg of invega IM due in 5 days. 2.? Encourage individual, group and milieu therapy 3.? Continue one-to-one observation for safety. 4.? Recommend sober living treatment at the highest level of care to which the patient is willing to commit. 5. Continue to evaluate for need for ongoing one-to-one. Involuntary Hold Information 96 Hour Hold: 96 Hour Involuntary Admission: Yes 96 Hour Hold Ending Date: 03/23/22 96 Hour Hold Ending Time: 21:19 Attestations NPU Medical Necessity Statement*: Inpatient hospitalization is medically necessary and the clinically appropriate intervention at this time. We will monitor medications and make changes as indicated. Likely length of stay is 4-6 days. Coding Level of Care Code Established Pt Acute Code for Chg Fwd Patient Type Established History Problem Focused Exam Problem Focused Medical Decision Making Straight Forward Diagnoses Schizoaffective disorder, unspecified F25.9 Acute psychosis F23
[2022-03-26] MEDS: hyDROXYzine 25 mg Capsule 50 MG PO (20:56)
[2022-03-26 22:00] VITALS: BP 137/91; PULSE 102; RESP 18; TEMP 36.4; O2SAT 97
[2022-03-27] MEDS: nicotine 2 mg Gum BUCCAL ×3 (01:00→09:00)
[2022-03-27 06:00] VITALS: BP 114/82; PULSE 98; RESP 18; TEMP 37; O2SAT 96
[2022-03-27 07:52] LABS: Blood Urea Nitrogen 11 mg/dL (6-20); Calcium 8.6 mg/dL (8.5-10.5); Carbon Dioxide 25 mmol/L (22-29); Chloride 97 mmol/L (98-107); Glomerular Filtration Rate 115.8 mL/min (90-130); Glucose 127 mg/dL (65-115); Osmolality Calculated 273 mOsm/kg (285-295); Sodium 131 mmol/L (136-145)
[2022-03-27] MEDS: sulfamethoxazole-trimeth DS 160-800 mg Tablet 1 TAB PO ×2 (08:59→17:40)
[2022-03-27] MEDS: tamsulosin 0.4 mg Capsule 0.8 MG PO (08:59)
[2022-03-27] MEDS: nicotine 21 mg Patch 1 PATCH TRANSDERMA (12:28)
[2022-03-27 14:00] VITALS: BP 124/84; PULSE 103; RESP 18; TEMP 37; O2SAT 96
--- NOTE | 2022-03-27 14:01 | P.NPUPN_ITS ---
Subjective NPU Subjective: The patient is a 56-year-old white male with schizoaffective disorder admitted with disorganized behavior and paranoia. Patient continued to require one-to-one observation due to concerns of inappropriate boundary violations on the unit. He had been appropriate and stated that he had slept b mariel last night. He reported no side effects from his medication. He had reported improved energy and stated that the voices were no longer distracting to him. Patient had described having support from his girlfriend and states that he was hopeful about returning home. Patient had reported previously being able to sleep on . Mental Status Exam MSE Comments: This is a well-nourished, well-developed white male looking older than his stated age with improved grooming and improved eye contact. No abnormal movements except for mild psychomotor retardation. Cooperative with exam in no acute distress speech showed evidence of improved spontaneity and improved rate and volume noted.. Mood described as good., His affect was restricted. His thought process was linear and logical. Thought content: Patient denied suicidal or homicidal ideation, there was no clear evidence of delusions. He did not appear to be responding to internal stimuli. Attention and concentration are improving and memory appeared limited but none were formally tested. He is alert and oriented x to person and place with month and year. Insight was poor, His judgment appeared to be improving. His impulse control is impaired. Vitals/I&O/Wt Last Vital Signs Temp 98.6 F 03/27/22 06:00 Pulse 98 03/27/22 06:00 Resp 18 03/27/22 06:00 BP 114/82 03/27/22 06:00 Pulse Ox 96 03/27/22 06:00 O2 Del Method 03/27/22 06:00 Data NPU 03/22/22 14:33 03/27/22 07:22 A&P Assessment and plan (1) Schizoaffective disorder, unspecified: (2) Acute psychosis: Plan This is a 56-year-old white male with a long history of mental health challenges including psychotic illness with recent hospitalization at the beginning of February of last year secondary to him not having appropriate oversight and not taking his medication as prescribed presenting again with a similar circumstance not taking medication. 1.? Invega sustenna 234mg given. Discontinued oral invega. 158mg of invega IM due on Tuesday or Tuesday 2.? Encourage individual, group and milieu therapy 3.? Continue one-to-one observation for safety. 4.? Recommend sober living treatment at the highest level of care to which the patient is willing to commit. 5. Continue to evaluate for need for ongoing one-to-one. Involuntary Hold Information 96 Hour Hold: 96 Hour Involuntary Admission: Yes 96 Hour Hold Ending Date: 03/23/22 96 Hour Hold Ending Time: 21:19 Attestations NPU Medical Necessity Statement*: Inpatient hospitalization is medically necessary and the clinically appropriate intervention at this time. We will monitor medications and make changes as indicated. Likely length of stay is 2-3 days. Coding Level of Care Code Established Pt Acute Code for Chg Fwd Patient Type Established History Problem Focused Exam Problem Focused Medical Decision Making Straight Forward Diagnoses Schizoaffective disorder, unspecified F25.9 Acute psychosis F23
[2022-03-27] MEDS: haloperidol 5 mg Tablet PO (16:02)
[2022-03-27] MEDS: LORazepam 2 mg Tablet PO (16:02)
--- NOTE | 2022-03-27 16:04 | PC.NURSE ---
Syd reported pt. was upset and anxious and saying he cant find his girlfriend. Patient in room paing and complaining that staff was keeping him from his girlfriend. PRN ativan 2mg and PRN haldol given for agitation at this time.
[2022-03-27] MEDS: zolpidem 5 mg Tablet PO (19:59)
[2022-03-27 20:02] VITALS: BP 108/79; PULSE 105; RESP 18; TEMP 36.5; O2SAT 100
[2022-03-27] MEDS: trazodone 50 mg Tablet PO (20:06)
[2022-03-27] MEDS: hyDROXYzine 25 mg Capsule 50 MG PO (20:06)
[2022-03-28] MEDS: OLANZapine 5 mg ODT PO (03:07)
[2022-03-28] MEDS: nicotine 2 mg Gum BUCCAL ×4 (03:09→18:18)
[2022-03-28 06:00] VITALS: BP 137/102; PULSE 110; RESP 18; TEMP 36.6; O2SAT 99
[2022-03-28] MEDS: tamsulosin 0.4 mg Capsule 0.8 MG PO (08:17)
[2022-03-28] MEDS: acetaminophen 325 mg Tablet 650 MG PO ×2 (08:17→18:12)
[2022-03-28] MEDS: sulfamethoxazole-trimeth DS 160-800 mg Tablet 1 TAB PO ×2 (08:17→17:51)
[2022-03-28 13:21] LABS: Anion Gap 14.5 (5-19); Blood Urea Nitrogen 11 mg/dL (6-20); Calcium 9.2 mg/dL (8.5-10.5); Carbon Dioxide 27 mmol/L (22-29); Chloride 95 mmol/L (98-107); Glomerular Filtration Rate 115.8 mL/min (90-130); Glucose 113 mg/dL (65-115); Osmolality Calculated 274 mOsm/kg (285-295); Potassium 4.5 mmol/L (3.5-5.1); Sodium 132 mmol/L (136-145)
[2022-03-28 14:00] VITALS: BP 128/86; PULSE 104; RESP 18; TEMP 36.8; O2SAT 97
--- NOTE | 2022-03-28 14:31 | P.NPUPN_ITS ---
Subjective NPU Subjective: The patient is a 56-year-old white male with schizoaffective disorder admitted with disorganized behavior and paranoia. The patient the patient had reported improved sleep on Ambien 5 mg at night. He reported no side effects from his medications. He continued to support the idea of receivin g visits from a nurse once a week to help him with managing his medical issues as well as assuring that he was able to care for himself and avoid creating greater confusion with taking medications. Patient had reported having some port from his girlfriend but admitted that his girlfriend also suffered from significant medical issues and that a little help would not be rejected by him. He remained agreeable to the idea of receiving a monthly shot to help him with his thoughts and reported that the voices had nearly gone away. He appeared pleasant and cooperative on the milieu but continue to require prompting for engaging in activities of daily living including brushing and showering. Mental Status Exam MSE Comments: This is a well-nourished, well-developed white male looking older than his stated age with improved grooming and improved eye contact. No abnormal movements except for mild psychomotor retardation. Cooperative with exam in no acute distress speech showed evidence of improved spontaneity and improved rate and volume noted.. Mood described as great, His affect was brig hter and pleasant today. His thought process was linear and logical. Thought content: Patient denied suicidal or homicidal ideation, there was no clear evidence of delusions. He did not appear to be responding to internal stimuli. Attention and concentration are improving and memory appeared limited but none were formally tested. He is alert and oriented x to person and place with month and year. Insight was poor, His judgment appeared to be improving. His impulse control is impaired. Vitals/I&O/Wt Last Vital Signs Temp 97.8 F 03/28/22 06:00 Pulse 110 H 03/28/22 06:00 Resp 18 03/28/22 06:00 BP 137/102 03/28/22 06:00 Pulse Ox 99 03/28/22 06:00 O2 Del Method 03/27/22 14:00 Weight last 48 hrs Weight 76.566 kg Data NPU 03/22/22 14:33 03/28/22 12:47 A&P Assessment and plan (1) Schizoaffective disorder, unspecified: (2) Acute psychosis: Plan This is a 56-year-old white male with a long history of mental health challenges including psychotic illness with recent hospitalization at the beginning of February of last year secondary to him not having appropriate oversight and not taking his medication as prescribed presenting again with a similar circumstance not taking medication. 1.? Invega sustenna 234mg given. Con whattinue ambien for sleep. 156mg of invega IM ordered for tommorow. 2.? Encourage individual, group and milieu therapy 3.? Continue one-to-one observation for safety. 4.? Recommend sober living treatment at the highest level of care to which the patient is willing to commit. 5. Continue to evaluate for need for ongoing one-to-one. Involuntary Hold Information 96 Hour Hold: 96 Hour Involuntary Admission: Yes 96 Hour Hold Ending Date: 03/23/22 96 Hour Hold Ending Time: 21:19 Attestations NPU Medical Necessity Statement*: Inpatient hospitalization is medically necessary and the clinically appropriate intervention at this time. We will monitor medications and make changes as indicated. Likely length of stay is 2-3 days. Coding Level of Care Code Established Pt Acute Code for Chg Fwd Patient Type Established History Problem Focused Exam Problem Focused Medical Decision Making Straight Forward Diagnoses Schizoaffective disorder, unspecified F25.9 Acute psychosis F23
--- NOTE | 2022-03-28 16:36 | PC.NURSE ---
Hospitalist saw pt today. Said the pt's antibiotic would be stopped after today and they would be signing off the patient. Hospitalist said pt should follow-up with his primary care physician (PCP) to see about his blood sugars as pt may have pre-diabetes. Message left for [employer] and pt also informed of this. Pt was believing he was going to discharge tomorrow. Clarified with pt the medical staff had signed off but we didn't have orders for the pt to completely discharge from the hospital. Pt informed he'd know more about that tomorrow. Pt verbalized his understanding.
--- NOTE | 2022-03-28 16:54 | PM.PN ---
Subjective Subjective: States he is doing okay. Denies difficulty urinating. Denies hematuria. No other new symptoms. Vitals/I&O/Wt Last Vital Signs Temp 98.3 F 03/28/22 14:00 Pulse 104 H 03/28/22 14:00 Resp 18 03/28/22 14:00 BP 128/86 03/28/22 14:00 Pulse Ox 97 03/28/22 14:00 O2 Del Method 03/27/22 14:00 Weight last 48 hrs Weight 76.566 kg Physical Exam Narrative: Napping, wakes up easily. Const: COMMON NORMALS: alert GENERAL APPEARANCE: cooperative ORIENTATION/CONSCIOUSNESS: Yes awake HENMT: COMMON NORMALS: oropharynx normal Neck/C-Spine: COMMON NORMALS: no JVD Resp: COMMON NORMALS: normal respiratory effort and clear to auscultation bilaterally AUSCULTATION: clear to auscultation bilaterally Cardio: COMMON NORMALS: no JVD, regular rhythm, S1 normal heart sound present, S2 normal heart sound present and No murmurs present (Cardio) RHYTHM: regular rhythm HEART SOUNDS: S1 normal heart sound present and S2 normal heart sound present GI: COMMON NORMALS: Normal to inspection, nondistended, normoactive bowel sounds present, Soft to palpation and non-tender PALPATION: Yes Soft to palpation Extremity: COMMON NORMALS: no joint enlargement and no pedal edema Neuro: COMMON NORMALS: moves all extremities SENSORIUM/ORIENTATION: Yes alert Skin: COMMON NORMALS: no rashes or lesions noted GENERAL SKIN EXAM: no rashes or lesions noted Data 03/22/22 14:33 03/28/22 12:47 A&P Assessment and plan (1) MRSA (methicillin resistant Staphylococcus aureus) infection: Tomorrow to complete Bactrim course. Blood chemistries remain in good, without any concerning changes in electrolytes or renal function. Blood cultures so far remaining negative. Follow-up with primary provider. Hospitalist service will sign off, but available for additional consultation in case of any issues or questions. (2) UTI (urinary tract infection): As above. Qualifiers: Hematuria presence: without hematuria Urinary tract infection type: site unspecified Qualified Code(s): N39.0 - Urinary tract infection, site not specified (3) BPH w urinary obs/LUTS: Chronically on Flomax (4) Hyperglycemia: Hyperglycemia with improvement. We will stop Accu-Cheks. Should follow-up with primary provider in office. (5) COPD (chronic obstructive pulmonary disease): Chronically on albuterol and fluticasone/salmeterol, chronic, not currently acute Qualifiers: COPD type: emphysema Emphysema type: panlobular Qualified Code(s): J43.1 - Panlobular emphysema (6) Dyslipidemia: Reported diagnosis but not currently on any chronic treatment (7) Hyponatremia: At baseline (8) Schizoaffective disorder, unspecified: (9) Generalized anxiety disorder: Attestations Medical Necessity Statement*: Continue admission for psychiatric assessment and care. Coding Level of Care Code Acute Code for Chg Fwd Exam Comprehensive Diagnoses MRSA (methicillin resistant Staphylococcus aureus) infection A49.02 UTI (urinary tract infection) N39.0 Hematuria presence: without hematuria Urinary tract infection type: site unspecified BPH w urinary obs/LUTS N40.1; N13.8 Hyperglycemia R73.9 COPD (chronic obstructive pulmonary disease) J43.1 COPD type: emphysema Emphysema type: panlobular Dyslipidemia E78.5 Hyponatremia E87.1 Schizoaffective disorder, unspecified F25.9 Generalized anxiety disorder F41.1
[2022-03-28] MEDS: zolpidem 5 mg Tablet PO (19:50)
[2022-03-28 22:00] VITALS: BP 121/72; PULSE 116; RESP 18; TEMP 36.8; O2SAT 100
[2022-03-28] MEDS: hyDROXYzine 25 mg Capsule 50 MG PO (23:49)
--- NOTE | 2022-03-28 23:50 | PC.NURSE ---
Patient came to nurse and stated he couldn't sleep and was feeling very anxious. Stated If I don't get sleep my day is going to be ruined. Several interventions offered but patient continued to complain about feeling anxious. Vistaril given as ordered. Snacks and fluids given at this time.
[2022-03-29] MEDS: nicotine 2 mg Gum BUCCAL ×2 (00:32→04:46)
[2022-03-29] MEDS: LORazepam 2 mg Tablet PO (02:30)
--- NOTE | 2022-03-29 02:30 | PC.NURSE ---
Patient rested for approximately 2 hours after being given vistaril. Patient came to nurse and stated I'm getting angry and something better be done for me about not getting any sleep. Explained to patient that he had slept several hours and patient responded Well I don't think so. I've been tossing and turning and it's making feel crazy. I'm starting to get pissed off. PRN ativan po offered and taken at this time.
--- NOTE | 2022-03-29 04:36 | PC.NURSE ---
Patient has been resting for several hours now after receiving previous prn ativan. No signs of distress noted. Continues with 1:1.
[2022-03-29 06:00] VITALS: BP 116/81; PULSE 87; RESP 18; TEMP 36.3; O2SAT 100
[2022-03-29] MEDS: paliperidone palmitate 156 mg Syringe IM (08:32)
[2022-03-29] MEDS: sulfamethoxazole-trimeth DS 160-800 mg Tablet 1 TAB PO (08:33)
[2022-03-29] MEDS: tamsulosin 0.4 mg Capsule 0.8 MG PO (08:33)
--- NOTE | 2022-03-29 11:25 | DCPLANNER ---
IMM completed on 03/29/22 @ 1108am. Pt was given a copy of his rights and he stated he understood his rights.
[2022-03-29 11:52] VITALS: BP 116/81; PULSE 87; RESP 18; TEMP 36.3; O2SAT 100
--- NOTE | 2022-03-29 13:13 | P.NPUDS_ITS ---
Diagnoses at Discharge Discharge Diagnosis (1) MRSA (methicillin resistant Staphylococcus aureus) infection: Status: Acute (2) UTI (urinary tract infection): Status: Resolved Qualifiers: Hematuria presence: without hematuria Urinary tract infection type: site unspecified Qualified Code(s): N39.0 - Urinary tract infection, site not specified (3) BPH w urinary obs/LUTS: Status: Resolved (4) Hyperglycemia: Status: Resolved (5) COPD (chronic obstructive pulmonary disease): Status: Chronic Qualifiers: COPD type: emphysema Emphysema type: panlobular Qualified Code(s): J43.1 - Panlobular emphysema (6) Dyslipidemia: Status: Chronic (7) Hyponatremia: Status: Resolved (8) Schizoaffective disorder, unspecified: Status: Chronic Qualifiers: Schizoaffective disorder type: unspecified Qualified Code(s): F25.9 - Schizoaffective disorder, unspecified (9) Generalized anxiety disorder: Status: Chronic Reason for Visit Reason for Visit: 96 HOUR HOLD Brief History: History of Present Illness Michael Munoz IV is a 56 year old male who presented to the emergency department with the following report: Chief Complaint: Psychiatric Symptoms Stated Complaint: 96 HOUR HOLD Time Seen by Provider: 03/16/22 21:33 Source: police Mode of arrival: other (Police department) Limitations: no limitations History of Present Illness:?? This patient was transported to our emergency department by [facility] department deputy.? Patient's been placed on a 96-hour hold due to unusual and bizarre behavior.? He allegedly is been obtaining entrance into and neighbors domicile and rearranging furniture and taking things off the wall.? He is presented to the department with court ordered 96-hour hold documents. Patient admits to going into other peoples homes and states the wind blows him there from time to time.? He states he has no thoughts of harm to others or to himself.? He denies any recent illness cough fever etc.? He denies alcohol use but does admit to smoking tobacco as well as chewing tobacco.? He states he has been taking all Prescribed medicines. History of same: Yes Relieving factors: medication Associated symptoms: Reports auditory hallucinations and visual hallucinations; Deny homicidal ideation or suicidal ideation. He was admitted to the neuropsychiatric unit for definitive treatment of those issues.? He presents today much like he did approximately 6 weeks ago wherein he had stopped taking his medication and presented confused.? He was brought into the hospital secondary to him wandering the community and going into random houses.? He reportedly went to the home of the social media manager here as well.? He presents acknowledging that he had not been taking his medication appropriately but could not give much more data than that.? We discussed the importance of him maintaining his medication so that he does not end up in the hospital and also he does not get himself in danger by wandering around into people's homes.? 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 We discussed that it was important that he be stable enough to have a job and that taking an injectable will not be different than taking the pill but it will assure us of knowing that he is in fact adherent to his medication.? He reported that he might be willing to do that once we discussed which medication that is and we did discuss briefly the different options that exist but agreed we would review his history to see if he has any exposure to Abilify, Invega or Risperdal or Zyprexa in their long-acting forms or oral formulations. Per his 02/08/2022 [facility] inpatient psychiatric discharge summary: Discharge Diagnosis (1) Schizoaffective disorder, unspecified: ? ? ? Status: Chronic ? ? ? Qualifiers: ? Schizoaffective disorder type: depressive? Qualified Code(s): F25.1 - Schizoaffective disorder, depressive type (2) Acute psychosis: ? ? ? Status: Deleted Reason for Visit Reason for Visit:?? Psych Evaluation? Brief History: History of Present Illness Michael Munoz IV is a 56 year old male who presented to the emergency department through the police for an evaluation.? The patient acknowledges that the police had been called out to a house in the middle of the night as the patient had been apparently trying to gain entry into another person's house.? The police during this time had apparently reported that the patient was making unusual statements while under their custody and he was reporting that he had been trying to protect the house that he was at in the middle of the night.? He was placed on a 96-hour hold upon arrival in the emergency department and admitted for further psychiatric evaluation on the neuropsychiatric unit. The patient had acknowledged having been previously diagnosed with schizoaffective disorder depressed type and he reports that a few weeks ago he decided to throw away all of his psychiatric medications and reports that mother Soledad had told me to do this .? The patient had reported that he had been pretending for too long that he needed drugs and decided to stop taking his medications.? 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 He did acknowledge having special abilities and manzanares and stated that he did not want the rest of the people here to know about his manzanares.? Previous records state that the patient has been having more recent confusion and disorganized behavior with a past history of auditory hallucinations along with depressed mood.? The patient had reported that he had been sleepwalking and stated that he lived just up the road from the house that he was picked up at by the police. Inpatient psychiatric history: There is a history of multiple inpatient hospitalizations with the most recent hospitalization having occurred in 2019.? He had been evaluated by the entry writer of this note earlier this year on the medical floor. Outpatient psychiatric history: He had been receiving services at the [facility] with most recent visit in December 2021 with a nurse at the behavioral health clinic. Cogentin .5mg bid ?clonazepam 0.5 mg daily Vistaril 25 mg up to 3 times daily ?Lunesta to 3 mg at bedtime today ?Geodon 80 mg twice daily with food ?Wellbubtrin XL 150mg daily Drug and alcohol history: He denies other than smoking half to 1-1/2 packs of cigarettes a day for several years. Medical history: Benign prostatic hyperplasia lower back pain, COPD, dyslipidemia, GERD, Allergies: Penicillin Surgical history: Appendectomy, tonsillectomy Medications: See below Family psychiatric history: Unknown Social history: He reports that he was born in [facility] and raised by his 2 parents.? He has 1 brother.? He denied any history of trauma during his childhood.? 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 He states that he currently lives by himself in the mobile home in [place].? He has been 2 times and has several adult aged children and numerous grandchildren.? He reports that he is on disability for psychiatric reasons. ? Hospital Course Hospital Course Discharge Summary: The patient was treated again by the primary medical team for urinary tract infection and was found to have MRSA in urine examination. He had reported a general problem with maintaining compliance with his medication on an outpatient basis and so he was discharged on IM Invega on discharge with patient due for next dose of Invega IM in April of 2022. During the hospitalization, patient had other laboratory studies which were within normal limits except for few outlier noted in urine and electrolytes which was corrected prior to discharge. Additionally there was a general medical evaluation which showed no new medical issues. At the time of discharge, lethality was denied and psychosis was resolving. Mood and anxiety were well managed. Patient endorsed a plan to avoid all drugs of abuse and follow-up with the aftercare recommendations of the treatment team. Patient was evaluated and deemed to be absent credible lethality, and had achieved the maximum benefit from an inpatient hospitalization, so was discharged. Involuntary Hold Information 96 Hour Hold: 96 Hour Involuntary Admission: Yes 96 Hour Hold Ending Date: 03/23/22 96 Hour Hold Ending Time: 21:19 Mental Status Exam MSE Comments: This is a well-nourished, well-developed white male appearing his stated age with improved grooming and improved eye contact. No abnormal movements except for mild psychomotor retardation. Cooperative with exam in no acute distress speech showed evidence of improved spontaneity and improved rate and volume noted.. Mood described as great, His affect was brighter and pleasant today. His thought process was linear and logical. Thought content: Patient denied suicidal or homicidal ideation. there was no clear evidence of delusional thinking. He did not appear to be responding to internal stimuli. Attention and concentration are improving and memory appeared limited but none were formally tested. He is alert and oriented x to person and place and time today. Insight was improved. , His judgment appeared to be improving. His impulse control is impaired. Discharge Data Studies Completed and Pending: Laboratory Results WBC 7.8 10^3/uL (4.0- 10.0) 03/22/22 14:33 RBC 4.38 10^6/uL (4.1 -5.3) 03/22/22 14:33 Hgb 13.5 g/dL (11.7-1 6.6) 03/22/22 14:33 Hct 41.2 % (42.0-52.0 ) L 03/22/22 14: MCV 94.1 fl (80-94) H 03/22/22 14:33 MCH 30.8 pg (28.0-34. 0) 03/22/22 14:33 MCHC 32.8 g/dL (30.0-3 6.0) 03/22/22 14: RDW 13.2 % (12.1-15.1 ) 03/22/22 14:33 Plt Count 292 10^3/cmm (130 -400) 03/22/22 14: MPV 9.4 fL (7.4-10.4) 03/22/22 14:33 Neut % (Auto) 72.2 % 03/22/22 14:33 Lymph % (Auto) 20.2 % 03/22/22 14:33 Concho % (Auto) 5.9 % 03/22/22 14: Eos % (Auto) 1.0 % 03/22/22 14:33 Baso % (Auto) 0.4 % 03/22/22 14:33 Neut # (Auto) 5.67 10^3/uL (1.8 -7.7) 03/22/22 14:33 Lymph # (Auto) 1.6 10^3/uL (0.8- 4.8) 03/22/22 14:33 Concho # (Auto) 0.5 10^3/uL (0.2- 0.9) 03/22/22 14: Eos # (Auto) 0.1 10^3/uL (0.0- 0.8) 03/22/22 14:33 Baso # (Auto) 0.0 10^3/uL (0.0- 0.1) 03/22/22 14: Nucleated RBC % (a uto) 0 % 03/22/22 14: Nucleated RBCs # 0.0 /100WBC 03/22/22 14:33 Sodium 132 mmol/L (136-1 45) L 03/28/22 12:47 Potassium 4.5 mmol/L (3.5-5 .1) 03/28/22 12:47 Chloride 95 mmol/L (98-107 ) L 03/28/22 12:47 Carbon Dioxide 27 mmol/L (22-29) 03/28/22 12:47 Anion Gap 14.5 (5-19) 03/28/22 12:47 BUN 11 mg/dL (6-20) 03/28/22 12:47 Creatinine 0.7 mg/dL (0.7-1. 2) 03/28/22 12:47 GFR Calculation 115.8 mL/min (90- 130) 03/28/22 12:47 Glucose 113 mg/dL (65-115 ) 03/28/22 12:47 POC Glucose 121 mg/dL (70-110 ) H 03/26/22 12:43 Calculated Osmolal ity 274 mOsm/kg (285- 295) L 03/28/22 12:47 Calcium 9.2 mg/dL (8.5-10 .5) 03/28/22 12:47 Total Bilirubin 0.2 mg/dL (0.15-1 .2) 03/22/22 14:33 AST 23 U/L (0-40) 03/22/22 14:33 ALT 31 U/L (0-41) 03/22/22 14:33 Alkaline Phosphata se 54 U/L (40-130) 03/22/22 14:33 Total Protein 6.4 g/dL (6.6-8.7 ) L 03/22/22 14:33 Albumin 4.0 g/dL (3.5-5.2 ) 03/22/22 14:33 Globulin 2.4 g/dL (1.3-4.6 ) 03/22/22 14:33 TSH 0.74 uIU/mL (0.27 -4.20) 03/16/22 21:41 Urine Color Yellow (Yellow) 03/20/22 11:45 Urine Appearance Clear (CLEAR) 03/20/22 11:45 Urine pH 7 (5-7) 03/20/22 11:45 Ur Specific Gravit y 1.015 (1.005-1.0 30) 03/20/22 11:45 Urine Protein Neg (Negative) 03/20/22 11:45 Urine Glucose (UA) Norm (Normal) 03/20/22 11:45 Urine Ketones Negative (Negati ve) 03/20/22 11:45 Urine Blood Neg (Negative) 03/20/22 11:45 Urine Nitrate Negative (Negati ve) 03/20/22 11:45 Urine Bilirubin Neg (Negative) 03/20/22 11:45 Urine Urobilinogen Norm mg/dL (Negat aleida) 03/20/22 11:45 Ur Leukocyte Alona ase 2+ (Negative) H 03/20/22 11:45 Urine RBC None /hpf (0-2) 03/20/22 11:45 Urine WBC 25-40 /hpf (0-5) H 03/20/22 11:45 Ur Squamous Epith Cells None /hpf (0-5) 03/20/22 11:45 Amorphous Sediment Not Reportable 03/20/22 11:45 Urine Bacteria 2+ /hpf (NONE) H 03/20/22 11:45 Salicylates 0.5 mg/dL (3-10) L 03/16/22 21:41 Urine Opiates Scre en Negative ng/mL (N egative) 03/17/22 09:45 Acetaminophen < 5.0 ug/mL (10-3 0) L 03/16/22 21:41 Ur Barbiturates Sc reen Negative ng/mL (N egative) 03/17/22 09:45 Ur Phencyclidine S crn Negative ng/mL (N egative) 03/17/22 09:45 Ur Amphetamines Sc reen Negative ng/mL (N egative) 03/17/22 09:45 U Benzodiazepines Scrn Negative ng/mL (N egative) 03/17/22 09:45 Urine Cocaine Scre en Negative ng/mL (N egative) 03/17/22 09:45 U Marijuana (THC) Screen Negative ng/mL (N egative) 03/17/22 09:45 Vitals: Last Vital Signs Temp 97.3 F L 03/29/22 11:52 Pulse 87 03/29/22 11:52 Resp 18 03/29/22 11:52 BP 116/81 03/29/22 11:52 Pulse Ox 100 03/29/22 11:52 O2 Del Method 03/28/22 22:00 Discharge Plan Discharge Patient Disposition: Home Condition: Stable Prescriptions: New zolpidem 5 mg Tablet 5 mg PO BEDTIME 30 Days Qty: 30 1RF Invega Sustenna 117 mg/0.75 mL syringe 117 mg IM Q30D Qty: 0.75 1RF Rx Instructions: Due date for this injection: 04/22/22-04/28/2022 Continued fluticasone propion-salmeterol [Advair Diskus] 500-50 mcg/dose blister with device 1 inh INHALATION BID Qty: 60 5RF albuterol sulfate [Ventolin HFA] 90 mcg/actuation HFA aerosol inhaler 2 puff INHALATION Q6H PRN (Reason: Shortness Of Breath) Qty: 8.5 5RF celecoxib 200 mg capsule 200 mg PO DAILY Qty: 90 1RF tamsulosin 0.4 mg capsule 0.8 mg PO DAILY nicotine 21 mg/24 hr patch 24 hour 1 patch transdermal Q24H Qty: 28 1RF Discontinued tramadol 50 mg tablet 50 mg PO TID PRN (Reason: pain) Qty: 90 2RF Hold Instructions: hold until discuss need to resume with psychiatry/[facility] upon follow up benztropine 1 mg tablet 1 mg PO 0900,2100 30 Days Qty: 60 1RF Lunesta 3 mg tablet 3 mg PO BEDTIME Qty: 30 1RF ziprasidone HCl 80 mg capsule 80 mg PO BID@07,17 Qty: 60 0RF Rx Instructions: with food trazodone 100 mg tablet 100 mg PO BEDTIME Qty: 30 1RF Discharge Orders: Discharge Order (Routine); Ordered 03/29/22 Ordered By: Santana James Referrals: Kaycee Yung PMHNP [Staff Physician] - 04/22/22 12:45 pm (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 Your shot will not be on this appointment.) Discharge Diet: Advance as tolerated Discharge Activity: Resume usual activity Patient Instructions: Zolpidem (By mouth), Paliperidone (By injection), Urinary Tract Infection in Men (DC), Schizoaffective Disorder (DC), Generalized Anxiety Disorder (GEN), Opioid Safety Activity Restrictions/Additional Instructions: Follow-up with your primary doctor for assessment of hyperglycemia and further assessment for diabetes. Discuss with your primary doctor MRSA urinary tract infection, blood culture which so far is negative but is still pending. Continue follow-up with your primary doctor regarding chronic conditions including BPH, COPD, dyslipidemia hyponatremia as well as to help you quit smoking. Discharge Attestations NPU Time Spent in Discharge Care*: less than 30 min Specific Discharge Activities: Specific discharge activities: educating patient and documenting/other paperwork Coding Level of Care Code Established Pt Acute Chg FW DC note Patient Type Established Medical Decision Making Straight Forward Diagnoses MRSA (methicillin resistant Staphylococcus aureus) infection A49.02 UTI (urinary tract infection) N39.0 Hematuria presence: without hematuria Urinary tract infection type: site unspecified BPH w urinary obs/LUTS N40.1; N13.8 Hyperglycemia R73.9 COPD (chronic obstructive pulmonary disease) J43.1 COPD type: emphysema Emphysema type: panlobular Dyslipidemia E78.5 Hyponatremia E87.1 Schizoaffective disorder, unspecified F25.9 Schizoaffective disorder type: unspecified Generalized anxiety disorder F41.1
--- NOTE | 2022-03-29 13:34 | PC.NURSE ---
discharge paperwork went over and discussed with pt. pt stated understanding. counted 70.02 in peacock to pt who placed it in his wallet. pt stated count was correct. discussed future appointments and RX with pt. pt walked out and was taken to home address via ready transport. pt said thank you to everyone.
== END 2022-03-29 13:28 | disposition home or self-care (01) | DRG 885 ==
LOC: ER 22:30 → NP 22:48
PROVIDERS: Hospitalist; Internal Medicine; Admitting Provider Psychiatry & Neurology Psychiatry; Emergency Provider Emergency Medicine; PCP Family Medicine; Visit Provider Psychiatry & Neurology Psychiatry
DX: F20.0 Paranoid schizophrenia (principal); N13.8 Other obstructive and reflux uropathy; N39.0 Urinary tract infection, site not specified; E87.1 Hypo-osmolality and hyponatremia; F17.220 Nicotine dependence, chewing tobacco, uncomplicated; F17.210 Nicotine dependence, cigarettes, uncomplicated; Z91.14 Patient's other noncompliance with medication regimen; Z88.0 Allergy status to penicillin; N40.1 Benign prostatic hyperplasia with lower urinary tract symptoms; R33.8 Other retention of urine; G89.29 Other chronic pain; M54.50 Low back pain, unspecified; J43.1 Panlobular emphysema; E78.5 Hyperlipidemia, unspecified; K21.9 Gastro-esophageal reflux disease without esophagitis; B95.62 Methicillin resistant Staphylococcus aureus infection as the cause of diseases classified elsewhere; R73.9 Hyperglycemia, unspecified; Z79.51 Long term (current) use of inhaled steroids
CPT/HCPCS: 36415; 36416; 80048; 80053; 80306; 80307; 81001; 82962; 84443; 85025; 87040; 87077; 87086; 87186; 96372; 97150; 97165; 99285; Q0162; Q0163

== ENCOUNTER → 2022-04-01 09:47 | Outpatient (BNVA) | payer MEDICARE, SELFPAY | PROVIDERS: PCP Family Medicine; Visit Provider Family Medicine | DX: R73.9 Hyperglycemia, unspecified (principal) | CPT/HCPCS: 83036 ==

== ENCOUNTER → 2022-04-20 08:42 | Outpatient (BNVA) | payer MEDICARE, SELFPAY | PROVIDERS: PCP Family Medicine; Visit Provider Family Medicine | DX: G89.29 Other chronic pain (principal); J43.1 Panlobular emphysema; R73.9 Hyperglycemia, unspecified | CPT/HCPCS: 83036 ==

== ENCOUNTER → 2022-04-27 08:59 | Outpatient (BNVA) | payer MEDICARE, MEDICAID, OTHER, SELFPAY | PROVIDERS: PCP Family Medicine; Visit Provider Nurse Practitioner | DX: Z79.899 Other long term (current) drug therapy (principal) | CPT/HCPCS: 80061 ==

== ENCOUNTER 2022-05-02 12:46 | Emergency (ER) | payer MEDICARE, MEDICAID, SELFPAY ==
[2022-05-02 12:49] VITALS: BP 134/81; PULSE 80; RESP 14; O2SAT 96; BMI 18.1
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
--- NOTE | 2022-05-02 13:13 | ECG_ITS ---
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 Measurements Intervals [place] Rate: 70 P: 37 PA: 164 QRS: 17 QRSD: 104 T: 42 QT: 385 QTc: 417 Interpretive Statements SINUS RHYTHM No previous ECG available for comparison Electronically Signed On 05-02-2022 15:15:30 REVIEW ENGINEER by Armando Toribio M.D. [email or web address]
[2022-05-02 13:16] VITALS: PULSE 74; O2SAT 98
[2022-05-02 13:48] VITALS: PULSE 85; O2SAT 96
== END 2022-05-02 13:50 | disposition home or self-care (01) ==
PROVIDERS: Emergency Provider Emergency Medicine; PCP Family Medicine
DX: F41.9 Anxiety disorder, unspecified (principal); F17.210 Nicotine dependence, cigarettes, uncomplicated; F17.220 Nicotine dependence, chewing tobacco, uncomplicated; J44.9 Chronic obstructive pulmonary disease, unspecified; E78.5 Hyperlipidemia, unspecified
CPT/HCPCS: 93005; 99283; 99284

== ENCOUNTER 2022-05-18 18:09 | Emergency (ER) | payer MEDICARE, SELFPAY ==
[2022-05-18 18:12] VITALS: BP 118/82; PULSE 98; RESP 17; TEMP 36.5; O2SAT 98
[2022-05-18 18:23] VITALS: BP 118/72; PULSE 85; O2SAT 98
--- NOTE | 2022-05-18 18:42 | ED.C_ITS ---
Documented by User: Roderick Cruz DO 05/18/22 22:51 HPI - Psych General: Chief Complaint: Psychiatric Symptoms Stated Complaint: 96 hour hold Time Seen by Provider: 05/18/22 18:27 History of Present Illness: Presents to the ER by police officers for 96-hour hold. EMS brought paperwork that signed by the independent trader. Appears that patient is more paranoid and delusional than normal. He seems fixated on his neighbor. He thinks something is going wrong with his neighbor or something is going to harm his neighbor. He denies suicidal or homicidal ideations at this time. MD complaint: other (Paranoid delusions) Onset (ago): unknown Duration: getting worse History of same: Yes Relieving factors: none Exacerbating factors: none Associated psychiatric symptoms: delusions Associated symptoms: Reports delusions Treatments prior to arrival: placed on mental health hold Review of Systems General: Reports: ROS unobtainable due to medical condition (Patient has tangential thought and will not answer direct questioning with ) and Other (Rational answers.) [facility] ED PFSH: Medical History BPH w urinary obs/LUTS Chronic dryness of both eyes Chronic low back pain COPD (chronic obstructive pulmonary disease) Dyskinesia of gallbladder Dyslipidemia Generalized anxiety disorder GERD (gastroesophageal reflux disease) History of colon polyps Hyponatremia Psychiatric care Pyelonephritis due to Escherichia coli Schizoaffective disorder, unspecified Urethral injury Secondary to forcible withdrawal of catheter with balloon inflated. Well-healed on follow-up cystoscopy approximately 3 weeks post injury and catheter replacement. Urinary retention Surgical History History of appendectomy History of tonsillectomy Family History Father , AT AGE 67 Cancer LUNG Mother , AT AGE 63 Lung disease Social History Smoking and tobacco status: current some day smoker cigarettes Packs smoked per day: 1 and smokeless tobacco Alcohol intake: current Alcohol intake frequency: holidays/special occasions only Alcohol type: beer Marital status: Current occupational status: disabled Physical Exam Const: COMMON NORMALS: no acute distress, average body habitus, alert and well nourished ORIENTATION/CONSCIOUSNESS: Yes oriented to person HENMT: COMMON NORMALS: normocephalic, atraumatic and hearing grossly normal bilaterally HEAD & SCALP: normocephalic and atraumatic Eye: COMMON NORMALS: EOMs intact bilaterally and conjunctivae normal CONJUNCTIVA: Yes conjunctivae normal Neck/C-Spine: COMMON NORMALS: full ROM, no lymphadenopathy, supple and no JVD Chest: COMMONS NORMALS: normal inspection of the chest and normal palpation of entire chest wall Resp: COMMON NORMALS: normal respiratory effort, No retractions, No use of accessory muscles and clear to auscultation bilaterally AUSCULTATION: clear to auscultation bilaterally Cardio: COMMON NORMALS: no JVD, regular rate, regular rhythm, S1 normal heart sound present, S2 normal heart sound present and No gallops present (Cardio) RATE: regular rate RHYTHM: regular rhythm HEART SOUNDS: S1 normal heart sound present and S2 normal heart sound present GI: COMMON NORMALS: Normal to inspection, nondistended, normoactive bowel sounds present, Soft to palpation, non-tender, No hepatosplenomegaly present and no masses PALPATION: Yes Soft to palpation and Yes No hepatosplenomegaly present : COMMON NORMALS: Yes no CVA tenderness BLADDER/KIDNEY EXAM: Yes no CVA tenderness Back/Pelvis: COMMON NORMALS: no CVA tenderness and thoracic and lumbar spine normal to inspection Neuro: COMMON NORMALS: CN's II-XII intact bilaterally, moves all extremities, no focal motor deficits and no sensory deficits noted SENSORIUM/ORIENTATION: Yes alert and Yes oriented to person Psych: COMMON NORMALS: speech normal ATTITUDE: Yes calm ACTIVITY/MOTOR BEHAVIOR: Yes appropriate eye contact SPEECH: Yes normal speech MOOD & AFFECT: Yes Flat affect present THOUGHT PROCESS: disorganized, confused, Illogical thought process present and Tangential thought process present THOUGHT CONTENT: Yes delusions INSIGHT: Poor insight present (Psych) JUDGEMENT: Poor judgement present (Psych) Skin: COMMON NORMALS: no rashes or lesions noted, no wounds and turgor normal GENERAL SKIN EXAM: no rashes or lesions noted and turgor normal Course Vital Signs: Vital signs: Vital Signs Temperature 97.5 F L 05/19/22 12:54 Pulse Rate 81 05/19/22 12:54 Respiratory Rate 16 05/19/22 12:54 Blood Pressure 116/74 05/19/22 12:54 Pulse Oximetry 96 05/19/22 12:54 Oxygen Delivery Me thod 05/19/22 12:54 MDM - Psych Differential Diagnosis Likely acute psychosis and chronic schizophrenia; Unlikely suicidal ideation Lab Data 05/18/22 19:00 05/18/22 19:00 Radiology Impressions Chest X-Ray 05/18/22 18:44 IMPRESSION: 1. No acute cardiopulmonary process. 2. Incidental/nonacute findings are listed in the report. Laboratory Results WBC 5.3 10^3/uL (4.0-10.0) 05/18/22 19:00 RBC 4.42 10^6/uL (4.1-5.3) 05/18/22 19:00 Hgb 13.9 g/dL (11.7-16.6) 05/18/22 19:00 Hct 40.9 % (42.0-52.0) L 05/18/22 19:00 MCV 92.5 fl (80-94) 05/18/22 19:00 MCH 31.4 pg (28.0-34.0) 05/18/22 19:00 MCHC 34.0 g/dL (30.0-36.0) 05/18/22 19:00 RDW 12.1 % (12.1-15.1) 05/18/22 19:00 Plt Count 270 10^3/cmm (130-400) 05/18/22 19:00 MPV 9.5 fL (7.4-10.4) 05/18/22 19:00 Neut % (Auto) 56.9 % 05/18/22 19:00 Lymph % (Auto) 33.0 % 05/18/22 19:00 [place] % (Auto) 8.7 % 05/18/22 19:00 Eos % (Auto) 0.6 % 05/18/22 19:00 Baso % (Auto) 0.6 % 05/18/22 19:00 Neut # (Auto) 3.02 10^3/uL (1.8-7.7) 05/18/22 19:00 Lymph # (Auto) 1.8 10^3/uL (0.8-4.8) 05/18/22 19:00 [place] # (Auto) 0.5 10^3/uL (0.2-0.9) 05/18/22 19:00 Eos # (Auto) 0.0 10^3/uL (0.0-0.8) 05/18/22 19:00 Baso # (Auto) 0.0 10^3/uL (0.0-0.1) 05/18/22 19:00 Nucleated RBC % (auto) 0 % 05/18/22 19: Nucleated RBCs # 0.0 /100WBC 05/18/22 19:00 Sodium 134 mmol/L (136-145) L 05/18/22 19:00 Potassium 3.8 mmol/L (3.5-5.1) 05/18/22 19:00 Chloride 98 mmol/L (98-107) 05/18/22 19:00 Carbon Dioxide 24 mmol/L (22-29) 05/18/22 19:00 Anion Gap 15.8 (5-19) 05/18/22 19:00 BUN 12 mg/dL (6-20) 05/18/22 19:00 Creatinine 0.7 mg/dL (0.7-1.2) 05/18/22 19:00 GFR Calculation 115.4 mL/min (90-130) 05/18/22 19: Glucose 111 mg/dL (65-115) 05/18/22 19: Calculated Osmolality 278 mOsm/kg (285-295) L 05/18/22 19:00 Calcium 9.2 mg/dL (8.5-10.5) 05/18/22 19:00 Total Bilirubin 0.3 mg/dL (0.15-1.2) 05/18/22 19:00 AST 17 U/L (0-40) 05/18/22 19:00 ALT 16 U/L (0-41) 05/18/22 19:00 Alkaline Phosphatase 60 U/L (40-130) 05/18/22 19:00 Total Protein 6.5 g/dL (6.6-8.7) L 05/18/22 19:00 Albumin 4.2 g/dL (3.5-5.2) 05/18/22 19:00 Globulin 2.3 g/dL (1.3-4.6) 05/18/22 19:00 Vitamin B12 330 pg/mL (232-1245) 03/14/23 19:00 TSH 0.87 uIU/mL (0.27-4.20) 05/18/22 19:00 Free T4 1.17 ng/dL (0.82-1.77) 05/18/22 19:00 Free T3 2.6 PG/ML (2.0-4.4) 05/18/22 19:00 Urine Color Yellow (Yellow) 05/18/22 21:25 Urine Appearance Sl hazy (CLEAR) A 05/18/22 21: Urine pH 6.5 (5-7) 05/18/22 21:25 Ur Specific [place] 1.010 (1.005-1.030) 05/18/22 21: Urine Protein Neg (Negative) 05/18/22 21: Urine Glucose (UA) Norm (Normal) 05/18/22 21: Urine Ketones Negative (Negative) 05/18/22 21: Urine Blood Neg (Negative) 05/18/22 21: Urine Nitrate Positive (Negative) H 05/18/22 21: Urine Bilirubin Neg (Negative) 05/18/22 21: Urine Urobilinogen Norm mg/dL (Negative) 05/18/22 21:25 Ur Leukocyte Esterase 1+ (Negative) H 05/18/22 21:25 Urine RBC 0-4 /hpf (0-2) H 05/18/22 21:25 Urine WBC 0-4 /hpf (0-5) H 05/18/22 21:25 Ur Squamous Epith Cells 0-4 /hpf (0-5) H 05/18/22 21:25 Amorphous Sediment 1+ /hpf 05/18/22 21:25 Urine Bacteria 3+ /hpf (NONE) H 05/18/22 21:25 Salicylates < 0.3 mg/dL (3-10) L 05/18/22 19:00 Urine Opiates Screen Negative ng/mL (Negative) 05/18/22: Acetaminophen < 5.0 ug/mL (10-30) L 05/18/22 19:00 Ur Barbiturates Screen Negative ng/mL (Negative) 05/18/22 21:25 Ur Phencyclidine Scrn Negative ng/mL (Negative) 05/18/22 21:25 Ur Amphetamines Screen Negative ng/mL (Negative) 05/18/22 21:25 U Benzodiazepines Scrn Negative ng/mL (Negative) 05/18/22 21:25 Urine Cocaine Screen Negative ng/mL (Negative) 05/18/22 21:25 U Marijuana (THC) Screen Negative ng/mL (Negative) 05/18/22 21:25 Ethyl Alcohol < 10 mg/dL (0-10) 05/18/22 19:00 RPR Nonreactive (Nonreactive) 05/18/22 19:00 RPR Titer/FTA Cancelled 05/18/22 19:00 RPR w/Rflx to Titer Cancelled 05/18/22 19:00 Influenza Type A Ag negative (Negative) 05/19/22 07:23 Influenza Type B Ag positive (Negative) H 05/19/22 07:23 SARS-CoV-2 Ag (Rapid) negative (Negative) 05/18/22 21:05 EKG Data EKG 1: I personally reviewed and interpreted this EKG as follows: EKG interpretation date: 05/18/22 EKG interpretation time: 20:01 Prior EKG tracings: not available for review Interpretation: EKG showed normal sinus rhythm with a ventricular rate of 65 bpm, NM interval of 156, QRS duration 106, QTc of 396, no ST and T wave changes Discharge Plan Discharge Patient Disposition: Xfer Psychiatric Hosp Clinical Impression: Schizoaffective disorder, unspecified, Acute psychosis Condition: Stable Referrals: Mali Lerma DO [Primary Care Provider] - Sign Out Sign Out Data: Patient Sign Out occurred on 05/19/22 at 07:31. Patient's care was discussed, and care was transferred from to Baltazar Mueller DO. Coding Level of Care Code ED Equipment Services Associate for Chg Fwd Documented by User: Prosper Kaye MD 05/19/22 05:45 HPI - Psych General: Chief Complaint: Psychiatric Symptoms Stated Complaint: 96 hour hold Time Seen by Provider: 05/18/22 18:27 PFSH ED PFSH: Medical History BPH w urinary obs/LUTS Chronic dryness of both eyes Chronic low back pain COPD (chronic obstructive pulmonary disease) Dyskinesia of gallbladder Dyslipidemia Generalized anxiety disorder GERD (gastroesophageal reflux disease) History of colon polyps Hyponatremia Psychiatric care Pyelonephritis due to Escherichia coli Schizoaffective disorder, unspecified Urethral injury Secondary to forcible withdrawal of catheter with balloon inflated. Well-healed on follow-up cystoscopy approximately 3 weeks post injury and catheter replacement. Urinary retention Surgical History History of appendectomy History of tonsillectomy Family History Father , AT AGE 67 Cancer LUNG Mother , AT AGE 63 Lung disease Social History Smoking and tobacco status: current some day smoker cigarettes Packs smoked per day: 1 and smokeless tobacco Alcohol intake: current Alcohol intake frequency: holidays/special occasions only Alcohol type: beer Marital status: Current occupational status: disabled Course 2 Vital Signs: Vital signs: Vital Signs Temperature 97.5 F L 05/19/22 12:54 Pulse Rate 81 05/19/22 12:54 Respiratory Rate 16 05/19/22 12:54 Blood Pressure 116/74 05/19/22 12:54 Pulse Oximetry 96 05/19/22 12:54 Oxygen Delivery Hi thod 05/19/22 12:54 MDM - Psych Medical Decision Making 57-year-old gentleman with history of schizoaffective disorder handed off to me pending completion of ED evaluation with court ordered 96-hour hold. Patient is nontoxic and calm and cooperative at this time. Labs notable for no leukocytosis, metabolic panel without significant dera ngement to explain symptoms. Normal free T4 and free T3. Urinalysis concerning for urinary tract infection and is nitrite positive with 3+ bacteria. In review of prior cultures patient can be treated with levofloxacin. Recommend 750 mg every 24 hours for 7 days with culture results pending. I will order first dose here. Toxic ingestions and urine drug screen are negative. COVID is negative. Chest x-ray with no lobar consolidation or pneumothorax Patient exhibits evidence of psychiatric condition and given 96-hour hold from prior to arrival source he requires inpatient evaluation. In discussion with our psychiatrist patient requires transfer to outside facility. Based on ED evaluation at this point there is no obvious condition that would preclude the patient from inpatient management of psychiatric concerns/symptoms. We will look for placement. Patient care handed off to Dr. Mueller the oncoming ED physician pending continued search for placement. Additional consideration for psychiatric service consultation if patient placement appears to be further delayed. I will plan to continue his medications though for the most part his management of psychiatric condition is via long-term injectable. Lab Data 05/18/22 19:00 05/18/22 19:00 Radiology Impressions Chest X-Ray 05/18/22 18:44 IMPRESSION: 1. No acute cardiopulmonary process. 2. Incidental/nonacute findings are listed in the report. Laboratory Results WBC 5.3 10^3/uL (4.0-10.0) 05/18/22 19:00 RBC 4.42 10^6/uL (4.1-5.3) 05/18/22 19: Hgb 13.9 g/dL (11.7-16.6) 05/18/22 19: Hct 40.9 % (42.0-52.0) L 05/18/22 19: MCV 92.5 fl (80-94) 05/18/22 19: MCH 31.4 pg (28.0-34.0) 05/18/22 19: MCHC 34.0 g/dL (30.0-36.0) 05/18/22 19: RDW 12.1 % (12.1-15.1) 05/18/22 19: Plt Count 270 10^3/cmm (130-400) 05/18/22 19: MPV 9.5 fL (7.4-10.4) 05/18/22 19:00 Neut % (Auto) 56.9 % 05/18/22 19: Lymph % (Auto) 33.0 % 05/18/22 19: [place] % (Auto) 8.7 % 05/18/22 19:00 Eos % (Auto) 0.6 % 05/18/22 19:00 Baso % (Auto) 0.6 % 05/18/22 19:00 Neut # (Auto) 3.02 10^3/uL (1.8-7.7) 05/18/22 19:00 Lymph # (Auto) 1.8 10^3/uL (0.8-4.8) 05/18/22 19:00 [place] # (Auto) 0.5 10^3/uL (0.2-0.9) 05/18/22 19:00 Eos # (Auto) 0.0 10^3/uL (0.0-0.8) 05/18/22 19:00 Baso # (Auto) 0.0 10^3/uL (0.0-0.1) 05/18/22 19:00 Nucleated RBC % (auto) 0 % 05/18/22 19:00 Nucleated RBCs # 0.0 /100WBC 05/18/22 19:00 Sodium 134 mmol/L (136-145) L 05/18/22 19:00 Potassium 3.8 mmol/L (3.5-5.1) 05/18/22 19:00 Chloride 98 mmol/L (98-107) 05/18/22 19:00 Carbon Dioxide 24 mmol/L (22-29) 05/18/22 19:00 Anion Gap 15.8 (5-19) 05/18/22 19:00 BUN 12 mg/dL (6-20) 05/18/22 19:00 Creatinine 0.7 mg/dL (0.7-1.2) 05/18/22 19:00 GFR Calculation 115.4 mL/min (90-130) 05/18/22 19:00 Glucose 111 mg/dL (65-115) 05/18/22 19:00 Calculated Osmolality 278 mOsm/kg (285-295) L 05/18/22 19:00 Calcium 9.2 mg/dL (8.5-10.5) 05/18/22 19:00 Total Bilirubin 0.3 mg/dL (0.15-1.2) 05/18/22 19:00 AST 17 U/L (0-40) 05/18/22 19:00 ALT 16 U/L (0-41) 05/18/22 19:00 Alkaline Phosphatase 60 U/L (40-130) 05/18/22 19:00 Total Protein 6.5 g/dL (6.6-8.7) L 05/18/22 19:00 Albumin 4.2 g/dL (3.5-5.2) 05/18/22 19:00 Globulin 2.3 g/dL (1.3-4.6) 05/18/22 19:00 Vitamin B12 330 pg/mL (232-1245) 05/18/22 19:00 TSH 0.87 uIU/mL (0.27-4.20) 05/18/22 19: Free T4 1.17 ng/dL (0.82-1.77) 05/18/22 19: Free T3 2.6 PG/ML (2.0-4.4) 05/18/22 19:00 Urine Color Yellow (Yellow) 05/18/22 21: Urine Appearance Sl hazy (CLEAR) A 05/18/22 21: Urine pH 6.5 (5-7) 05/18/22 21:25 Ur Specific [place] 1.010 (1.005-1.030) 05/18/22 21: Urine Protein Neg (Negative) 05/18/22 21:25 Urine Glucose (UA) Norm (Normal) 05/18/22 21: Urine Ketones Negative (Negative) 05/18/22 21: Urine Blood Neg (Negative) 05/18/22 21: Urine Nitrate Positive (Negative) H 05/18/22 21: Urine Bilirubin Neg (Negative) 05/18/22 21: Urine Urobilinogen Norm mg/dL (Negative) 05/18/22 21: Ur Leukocyte Esterase 1+ (Negative) H 05/18/22 21: Urine RBC 0-4 /hpf (0-2) H 05/18/22 21:25 Urine WBC 0-4 /hpf (0-5) H 05/18/22 21:25 Ur Squamous Epith Cells 0-4 /hpf (0-5) H 05/18/22 21:25 Amorphous Sediment 1+ /hpf 05/18/22 21:25 Urine Bacteria 3+ /hpf (NONE) H 05/18/22 21:25 Salicylates < 0.3 mg/dL (3-10) L 05/18/22 19:00 Urine Opiates Screen Negative ng/mL (Negative) 05/18/22: Acetaminophen < 5.0 ug/mL (10-30) L 05/18/22 19:00 Ur Barbiturates Screen Negative ng/mL (Negative) 05/18/22 21:25 Ur Phencyclidine Scrn Negative ng/mL (Negative) 05/18/22 21:25 Ur Amphetamines Screen Negative ng/mL (Negative) 05/18/22 21:25 U Benzodiazepines Scrn Negative ng/mL (Negative) 05/18/22 21:25 Urine Cocaine Screen Negative ng/mL (Negative) 05/18/22 21:25 U Marijuana (THC) Screen Negative ng/mL (Negative) 05/18/22 21:25 Ethyl Alcohol < 10 mg/dL (0-10) 05/18/22 19:00 RPR Nonreactive (Nonreactive) 05/18/22 19:00 RPR Titer/FTA Cancelled 05/18/22 19:00 RPR w/Rflx to Titer Cancelled 05/18/22 19:00 Influenza Type A Ag negative (Negative) 05/19/22 07:23 Influenza Type B Ag positive (Negative) H 05/19/22 07:23 SARS-CoV-2 Ag (Rapid) negative (Negative) 05/18/22 21:05 Discharge Plan Discharge Patient Disposition: Xfer Psychiatric Hosp Clinical Impression: Schizoaffective disorder, unspecified, Acute psychosis Condition: Stable Referrals: Mali Lerma DO [Primary Care Provider] - Sign Out Sign Out Data: Patient Sign Out occurred on 05/19/22 at 07:31. Patient's care was discussed, and care was transferred from to Baltazar Mueller DO. Coding Level of Care Code ED Equipment Services Associate for Chg Fwd Documented by User: Baltazar Mueller DO 05/19/22 15:09 HPI - Psych General: Chief Complaint: Psychiatric Symptoms Stated Complaint: 96 hour hold Time Seen by Provider: 05/18/22 18:27 PFSH ED PFSH: Medical History BPH w urinary obs/LUTS Chronic dryness of both eyes Chronic low back pain COPD (chronic obstructive pulmonary disease) Dyskinesia of gallbladder Dyslipidemia Generalized anxiety disorder GERD (gastroesophageal reflux disease) History of colon polyps Hyponatremia Psychiatric care Pyelonephritis due to Escherichia coli Schizoaffective disorder, unspecified Urethral injury Secondary to forcible withdrawal of catheter with balloon inflated. Well-healed on follow-up cystoscopy approximately 3 weeks post injury and catheter replacement. Urinary retention Surgical History History of appendectomy History of tonsillectomy Family History Father , AT AGE 67 Cancer LUNG Mother , AT AGE 63 Lung disease Social History Smoking and tobacco status: current some day smoker cigarettes Packs smoked per day: 1 and smokeless tobacco Alcohol intake: current Alcohol intake frequency: holidays/special occasions only Alcohol type: beer Marital status: Current occupational status: disabled Course Vital Signs: Vital signs: Vital Signs Temperature 97.5 F L 05/19/22 12:54 Pulse Rate 81 05/19/22 12:54 Respiratory Rate 16 05/19/22 12:54 Blood Pressure 116/74 05/19/22 12:54 Pulse Oximetry 96 05/19/22 12:54 Oxygen Delivery Hi thod 05/19/22 12:54 MDM - Psych Medical Decision Making 57-year-old gentleman with history of schizoaffective disorder handed off to me pending completion of ED evaluation with court ordered 96-hour hold. Patient is nontoxic and calm and cooperative at this time. Labs notable for no leukocytosis, metabolic panel without significant derangement to explain symptoms. Normal free T4 and free T3. Urinalysis concerning for urinary tract infection and is nitrite positive with 3+ bacteria. In review of prior cultures patient can be treated with levofloxacin. Recommend 750 mg every 24 hours for 7 days with culture results pending. I will order first dose here. Toxic ingestions and urine drug screen are negative. COVID is negative. Chest x-ray with no lobar consolidation or pneumothorax Patient exhibits evidence of psychiatric condition and given 96-hour hold from prior to arrival source he requires inpatient evaluation. In discussion with our psychiatrist patient requires transfer to outside facility. Based on ED evaluation at this point there is no obvious condition that would preclude the patient from inpatient management of psychiatric concerns/symptoms. We will look for placement. Patient care handed off to Dr. Mueller the oncoming ED physician pending continued search for placement. Additional consideration for psychiatric service consultation if patient placement appears to be further delayed. I will plan to continue his medications though for the most part his management of psychiatric condition is via long-term injectable. Patient's chart reviewed. Patient seen and examined. No significant changes stable at this time. Reviewed the 96-hour paperwork appears to be an older format that was used. Reviewed with our head of security who made contact with our [facility] court system and reviewed discussed the issue with the current 96- hour hold formatting. It was reassured resigned and a [facility] deputy came to the emergency room to serve the papers for the patient again. We recontacted [facility] they will now consent to take the patient. His flu B was positive however the patient is asymptomatic [facility] is aware of this and still agrees to take patient on transfer. Medical Records I reviewed the patient's medical records. Lab Data I reviewed the patient's lab results. 05/18/22 19:00 05/18/22 19:00 Radiology Impressions Chest X-Ray 05/18/22 18:44 IMPRESSION: 1. No acute cardiopulmonary process. 2. Incidental/nonacute findings are listed in the report. Laboratory Results WBC 5.3 10^3/uL (4.0-10.0) 05/18/22 19: RBC 4.42 10^6/uL (4.1-5.3) 05/18/22 19:00 Hgb 13.9 g/dL (11.7-16.6) 05/18/22 19: Hct 40.9 % (42.0-52.0) L 05/18/22 19: MCV 92.5 fl (80-94) 05/18/22 19: MCH 31.4 pg (28.0-34.0) 05/18/22 19: MCHC 34.0 g/dL (30.0-36.0) 05/18/22 19: RDW 12.1 % (12.1-15.1) 05/18/22 19:00 Plt Count 270 10^3/cmm (130-400) 05/18/22 19:00 MPV 9.5 fL (7.4-10.4) 05/18/22 19:00 Neut % (Auto) 56.9 % 05/18/22 19:00 Lymph % (Auto) 33.0 % 05/18/22 19:00 [place] % (Auto) 8.7 % 05/18/22 19:00 Eos % (Auto) 0.6 % 05/18/22 19:00 Baso % (Auto) 0.6 % 05/18/22 19:00 Neut # (Auto) 3.02 10^3/uL (1.8-7.7) 05/18/22 19:00 Lymph # (Auto) 1.8 10^3/uL (0.8-4.8) 05/18/22 19:00 [place] # (Auto) 0.5 10^3/uL (0.2-0.9) 05/18/22 19:00 Eos # (Auto) 0.0 10^3/uL (0.0-0.8) 05/18/22 19:00 Baso # (Auto) 0.0 10^3/uL (0.0-0.1) 05/18/22 19:00 Nucleated RBC % (auto) 0 % 05/18/22 19:00 Nucleated RBCs # 0.0 /100WBC 05/18/22 19:00 Sodium 134 mmol/L (136-145) L 05/18/22 19:00 Potassium 3.8 mmol/L (3.5-5.1) 05/18/22 19:00 Chloride 98 mmol/L (98-107) 05/18/22 19:00 Carbon Dioxide 24 mmol/L (22-29) 05/18/22 19:00 Anion Gap 15.8 (5-19) 05/18/22 19:00 BUN 12 mg/dL (6-20) 05/18/22 19:00 Creatinine 0.7 mg/dL (0.7-1.2) 05/18/22 19:00 GFR Calculation 115.4 mL/min (90-130) 05/18/22 19:00 Glucose 111 mg/dL (65-115) 05/18/22 19:00 Calculated Osmolality 278 mOsm/kg (285-295) L 05/18/22 19:00 Calcium 9.2 mg/dL (8.5-10.5) 05/18/22 19:00 Total Bilirubin 0.3 mg/dL (0.15-1.2) 05/18/22 19:00 AST 17 U/L (0-40) 05/18/22 19: ALT 16 U/L (0-41) 05/18/22 19:00 Alkaline Phosphatase 60 U/L (40-130) 05/18/22 19: Total Protein 6.5 g/dL (6.6-8.7) L 05/18/22 19: Albumin 4.2 g/dL (3.5-5.2) 05/18/22 19: Globulin 2.3 g/dL (1.3-4.6) 05/18/22 19:00 Vitamin B12 330 pg/mL (232-1245) 05/18/22 19: TSH 0.87 uIU/mL (0.27-4.20) 05/18/22 19: Free T4 1.17 ng/dL (0.82-1.77) 05/18/22 19: Free T3 2.6 PG/ML (2.0-4.4) 05/18/22 19:00 Urine Color Yellow (Yellow) 05/18/22 21:25 Urine Appearance Sl hazy (CLEAR) A 05/18/22 21:25 Urine pH 6.5 (5-7) 05/18/22 21:25 Ur Specific [place] 1.010 (1.005-1.030) 05/18/22 21:25 Urine Protein Neg (Negative) 05/18/22 21:25 Urine Glucose (UA) Norm (Normal) 05/18/22 21: Urine Ketones Negative (Negative) 05/18/22 21: Urine Blood Neg (Negative) 05/18/22 21: Urine Nitrate Positive (Negative) H 05/18/22 21:25 Urine Bilirubin Neg (Negative) 05/18/22 21:25 Urine Urobilinogen Norm mg/dL (Negative) 05/18/22 21:25 Ur Leukocyte Esterase 1+ (Negative) H 05/18/22 21:25 Urine RBC 0-4 /hpf (0-2) H 05/18/22 21:25 Urine WBC 0-4 /hpf (0-5) H 05/18/22 21:25 Ur Squamous Epith Cells 0-4 /hpf (0-5) H 05/18/22 21:25 Amorphous Sediment 1+ /hpf 05/18/22 21:25 Urine Bacteria 3+ /hpf (NONE) H 05/18/22 21:25 Salicylates < 0.3 mg/dL (3-10) L 05/18/22 19:00 Urine Opiates Screen Negative ng/mL (Negative) 05/18/22 21:25 Acetaminophen < 5.0 ug/mL (10-30) L 05/18/22 19:00 Ur Barbiturates Screen Negative ng/mL (Negative) 05/18/22 21:25 Ur Phencyclidine Scrn Negative ng/mL (Negative) 05/18/22 21:25 Ur Amphetamines Screen Negative ng/mL (Negative) 05/18/22 21:25 U Benzodiazepines Scrn Negative ng/mL (Negative) 05/18/22 21:25 Urine Cocaine Screen Negative ng/mL (Negative) 05/18/22 21:25 U Marijuana (THC) Screen Negative ng/mL (Negative) 05/18/22 21:25 Ethyl Alcohol < 10 mg/dL (0-10) 05/18/22 19:00 RPR Nonreactive (Nonreactive) 05/18/22 19:00 RPR Titer/FTA Cancelled 05/18/22 19:00 RPR w/Rflx to Titer Cancelled 05/18/22 19:00 Influenza Type A Ag negative (Negative) 05/19/22 07:23 Influenza Type B Ag positive (Negative) H 05/19/22 07:23 SARS-CoV-2 Ag (Rapid) negative (Negative) 05/18/22 21:05 Discharge Plan Discharge Patient Disposition: Xfer Psychiatric Hosp Clinical Impression: Schizoaffective disorder, unspecified, Acute psychosis Condition: Stable Referrals: Mali Lerma DO [Primary Care Provider] - Sign Out Sign Out Data: Patient Sign Out occurred on 05/19/22 at 07:31. Patient's care was discussed, and care was transferred from to Baltazar Mueller DO. Coding Level of Care Code ED Equipment Services Associate for g Leighann
--- NOTE | 2022-05-18 18:44 | ECG_ITS ---
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
--- NOTE | 2022-05-18 18:44 | XRR_ITS ---
PROCEDURE INFORMATION: Exam: XR Chest Exam date and time: 05/18/2022 6:56 PM Age: 57 years old Clinical indication: Screening exam; Other screening; Additional info: Psychiatry clearance TECHNIQUE: Imaging protocol: Radiologic exam of the chest. Views: 1 view. COMPARISON: CR XR chest 1V portable [id number] 09/09/2021 2:23 PM FINDINGS: Lungs: Lungs are clear bilaterally. Pleural spaces: No pleural effusion. No pneumothorax. Heart/Mediastinum: Stable mild enlargement of the cardiac silhouette. Mediastinal contours are unremarkable. Vasculature: Stable vascular calcifications in the aorta. Bones/joints: Unremarkable for age. XR/XR chest 1V portable [id number] IMPRESSION: 1. No acute cardiopulmonary process. 2. Incidental/nonacute findings are listed in the report.
[2022-05-18 19:11] LABS: Basophils % 0.6 %; Eosinophils % 0.6 %; Hematocrit 40.9 % (42.0-52.0); Hemoglobin 13.9 g/dL (11.7-16.6); Lymphocytes # 1.8 10^3/uL (0.8-4.8); Mean Corpuscular Hemoglobin 31.4 pg (28.0-34.0); Mean Corpuscular Volume 92.5 fl (80-94); Mean Platelet Volume 9.5 fL (7.4-10.4); Monocytes # 0.5 10^3/uL (0.2-0.9); Monocytes % 8.7 %; Neutrophils # 3.02 10^3/uL (1.8-7.7); Neutrophils % 56.9 %; Nucleated Red Blood Cells % 0 %; Platelet Count 270 10^3/cmm (130-400); Red Blood Count 4.42 10^6/uL (4.1-5.3); Red Cell Distribution Width 12.1 % (12.1-15.1); White Blood Count 5.3 10^3/uL (4.0-10.0)
[2022-05-18 19:26] LABS: Acetaminophen < 5.0 ug/mL (10-30); Alanine Aminotransferase 16 U/L (0-41); Albumin Level 4.2 g/dL (3.5-5.2); Alcohol Level < 10 mg/dL (0-10); Alkaline Phosphatase 60 U/L (40-130); Anion Gap 15.8 (5-19); Aspartate Amino Transferase 17 U/L (0-40); Blood Urea Nitrogen 12 mg/dL (6-20); Calcium 9.2 mg/dL (8.5-10.5); Carbon Dioxide 24 mmol/L (22-29); Chloride 98 mmol/L (98-107); Globulin 2.3 g/dL (1.3-4.6); Glomerular Filtration Rate 115.4 mL/min (90-130); Glucose 111 mg/dL (65-115); Osmolality Calculated 278 mOsm/kg (285-295); Potassium 3.8 mmol/L (3.5-5.1); Salicylate < 0.3 mg/dL (3-10); Sodium 134 mmol/L (136-145); Total Bilirubin 0.3 mg/dL (0.15-1.2); Total Protein 6.5 g/dL (6.6-8.7)
[2022-05-18 20:13] VITALS: BP 123/77; PULSE 62; RESP 16; O2SAT 98
[2022-05-18 21:16] LABS: Free T4 Free Thyroxine 1.17 ng/dL (0.82-1.77); T3 Free 2.6 PG/ML (2.0-4.4)
[2022-05-18 21:27] LABS: SARS Covid-2 Antigen negative (Negative)
[2022-05-18 22:08] LABS: Add Urine Microscopic? YES; Bilirubin Urine Neg (Negative); Blood Urine Neg (Negative); Glucose Urine UA Norm (Normal); Ketones Urine Negative (Negative); Leukocyte Esterase Urine 1+ (Negative); Nitrate Urine Positive (Negative); Protein Urine Neg (Negative); Urine Appearance SL Hazy (CLEAR); Urine Color Yellow (Yellow); Urobilinogen Urine Norm (Negative); pH Urine 6.5 (5-7)
[2022-05-18 22:10] LABS: Amorphous Sediment Urine 1+ /hpf; Bacteria Urine 3+ /hpf; RBC Urine 0-4 /hpf (0-2); Squamous Epithelial Cell Urine 0-4 /hpf (0-5); WBC Urine 0-4 /hpf (0-5)
[2022-05-18 22:11] LABS: Add Urine Culture? Yes
[2022-05-18 22:16] LABS: Amphetamines Screen Urine Negative (Negative); Barbiturates Screen Urine Negative (Negative); Benzodiazepines Screen Urine Negative (Negative); Cocaine Screen Urine Negative (Negative); Opiate Screen Urine Negative (Negative); PCP Screen Urine Negative (Negative); THC Screen Urine Negative (Negative)
[2022-05-18 23:24] LABS: Vitamin B12 330 pg/mL (232-1245)
[2022-05-18] MEDS: levoFLOXacin 750 mg Tablet PO (23:31)
[2022-05-18] MEDS: trazodone 50 mg Tablet PO (23:31)
[2022-05-19] MEDS: CELEcoxib 200 mg Capsule PO (06:14)
[2022-05-19] MEDS: tamsulosin 0.4 mg Capsule 0.8 MG PO (06:15)
[2022-05-19 06:18] VITALS: BP 123/81; PULSE 76; RESP 16; O2SAT 99
--- NOTE | 2022-05-19 06:19 | PC.NURSE ---
Patient resting in bed. NAD noted. Sitter with patient. No needs voiced at this time.
--- NOTE | 2022-05-19 06:43 | PC.NURSE ---
05/18/22 235 - [facility] accepted (Dr. Edmonds) but they need a court ordered 96 hour hold for their facility. Advised Dr. Kaye and this is not possible at this time and will need to be addressed by the court in the morning to resolve this issue.
--- NOTE | 2022-05-19 06:46 | PC.NURSE ---
Report given to BROOKS Swann
--- NOTE | 2022-05-19 07:09 | DCPLANNER ---
called [place] [facility] and was advised they are pending acceptance other than needing extra labs. Dr. Mueller is putting in those orders now. The nurse said that they do accept 96 hr holds and this hold was not a problem.
--- NOTE | 2022-05-19 07:22 | PC.NURSE ---
PT SLEEPING AT THIS TIME.
--- NOTE | 2022-05-19 07:40 | PC.NURSE ---
PT RESTING IN BED. RR EQUAL AND UNLABORED
[2022-05-19 07:43] LABS: Influenza A by IFA negative (Negative); Influenza B by IFA positive (Negative)
[2022-05-19 07:59] LABS: Thyroid Stimulating Hormone 0.87 uIU/mL (0.27-4.20)
[2022-05-19 08:07] LABS: Rapid Plasma Reagin Syphilis Nonreactive (Nonreactive)
[2022-05-19] MEDS: sertraline 50 mg Tablet PO (08:49)
[2022-05-19 09:03] VITALS: BP 116/70; PULSE 82; RESP 16; O2SAT 97
--- NOTE | 2022-05-19 10:54 | DCPLANNER ---
called [facility] back to see if they will reconsider patient since we have the correct 96 hr paperwork. Mitra with [facility] advised to refax the new 96 hr hold and they will consider taking this patient.
[2022-05-19 12:54] VITALS: BP 116/74; PULSE 81; RESP 16; TEMP 36.4; O2SAT 96
--- NOTE | 2022-05-19 14:38 | DCPLANNER ---
Addendum entered by Su Black 05/19/22 14:43: Accepted at [facility] Original Note: lead clinical research coordinator was asked to look for psych placement for patient. The following facilities were called and information faxed: [place] - will not take 96'd patients [facility] - will not accept patients that are 96'd [facility] - will not accept patients that are 96'd [facility] - [phone] - [facility] - can fax paperwork - was faxed at [phone] [place] - [phone] - [place] - can fax [facility] - will not accept patients that are 96'd [place] - patient to old [place] - patient to old [facility] - patient to old [facility] - patient to old
[2022-05-19 15:32] VITALS: BP 139/87; PULSE 70; RESP 16; O2SAT 97
== END 2022-05-19 15:34 ==
PROVIDERS: Emergency Medicine; Emergency Provider Family Medicine; PCP Family Medicine
DX: F25.9 Schizoaffective disorder, unspecified (principal); Z20.822 Contact with and (suspected) exposure to COVID-19; F17.210 Nicotine dependence, cigarettes, uncomplicated; F17.220 Nicotine dependence, chewing tobacco, uncomplicated; E78.5 Hyperlipidemia, unspecified
CPT/HCPCS: 36415; 71045; 80053; 80306; 80307; 81001; 82607; 84439; 84443; 84481; 85025; 86592; 87077; 87086; 87186; 87426; 87804; 93005; 99285

== ENCOUNTER → 2022-06-08 14:25 | Outpatient (BNVA) | payer MEDICARE, MEDICAID, SELFPAY | PROVIDERS: PCP Family Medicine; Visit Provider Family Medicine | DX: R35.0 Frequency of micturition (principal) | CPT/HCPCS: 81000; 87077; 87086; 87184 ==

== ENCOUNTER → 2022-06-24 14:46 | Outpatient (BNVA) | payer OTHER, MEDICAID, SELFPAY | PROVIDERS: PCP Family Medicine; Visit Provider Urology | DX: N40.1 Benign prostatic hyperplasia with lower urinary tract symptoms (principal) | CPT/HCPCS: 81003 ==

== ENCOUNTER 2022-07-10 10:37 | Inpatient (IN) | payer MEDICARE, MEDICAID, SELFPAY ==
[2022-07-10 10:51] VITALS: BP 131/85; PULSE 78; RESP 18; TEMP 36.7; O2SAT 98
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
[2022-07-10 11:10] VITALS: BP 130/80; PULSE 78; RESP 18; O2SAT 98
[2022-07-10 11:24] LABS: Basophils % 0.4 %; Eosinophils # 0.1 10^3/uL (0.0-0.8); Eosinophils % 0.7 %; Hematocrit 37.4 % (42.0-52.0); Hemoglobin 12.7 g/dL (11.7-16.6); Lymphocytes # 1.4 10^3/uL (0.8-4.8); Lymphocytes % 19.2 %; Mean Corpuscular Hemoglobin 31.8 pg (28.0-34.0); Mean Corpuscular Volume 93.5 fl (80-94); Mean Platelet Volume 8.7 fL (7.4-10.4); Monocytes # 0.5 10^3/uL (0.2-0.9); Monocytes % 6.5 %; Neutrophils # 5.29 10^3/uL (1.8-7.7); Neutrophils % 73.1 %; Nucleated Red Blood Cells % 0 %; Platelet Count 301 10^3/cmm (130-400); White Blood Count 7.2 10^3/uL (4.0-10.0)
[2022-07-10 11:46] LABS: Alanine Aminotransferase 37 U/L (0-41); Albumin Level 3.9 g/dL (3.5-5.2); Alkaline Phosphatase 63 U/L (40-130); Anion Gap 14.1 (5-19); Aspartate Amino Transferase 23 U/L (0-40); Blood Urea Nitrogen 13 mg/dL (6-20); Calcium 8.6 mg/dL (8.5-10.5); Carbon Dioxide 24 mmol/L (22-29); Chloride 97 mmol/L (98-107); Globulin 2.4 g/dL (1.3-4.6); Glomerular Filtration Rate 115.4 mL/min (90-130); Glucose 111 mg/dL (65-115); Osmolality Calculated 273 mOsm/kg (285-295); Potassium 4.1 mmol/L (3.5-5.1); Sodium 131 mmol/L (136-145); Total Bilirubin 0.2 mg/dL (0.15-1.2); Total Protein 6.3 g/dL (6.6-8.7)
[2022-07-10 11:58] LABS: Acetaminophen < 5.0 ug/mL (10-30); Alcohol Level < 10 mg/dL (0-10); Salicylate < 0.3 mg/dL (3-10)
[2022-07-10 12:00] LABS: Urine Appearance Cloudy (CLEAR); Urine Color Straw (Yellow)
[2022-07-10 12:01] LABS: Add Urine Culture? Yes; Add Urine Microscopic? YES; Bacteria Urine 2+ /hpf; Bilirubin Urine Neg (Negative); Blood Urine 2+ (Negative); Glucose Urine UA Norm (Normal); Ketones Urine Negative (Negative); Leukocyte Esterase Urine 2+ (Negative); Nitrate Urine Positive (Negative); Protein Urine Neg (Negative); RBC Urine 0-4 /hpf (0-2); Urobilinogen Urine Norm (Negative); WBC Urine TOO NUMEROUS TO CNT /hpf (0-5); pH Urine 7 (5-7)
[2022-07-10 12:03] LABS: Amphetamines Screen Urine Negative (Negative); Barbiturates Screen Urine Negative (Negative); Benzodiazepines Screen Urine Negative (Negative); Cocaine Screen Urine Negative (Negative); Opiate Screen Urine Negative (Negative); PCP Screen Urine Negative (Negative); THC Screen Urine Negative (Negative)
[2022-07-10] MEDS: levoFLOXacin 500 mg Tablet PO (13:05)
[2022-07-10 14:47] VITALS: BP 141/83; PULSE 87; RESP 18; TEMP 36.6; O2SAT 98
--- NOTE | 2022-07-10 15:54 | PC.NURSE ---
Patient states he came to the hospital because he planned to overdose on medications. When inquiring further he states he didn't have a specific medication he planned to use, but he just wanted to end his life. Patient couldn't list or explain any precipitating factors but did say, I was just feeling really discouraged and depressed. He said he would like to know what medications he needs to be on and what medications he could take to get better sleep at night. When asking about the patient's legal history he said, well, I was arrested once but I don't know why. He endorsed [facility] when he was at [facility] one month ago, but denies any hallucinations at this time. He said he believed it was due to them changing his medications. Patient is calm and cooperative with assessment.
[2022-07-10] MEDS: risperiDONE 1 mg Tablet 2.5 MG PO (16:58)
[2022-07-10] MEDS: trazodone 50 mg Tablet PO (20:33)
[2022-07-10 21:24] VITALS: BP 100/64; PULSE 93; RESP 18; TEMP 37.1; O2SAT 95
[2022-07-11 06:00] VITALS: BP 120/75; PULSE 94; RESP 16; TEMP 36.5; O2SAT 96
[2022-07-11] MEDS: levoFLOXacin 500 mg Tablet PO (08:22)
[2022-07-11] MEDS: risperiDONE 1 mg Tablet 2.5 MG PO (08:22)
[2022-07-11] MEDS: sertraline 50 mg Tablet PO (08:22)
[2022-07-11] MEDS: prazosin 1 mg Capsule 3 MG PO (08:22)
[2022-07-11 14:00] VITALS: BP 103/61; PULSE 112; RESP 17; TEMP 36.4; O2SAT 93
--- NOTE | 2022-07-11 15:19 | P.NPUHP_ITS ---
Providers/Chief Complaint Admitting Physician: Tj Sadler MD Primary Care Provider: Mali Lerma DO Chief Complaint: PSYCH EVAL HPI NPU History of Present Illness Michael is a 57-year-old single white male with a prior history of schizoaffecti ve disorder who has been receiving outpatient follow-up at the [facility] who presented to the emergency department with complaints of suicidal ideation with a plan to overdose on his medication. Patient was admitted to the neuropsychiatric unit for further treatment and evaluation. Patient reports that he had been admitted for several weeks at a psychiatric facility in [place] in April 2022 and states that he had some of his medications changed including having been placed on oral risperidone. He reports that his last Invega shot was given on July 01, 2022 at the outpatient clinic through [facility]. He had reported that his hallucinations and paranoia had improved with the monthly shot but states that he began feeling suicidal over the past few weeks. He reports not hearing any voices of a command nature but states that his thoughts have been pushed towards suicide. He states that the triggers for this has been his active frustration in his home environment. He reports having concerns that he is not able to handle stressors at the home as he stated that he is having problems with his sewage system at home and states that he is struggling with maintaining his household. He states that he had felt frustrated at not being able to fix things around the house and it had led him to feel like he needed to hurt himself. He reports being very anxious and states that he is having a hard time controlling his worry. He reports that he is had problems with feeling tired and reports low motivation and energy. He had endorsed having suicidal thoughts in the past but states that it has been more prominent today. He reports chronic struggles with having to frequently catheterize himself in order to urinate. He reports that he needs more help at managing his own medical problems. He denies any recent drug or alcohol use. Inpatient psychiatric history: There is a history of multiple inpatient hospitalizations with the most recent hospitalization having occurred in 2022 at [place].? Outpatient psychiatric history: He had been receiving services at the [facility] with most recent visit on July 01, 2022 with a nurse at the behavioral health clinic in [place]. Medications: albuterol sulfate 90 mcg/actuation?(Ventolin HFA) 2 puffs inhalation Q6H PRN celecoxib?200 mg PO QAM fluticasone propion-salmeterol 500-50 mcg/dose?(Wixela Inhub) 1 inh inhalation BID paliperidone palmitate?(Invega Sustenna) 234 mg (1.5 mL) IM Q30D risperidone?0.5 mg PO BID risperidone?2 mg PO BID sertraline? 50mg TAKE 1 TABLET BY MOUTH EVERY DAY tamsulosin?0.8 mg PO QAM Drug and alcohol history: He denies other than smoking half to 1-1/2 packs of c igarettes a day for several years. Medical history: Benign prostatic hyperplasia lower back pain, COPD, dyslipidemia, GERD, Allergies: Penicillin Surgical history: Appendectomy, tonsillectomy Family psychiatric history: Unknown Social history: He reports that he was born in [facility] and raised by his 2 parents.? He has 1 brother.? He denied any history of trauma during his childhood.? 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 He states that he currently lives by himself in the mobile home in [place].? He has been 2 times and has several adult aged children and numerous g randchildren.? He reports that he is on disability for psychiatric reasons. Per Previous Discharge Summary on 04/01/22 at NPU: History of Present Illness Michael Munoz IV is a 56 year old male who presented to the emergency department with the following report: Chief Complaint: Psychiatric Symptoms Stated Complaint: 96 HOUR HOLD Time Seen by Provider: 03/16/22 21:33 Source: police Mode of arrival: other (Police department) Limitations: no limitations History of Present Illness:?? This patient was transported to our emergency department by [facility]'s department deputy.? Patient's been placed on a 96-hour hold due to unusual and bizarre behavior.? He allegedly is been obtaining entrance into and neighbors domicile and rearranging furniture and taking things off the wall.? He is presented to the department with court ordered 96-hour hold documents. Patient admits to going into other peoples homes and states the wind blows him there from time to time.? He states he has no thoughts of harm to others or to himself.? He denies any recent illness cough fever etc.? He denies alcohol use but does admit to smoking tobacco as well as chewing tobacco.? He states he has been taking all Prescribed medicines. History of same: Yes Relieving factors: medication Associated symptoms: Reports auditory hallucinations and visual hallucinations; Deny homicidal ideation or suicidal ideation. He was admitted to the neuropsychiatric unit for definitive treatment of those issues.? He presents today much like he did approximately 6 weeks ago wherein he had stopped taking his medication and presented confused.? He was brought into the hospital secondary to him wandering the community and going into random houses.? He reportedly went to the home of the vp digital marketing social media and crm here as well.? He presents acknowledging that he had not been taking his medication appropriately but could not give much more data than that.? We discussed the importance of him maintaining his medication so that he does not end up in the hospital and also he does not get himself in danger by wandering around into people's homes.? 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 We discussed that it was important that he be stable enough to have a job and that taking an injectable will not be different than taking the pill but it will assure us of knowing that he is in fa ct adherent to his medication.? He reported that he might be willing to do that once we discussed which medication that is and we did discuss briefly the different options that exist but agreed we would review his history to see if he has any exposure to Abilify, Invega or Risperdal or Zyprexa in their long-acting forms or oral formulations. Per his 02/08/2022 [facility] inpatient psychiatric discharge summary: Discharge Diagnosis (1) Schizoaffective disorder, unspecified: ? ? ? Status: Chronic ? ? ? Qualifiers: ? Schizoaffective disorder type: depressive? Qualified Code(s): F25.1 - Schizoaffective disorder, depressive type (2) Acute psychosis: ? ? ? Status: Deleted Reason for Visit Reason for Visit:?? Psych Evaluation? Brief History: History of Present Illness Michael Munoz IV is a 56 year old male who presented to the emergency department through the police for an evaluation.? The patient acknowledges that the police had been called out to a house in the middle of the night as the patient had been apparently trying to gain entry into another person's house.? The police during this time had apparently reported that the patient was making unusual statements while under their custody and he was reporting that he had been trying to protect the house that he was at in the middle of the night.? He was placed on a 96-hour hold upon arrival in the emergency department and admitted for further psychiatric evaluation on the neuropsychiatric unit. The patient had acknowledged having been previously diagnosed with schizoaffective disorder depressed type and he reports that a few weeks ago he decided to throw away all of his psychiatric medications and reports that mother Soledad had told me to do this .? The patient had reported that he had been pretending for too long that he needed drugs and decided to stop taking his medications.? 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 He did acknowledge having special abilities and manzanares and stated that he did not want the rest of the people here to know about his manzanares.? Previous records state that the patient has been having more recent confusion and disorganized behavior with a past history of auditory hallucinations along with depressed mood.? The patient had reported that he had been sleepwalking and stated that he lived just up the road from the house that he was picked up at by the police. Inpatient psychiatric history: There is a history of multiple inpatient hospitalizations with the most recent hospitalization having occurred in 2019.? He had been evaluated by the underwriter solicitation director of this note earlier this year on the medical floor. Outpatient psychiatric history: He had been receiving services at the [facility] with most recent visit in December 2021 with a nurse at the behavioral health clinic. Cogentin .5mg bid ?clonazepam 0.5 mg daily Vistaril 25 mg up to 3 times daily ?Lunesta to 3 mg at bedtime today ?Geodon 80 mg twice daily with food ?Wellbubtrin XL 150mg daily Drug and alcohol history: He denies other than smoking half to 1-1/2 packs of cigarettes a day for several years. Medical history: Benign prostatic hyperplasia,lower back pain, COPD, dyslipidemia, GERD, Allergies: Penicillin Surgical history: Appendectomy, tonsillectomy Medications: See below Family psychiatric history: Unknown Social history: He reports that he was born in [facility] and raised by his 2 parents.? He has 1 brother.? He denied any history of trauma during his childhood.? 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 He states that he currently lives by himself in the mobile home in [place].? He has been 2 times and has several adult aged children and numerous grandchildren.? He reports that he is on disability for psychiatric reasons. Hospital Course Hospital Course ?Discharge Summary: ? The patient was treated again by the primary medical team for urinary tract infection and was found to have MRSA in urine examination.? He had reported a general problem with maintaining compliance with his medication on an outpatient basis and so he was discharged on IM Invega on discharge with patient due for next dose of Invega IM in April of 2022.? During the hospitalization, patient had other laboratory studies which were within normal limits except for few outlier noted in urine and electrolytes which was corrected prior to discharge. ? Additionally there was a general medical evaluation which showed no new medical issues.? At the time of discharge, lethality was denied and psychosis was resolving.? Mood and anxiety were well managed.? Patient endorsed a plan to avoid all drugs of abuse and follow-up with the aftercare recommendations of the treatment team.? Patient was evaluated and deemed to be absent credible lethality, and had achieved the maximum benefit from an inpatient hospitalization, so was discharged. Meds NPU Home Medications Medication Instructions Recorded Confirmed Last Taken Type tamsulosin 0.4 mg capsule 0.8 mg PO QAM 02/02/22 07/10/22 07/09/22 History albuterol sulfate 90 mcg/actuation 2 puff inhalation Q6H PRN 04/20/22 07/10/22 Unknown Rx aerosol inhaler (Ventolin HFA) Shortness Of Breath #8.5 grams celecoxib 200 mg capsule 200 mg PO QAM 05/02/22 07/10/22 07/09/22 History fluticasone 500 mcg-salmeterol 50 1 inh inhalation BID 05/19/22 07/10/22 07/09/22 History mcg/dose blistr powdr for inhalation (Wixela Inhub) paliperidone palmitate 234 mg/1.5 234 mg (1.5 mL) IM Q30D #1.5 mL 06/29/22 07/10/22 Unknown Rx mL intramuscular syringe (Invega Sustenna) prazosin 1 mg capsule 3 mg PO DAILY #90 caps 06/30/22 07/10/22 07/09/22 Rx risperidone 0.5 mg tablet 0.5 mg PO BID #60 tabs 06/30/22 07/10/22 07/09/22 Rx risperidone 2 mg tablet 2 mg PO BID #60 tabs 06/30/22 07/10/22 07/09/22 Rx risperidone 0.5 mg tablet 2.5 mg PO BID 07/10/22 07/10/22 Unknown History sertraline 50 mg tablet 50 mg PO DAILY 07/10/22 07/10/22 07/09/22 History Allergies Allergy/AdvReac Type Severity Reaction Status Date / Time Penicillins Allergy Severe throat Verified 06/30/22 13:21 arsenioll PFSH NPU PFSH: Medical History BPH w urinary obs/LUTS Chronic dryness of both eyes Chronic low back pain COPD (chronic obstructive pulmonary disease) Dyskinesia of gallbladder Dyslipidemia Generalized anxiety disorder GERD (gastroesophageal reflux disease) History of colon polyps Hyponatremia Psychiatric care Pyelonephritis due to Escherichia coli Schizoaffective disorder, unspecified Urethral injury Secondary to forcible withdrawal of catheter with balloon inflated. Well-healed on follow-up cystoscopy approximately 3 weeks post injury and catheter replacement. Urinary retention Surgical History History of appendectomy History of tonsillectomy Family History Father , AT AGE 67 Cancer LUNG Mother , AT AGE 63 Lung disease Social History Smoking and tobacco status: former smoker Alcohol intake: current Alcohol intake frequency: holidays/special occasions only Alcohol type: beer Substance/Drug Use: unknown Marital status: Current occupational status: disabled Mental Status Exam MSE Comments: This is a well-nourished, well-developed white male appearing his stated age with adequate grooming and fair eye contact. No abnormal movements except for moderate psychomotor retardation. He was cooperative with exam in moderate distress. Speech normal in rate rhythm and prosody. His mood was described as depressed. His affect was restricted in range and mood congruent. His thought process was linear and logical. His thought content showed evidence of suicidal ideation with no homicidal ideation. There was no clear evidence of delusional thinking. He did not appear to be responding to internal stimuli. Attention and concentration are improving and memory appeared limited but none were formally tested. He is alert and oriented x to person and place and time today. Insight was poor. His judgment appeared poor. His impulse control is impaired. Vitals/I&O/Wt Last Vital Signs Temp 97.6 F 07/11/22 14:00 Pulse 112 H 07/11/22 14:00 Resp 17 07/11/22 14:00 BP 103/61 07/11/22 14:00 Pulse Ox 93 07/11/22 14:00 O2 Del Method Room Air 07/10/22 14:47 Weight last 48 hrs Weight 78.744 kg Data NPU 07/10/22 11:17 07/10/22 11:17 Micro: Microbiology 07/10/22 11:24 Urine Culture - Preliminary Urine,Clean Catch Gram Negative Rods Microbiology 07/10/22 11:24 Urine,Clean Catch Urine Culture - Preliminary Gram Negative Rods A&P Assessment and plan (1) Schizoaffective disorder, unspecified: Plan Patient is a 57-year-old white male known to the underwriter solicitation director of this note with a history of urinary tract infections increased confusion psychosis with a diagnosis schizoaffective disorder admitted with suicidal ideation with increased frustration at managing his home environment. 1.? ? Engage? patient in individual ,milieu, and group therapy ?2. ?Reduce Risperidal to 3mg/daily (patient on invega sustenna at highest dose monthly) Increase zoloft to 100mg daily to target depression. Restart other medications. ?3. ? TO-15 minute checks on the unit. ?4.? Recommend sober living treatment at the highest level of care to which the patient is willing to commit. Involuntary Hold Information 96 Hour Hold: 96 Hour Involuntary Admission: No 96 Hour Hold Ending Date: 03/23/22 96 Hour Hold Ending Time: 21:19 Attestations NPU Medical Necessity Statement*: Inpatient hospitalization is medically necessary and the clinically appropriate intervention at this time. We will monitor medications and make changes as indicated. His likely length of stay is 3-7 days. Coding Level of Care Code Acute Code for Chg Fwd Diagnoses Schizoaffective disorder, unspecified F25.9
--- NOTE | 2022-07-11 16:09 | PC.NURSE ---
out on the patio for group therapy
[2022-07-11] MEDS: risperiDONE 1 mg Tablet 1.5 MG PO (18:21)
[2022-07-11 20:14] VITALS: RESP 16
[2022-07-11] MEDS: trazodone 50 mg Tablet PO (23:51)
[2022-07-12 06:00] VITALS: BP 95/69; PULSE 109; RESP 18; TEMP 36.9; O2SAT 97
[2022-07-12] MEDS: risperiDONE 1 mg Tablet 1.5 MG PO ×2 (08:46→20:48)
[2022-07-12] MEDS: prazosin 1 mg Capsule 3 MG PO (08:47)
[2022-07-12] MEDS: levoFLOXacin 500 mg Tablet PO (08:47)
[2022-07-12] MEDS: sertraline 50 mg Tablet 100 MG PO (08:47)
--- NOTE | 2022-07-12 10:21 | PC.NURSE ---
attended Goals group @ [id number]
--- NOTE | 2022-07-12 12:25 | PC.NURSE ---
pt refused first straight cath stating that i have already peed.
[2022-07-12 14:00] VITALS: BP 93/65; PULSE 109; RESP 18; TEMP 36.6; O2SAT 96
--- NOTE | 2022-07-12 17:47 | W.PM.NPUPNS ---
Subjective NPU Subjective: Patient is a 57-year-old male with a history of schizoaffective disorder admitted with suicidal ideation. Patient had appeared at times confused today stating that he needed to go home despite complaining that he was still having suicidal thoughts. He had reported being frustrated about not being able to complete normally routine activities at home without managing to become so intensely frustrated that he had thought about hurting himself. He denied any hallucinations at this time. He had reported sleep disturbance again last night. He had reported that his depression had been difficult to manage. The patient continued to appear minimally interactive on the unit but was redirectable and able to manage his self-care better than previous hospitalizations. He had reported having nightmares regarding past trauma. He reported that his thoughts appeared clear. He had reported no problems with urination today. Mental Status Exam MSE Comments: This is a well-nourished, well-developed white male appearing his stated age with adequate grooming and fair eye contact. No abnormal movements except for moderate psychomotor retardation. He was cooperative with exam in significant distress. Speech was normal in rate rhythm and prosody. His mood was endorsed as depressed. His affect was restricted in range and mood congruent. His thought process was linear and logical. His thought content showed evidence of suicidal ideation with no homicidal ideation. There was no clear evidence of delusional thinking. He did not appear to be responding to internal stimuli. Attention and concentration are improving and memory appeared limited but none were formally tested. He is alert and oriented x to person and place and time today. Insight was poor. His judgment appeared poor. His impulse control is impaired. Vitals/I&O/Wt Last Vital Signs Temp 97.9 F 07/12/22 14:00 Pulse 109 H 07/12/22 14:00 Resp 18 07/12/22 14:00 BP 93/65 07/12/22 14:00 Pulse Ox 96 07/12/22 14:00 O2 Del Method Room Air 07/10/22 14:47 Data NPU 07/10/22 11:17 07/10/22 11:17 Micro: Microbiology 07/10/22 11:24 Urine Culture - Final Urine,Clean Catch Citrobacter Freundii Complex Microbiology 07/10/22 11:24 Urine,Clean Catch Urine Culture - Final Citrobacter Freundii Complex A&P Assessment and plan (1) Schizoaffective disorder, unspecified: Plan Patient is a 57-year-old white male known to the senior copywriter of this note with a history of urinary tract infections increased confusion psychosis with a diagnosis schizoaffective disorder admitted with suicidal ideation with increased frustration at managing his home environment. 1.? ? Engage? patient in individual ,milieu, and group therapy ?2. ?Continue to Reduce oral Risperidal to 2mg/daily (patient on invega sustenna at highest dose monthly) Continue zoloft at 100mg daily to target depression. Increase Prazosin to 4mg at night to target nightmares. ?3. ? TO-15 minute checks on the unit. ?4.? Recommend sober living treatment at the highest level of care to which the patient is willing to commit. Involuntary Hold Information 96 Hour Hold: 96 Hour Involuntary Admission: No 96 Hour Hold Ending Date: 03/23/22 96 Hour Hold Ending Time: 21:19 Attestations NPU Medical Necessity Statement*: Inpatient hospitalization is medically necessary and the clinically appropriate intervention at this time. We will monitor medications and make changes as indicated. His likely length of stay is 4-5 days. Coding Level of Care Code Acute Code for g Fwd Diagnoses Schizoaffective disorder, unspecified F25.9
[2022-07-12] MEDS: zolpidem 5 mg Tablet PO (20:48)
[2022-07-12 20:55] VITALS: BP 121/71; PULSE 112; RESP 16; TEMP 36.6; O2SAT 97
[2022-07-12 21:02] VITALS: BP 121/71; PULSE 112; RESP 16; TEMP 36.6; O2SAT 97
[2022-07-12 22:00] VITALS: BP 121/71; PULSE 112; RESP 16; TEMP 36.6; O2SAT 97
[2022-07-13 06:00] VITALS: BP 107/73; PULSE 116; RESP 14; TEMP 36.7; O2SAT 96
[2022-07-13] MEDS: sertraline 50 mg Tablet 100 MG PO (08:29)
[2022-07-13] MEDS: levoFLOXacin 500 mg Tablet PO (08:29)
[2022-07-13] MEDS: risperiDONE 1 mg Tablet 1.5 MG PO ×2 (08:30→20:00)
--- NOTE | 2022-07-13 12:16 | PC.NURSE ---
pt is currently refusing straight cath option. Will continue to monitor pt.
[2022-07-13 14:00] VITALS: BP 102/70; PULSE 97; RESP 18; TEMP 36.6; O2SAT 96
--- NOTE | 2022-07-13 16:23 | P.NPUPN_ITS ---
Subjective NPU Subjective: Patient is a 57-year-old male with a history of schizoaffective disorder admitted with suicidal ideation. Patient had denied suicidal ideation today. He stated that he was frustrated with having to catheterize himself here with people around. The patient had reported some difficulties with falling asleep. He denied any nightmares. He had reported that his mood had been better. He was less isolative on the milieu. He was redirectable and appeared to engage in appropriate conversations with his peers. He had reported that he may need help at home with managing his medical issues and stated that he had been very stressed by having to manage his medical problems on his own. He had reported that he had been so frustrated that he felt like hurting himself at the time of admission. Mental Status Exam MSE Comments: This is a well-nourished, well-developed white male appearing his stated age with adequate grooming and fair eye contact. No abnormal movements except for m mild psychomotor retardation. He was cooperative with exam in mild distress. Speech was normal in rate rhythm and prosody. His mood was endorsed as okay. His affect was blunted today. His thought process was linear and logical. His thought content showed evidence of fleeting suicidal ideation with no homicidal ideation. He did not endorse any plan. There was no clear evidence of delusional thinking. He did not appear to be responding to internal stimuli. Attention and concentration are improving and memory appeared limited. He is alert and oriented x to person and place and time today. Insight was poor. His judgment appeared poor. His impulse control is impaired. Intelligence was commensurate with mild cognitive impairment Vitals/I&O/Wt Last Vital Signs Temp 98.1 F 07/13/22 06:00 Pulse 116 H 07/13/22 06:00 Resp 14 07/13/22 06:00 BP 107/73 07/13/22 06:00 Pulse Ox 96 07/13/22 06:00 O2 Del Method Room Air 07/10/22 14:47 Data NPU 07/10/22 11:17 07/10/22 11:17 Micro: Microbiology 07/10/22 11:24 Urine Culture - Final Urine,Clean Catch Citrobacter Freundii Complex Microbiology 07/10/22 11:24 Urine,Clean Catch Urine Culture - Final Citrobacter Freundii Complex A&P Assessment and plan (1) Schizoaffective disorder, unspecified: Plan Patient is a 57-year-old white male known to the telegraphic typewriter repairer of this note with a history of urinary tract infections increased confusion psychosis with a diagnosis schizoaffective disorder admitted with suicidal ideation with increased frustration at managing his home environment. 1.? ? Engage? patient in individual ,milieu, and group therapy ?2. ?Continue to Reduce oral Risperidal to 1.5mg at night (patient on invega sustenna at highest dose monthly) Continue zoloft at 100mg daily to target depression. Increase Prazosin to 4mg at night to target nightmares. D/C ambien. Trial of Zyprexa 5mg SL at night. ?3. ? TO-15 minute checks on the unit. ?4.? Recommend sober living treatment at the highest level of care to which the patient is willing to commit. Involuntary Hold Information 96 Hour Hold: 96 Hour Involuntary Admission: No 96 Hour Hold Ending Date: 03/23/22 96 Hour Hold Ending Time: 21:19 Attestations NPU Medical Necessity Statement*: Inpatient hospitalization is medically necessary and the clinically appropriate intervention at this time. We will monitor medications and make changes as indicated. His likely length of stay is 2-3 days. Coding Level of Care Code Acute Code for [facility] Fwd Diagnoses Schizoaffective disorder, unspecified F25.9
--- NOTE | 2022-07-13 18:10 | PC.NURSE ---
pt continues to refuse self cath option. will continue to monitor.
[2022-07-13] MEDS: prazosin 1 mg Capsule 4 MG PO (19:59)
[2022-07-13] MEDS: quetiapine 100 mg Tablet PO (20:00)
[2022-07-13 22:00] VITALS: BP 108/69; PULSE 88; RESP 15; TEMP 36.8; O2SAT 96
[2022-07-14 06:00] VITALS: BP 108/75; PULSE 96; RESP 16; TEMP 36.9; O2SAT 94
[2022-07-14] MEDS: docusate sodium 100 mg Capsule 200 MG PO (08:39)
[2022-07-14] MEDS: levoFLOXacin 500 mg Tablet PO (08:39)
[2022-07-14] MEDS: sertraline 50 mg Tablet 100 MG PO (08:39)
[2022-07-14 14:30] VITALS: BP 108/75; PULSE 96; RESP 16; TEMP 36.9; O2SAT 94
--- NOTE | 2022-07-14 16:35 | W.PM.NPUDCS ---
Diagnoses at Discharge Discharge Diagnosis (1) Schizoaffective disorder, unspecified: Status: Chronic Reason for Visit Reason for Visit: PSYCH EVAL Brief History: History of Present Illness Michael is a 57-year-old single white male with a prior history of schizoaffective disorder who has been receiving outpatient follow-up at the [facility] who presented to the emergency department with complaints of suicidal ideation with a plan to overdose on his medication.? Patient was admitted to the neuropsychiatric unit for further treatment and evaluation.? Patient reports that he had been admitted for several weeks at a psychiatric facility in [place] in April 2022 and states that he had some of his medications changed including having been placed on oral risperidone.? He reports that his last Invega shot was given on July 01, 2022 at the outpatient clinic through [facility].? He had reported that his hallucinations and paranoia had improved with the monthly shot but states that he began feeling suicidal over the past few weeks.? He reports not hearing any voices of a command nature but states that his thoughts have been pushed towards suicide.? He states that the triggers for this has been his active frustration in his home environment.? He reports having concerns that he is not able to handle stressors at the home as he stated that he is having problems with his sewage system at home and states that he is struggling with maintaining his household.? He states that he had felt frustrated at not being able to fix things around the house and it had led him to feel like he needed to hurt himself.? He reports being very anxious and states that he is having a hard time controlling his worry.? He reports that he is had problems with feeling tired and reports low motivation and energy.? He had endorsed having suicidal thoughts in the past but states that it has been more prominent today.? He reports chronic struggles with having to frequently catheterize himself in order to urinate.? He reports that he needs more help at managing his own medical problems.? He denies any recent drug or alcohol use. Inpatient psychiatric history: There is a history of multiple inpatient hospitalizations with the most recent hospitalization having occurred in 2022 at [place].? Outpatient psychiatric history: He had been receiving services at the [facility] [place] with most recent visit on July 01, 2022 with a nurse at the behavioral health clinic in [place].? Medications: albuterol sulfate 90 mcg/actuation?(Ventolin HFA) 2 puffs inhalation Q6H PRN celecoxib?200 mg PO QAM fluticasone propion-salmeterol 500-50 mcg/dose?(Wixela Inhub) 1 inh inhalation BID paliperidone palmitate?(Invega Sustenna) 234 mg (1.5 mL) IM Q30D risperidone?0.5 mg PO BID risperidone?2 mg PO BID sertraline? 50mg TAKE 1 TABLET BY MOUTH EVERY DAY tamsulosin?0.8 mg PO QAM Drug and alcohol history: He denies other than smoking half to 1-1/2 packs of cigarettes a day for several years. Medical history: Benign prostatic hyperplasia lower back pain, COPD, dyslipidemia, GERD, Allergies: Penicillin Surgical history: Appendectomy, tonsillectomy Family psychiatric history: Unknown Social history: He reports that he was born in [facility] and raised by his 2 parents.? He has 1 brother.? He denied any history of trauma during his childhood.? 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 He states that he currently lives by himself in the mobile home in [place].? He has been 2 times and has several adult aged children and numerous grandchildren.? He reports that he is on disability for psychiatric reasons. Hospital Course Hospital Course During the hospitalization, patient had routine laboratory studies which were within normal limits except for few outliers. The patient had been compliant recently with his intramuscular Invega injections and it was deemed that his risperidone will pills were too high of a dose and it was slowly titrated back to a dose of 1 mg at night prior to discharge. There was no evidence of worsening psychosis with this reduction during his hospital stay. Seroquel 100 mg was added at night as he had reported that it had been helpful for sleep and managing his anxiety. Furthermore he had complained of significant depression during this stay and Zoloft was titrated up to 100 mg daily with some noted improvement in anxiety and depression. Additionally there was a general medical evaluation which was also within normal limits and revealed no new acute processes. At the time of discharge, lethality was denied and psychosis was resolving. Mood and anxiety were well managed. Patient endorsed a plan to avoid all drugs of abuse and follow-up with the aftercare recommendations of the treatment team. Patient was evaluated and deemed to be absent credible lethality, and had achieved the maximum benefit from an inpatient hospitalization, so was discharged. Involuntary Hold Information 96 Hour Hold: 96 Hour Involuntary Admission: No 96 Hour Hold Ending Date: 03/23/22 96 Hour Hold Ending Time: 21:19 Mental Status Exam MSE Comments: This is a well-nourished, well-developed white male appearing his stated age with adequate grooming and fair eye contact. No abnormal movements except for mild psychomotor retardation. He was cooperative with exam in no acute distress. Speech wanormal in rate rhythm and prosody. His mood was endorsed as okay. His affect was blunted today. His thought process was linear and logical. His thought content showed no evidence of suicidal ideation with no homicidal ideation. He did not endorse any plan. There was no clear evidence of delusional thinking. He did not appear to be responding to internal stimuli. Attention and concentration are improving and memory appeared limited. He is alert and oriented x to person and place and time today. Insight was limited.. His judgment appeared fair.. His impulse control was improving. Intelligence was commensurate with mild cognitive impairmen.t Discharge Data Studies Completed and Pending: Laboratory Results WBC 7.2 10^3/uL (4.0- 10.0) 07/10/22 11:17 RBC 4.00 10^6/uL (4.1 -5.3) L 07/10/22 11:17 Hgb 12.7 g/dL (11.7-1 6.6) 07/10/22 11:17 Hct 37.4 % (42.0-52.0 ) L 07/10/22 11:17 MCV 93.5 fl (80-94) 07/10/22 11:17 MCH 31.8 pg (28.0-34. 0) 07/10/22 11:17 MCHC 34.0 g/dL (30.0-3 6.0) 07/10/22 11:17 RDW 12.0 % (12.1-15.1 ) L 07/10/22 11:17 Plt Count 301 10^3/cmm (130 -400) 07/10/22 11:17 MPV 8.7 fL (7.4-10.4) 07/10/22 11:17 Neut % (Auto) 73.1 % 07/10/22 11:17 Lymph % (Auto) 19.2 % 07/10/22 11:17 [place] % (Auto) 6.5 % 07/10/22 11:17 Eos % (Auto) 0.7 % 07/10/22 11:17 Baso % (Auto) 0.4 % 07/10/22 11:17 Neut # (Auto) 5.29 10^3/uL (1.8 -7.7) 07/10/22 11:17 Lymph # (Auto) 1.4 10^3/uL (0.8- 4.8) 07/10/22 11:17 [place] # (Auto) 0.5 10^3/uL (0.2- 0.9) 07/10/22 11:17 Eos # (Auto) 0.1 10^3/uL (0.0- 0.8) 07/10/22 11:17 Baso # (Auto) 0.0 10^3/uL (0.0- 0.1) 07/10/22 11:17 Nucleated RBC % (a uto) 0 % 07/10/22 11:17 Nucleated RBCs # 0.0 /100WBC 07/10/22 11:17 Sodium 131 mmol/L (136-1 45) L 07/10/22 11:17 Potassium 4.1 mmol/L (3.5-5 .1) 07/10/22 11:17 Chloride 97 mmol/L (98-107 ) L 07/10/22 11:17 Carbon Dioxide 24 mmol/L (22-29) 07/10/22 11:17 Anion Gap 14.1 (5-19) 07/10/22 11:17 BUN 13 mg/dL (6-20) 07/10/22 11:17 Creatinine 0.7 mg/dL (0.7-1. 2) 07/10/22 11:17 GFR Calculation 115.4 mL/min (90- 130) 07/10/22 11:17 Glucose 111 mg/dL (65-115 ) 07/10/22 11:17 Calculated Osmolal ity 273 mOsm/kg (285- 295) L 07/10/22 11:17 Calcium 8.6 mg/dL (8.5-10 .5) 07/10/22 11:17 Total Bilirubin 0.2 mg/dL (0.15-1 .2) 07/10/22 11:17 AST 23 U/L (0-40) 07/10/22 11:17 ALT 37 U/L (0-41) 07/10/22 11:17 Alkaline Phosphata se 63 U/L (40-130) 07/10/22 11:17 Total Protein 6.3 g/dL (6.6-8.7 ) L 07/10/22 11:17 Albumin 3.9 g/dL (3.5-5.2 ) 07/10/22 11:17 Globulin 2.4 g/dL (1.3-4.6 ) 07/10/22 11:17 Urine Color Straw (Yellow) 07/10/22 11:24 Urine Appearance Cloudy (CLEAR) A 07/10/22 11:24 Urine pH 7 (5-7) 07/10/22 11:24 Ur Specific Gravit y 1.010 (1.005-1.0 30) 07/10/22 11:24 Urine Protein Neg (Negative) 07/10/22 11:24 Urine Glucose (UA) Norm (Normal) 07/10/22 11:24 Urine Ketones Negative (Negati ve) 07/10/22 11:24 Urine Blood 2+ (Negative) H 07/10/22 11:24 Urine Nitrate Positive (Negati ve) H 07/10/22 11:24 Urine Bilirubin Neg (Negative) 07/10/22 11:24 Urine Urobilinogen Norm mg/dL (Negat aleida) 07/10/22 11:24 Ur Leukocyte Alona ase 2+ (Negative) H 07/10/22 11:24 Urine RBC 0-4 /hpf (0-2) H 07/10/22 11:24 Urine WBC Too numerous to c nt /hpf (0-5) H 07/10/22 11:24 Ur Squamous Epith Cells None /hpf (0-5) 07/10/22 11:24 Amorphous Sediment Not Reportable 07/10/22 11:24 Urine Bacteria 2+ /hpf (NONE) H 07/10/22 11:24 Salicylates < 0.3 mg/dL (3-10 ) L 07/10/22 11:17 Urine Opiates Scre en Negative ng/mL (N egative) 07/10/22 11:24 Acetaminophen < 5.0 ug/mL (10-3 0) L 07/10/22 11:17 Ur Barbiturates Sc reen Negative ng/mL (N egative) 07/10/22 11:24 Ur Phencyclidine S crn Negative ng/mL (N egative) 07/10/22 11:24 Ur Amphetamines Sc reen Negative ng/mL (N egative) 07/10/22 11:24 U Benzodiazepines Scrn Negative ng/mL (N egative) 07/10/22 11:24 Urine Cocaine Scre en Negative ng/mL (N egative) 07/10/22 11:24 U Marijuana (THC) Screen Negative ng/mL (N egative) 07/10/22 11:24 Ethyl Alcohol < 10 mg/dL (0-10) 07/10/22 11:17 Vitals: Last Vital Signs Temp 98.4 F 07/14/22 14:30 Pulse 96 07/14/22 14:30 Resp 16 07/14/22 14:30 BP 108/75 07/14/22 14:30 Pulse Ox 94 07/14/22 14:30 O2 Del Method Room Air 07/14/22 06:00 Discharge Plan Discharge Patient Disposition: Home Condition: Stable Prescriptions: New prazosin 1 mg Capsule 4 mg PO BEDTIME 30 Days Qty: 120 0RF sertraline 50 mg Tablet 100 mg PO DAILY Qty: 60 1RF risperidone 1 mg Tablet 1 mg PO BEDTIME 30 Days Qty: 30 0RF levofloxacin 500 mg Tablet 500 mg PO 0900 2 Days Qty: 2 0RF quetiapine 100 mg Tablet 100 mg PO BEDTIME 30 Days Qty: 30 1RF Continued albuterol sulfate [Ventolin HFA] 90 mcg/actuation HFA aerosol inhaler 2 puff INHALATION Q6H PRN (Reason: Shortness Of Breath) Qty: 8.5 5RF Invega Sustenna 234 mg/1.5 mL syringe 234 mg IM Q30D Qty: 1.5 2RF tamsulosin 0.4 mg capsule 0.8 mg PO QAM celecoxib 200 mg capsule 200 mg PO QAM fluticasone propion-salmeterol [Wixela Inhub] 500-50 mcg/dose blister with device 1 inh INHALATION BID Discontinued risperidone 0.5 mg tablet 0.5 mg PO BID Qty: 60 2RF risperidone 2 mg tablet 2 mg PO BID Qty: 60 2RF prazosin 1 mg capsule 3 mg PO DAILY Qty: 90 1RF sertraline 50 mg tablet 50 mg PO DAILY risperidone 0.5 mg tablet 2.5 mg PO BID Discharge Orders: Discharge Order (Routine); Ordered 07/14/22 Ordered By: Santana James Referrals: Kaycee Yung PMHNP [Staff Physician] - 07/19/22 11:45 am Mali Lerma DO [Primary Care Provider] - Discharge Diet: Usual diet Discharge Activity: Resume usual activity Patient Instructions: Fluoxetine (By mouth) (Fluoxetine HCl, Gaboxetine, Prozac, Prozac Weekly), Levofloxacin (By mouth) (Levaquin, Levaquin Leva-pranay), Schizophrenia (GEN), Opioid Safety Discharge Attestations NPU Time Spent in Discharge Care*: less than 30 min Specific Discharge Activities: Specific discharge activities: educating patient and discussing with pcp/other providers Coding Level of Care Code Acute [facility] LELE note Diagnoses Schizoaffective disorder, unspecified F25.9
== END 2022-07-14 15:11 | disposition home or self-care (01) | DRG 885 ==
LOC: ER 13:39 → NP 13:57
PROVIDERS: Admitting Provider Psychiatry & Neurology Psychiatry; Emergency Provider Emergency Medicine; PCP Family Medicine; Visit Provider Psychiatry & Neurology Psychiatry
DX: F25.1 Schizoaffective disorder, depressive type (principal); R45.851 Suicidal ideations
CPT/HCPCS: 36415; 51702; 80053; 80306; 80307; 81001; 85025; 87077; 87086; 87186; 97150; 97165; 99285

== ENCOUNTER 2022-07-22 13:08 | Inpatient (IN) | payer MEDICARE, MEDICAID, SELFPAY ==
[2022-07-22 13:09] VITALS: BP 121/80; PULSE 84; RESP 16; TEMP 36.8; O2SAT 96; BMI 21.2
--- NOTE | 2022-07-22 13:10 | W.ED.PSYCHS ---
HPI - Psych General: Chief Complaint: Psychiatric Symptoms Stated Complaint: MHE Time Seen by Provider: 07/22/22 13:09 History of Present Illness: Mr. Munoz is a 57-year-old gentleman with significant past medical history of schizoaffective disorder presenting to the emergency department due to suicidal ideation with intentional drug overdose. He reports taking approximately 20 tablets of his tamsulosin 2 nights ago with the intent of killing himself. He did experience some lightheadedness and presyncopal type feeling which has improved. He reports compliance with his other medications. He denies other overdose or self-harm. He has had similar symptoms in the past. No other specific changes in health, exacerbating, or alleviating factors identified. Onset (ago): hour(s) History of same: Yes Associated psychiatric symptoms: depression and suicidal ideation If self harm: has acted on plan and intentional overdose Review of Systems General: Reports: 10 or more systems reviewed and unremarkable except in HPI and below PFSH ED PFSH: Medical History BPH w urinary obs/LUTS Chronic dryness of both eyes Chronic low back pain COPD (chronic obstructive pulmonary disease) Dyskinesia of gallbladder Dyslipidemia Generalized anxiety disorder GERD (gastroesophageal reflux disease) History of colon polyps Hyponatremia Psychiatric care Pyelonephritis due to Escherichia coli Schizoaffective disorder, unspecified Urethral injury Secondary to forcible withdrawal of catheter with balloon inflated. Well-healed on follow-up cystoscopy approximately 3 weeks post injury and catheter replacement. Urinary retention Surgical History History of appendectomy History of tonsillectomy Family History Father , AT AGE 67 Cancer LUNG Mother , AT AGE 63 Lung disease Social History Smoking and tobacco status: former smoker Alcohol intake: current Alcohol intake frequency: holidays/special occasions only Alcohol type: beer Substance/Drug Use: unknown Marital status: Current occupational status: disabled Physical Exam Const: COMMON NORMALS: alert GENERAL APPEARANCE: cooperative and well developed HENMT: COMMON NORMALS: normocephalic and atraumatic HEAD & SCALP: normocephalic and atraumatic Eye: COMMON NORMALS: conjunctivae normal CONJUNCTIVA: Yes conjunctivae normal SCLERA: sclerae normal Neck/C-Spine: COMMON NORMALS: supple GENERAL: Yes trachea midline Resp: COMMON NORMALS: clear to auscultation bilaterally EFFORT & INSPECTION: Yes able to speak in complete sentences AUSCULTATION: clear to auscultation bilaterally Cardio: COMMON NORMALS: regular rate and regular rhythm RATE: regular rate RHYTHM: regular rhythm GI: COMMON NORMALS: Soft to palpation PALPATION: Yes Soft to palpation and No Tenderness to palpation present (GI) Extremity: GENERAL: Yes normal exam except as noted and No edema Neuro: COMMON NORMALS: moves all extremities SENSORIUM/ORIENTATION: Yes alert and No Orientation impaired Psych: COMMON NORMALS: mental status grossly normal and Normal thought process present THOUGHT PROCESS: Normal thought process present Course Vital Signs: Vital signs: Vital Signs Temperature 98 F 07/22/22 17:53 Pulse Rate 72 07/22/22 17:53 Respiratory Rate 18 07/22/22 17:53 Blood Pressure 138/87 07/22/22 17:53 Pulse Oximetry 98 07/22/22 17:53 Oxygen Delivery Me thod Room Air 07/22/22 17:45 MDM - Psych Medical Decision Making 57-year-old gentleman with psychiatric history presenting with intentional drug overdose with the intent of killing himself. This happened 2 nights ago. Patient does endorse worsening depression despite recent hospitalization. He is calm and cooperative on initial exam. EKG demonstrates sinus rhythm with normal intervals and axis, no STEMI. Labs demonstrate no significant hematologic abnormality. Mild dehydration noted on metabolic panel with a overall similar to prior and not likely cause of patient's symptoms. He can adequately orally rehydrate. TSH is normal. Urine drug screen and toxic ingestions are negative. Patient is mildly orthostatic however not significant enough to warrant medical observation prior to psychiatric admission. Given timing of drug overdose I would not expect worsening. Given physical exam and clinical history provided there is no indication for imaging at this time. Based on ED evaluation at this point there is no obvious condition that would preclude the patient from inpatient management of psychiatric concerns/symptoms. Affidavit written Discussed with psychiatry service who was agreeable to admit patient. Medical Records I reviewed the patient's medical records. Lab Data I reviewed the patient's lab results. 07/22/22 13:50 07/22/22 13:50 Laboratory Results WBC 6.0 10^3/uL (4.0-10.0) 07/22/22 13:50 RBC 3.95 10^6/uL (4.1-5.3) L 07/22/22 13:50 Hgb 12.3 g/dL (11.7-16.6) 07/22/22 13:50 Hct 36.6 % (42.0-52.0) L 07/22/22 13:50 MCV 92.7 fl (80-94) 07/22/22 13:50 MCH 31.1 pg (28.0-34.0) 07/22/22 13:50 MCHC 33.6 g/dL (30.0-36.0) 07/22/22 13:50 RDW 12.1 % (12.1-15.1) 07/22/22 13:50 Plt Count 290 10^3/cmm (130-400) 07/22/22 13:50 MPV 8.8 fL (7.4-10.4) 07/22/22 13:50 Neut % (Auto) 71.1 % 07/22/22 13:50 Lymph % (Auto) 18.6 % 07/22/22 13:50 [place] % (Auto) 8.8 % 07/22/22 13:50 Eos % (Auto) 0.7 % 07/22/22 13:50 Baso % (Auto) 0.5 % 07/22/22 13:50 Neut # (Auto) 4.28 10^3/uL (1.8-7.7) 07/22/22 13:50 Lymph # (Auto) 1.1 10^3/uL (0.8-4.8) 07/22/22 13:50 [place] # (Auto) 0.5 10^3/uL (0.2-0.9) 07/22/22 13:50 Eos # (Auto) 0.0 10^3/uL (0.0-0.8) 07/22/22 13:50 Baso # (Auto) 0.0 10^3/uL (0.0-0.1) 07/22/22 13:50 Nucleated RBC % (auto) 0 % 07/22/22 13:50 Nucleated RBCs # 0.0 /100WBC 07/22/22 13:50 Sodium 130 mmol/L (136-145) L 07/22/22 13:50 Potassium 4.0 mmol/L (3.5-5.1) 07/22/22 13:50 Chloride 96 mmol/L (98-107) L 07/22/22 13:50 Carbon Dioxide 24 mmol/L (22-29) 07/22/22 13:50 Anion Gap 14.0 (5-19) 07/22/22 13:50 BUN 14 mg/dL (6-20) 07/22/22 13:50 Creatinine 0.6 mg/dL (0.7-1.2) L 07/22/22 13:50 GFR Calculation 137.9 mL/min (90-130) H 07/22/22 13:50 Glucose 103 mg/dL (65-115) 07/22/22 13:50 Calculated Osmolality 271 mOsm/kg (285-295) L 07/22/22 13:50 Calcium 8.7 mg/dL (8.5-10.5) 07/22/22 13:50 Total Bilirubin 0.3 mg/dL (0.15-1.2) 07/22/22 13:50 AST 28 U/L (0-40) 07/22/22 13:50 ALT 23 U/L (0-41) 07/22/22 13:50 Alkaline Phosphatase 53 U/L (40-130) 07/22/22 13:50 Total Protein 6.4 g/dL (6.6-8.7) L 07/22/22 13:50 Albumin 4.0 g/dL (3.5-5.2) 07/22/22 13:50 Globulin 2.4 g/dL (1.3-4.6) 07/22/22 13:50 TSH 0.95 uIU/mL (0.27-4.20) 07/22/22 13:50 Salicylates < 0.3 mg/dL (3-10) L 07/22/22 13:50 Urine Opiates Screen Negative ng/mL (Negative) 07/22/22 13:43 Acetaminophen < 5.0 ug/mL (10-30) L 07/22/22 13:50 Ur Barbiturates Screen Negative ng/mL (Negative) 07/22/22 13:43 Ur Phencyclidine Scrn Negative ng/mL (Negative) 07/22/22 13:43 Ur Amphetamines Screen Negative ng/mL (Negative) 07/22/22 13:43 U Benzodiazepines Scrn Negative ng/mL (Negative) 07/22/22 13:43 Urine Cocaine Screen Negative ng/mL (Negative) 07/22/22 13:43 U Marijuana (THC) Screen Negative ng/mL (Negative) 07/22/22 13:43 Ethyl Alcohol < 10 mg/dL (0-10) 07/22/22 13:50 Discharge Plan Discharge Patient Disposition: Admitted As Inpatient Admit Provider: Tj Sadler Clinical Impression: Suicidal ideation, Suicide attempt by drug overdose Condition: Stable Coding Level of Care Code ED Poolroom Table Attendant for 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
--- NOTE | 2022-07-22 13:16 | ECG_ITS ---
[facility] Test Date: 2022-07-22 Pat Name: Michael Munoz Department: Room: Gender: Male Delivery Lead: : 1965 Requested By: Prosper Kaye Order Number: [id number] Halina MD: Vashti Magallanes M.D. Measurements Intervals [place] Rate: 75 P: 42 DC: 155 QRS: 57 QRSD: 98 T: 46 QT: 369 QTc: 414 Interpretive Statements SINUS RHYTHM Compared to ECG 05/18/2022 20:01:16 No significant changes Electronically Signed On 07-24-2022 6:08:54 CDT by Vashti Magallanes M.D. [id number]
--- NOTE | 2022-07-22 13:24 | PC.NURSE ---
Pt is appropriate with nurse and answers questions. Discussed with pt having to dress out into scrubs, get a urine, EKG, and labs for his care -pt aggreeable to that and is up to restroom with STEVE Esparza standing at bathroom door with visualization of patient.
[2022-07-22 13:49] VITALS: BP 106/75; BP 110/77; BP 129/84; PULSE 70; PULSE 75; PULSE 84
[2022-07-22 13:58] LABS: Basophils % 0.5 %; Eosinophils % 0.7 %; Hematocrit 36.6 % (42.0-52.0); Hemoglobin 12.3 g/dL (11.7-16.6); Lymphocytes # 1.1 10^3/uL (0.8-4.8); Lymphocytes % 18.6 %; Mean Corpuscular HGB Conc 33.6 g/dL (30.0-36.0); Mean Corpuscular Hemoglobin 31.1 pg (28.0-34.0); Mean Corpuscular Volume 92.7 fl (80-94); Mean Platelet Volume 8.8 fL (7.4-10.4); Monocytes # 0.5 10^3/uL (0.2-0.9); Monocytes % 8.8 %; Neutrophils # 4.28 10^3/uL (1.8-7.7); Neutrophils % 71.1 %; Nucleated Red Blood Cells % 0 %; Platelet Count 290 10^3/cmm (130-400); Red Blood Count 3.95 10^6/uL (4.1-5.3); Red Cell Distribution Width 12.1 % (12.1-15.1)
--- NOTE | 2022-07-22 13:59 | PC.NURSE ---
Pt is appropriate with staff - pt is in room having orthostatic vitals taken by BASTING PULLER.
[2022-07-22 14:20] LABS: Amphetamines Screen Urine Negative (Negative); Barbiturates Screen Urine Negative (Negative); Benzodiazepines Screen Urine Negative (Negative); Cocaine Screen Urine Negative (Negative); Opiate Screen Urine Negative (Negative); PCP Screen Urine Negative (Negative); THC Screen Urine Negative (Negative)
--- NOTE | 2022-07-22 14:25 | PC.PHAR ---
pt sts he took 15-20 of his tamsulosin 0.4 mg on 07/20/22 qpm
[2022-07-22 14:33] LABS: Alanine Aminotransferase 23 U/L (0-41); Alkaline Phosphatase 53 U/L (40-130); Aspartate Amino Transferase 28 U/L (0-40); Blood Urea Nitrogen 14 mg/dL (6-20); Calcium 8.7 mg/dL (8.5-10.5); Carbon Dioxide 24 mmol/L (22-29); Chloride 96 mmol/L (98-107); Globulin 2.4 g/dL (1.3-4.6); Glomerular Filtration Rate 137.9 mL/min (90-130); Glucose 103 mg/dL (65-115); Osmolality Calculated 271 mOsm/kg (285-295); Sodium 130 mmol/L (136-145); Thyroid Stimulating Hormone 0.95 uIU/mL (0.27-4.20); Total Bilirubin 0.3 mg/dL (0.15-1.2); Total Protein 6.4 g/dL (6.6-8.7)
[2022-07-22 14:40] LABS: Acetaminophen < 5.0 ug/mL (10-30); Alcohol Level < 10 mg/dL (0-10); Salicylate < 0.3 mg/dL (3-10)
[2022-07-22 16:46] VITALS: BP 120/83; PULSE 70; RESP 16; TEMP 36.8; O2SAT 100
[2022-07-22 16:50] VITALS: BP 120/83; PULSE 70; RESP 16; TEMP 36.8; O2SAT 100
[2022-07-22 17:53] VITALS: BP 138/87; PULSE 72; RESP 18; TEMP 36.6; O2SAT 98
[2022-07-22] MEDS: prazosin 1 mg Capsule 4 MG PO (20:59)
[2022-07-22] MEDS: risperiDONE 1 mg Tablet PO (20:59)
[2022-07-22] MEDS: quetiapine 100 mg Tablet PO (20:59)
[2022-07-22 22:00] VITALS: BP 118/76; PULSE 70; RESP 18; TEMP 36.6; O2SAT 96
[2022-07-23] MEDS: CELEcoxib 200 mg Capsule PO (05:57)
[2022-07-23 06:00] VITALS: RESP 15
[2022-07-23 07:37] VITALS: PULSE 90; RESP 16; O2SAT 98
[2022-07-23] MEDS: albuterol 2.5 mg/3 mL Neb INHALATION (07:37)
[2022-07-23] MEDS: budesonide 0.5 mg/2 mL Neb INHALATION (07:37)
[2022-07-23] MEDS: sertraline 100 mg Tablet PO (08:03)
--- NOTE | 2022-07-23 08:11 | P.NPUHP_ITS ---
Providers/Chief Complaint Admitting Physician: Tj Sadler MD Primary Care Provider: Mali Lerma DO Chief Complaint: MHE HPI NPU History of Present Illness Michael Munoz IV is a 57 year old male who presented to the emergency department with the following report: Chief Complaint: Psychiatric Symptoms Stated Complaint: MHE Time Seen by Provider: 07/22/22 13:09 History of Present Illness: Mr. Munoz is a 57-year-old gentleman with significant past medical history of schizoaffective disorder presenting to the emergency department due to suicidal ideation with intentional drug overdose. He reports taking approximately 20 tablets of his tamsulosin 2 nights ago with the intent of killing himself. He did experience some lightheadedness and presyncopal type feeling which has improved. He reports compliance with his other medications. He denies other overdose or self-harm. He has had similar symptoms in the past. No other specific changes in health, exacerbating, or alleviating factors identified. Onset (ago): hour(s) History of same: Yes Associated psychiatric symptoms: depression and suicidal ideation If self harm: has acted on plan and intentional overdose. He was admitted to the neuropsychiatric unit for definitive treatment of those issues. He continues to report struggling with adherence to his medications. He is only Invega Sustenna injection and got his last injection 06/30/2022. He reports that he is currently living in a trailer along with his pets. And he endorsed having suicidal thoughts and being somewhat paralyzed against action that is organized. We had a lengthy discussion about the possibility for a supportive environment of an RCF. He reported that he might be open to that. At his last hospitalization efforts were made for referral for in-home services but its only been 9 days and so that has not been initiated. We talked about other considerations like possibility of a guardian which she was not wanting to do. He continues to identify that medications tend to be effective when he is taking them. An excerpt of his last hospitalization is included below for context and the fact that it is only been 9 days and there have been no substantive changes. We discussed that he really appears like some of this has to do with him being alone and without supports. He does acknowledge that that might be playing some role. We discussed the risk benefits and alternatives of restarting the medications and then considering his options and residential and he understood and agreed to proceed as is documented in this note. UDS continues to be negative. Per his 07/14/2022 [facility] inpatient psychiatric discharge summary: Michael is a 57-year-old single white male with a prior history of schizoaffective disorder who has been receiving outpatient follow-up at the [facility] who presented to the emergency department with complaints of suicidal ideation with a plan to overdose on his medication. Patient was admitted to the neuropsychiatric unit for further treatment and evaluation. Patient reports that he had been admitted for several weeks at a psychiatric facility in [place] in April 2022 and states that he had some of his medications changed including having been placed on oral risperidone. He reports that his last Invega shot was given on July 01, 2022 at the outpatient clinic through [facility]. He had reported that his hallucinations and paranoia had improved with the monthly shot but states that he began feeling suicidal over the past few weeks. He reports not hearing any voices of a command nature but states that his thoughts have been pushed towards suicide. He states that the triggers for this has been his active frustration in his home environment. He reports having concerns that he is not able to handle stressors at the home as he stated that he is having problems with his sewage system at home and states that he is struggling with maintaining his household. He states that he had felt frustrated at not being able to fix things around the house and it had led him to feel like he needed to hurt himself. He reports being very anxious and states that he is having a hard time controlling his worry. He reports that he is had problems with feeling tired and reports low motivation and energy. He had endorsed having suicidal thoughts in the past but states that it has been more prominent today. He reports chronic struggles with having to frequently catheterize himself in order to urinate. He reports that he needs more help at managing his own medical problems. He denies any recent drug or alcohol use. Inpatient psychiatric history: There is a history of multiple inpatient hospitalizations with the most recent hospitalization having occurred in 2022 at [place]. Outpatient psychiatric history: He had been receiving services at the [facility] with most recent visit on July 01, 2022 with a nurse at the behavioral health clinic in [place]. Medications: albuterol sulfate 90 mcg/actuation (Ventolin HFA) 2 puffs inhalation Q6H PRN celecoxib 200 mg PO QAM fluticasone propion-salmeterol 500-50 mcg/dose (Wixela Inhub) 1 inh inhalation BID paliperidone palmitate (Invega Sustenna) 234 mg (1.5 mL) IM Q30D risperidone 0.5 mg PO BID risperidone 2 mg PO BID sertraline 50mg TAKE 1 TABLET BY MOUTH EVERY DAY tamsulosin 0.8 mg PO QAM Drug and alcohol history: He denies other than smoking half to 1-1/2 packs of cigarettes a day for several years. Medical history: Benign prostatic hyperplasia lower back pain, COPD, dyslipidemia, GERD, Allergies: Penicillin Surgical history: Appendectomy, tonsillectomy Family psychiatric history: Unknown Social history: He reports that he was born in [place] and raised by his 2 parents. He has 1 brother. He denied any history of trauma during his childhood. 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 He sta mera that he currently lives by himself in the mobile home in [place]. He has been 2 times and has several adult aged children and numerous grandchildren. He reports that he is on disability for psychiatric reasons. Hospital Course Hospital Course During the hospitalization, patient had routine laboratory studies which were within normal limits except for few outliers. The patient had been compliant recently with his intramuscular Invega injections and it was deemed that his ri speridone will pills were too high of a dose and it was slowly titrated back to a dose of 1 mg at night prior to discharge. There was no evidence of worsening psychosis with this reduction during his hospital stay. Seroquel 100 mg was added at night as he had reported that it had been helpful for sleep and managing his anxiety. Furthermore he had complained of significant depression during this stay and Zoloft was titrated up to 100 mg daily with some noted improvement in anxiety and depression. Additionally there was a general medical evaluation which was also within normal limits and revealed no new acute processes. At the time of discharge, lethality was denied and psychosis was resolving. Mood and anxiety were well managed. Patient endorsed a plan to avoid all drugs of abuse and follow-up with the aftercare recommendations of the treatment team. Patient was evaluated and deemed to be absent credible lethality, and had achieved the maximum benefit from an inpatient hospitalization, so was discharged. Meds NPU Home Medications Medication Instructions Recorded Confirmed Last Taken Type tamsulosin 0.4 mg capsule 0.8 mg PO QAM 02/02/22 07/22/22 07/09/22 History albuterol sulfate 90 mcg/actuation 2 puff inhalation Q6H PRN 04/20/22 07/22/22 Unknown Rx aerosol inhaler (Ventolin HFA) Shortness Of Breath #8.5 grams celecoxib 200 mg capsule 200 mg PO QAM 05/02/22 07/22/22 07/09/22 History fluticasone 500 mcg-salmeterol 50 1 inh inhalation BID 05/19/22 07/22/22 07/09/22 History mcg/dose blistr powdr for inhalation (Wixela Inhub) paliperidone palmitate 234 mg/1.5 234 mg (1.5 mL) IM Q30D #1.5 mL 06/29/22 07/22/22 Unknown Rx mL [facility]uscular syringe [facility] prazosin 1 mg capsule 4 mg PO BEDTIME 30 days #120 caps 07/14/22 07/22/22 Unknown Rx quetiapine 100 mg tablet 100 mg PO BEDTIME 30 days #30 tabs 07/14/22 07/22/22 Unknown Rx risperidone 1 mg tablet 1 mg PO BEDTIME 30 days #30 tabs 07/14/22 07/22/22 Unknown Rx sertraline 100 mg tablet 100 mg PO DAILY 07/22/22 07/22/22 Unknown History Allergies Allergy/AdvReac Type Severity Reaction Status Date / Time Penicillins Allergy Severe throat Verified 07/22/22 13:12 karyn [facility] NPU PFS: Medical History BPH w urinary obs/LUTS Chronic dryness of both eyes Chronic low back pain COPD (chronic obstructive pulmonary disease) Dyskinesia of gallbladder Dyslipidemia Generalized anxiety disorder GERD (gastroesophageal reflux disease) History of colon polyps Hyponatremia Psychiatric care Pyelonephritis due to Escherichia coli Schizoaffective disorder, unspecified Urethral injury Secondary to forcible withdrawal of catheter with balloon inflated. Well-healed on follow-up cystoscopy approximately 3 weeks post injury and catheter replacement. Urinary retention Surgical History History of appendectomy History of tonsillectomy Family History Father , AT AGE 67 Cancer LUNG Mother , AT AGE 63 Lung disease Social History Smoking and tobacco status: former smoker Alcohol intake: current Alcohol intake frequency: holidays/special occasions only Alcohol type: beer Substance/Drug Use: unknown Marital status: Current occupational status: disabled Mental Status Exam MSE Comments: This is a well-nourished well-developed white male looking older than his stated age with adequate grooming and eye contact. No abnormal movements except for significant psychomotor retardation and very robotic gait. Cooperative with exam in mild to moderate distress. Speech was limited and decreased rate and volume. Mood described as fine, affect subdued flat. Thought process linear with some confusion and disorganization. Thought content: Patient denied suicidal or homicidal ideation, there were no delusions reported but concerns exist for paranoia and bizarre delusions, he did not appear to be attending to internal stimuli but did appear confused. Attention and concentration are limited and memory appeared limited as well but none were formally tested.. He is alert and oriented x to person and place. Insight, judgment and impulse control are impaired. Vitals/I&O/Wt Last Vital Signs Temp 97.9 F 07/22/22 22:00 Pulse 90 07/23/22 07:37 Resp 16 07/23/22 07:37 BP 118/76 07/22/22 22:00 Pulse Ox 98 07/23/22 07:37 O2 Del Method Room Air 07/23/22 07:37 Weight last 48 hrs Weight 63.503 kg Data NPU 07/22/22 13:50 07/22/22 13:50 A&P Assessment and plan (1) Schizoaffective disorder, unspecified: (2) Acute psychosis: Plan This is a 57-year-old white male with a long history of mental health challenges including psychotic illness with multiple recent hospitalizations presenting reporting suicidal thoughts with a plan. 1.? Restart previous medications. 2.? Encourage individual, group and milieu therapy 3.? Continue q-15 minute check for safety 4.? Recommend sober living treatment at the highest level of care to which the patient is willing to commit. 5. We will explore whether we can find an RCF or some other way to create more structure when he is outside of the hospital. Involuntary Hold Information 96 Hour Hold: 96 Hour Involuntary Admission: No Attestations NPU Medical Necessity Statement*: Inpatient hospitalization is medically necessary and the clinically appropriate intervention at this time. We will monitor medications and make changes as indicated. Patient will be in the hospital for over two midnights. Likely length of stay is 5-7 days. Coding Level of Care Code Acute Code for Chg Fwd Diagnoses Schizoaffective disorder, unspecified F25.9 Acute psychosis F23
[2022-07-23 12:07] VITALS: BP 102/79; PULSE 76; RESP 16; TEMP 36.7; O2SAT 98
[2022-07-23] MEDS: risperiDONE 1 mg Tablet PO (20:07)
[2022-07-23] MEDS: quetiapine 100 mg Tablet PO (20:07)
[2022-07-23] MEDS: prazosin 1 mg Capsule 4 MG PO (20:08)
[2022-07-23 22:00] VITALS: BP 103/67; PULSE 79; RESP 14; TEMP 36.8; O2SAT 97
[2022-07-24] MEDS: CELEcoxib 200 mg Capsule PO (05:51)
[2022-07-24 06:00] VITALS: BP 110/73; PULSE 103; RESP 16; TEMP 36.6; O2SAT 97
--- NOTE | 2022-07-24 06:00 | PC.NURSE ---
resp. pt sleeping
[2022-07-24 08:00] VITALS: PULSE 86; RESP 16; O2SAT 96
[2022-07-24] MEDS: sertraline 100 mg Tablet PO (08:27)
--- NOTE | 2022-07-24 09:45 | W.PM.NPUPNS ---
Subjective NPU Subjective: Patient presented today reporting that he is feeling okay. It was noteworthy to him that his Zoloft was being given in the morning and he normally takes it in the evening. We agree with switching to evening/afternoon tomorrow. Otherwise he denied any new issues. He reports that he is sleeping okay and eating fine. Mental Status Exam MSE Comments: This is a well-nourished well-developed white male looking older than his stated age with adequate grooming and eye contact. No abnormal movements except for significant psychomotor retardation and very robotic gait. Cooperative with exam in mild to moderate distress. Speech was limited and decreased rate and volume. Mood described as okay, affect subdued flat. Thought process linear with some confusion and disorganization. Thought content: Patient denied suicidal or homicidal ideation, there were no delusions reported but concerns exist for paranoia and bizarre delusions, he did not appear to be attending to internal stimuli but did appear confused. Attention and concentration are limited and memory appeared limited as well but none were formally tested.. He is alert and oriented x to person and place. Insight, judgment and impulse control are impaired. Vitals/I&O/Wt Last Vital Signs Temp 97.8 F 07/24/22 06:00 Pulse 103 H 07/24/22 06:00 Resp 16 07/24/22 06:00 BP 110/73 07/24/22 06:00 Pulse Ox 97 07/24/22 06:00 O2 Del Method Room Air 07/23/22 22:00 Weight last 48 hrs Weight 63.503 kg Data NPU 07/22/22 13:50 07/22/22 13:50 A&P Assessment and plan (1) Schizoaffective disorder, unspecified: (2) Acute psychosis: Plan This is a 57-year-old white male with a long history of mental health challenges including psychotic illness with multiple recent hospitalizations presenting reporting suicidal thoughts with a plan. 1.? Restart previous medications. Switch the Zoloft afternoon/evening 2.? Encourage individual, group and milieu therapy 3.? Continue q-15 minute check for safety 4.? Recommend sober living treatment at the highest level of care to which the patient is willing to commit. 5. We will explore whether we can find an RCF or some other way to create more structure when he is outside of the hospital. Involuntary Hold Information 96 Hour Hold: 96 Hour Involuntary Admission: No Attestations NPU Medical Necessity Statement*: Inpatient hospitalization is medically necessary and the clinically appropriate intervention at this time. We will monitor medications and make changes as indicated. Likely length of stay is 4-6 days. Coding Level of Care Code Acute Code for Chg Fwd Diagnoses Schizoaffective disorder, unspecified F25.9 Acute psychosis F23
[2022-07-24 14:00] VITALS: BP 108/82; PULSE 76; RESP 16; TEMP 36.4; O2SAT 98
--- NOTE | 2022-07-24 15:45 | NPU.GN ---
[facility] Group Topic:wood carft General Mood of Group- patient participated in group by putting together a wooden helicopter. Good attention, needed assistance, directions smaller. Enjoyed project, then began painting chopper.
[2022-07-24 20:00] VITALS: O2SAT 97
[2022-07-24 20:41] VITALS: BP 113/77; PULSE 101; RESP 16; TEMP 36.7; O2SAT 97
[2022-07-24] MEDS: quetiapine 100 mg Tablet PO (21:21)
[2022-07-24] MEDS: risperiDONE 1 mg Tablet PO (21:21)
[2022-07-24] MEDS: prazosin 1 mg Capsule 4 MG PO (21:21)
[2022-07-25 05:36] VITALS: BP 114/76; PULSE 104; RESP 18; TEMP 36.6; O2SAT 97
--- NOTE | 2022-07-25 07:41 | P.NPUPN_ITS ---
Subjective NPU Subjective: Patient presented today reporting that he is doing okay. We discussed his suicidal thoughts and he reported less trouble thinking. Continue to discuss his social circumstances and concerns overall that that might be contributing to the status of his frequent hospitalizations. Otherwise he denied any new issues. Mental Status Exam MSE Comments: This is a well-nourished well-developed white male looking older than his stated age with adequate grooming and eye contact. No abnormal movements except for significant psychomotor retardation and very robotic gait. Cooperative with exam in mild distress. Speech was limited and decreased rate and volume. Mood described as okay, affect subdued flat. Thought process linear with some confusion and disorganization. Thought content: Patient denied suicidal or homicidal ideation, there were no delusions reported but concerns exist for paranoia and bizarre delusions, he did not appear to be attending to internal stimuli but did appear confused. Attention and concentration are limited and memory appeared limited as well but none were formally tested.. He is alert and oriented x to person and place. Insight, judgment and impulse control are impaired. Vitals/I&O/Wt Last Vital Signs Temp 97.9 F 07/25/22 05:36 Pulse 104 H 07/25/22 05:36 Resp 18 07/25/22 05:36 BP 114/76 07/25/22 05:36 Pulse Ox 97 07/25/22 05:36 O2 Del Method Room Air 07/25/22 05:36 Weight last 48 hrs Weight 78.199 kg Data NPU 07/22/22 13:50 07/22/22 13:50 A&P Assessment and plan (1) Schizoaffective disorder, unspecified: (2) Acute psychosis: Plan This is a 57-year-old white male with a long history of mental health challenges including psychotic illness with multiple recent hospitalizations presenting r eporting suicidal thoughts with a plan. 1.? Restart previous medications. Switch the Zoloft afternoon/evening 2.? Encourage individual, group and milieu therapy 3.? Continue q-15 minute check for safety 4.? Recommend sober living treatment at the highest level of care to which the patient is willing to commit. 5. We will explore whether we can find an RCF or some other way to create more structure when he is outside of the hospital. Involuntary Hold Information 96 Hour Hold: 96 Hour Involuntary Admission: No Attestations NPU Medical Necessity Statement*: Inpatient hospitalization is medically necessary and the clinically appropriate intervention at this time. We will monitor medications and make changes as indicated. Likely length of stay is 4-6 days. Coding Level of Care Code Acute Code for Chg Fwd Diagnoses Schizoaffective disorder, unspecified F25.9 Acute psychosis F23
[2022-07-25] MEDS: CELEcoxib 200 mg Capsule PO (08:49)
[2022-07-25 14:00] VITALS: BP 103/71; PULSE 81; RESP 17; TEMP 36.6; O2SAT 97
[2022-07-25] MEDS: sertraline 100 mg Tablet PO (15:41)
[2022-07-25] MEDS: hyDROXYzine 25 mg Capsule 50 MG PO (17:37)
[2022-07-25 20:45] VITALS: BP 132/89; PULSE 80; RESP 18; TEMP 36.6; O2SAT 98
[2022-07-25] MEDS: quetiapine 100 mg Tablet PO (21:04)
[2022-07-25] MEDS: prazosin 1 mg Capsule 4 MG PO (21:04)
[2022-07-25] MEDS: risperiDONE 1 mg Tablet PO (21:04)
[2022-07-26 06:00] VITALS: RESP 16
--- NOTE | 2022-07-26 06:04 | PC.NURSE ---
resp. pt. sleeping
[2022-07-26 08:00] VITALS: PULSE 78; RESP 18; O2SAT 97
[2022-07-26] MEDS: CELEcoxib 200 mg Capsule PO (08:02)
[2022-07-26 13:51] VITALS: BP 100/66; PULSE 84; RESP 18; TEMP 36.4; O2SAT 97
[2022-07-26] MEDS: sertraline 100 mg Tablet PO (14:46)
--- NOTE | 2022-07-26 14:56 | W.PM.NPUPNS ---
Subjective NPU Subjective: Patient today reported he is doing fine. Unfortunately the conversations that seem to be fruitful about a plan for considering limited care facility seem to have denied off and he is now talked about going home. He had no answer for how things would be different and we talked about the fact that his limited ability to consider a change may lead to a movement towards guardianship. Mental Status Exam MSE Comments: This is a well-nourished well-developed white male looking older than his stated age with adequate grooming and eye contact. No abnormal movements except for significant psychomotor retardation and very robotic gait. Cooperative with exam in mild distress. Speech was limited and decreased rate and volume. Mood described as okay, affect subdued flat. Thought process linear with some confusion and disorganization. Thought content: Patient denied suicidal or homicidal ideation, there were no delusions reported but concerns exist for paranoia and bizarre delusions, he did not appear to be attending to internal stimuli but did appear confused. Attention and concentration are limited and memory appeared limited as well but none were formally tested. He is alert and oriented x to person and place. Insight, judgment and impulse control are impaired. Vitals/I&O/Wt Last Vital Signs Temp 97.5 F L 07/26/22 13:51 Pulse 84 07/26/22 13:51 Resp 18 07/26/22 13:51 BP 100/66 07/26/22 13:51 Pulse Ox 97 07/26/22 13:51 O2 Del Method Room Air 07/26/22 13:51 Weight last 48 hrs Weight 78.199 kg Data NPU 07/22/22 13:50 07/22/22 13:50 A&P Assessment and plan (1) Schizoaffective disorder, unspecified: (2) Acute psychosis: Plan This is a 57-year-old white male with a long history of mental health challenges including psychotic illness with multiple recent hospitalizations presenting reporting suicidal thoughts with a plan. 1.? Restart previous medications. Switch the Zoloft afternoon/evening 2.? Encourage individual, group and milieu therapy 3.? Continue q-15 minute check for safety 4.? Recommend sober living treatment at the highest level of care to which the patient is willing to commit. 5. We will explore whether we can find an RCF or some other way to create more structure when he is outside of the hospital. We will decide tomorrow another we need to make some kind of decision toward guardianship or decide that he returns we will make that choice. Involuntary Hold Information 96 Hour Hold: 96 Hour Involuntary Admission: No Attestations NPU Medical Necessity Statement*: Inpatient hospitalization is medically necessary and the clinically appropriate intervention at this time. We will monitor medications and make changes as indicated. Likely length of stay is 1-3 days unless we decide we need to pursue guardianship. Coding Level of Care Code Acute Code for Chg Fwd Diagnoses Schizoaffective disorder, unspecified F25.9 Acute psychosis F23
[2022-07-26 19:30] VITALS: PULSE 81; RESP 18; O2SAT 96
[2022-07-26] MEDS: risperiDONE 1 mg Tablet PO (19:56)
[2022-07-26] MEDS: quetiapine 100 mg Tablet PO (19:57)
[2022-07-26] MEDS: prazosin 1 mg Capsule 4 MG PO (19:57)
[2022-07-26 20:13] VITALS: BP 126/89; PULSE 79; RESP 18; TEMP 36.4; O2SAT 98
[2022-07-27 05:43] VITALS: BP 108/65; PULSE 90; RESP 18; TEMP 36.5; O2SAT 96
[2022-07-27] MEDS: CELEcoxib 200 mg Capsule PO (05:58)
--- NOTE | 2022-07-27 08:36 | PC.NURSE ---
shift assessment stated he's having some trouble having a bowel movement, offered prune & apple juice which patient accepted
--- NOTE | 2022-07-27 11:19 | W.PM.NPUPNS ---
Subjective NPU Subjective: Patient presented today reporting that he is doing okay. At this point he is agreeing that he will work with us to get him into [facility] or some other facility so that he will have greater stability. This point he is agreeable but he has been somewhat ambivalent about the move but is also agreeable that he would do better in the this type of situation. He was agreeable to give it a try and continues to be consistent with his medication. He will get his regular Invega Sustenna injection tomorrow. Mental Status Exam MSE Comments: This is a well-nourished well-developed white male looking older than his stated age with adequate grooming and eye contact. No abnormal movements except for significant psychomotor retardation and very robotic gait. Cooperative with exam in mild distress. Speech was limited and decreased rate and volume. Mood described as all right, affect subdued and flat. Thought process linear with less confusion and disorganization. Thought content: Patient denied suicidal or homicidal ideation, there were no delusions reported but concerns exist for paranoia and bizarre delusions, he did not appear to be attending to internal stimuli but did appear confused. Attention and concentration are limited and memory appeared limited as well but none were formally tested. He is alert and oriented x to person and place. Insight, judgment and impulse control are impaired. Vitals/I&O/Wt Last Vital Signs Temp 97.2 F L 07/27/22 14:00 Pulse 81 07/27/22 14:00 Resp 17 07/27/22 14:00 BP 116/68 07/27/22 14:00 Pulse Ox 99 07/27/22 14:00 O2 Del Method Room Air 07/27/22 14:00 Data NPU 07/22/22 13:50 07/22/22 13:50 A&P Assessment and plan (1) Schizoaffective disorder, unspecified: (2) Acute psychosis: Plan This is a 57-year-old white male with a long history of mental health challenges including psychotic illness with multiple recent hospitalizations presenting reporting suicidal thoughts with a plan. 1.? Restart previous medications. Switch the Zoloft afternoon/evening. Invega Sustenna 234 mg IM tomorrow. 2.? Encourage individual, group and milieu therapy 3.? Continue q-15 minute check for safety 4.? Recommend sober living treatment at the highest level of care to which the patient is willing to commit. 5. We will explore whether we can find an RCF or some other way to create more structure when he is outside of the hospital. Involuntary Hold Information 96 Hour Hold: 96 Hour Involuntary Admission: No Attestations NPU Medical Necessity Statement*: Inpatient hospitalization is medically necessary and the clinically appropriate intervention at this time. We will monitor medications and make changes as indicated. Likely length of stay is 3-5. Awaiting [facility] decision. Coding Level of Care Code Acute Code for Chg Fwd Diagnoses Schizoaffective disorder, unspecified F25.9 Acute psychosis F23
[2022-07-27 14:00] VITALS: BP 116/68; PULSE 81; RESP 17; TEMP 36.2; O2SAT 99
[2022-07-27] MEDS: sertraline 100 mg Tablet PO (14:57)
[2022-07-27 19:53] VITALS: BP 104/70; PULSE 69; RESP 16; TEMP 36.4; O2SAT 97
[2022-07-27] MEDS: risperiDONE 1 mg Tablet PO (20:53)
[2022-07-27] MEDS: quetiapine 100 mg Tablet PO (20:53)
[2022-07-27] MEDS: prazosin 1 mg Capsule 4 MG PO (20:53)
[2022-07-28] MEDS: CELEcoxib 200 mg Capsule PO (05:57)
[2022-07-28 06:00] VITALS: BP 101/82; PULSE 92; RESP 14; TEMP 36.8; O2SAT 95
[2022-07-28] MEDS: paliperidone palmitate 156 mg Syringe IM (08:11)
[2022-07-28] MEDS: haloperidol 5 mg Tablet PO (08:11)
--- NOTE | 2022-07-28 09:36 | PC.NURSE ---
PT DENIES SI/HI AT THIS TIME. PT DOES REPORT AH, DENIES VH. PT STATES HE HEARS VOICES THAT AE NEGATIVE IN NATURE BUT MAINLY CHATTERING, PT WAS OFFERED HALDOL FOR THE VOICES AND ACCEPTS. PT GIVEN HALDOL 5 MG ORDERED FOR AH AND ANXIETY. PT WAS GIVEN HIS 2ND INVEGA INJECTION 156 MG TO THE RIGHT DELTOID. REPORTS I SLEPT PRETTY GOOD. DENIES PAIN. REPORTS BM 07/27/22. PT UP FOR BREAKFAST THEN REQUESTED TO LAY DOWN. STATED I THINK I FEEL DIFFERENT. PT WAS INSTRUCTED TO REST AND RN WOULD CHECK ON HIM LATER.
[2022-07-28 14:00] VITALS: BP 115/78; PULSE 61; RESP 16; TEMP 36.8; O2SAT 99
[2022-07-28] MEDS: sertraline 100 mg Tablet PO (14:03)
--- NOTE | 2022-07-28 14:07 | P.NPUPN_ITS ---
Subjective NPU Subjective: Patient presented today reporting that he is doing okay. He reports that he has managed his Invega injection today and he is starting to feel better. He was having some psychosis this morning but reports that he is doing better now. His ambivalence about a more residential situation seems to be resolving. He was feeling very positive about the news today that he was going to [facility] on Tuesday. We discussed the benefits of him being in a more structured environment from a standpoint of avoiding future suicide attempts and keeping his medication regulated. Mental Status Exam MSE Comments: This is a well-nourished well-developed white male looking older than his stated age with adequate grooming and eye contact. No abnormal movements except for significant psychomotor retardation and very robotic gait. Cooperative with exam in mild distress. Speech was limited and decreased rate and volume. Mood described as all right, affect subdued and flat. Thought process linear with l ess confusion and disorganization. Thought content: Patient denied suicidal or homicidal ideation, there were no delusions reported but concerns exist for paranoia and bizarre delusions, he did not appear to be attending to internal stimuli but did appear confused. Attention and concentration are limited and memory appeared limited as well but none were formally tested. He is alert and oriented x to person and place. Insight, judgment and impulse control are impaired. Vitals/I&O/Wt Last Vital Signs Temp 98.2 F 07/28/22 06:00 Pulse 92 07/28/22 06:00 Resp 14 07/28/22 06:00 BP 101/82 07/28/22 06:00 Pulse Ox 95 07/28/22 06:00 O2 Del Method Room Air 07/28/22 06:00 Data NPU 07/22/22 13:50 07/22/22 13:50 A&P Assessment and plan (1) Schizoaffective disorder, unspecified: (2) Acute psychosis: Plan This is a 57-year-old white male with a long history of mental health challenges including psychotic illness with multiple recent hospitalizations presenting reporting suicidal thoughts with a plan. 1.? Restart previous medications. Switched the Zoloft afternoon/evening. Invega Sustenna 234 mg IM scheduled today 07/28/2022. 2.? Encourage individual, group and milieu therapy 3.? Continue q-15 minute check for safety 4.? Recommend sober living treatment at the highest level of care to which the patient is willing to commit. 5. Discharge to [facility] 08/02/2022. Involuntary Hold Information 96 Hour Hold: 96 Hour Involuntary Admission: No Attestations NPU Medical Necessity Statement*: Inpatient hospitalization is medically necessary and the clinically appropriate intervention at this time. We will monitor medications and make changes as indicated. Likely length of stay is 5 days. Coding Level of Care Code Acute Code for [facility] Fwd Diagnoses Schizoaffective disorder, unspecified F25.9 Acute psychosis F23
[2022-07-28 20:00] VITALS: PULSE 83; RESP 18; O2SAT 94
[2022-07-28] MEDS: quetiapine 100 mg Tablet PO (20:24)
[2022-07-28] MEDS: risperiDONE 1 mg Tablet PO (20:24)
[2022-07-28] MEDS: prazosin 1 mg Capsule 4 MG PO (20:24)
[2022-07-28 21:04] VITALS: BP 118/80; PULSE 73; RESP 18; TEMP 36.8; O2SAT 99
[2022-07-29] MEDS: CELEcoxib 200 mg Capsule PO (05:59)
[2022-07-29 06:00] VITALS: BP 120/83; PULSE 104; RESP 16; TEMP 36.6; O2SAT 98
[2022-07-29 14:00] VITALS: BP 108/71; PULSE 69; RESP 20; TEMP 36.8; O2SAT 98
[2022-07-29] MEDS: sertraline 100 mg Tablet PO (14:05)
--- NOTE | 2022-07-29 16:05 | P.NPUPN_ITS ---
Subjective NPU Subjective: Patient presented today reporting that he is doing okay. He is reporting some conversation between he and his girlfriend about him going to [facility]. We had a lengthy conversation about the fact that [facility] is not a locked facility and it would not prevent him from having her visit or him visiting her but that the stability and the structure that we have discussed will be there. He c ontinues to appear to be planning this placement, but girlfriend likely has some aspects of this that she will not like. Mental Status Exam MSE Comments: This is a well-nourished well-developed white male looking older than his stated age with adequate grooming and eye contact. No abnormal movements except for significant psychomotor retardation and very robotic gait. Cooperative with exam in mild distress. Speech was limited and decreased rate and volume. Mood described as all right, affect subdued and flat. Thought process linear without confusion and disorganization. Thought content: Patient denied suicidal or homicidal ideation, there were no delusions reported but concerns exist for paranoia and bizarre delusions, he did not appear to be attending to internal stimuli but did appear confused. Attention and concentration are limited and memory appeared limited as well but none were formally tested. He is alert and oriented x to person and place. Insight and judgment are limited and impulse control are limited. Vitals/I&O/Wt Last Vital Signs Temp 98.9 F 07/29/22 20:23 Pulse 87 07/29/22 20:23 Resp 18 07/29/22 20:23 BP 112/72 07/29/22 20:23 Pulse Ox 98 07/29/22 20:23 O2 Del Method Room Air 07/29/22 20:23 Data NPU 07/22/22 13:50 07/22/22 13:50 A&P Assessment and plan (1) Schizoaffective disorder, unspecified: (2) Acute psychosis: Plan This is a 57-year-old white male with a long history of mental health challenges including psychotic illness with multiple recent hospitalizations presenting reporting suicidal thoughts with a plan. 1.? Restart previous medications. Switched the Zoloft afternoon/evening. Invega Sustenna 234 mg IM scheduled given 07/28/2022. 2.? Encourage individual, group and milieu therapy 3.? Continue q-15 minute check for safety 4.? Recommend sober living treatment at the highest level of care to which the patient is willing to commit. 5. Discharge to [facility] 08/02/2022. Involuntary Hold Information 96 Hour Hold: 96 Hour Involuntary Admission: No Attestations NPU Medical Necessity Statement*: Inpatient hospitalization is medically necessary and the clinically appropriate intervention at this time. We will monitor medications and make changes as indicated. Likely length of stay is 4 days. Coding Level of Care Code Acute Code for [facility] Fwd Diagnoses Schizoaffective disorder, unspecified F25.9 Acute psychosis F23
[2022-07-29 20:00] VITALS: PULSE 62; RESP 18; O2SAT 96
[2022-07-29] MEDS: prazosin 1 mg Capsule 4 MG PO (20:19)
[2022-07-29] MEDS: acetaminophen 325 mg Tablet 650 MG PO (20:19)
[2022-07-29] MEDS: risperiDONE 1 mg Tablet PO (20:19)
[2022-07-29] MEDS: quetiapine 100 mg Tablet PO (20:19)
[2022-07-29 20:23] VITALS: BP 112/72; PULSE 87; RESP 18; TEMP 37.2; O2SAT 98
[2022-07-30] MEDS: CELEcoxib 200 mg Capsule PO (05:51)
[2022-07-30 06:00] VITALS: BP 102/63; PULSE 91; RESP 18; TEMP 37; O2SAT 96
[2022-07-30 08:00] VITALS: PULSE 107; RESP 18; O2SAT 95
[2022-07-30] MEDS: docusate sodium 100 mg Capsule PO ×2 (08:13→17:49)
[2022-07-30] MEDS: acetaminophen 325 mg Tablet 650 MG PO (08:44)
--- NOTE | 2022-07-30 12:46 | P.NPUPN_ITS ---
Subjective NPU Subjective: Patient presented today reporting that he is doing okay. We continued to discuss his admission date at [facility] on Tuesday. He continued to seem like he was invested in the plan. Since we last talked his son is aware of this opportunity and he has been working with his dad about the importance of doing this so that he can be safe. Patient seems to be leaning towards embracing this opportunity. Mental Status Exam MSE Comments: This is a well-nourished well-developed white male looking older than his stated age with adequate grooming and eye contact. No abnormal movements except for significant psychomotor retardation and very robotic gait. Cooperative with exam in mild distress. Speech was limited and decreased rate and volume. Mood described as okay, affect subdued and flat. Thought process linear without confusion and disorganization. Thought content: Patient denied suicidal or homicidal ideation, there were no delusions reported but concerns exist for paranoia and bizarre delusions, he did not appear to be attending to internal stimuli but did appear confused. Attention and concentration are limited and memory appeared limited as well but none were formally tested. He is alert and oriented x to person and place. Insight and judgment are limited and impulse control are limited. Vitals/I&O/Wt Last Vital Signs Temp 98.6 F 07/30/22 06:00 Pulse 91 07/30/22 06:00 Resp 18 07/30/22 06:00 BP 102/63 07/30/22 06:00 Pulse Ox 96 07/30/22 06:00 O2 Del Method Room Air 07/30/22 06:00 Data NPU 07/22/22 13:50 07/22/22 13:50 A&P Assessment and plan (1) Schizophrenia: (2) Suicide attempt by drug overdose: (3) Suicidal ideation: (4) Schizoaffective disorder, unspecified: Plan This is a 57-year-old white male with a long history of mental health challenges including psychotic illness with multiple recent hospitalizations presenting reporting suicidal thoughts with a plan. 1.? Restart previous medications. Switched the Zoloft afternoon/evening. Invega Sustenna 234 mg IM scheduled given 07/28/2022. 2.? Encourage individual, group and milieu therapy 3.? Continue q-15 minute check for safety 4.? Recommend sober living treatment at the highest level of care to which the patient is willing to commit. 5. Discharge to [facility] 08/02/2022. Involuntary Hold Information 96 Hour Hold: 96 Hour Involuntary Admission: No Attestations NPU Medical Necessity Statement*: Inpatient hospitalization is medically necessary and the clinically appropriate intervention at this time. We will monitor medications and make changes as indicated. Likely length of stay is 3 days. Coding Level of Care Code Acute Code for [facility] Fwd Diagnoses Schizophrenia F20.9 Suicide attempt by drug overdose T50.902A Suicidal ideation R45.851 Schizoaffective disorder, unspecified F25.9
[2022-07-30 14:00] VITALS: BP 98/67; PULSE 85; RESP 18; TEMP 36.6; O2SAT 96
[2022-07-30] MEDS: sertraline 100 mg Tablet PO (14:05)
[2022-07-30 20:00] VITALS: PULSE 71; RESP 18; O2SAT 95
[2022-07-30] MEDS: prazosin 1 mg Capsule 4 MG PO (21:14)
[2022-07-30] MEDS: quetiapine 100 mg Tablet PO (21:14)
[2022-07-30] MEDS: risperiDONE 1 mg Tablet PO (21:14)
[2022-07-30] MEDS: haloperidol 5 mg Tablet PO (21:15)
[2022-07-30 22:00] VITALS: BP 111/74; PULSE 69; RESP 17; TEMP 37.1; O2SAT 96
[2022-07-31] MEDS: CELEcoxib 200 mg Capsule PO (05:32)
[2022-07-31 06:00] VITALS: BP 116/64; PULSE 115; RESP 17; TEMP 36.7; O2SAT 96
[2022-07-31] MEDS: docusate sodium 100 mg Capsule PO ×2 (08:13→18:36)
--- NOTE | 2022-07-31 08:45 | W.PM.NPUPNS ---
Subjective NPU Subjective: Patient presented today appearing to be accepting of the fact that he will discharge on Tuesday or Tuesday to [facility]. He even called himself to figure out what the situation was. He seems to be identifying that it would be the best option for him moving forward. Mental Status Exam MSE Comments: This is a well-nourished well-developed white male looking older than his stated age with adequate grooming and eye contact. No abnormal movements except for significant psychomotor retardation and very robotic gait. Cooperative with exam in mild distress. Speech was limited and decreased rate and volume. Mood described as all right, affect subdued and flat. Thought process linear without confusion and disorganization. Thought content: Patient denied suicidal or homicidal ideation, there were no delusions reported but concerns exist for paranoia and bizarre delusions, he did not appear to be attending to internal stimuli but did appear confused. Attention and concentration are limited and memory appeared limited as well but none were formally tested. He is alert and oriented x to person and place. Insight and judgment are limited and impulse control are limited. Vitals/I&O/Wt Last Vital Signs Temp 98.0 F 07/31/22 06:00 Pulse 115 H 07/31/22 06:00 Resp 17 07/31/22 06:00 BP 116/64 07/31/22 06:00 Pulse Ox 96 07/31/22 06:00 O2 Del Method Room Air 07/31/22 06:00 Data NPU 07/22/22 13:50 07/22/22 13:50 A&P Assessment and plan (1) Schizophrenia: (2) Suicide attempt by drug overdose: (3) Suicidal ideation: (4) Schizoaffective disorder, unspecified: Plan This is a 57-year-old white male with a long history of mental health challenges including psychotic illness with multiple recent hospitalizations presenting reporting suicidal thoughts with a plan. 1.? Restart previous medications. Switched the Zoloft afternoon/evening. Invega Sustenna 234 mg IM scheduled given 07/28/2022. 2.? Encourage individual, group and milieu therapy 3.? Continue q-15 minute check for safety 4.? Recommend sober living treatment at the highest level of care to which the patient is willing to commit. 5. Discharge to [facility] 08/02/2022. Involuntary Hold Information 96 Hour Hold: 96 Hour Involuntary Admission: No Attestations NPU Medical Necessity Statement*: Inpatient hospitalization is medically necessary and the clinically appropriate intervention at this time. We will monitor medications and make changes as indicated. Likely length of stay is 2-3 days. Coding Level of Care Code Acute Code for [facility] Fwd Diagnoses Schizophrenia F20.9 Suicide attempt by drug overdose T50.902A Suicidal ideation R45.851 Schizoaffective disorder, unspecified F25.9
[2022-07-31 14:00] VITALS: BP 97/67; PULSE 82; RESP 18; TEMP 36.8; O2SAT 100
[2022-07-31] MEDS: sertraline 100 mg Tablet PO (14:23)
[2022-07-31 15:26] VITALS: PULSE 82; RESP 18; O2SAT 95
[2022-07-31 20:00] VITALS: PULSE 76; RESP 18; O2SAT 95
[2022-07-31] MEDS: prazosin 1 mg Capsule 4 MG PO (21:04)
[2022-07-31] MEDS: quetiapine 100 mg Tablet PO (21:04)
[2022-07-31] MEDS: risperiDONE 1 mg Tablet PO (21:04)
[2022-07-31 21:56] VITALS: BP 99/66; PULSE 69; RESP 15; TEMP 36.5; O2SAT 98
[2022-08-01 05:53] VITALS: BP 102/71; PULSE 87; RESP 12; TEMP 36.4; O2SAT 98
[2022-08-01 06:00] VITALS: BMI 26.2
--- NOTE | 2022-08-01 07:19 | P.NPUPN_ITS ---
Subjective NPU Subjective: Patient presented today reporting that he is starting to feel better. He reports that he has been speaking to his son and that they both believe that going to [facility] is the right thing to do. He is now focused on when they could receive him. We discussed the social work team returning tomorrow and the likelihood of discharge in the next 48 hours. Mental Status Exam MSE Comments: This is a well-nourished well-developed white male looking older than his stated age with adequate grooming and eye contact. No abnormal movements except for decreasing psychomotor retardation and less notable robotic gait. Cooperative with exam in no acute distress. Speech was limited and decreased rate and volume. Mood described as all right, affect subdued. Thought process linear without confusion and disorganization. Thought content: Patient denied suicidal or homicidal ideation, there were no delusions reported but concerns exist for paranoia and bizarre delusions, he did not appear to be attending to internal stimuli but did appear confused. Attention and concentration are limited and me mook appeared limited as well but none were formally tested. He is alert and oriented x to person and place. Insight and judgment are limited and impulse control are limited. Vitals/I&O/Wt Last Vital Signs Temp 97.5 F L 08/01/22 05:53 Pulse 87 08/01/22 05:53 Resp 12 08/01/22 05:53 BP 102/71 08/01/22 05:53 Pulse Ox 98 08/01/22 05:53 O2 Del Method Room Air 08/01/22 05:53 Data NPU 07/22/22 13:50 07/22/22 13:50 A&P Assessment and plan (1) Schizophrenia: (2) Suicide attempt by drug overdose: (3) Suicidal ideation: (4) Schizoaffective disorder, unspecified: Plan This is a 57-year-old white male with a long history of mental health challenges including psychotic illness with multiple recent hospitalizations presenting reporting suicidal thoughts with a plan. 1.? Restart previous medications. Switched the Zoloft afternoon/evening. Invega Sustenna 234 mg IM scheduled given 07/28/2022. 2.? Encourage individual, group and milieu therapy 3.? Continue q-15 minute check for safety 4.? Recommend sober living treatment at the highest level of care to which the patient is willing to commit. 5. Discharge to [facility] 08/02/2022 unless they do not receive on holiday then will be 08/03/2022. Involuntary Hold Information 96 Hour Hold: 96 Hour Involuntary Admission: No Attestations NPU Medical Necessity Statement*: Inpatient hospitalization is medically necessary and the clinically appropriate intervention at this time. We will monitor medications and make changes as indicated. Likely length of stay is 1-2 days. Coding Level of Care Code Acute Code for [facility] Fwd Diagnoses Schizophrenia F20.9 Suicide attempt by drug overdose T50.902A Suicidal ideation R45.851 Schizoaffective disorder, unspecified F25.9
[2022-08-01 08:00] VITALS: PULSE 78; RESP 16; O2SAT 98
[2022-08-01] MEDS: docusate sodium 100 mg Capsule PO ×2 (08:17→17:02)
[2022-08-01] MEDS: CELEcoxib 200 mg Capsule PO (08:18)
[2022-08-01] MEDS: hyDROXYzine 25 mg Capsule 50 MG PO (08:18)
--- NOTE | 2022-08-01 08:18 | PC.NURSE ---
50mg Vistaril given to patient for severe anxiety . Anxiety related to future at residential home.
[2022-08-01 14:00] VITALS: BP 99/65; PULSE 75; RESP 18; TEMP 36.6; O2SAT 98
[2022-08-01] MEDS: sertraline 100 mg Tablet PO (14:12)
[2022-08-01] MEDS: quetiapine 100 mg Tablet PO (20:09)
[2022-08-01 20:10] VITALS: BP 109/70; PULSE 64; RESP 18; TEMP 36.4; O2SAT 99
[2022-08-01] MEDS: prazosin 1 mg Capsule 4 MG PO (20:10)
[2022-08-01] MEDS: risperiDONE 1 mg Tablet PO (20:10)
[2022-08-02 06:00] VITALS: BP 90/59; PULSE 84; RESP 16; TEMP 36.3; O2SAT 97
[2022-08-02] MEDS: CELEcoxib 200 mg Capsule PO (08:27)
[2022-08-02] MEDS: docusate sodium 100 mg Capsule PO ×2 (08:27→21:25)
--- NOTE | 2022-08-02 09:54 | PC.NURSE ---
pt is currently sitting in his room. pt denies si/hi/vh. pt does endorse auditory hallucinations stating i hear voices. pt was asked what they were saying and pt stated i dont really know.
[2022-08-02 13:53] VITALS: BP 98/75; PULSE 60; RESP 17; TEMP 36.4; O2SAT 97
[2022-08-02] MEDS: sertraline 100 mg Tablet PO (14:31)
[2022-08-02] MEDS: hyDROXYzine 25 mg Capsule 50 MG PO (15:42)
--- NOTE | 2022-08-02 15:57 | P.NPUPN_ITS ---
Subjective NPU Subjective: Patient presented today reporting that he is awaiting discharge tomorrow. We discussed the fact that all the technicalities had not been reviewed but that is our expectation that he will be discharged the morning. Otherwise he reports that he has been talking to his son and he identifies that this is the best plan forward. He reports that he is optimistic about things going well. He denies any side effects or challenges from his medications. Mental Status Exam MSE Comments: This is a well-nourished well-developed white male looking older than his stated age with adequate grooming and eye contact. No abnormal movements except for decreasing psychomotor retardation and less notable robotic gait. Cooperative with exam in no acute distress. Speech was limited and decreased rate and volume. Mood described as all right, affect subdued. Thought process linear without confusion and disorganization. Thought content: Patient denied suicidal or homicidal ideation, there were no delusions reported but concerns exist for paranoia and bizarre delusions, he did not appear to be attending to internal stimuli but did appear confused. Attention and concentration are limited and memory appeared limited as well but none were formally tested. He is alert and oriented x to person and place. Insight and judgment are limited and impulse control are limited. Vitals/I&O/Wt Last Vital Signs Temp 97.7 F 08/02/22 20:29 Pulse 74 08/02/22 20:29 Resp 18 08/02/22 20:29 BP 108/70 08/02/22 20:29 Pulse Ox 97 08/02/22 20:29 O2 Del Method Room Air 08/02/22 06:00 Data NPU 07/22/22 13:50 07/22/22 13:50 A&P Assessment and plan (1) Schizophrenia: (2) Suicide attempt by drug overdose: (3) Suicidal ideation: (4) Schizoaffective disorder, unspecified: Plan This is a 57-year-old white male with a long history of mental health challenges including psychotic illness with multiple recent hospitalizations presenting re porting suicidal thoughts with a plan. 1.? Restart previous medications. Switched the Zoloft afternoon/evening. Invega Sustenna 234 mg IM scheduled given 07/28/2022. 2.? Encourage individual, group and milieu therapy 3.? Continue q-15 minute check for safety 4.? Recommend sober living treatment at the highest level of care to which the patient is willing to commit. 5. Discharge to [facility] 08/02/2022 unless they do not receive on holiday then will be 08/03/2022. Involuntary Hold Information 96 Hour Hold: 96 Hour Involuntary Admission: No Attestations NPU Medical Necessity Statement*: Inpatient hospitalization is medically necessary and the clinically appropriate intervention at this time. We will monitor medications and make changes as indicated. Likely discharge in the morning. Coding Level of Care Code Acute Code for [facility] Fwd Diagnoses Schizophrenia F20.9 Suicide attempt by drug overdose T50.902A Suicidal ideation R45.851 Schizoaffective disorder, unspecified F25.9
[2022-08-02 20:29] VITALS: BP 108/70; PULSE 74; RESP 18; TEMP 36.5; O2SAT 97
[2022-08-02] MEDS: quetiapine 100 mg Tablet PO (21:24)
[2022-08-02] MEDS: risperiDONE 1 mg Tablet PO (21:25)
[2022-08-03 06:00] VITALS: BP 108/75; PULSE 92; RESP 18; O2SAT 97
[2022-08-03] MEDS: docusate sodium 100 mg Capsule PO ×2 (08:51→20:23)
[2022-08-03] MEDS: CELEcoxib 200 mg Capsule PO (08:51)
[2022-08-03 14:00] VITALS: BP 113/79; PULSE 71; RESP 14; TEMP 36.3; O2SAT 99
[2022-08-03] MEDS: sertraline 100 mg Tablet PO (14:25)
--- NOTE | 2022-08-03 17:29 | W.PM.NPUPNS ---
Subjective NPU Subjective: Patient presented today reporting that things are going fine. He finally got definitive information that he was excepted at [facility] and he was quite pleased with that outcome. He denies any new issues we discussed discharge in the morning. Mental Status Exam MSE Comments: This is a well-nourished well-developed white male looking older than his stated age with adequate grooming and eye contact. No abnormal movements except for decreasing psychomotor retardation and less notable robotic gait. Cooperative with exam in no acute distress. Speech was limited and decreased rate and volume. Mood described as all right, affect subdued. Thought process linear without confusion and disorganization. Thought content: Patient denied suicidal or homicidal ideation, there were no delusions reported but concerns exist for paranoia and bizarre delusions, he did not appear to be attending to internal stimuli but did appear confused. Attention and concentration are limited and memory appeared limited as well but none were formally tested. He is alert and oriented x to person and place. Insight and judgment are limited and impulse control are limited. Vitals/I&O/Wt Last Vital Signs Temp 97.4 F L 08/03/22 14:00 Pulse 71 08/03/22 14:00 Resp 14 08/03/22 14:00 BP 113/79 08/03/22 14:00 Pulse Ox 99 08/03/22 14:00 O2 Del Method Room Air 08/02/22 06:00 Data NPU 07/22/22 13:50 07/22/22 13:50 A&P Assessment and plan (1) Schizophrenia: (2) Suicide attempt by drug overdose: (3) Suicidal ideation: (4) Schizoaffective disorder, unspecified: Plan This is a 57-year-old white male with a long history of mental health challenges including psychotic illness with multiple recent hospitalizations presenting reporting suicidal thoughts with a plan. 1.? Restart previous medications. Switched the Zoloft afternoon/evening. Invega Sustenna 234 mg IM scheduled given 07/28/2022. 2.? Encourage individual, group and milieu therapy 3.? Continue q-15 minute check for safety 4.? Recommend sober living treatment at the highest level of care to which the patient is willing to commit. 5. Discharge to [facility] tomorrow. Involuntary Hold Information 96 Hour Hold: 96 Hour Involuntary Admission: No Attestations NPU Medical Necessity Statement*: Inpatient hospitalization is medically necessary and the clinically appropriate intervention at this time. We will monitor medications and make changes as indicated. Discharge in the morning Coding Level of Care Code Acute Code for [facility] Fwd Diagnoses Schizophrenia F20.9 Suicide attempt by drug overdose T50.902A Suicidal ideation R45.851 Schizoaffective disorder, unspecified F25.9
[2022-08-03 20:00] VITALS: PULSE 75; O2SAT 98
[2022-08-03] MEDS: prazosin 1 mg Capsule 4 MG PO (20:23)
[2022-08-03] MEDS: quetiapine 100 mg Tablet PO (20:23)
[2022-08-03] MEDS: risperiDONE 1 mg Tablet PO (20:23)
[2022-08-03 22:00] VITALS: BP 111/75; PULSE 74; RESP 18; TEMP 36.3; O2SAT 96
[2022-08-04 06:00] VITALS: BP 108/79; PULSE 83; RESP 18; TEMP 36.3; O2SAT 97
[2022-08-04 08:00] VITALS: PULSE 71; RESP 16; O2SAT 98
--- NOTE | 2022-08-04 08:35 | P.NPUDS_ITS ---
Diagnoses at Discharge Discharge Diagnosis (1) Schizophrenia: Status: Acute (2) Suicide attempt by drug overdose: Status: Resolved (3) Suicidal ideation: Status: Resolved (4) Schizoaffective disorder, unspecified: Status: Acute Reason for Visit Reason for Visit: MHE Brief History: History of Present Illness Michael Munoz IV is a 57 year old male who presented to the emergency department with the following report: Chief Complaint: Psychiatric Symptoms Stated Complaint: MHE Time Seen by Provider: 07/22/22 13:09 History of Present Illness: Mr. Munoz is a 57-year-old gentleman with significant past medical history of schizoaffective disorder presenting to the emergency department due to suicidal ideation with intentional drug overdose. He reports taking approximately 20 tablets of his tamsulosin 2 nights ago with the intent of killing himself. He did experience some lightheadedness and presyncopal type feeling which has improved. He reports compliance with his other medications. He denies other overdose or self-harm. He has had similar symptoms in the past. No other specific changes in health, exacerbating, or alleviating factors identified. Onset (ago): hour(s) History of same: Yes Associated psychiatric symptoms: depression and suicidal ideation If self harm: has acted on plan and intentional overdose. He was admitted to the neuropsychiatric unit for definitive treatment of those issues. He continues to report struggling with adherence to his medications. He is only Invega Sustenna injection and got his last injection 06/30/2022. He reports that he is currently living in a trailer along with his pets. And he endorsed having suicidal thoughts and being somewhat paralyzed against action that is organized. We had a lengthy discussion about the possibility for a supportive environment of an F. He reported that he might be open to that. At his last hospitalization efforts were made for referral for in-home services but its only been 9 days and so that has not been initiated. We talked about other considerations like possibility of a guardian which she was not wanting to do. He continues to identify that medications tend to be effective when he is taking them. An excerpt of his last hospitalization is included below for context and the fact that it is only been 9 days and there have been no substantive changes. We discussed that he really appears like some of this has to do with him being alone and without supports. He does acknowledge that that might be playing some role. We discussed the risk benefits and alternatives of restarting the medications and then considering his options and residential and he understood and agreed to proceed as is documented in this note. UDS continues to be negative. Per his 07/14/2022 [facility] inpatient psychiatric discharge summary: Michael is a 57-year-old single white male with a prior history of schizoaffective disorder who has been receiving outpatient follow-up at the [facility] who presented to the emergency department with complaints of suicidal ideation with a plan to overdose on his medication. Patient was admitted to the neuropsychiatric unit for further treatment and evaluation. Patient reports that he had been admitted for several weeks at a psychiatric facility in [place] in April 2022 and states that he had some of his medications changed including having been placed on oral risperidone. He reports that his last Invega shot was given on July 01, 2022 at the outpatient clinic through [facility]. He had reported that his hallucinations and paranoia had improved with the monthly shot but states that he began feeling suicidal over the past few weeks. He reports not hearing any voices of a command nature but states that his thoughts have been pushed towards suicide. He states that the triggers for this has been his active frustration in his home environment. He reports having concerns that he is not able to handle stressors at the home as he stated that he is having problems with his sewage system at home and states that he is struggling with maintaining his household. He states that he had felt frustrated at not being able to fix things around the house and it had led him to feel like he needed to hurt himself. He reports being very anxious and states that he is having a hard time controlling his worry. He reports that he is had problems with feeling tired and reports low motivation and energy. He had endorsed having suicidal thoughts in the past but states that it has been more prominent today. He reports chronic struggles with having to frequently catheterize himself in order to urinate. He reports that he needs more help at managing his own medical problems. He denies any recent drug or alcohol use. Inpatient psychiatric history: There is a history of multiple inpatient hospitalizations with the most recent hospitalization having occurred in 2022 at [place]. Outpatient psychiatric history: He had been receiving services at the [facility] with most recent visit on July 01, 2022 with a nurse at the behavioral health clinic in [place]. Medications: albuterol sulfate 90 mcg/actuation (Ventolin HFA) 2 puffs inhalation Q6H PRN celecoxib 200 mg PO QAM fluticasone propion-salmeterol 500-50 mcg/dose (Wixela Inhub) 1 inh inhalation BID paliperidone palmitate (Invega Sustenna) 234 mg (1.5 mL) IM Q30D risperidone 0.5 mg PO BID risperidone 2 mg PO BID sertraline 50mg TAKE 1 TABLET BY MOUTH EVERY DAY tamsulosin 0.8 mg PO QAM Drug and alcohol history: He denies other than smoking half to 1-1/2 packs of cigarettes a day for several years. Medical history: Benign prostatic hyperplasia lower back pain, COPD, dyslipidemia, GERD, Allergies: Penicillin Surgical history: Appendectomy, tonsillectomy Family psychiatric history: Unknown Social history: He reports that he was born in [facility] and raised by his 2 parents. He has 1 brother. He denied any history of trauma during his childhood. 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 He states that he currently lives by himself in the mobile home in [place]. He has been 2 times and has several adult aged children and numerous grandchildren. He reports that he is on disability for psychiatric reasons. Hospital Course Hospital Course He slowly acclimated to the individual, group and milieu therapies provided. He was given his Invega Sustenna 234 mg IM injection during stay. He was maint ained on his other medications and became clear that him living independently but does not a functional situation given the actual logistics of his current living conditions. He worked with the social work team to identify a reasonable RCF. [facility] agreed to take him and he was maintained in the hospital until his discharge date. He had modest improvement and was able to contract for safety outside the hospital prior to discharge. During the hospitalization, patient had routine laboratory studies which were within normal limits except for few outliers. Additionally there was a general medical evaluation which was also within normal limits and revealed no new acute processes. At the time of discharge, lethality was denied and psychosis was resolving. Mood and anxiety were well managed. Patient endorsed a plan to avoid all drugs of abuse and follow-up with the aftercare recommendations of the treatment team. Patient was evaluated and deemed to be absent credible lethality, and had achieved the maximum benefit from an inpatient hospitalization, so was discharged Involuntary Hold Information 96 Hour Hold: 96 Hour Involuntary Admission: No Mental Status Exam MSE Comments: This is a well-nourished well-developed white male looking older than his stated age with adequate grooming and eye contact. No abnormal movements except for decreasing psychomotor retardation and less notable robotic gait. Cooperative with exam in no acute distress. Speech was limited and decreased rate and volume. Mood described as all right, affect subdued. Thought process linear without confusion and disorganization. Thought content: Patient denied suicidal or homicidal ideation, there were no delusions reported but concerns exist for paranoia and bizarre delusions, he did not appear to be attending to internal stimuli but did appear confused. Attention and concentration are limited and memory appeared limited as well but none were formally tested. He is alert and oriented x to person and place. Insight and judgment are limited and impulse control are limited. Discharge Data Studies Completed and Pending: Laboratory Results WBC 6.0 10^3/uL (4.0- 10.0) 07/22/22 13:50 RBC 3.95 10^6/uL (4.1 -5.3) L 07/22/22 13:50 Hgb 12.3 g/dL (11.7-1 6.6) 07/22/22 13:50 Hct 36.6 % (42.0-52.0 ) L 07/22/22 13:50 MCV 92.7 fl (80-94) 07/22/22 13:50 MCH 31.1 pg (28.0-34. 0) 07/22/22 13:50 MCHC 33.6 g/dL (30.0-3 6.0) 07/22/22 13:50 RDW 12.1 % (12.1-15.1 ) 07/22/22 13:50 Plt Count 290 10^3/cmm (130 -400) 07/22/22 13:50 MPV 8.8 fL (7.4-10.4) 07/22/22 13:50 Neut % (Auto) 71.1 % 07/22/22 13:50 Lymph % (Auto) 18.6 % 07/22/22 13:50 [place] % (Auto) 8.8 % 07/22/22 13:50 Eos % (Auto) 0.7 % 07/22/22 13:50 Baso % (Auto) 0.5 % 07/22/22 13:50 Neut # (Auto) 4.28 10^3/uL (1.8 -7.7) 07/22/22 13:50 Lymph # (Auto) 1.1 10^3/uL (0.8- 4.8) 07/22/22 13:50 [place] # (Auto) 0.5 10^3/uL (0.2- 0.9) 07/22/22 13:50 Eos # (Auto) 0.0 10^3/uL (0.0- 0.8) 07/22/22 13:50 Baso # (Auto) 0.0 10^3/uL (0.0- 0.1) 07/22/22 13:50 Nucleated RBC % (a uto) 0 % 07/22/22 13:50 Nucleated RBCs # 0.0 /100WBC 07/22/22 13:50 Sodium 130 mmol/L (136-1 45) L 07/22/22 13:50 Potassium 4.0 mmol/L (3.5-5 .1) 07/22/22 13:50 Chloride 96 mmol/L (98-107 ) L 07/22/22 13:50 Carbon Dioxide 24 mmol/L (22-29) 07/22/22 13:50 Anion Gap 14.0 (5-19) 07/22/22 13:50 BUN 14 mg/dL (6-20) 07/22/22 13:50 Creatinine 0.6 mg/dL (0.7-1. 2) L 07/22/22 13:50 GFR Calculation 137.9 mL/min (90- 130) H 07/22/22 13:50 Glucose 103 mg/dL (65-115 ) 07/22/22 13:50 Calculated Osmolal ity 271 mOsm/kg (285- 295) L 07/22/22 13:50 Calcium 8.7 mg/dL (8.5-10 .5) 07/22/22 13:50 Total Bilirubin 0.3 mg/dL (0.15-1 .2) 07/22/22 13:50 AST 28 U/L (0-40) 07/22/22 13:50 ALT 23 U/L (0-41) 07/22/22 13:50 Alkaline Phosphata se 53 U/L (40-130) 07/22/22 13:50 Total Protein 6.4 g/dL (6.6-8.7 ) L 07/22/22 13:50 Albumin 4.0 g/dL (3.5-5.2 ) 07/22/22 13:50 Globulin 2.4 g/dL (1.3-4.6 ) 07/22/22 13:50 TSH 0.95 uIU/mL (0.27 -4.20) 07/22/22 13:50 Salicylates < 0.3 mg/dL (3-10 ) L 07/22/22 13:50 Urine Opiates Scre en Negative ng/mL (N egative) 07/22/22 13:43 Acetaminophen < 5.0 ug/mL (10-3 0) L 07/22/22 13:50 Ur Barbiturates Sc reen Negative ng/mL (N egative) 07/22/22 13:43 Ur Phencyclidine S crn Negative ng/mL (N egative) 07/22/22 13:43 Ur Amphetamines Sc reen Negative ng/mL (N egative) 07/22/22 13:43 U Benzodiazepines Scrn Negative ng/mL (N egative) 07/22/22 13:43 Urine Cocaine Scre en Negative ng/mL (N egative) 07/22/22 13:43 U Marijuana (THC) Screen Negative ng/mL (N egative) 07/22/22 13:43 Ethyl Alcohol < 10 mg/dL (0-10) 07/22/22 13:50 Vitals: Last Vital Signs Temp 97.4 F L 08/04/22 06:00 Pulse 71 08/04/22 10:35 Resp 16 08/04/22 10:35 BP 108/79 08/04/22 06:00 Pulse Ox 98 08/04/22 10:35 O2 Del Method Room Air 08/04/22 08:00 Discharge Plan Discharge Patient Disposition: Home Condition: Stable Prescriptions: New docusate sodium 100 mg Capsule 100 mg PO 0900,2100 30 Days Qty: 60 1RF hydroxyzine pamoate 25 mg Capsule 50 mg PO Q6H PRN (Reason: Anxiety) 30 Days Qty: 120 1RF Continued albuterol sulfate [Ventolin HFA] 90 mcg/actuation HFA aerosol inhaler 2 puff INHALATION Q6H PRN (Reason: Shortness Of Breath) Qty: 8.5 5RF tamsulosin 0.4 mg capsule 0.8 mg PO QAM celecoxib 200 mg capsule 200 mg PO QAM fluticasone propion-salmeterol [Wixela Inhub] 500-50 mcg/dose blister with device 1 inh INHALATION BID quetiapine 100 mg Tablet 100 mg PO BEDTIME 30 Days Qty: 30 1RF sertraline 100 mg tablet 100 mg PO DAILY Invega Sustenna 234 mg/1.5 mL syringe 234 mg IM Q30D Qty: 1.5 2RF Rx Instructions: next injection 08/25/22 then as directed Discharge Orders: Discharge Order (Routine); Ordered 08/04/22 Ordered By: Tj Sadler Referrals: [facility] [Other] - 08/04/22 Kaycee Yung PMHNP [Staff Physician] - 08/09/22 11:45 am Mali Lerma DO [Primary Care Provider] - Discharge Diet: Regular Discharge Activity: Resume usual activity Patient Instructions: Opioid Safety Discharge Attestations NPU Time Spent in Discharge Care*: less than 30 min Specific Discharge Activities: Specific discharge activities: educating patient, discussing with rn field case manager/social workers/dc planners, documenting/other paperwork and evaluating patient/reviewing data Coding Level of Care Code Acute [facility] DC note Diagnoses Schizophrenia F20.9 Suicide attempt by drug overdose T50.902A Suicidal ideation R45.851 Schizoaffective disorder, unspecified F25.9
[2022-08-04] MEDS: CELEcoxib 200 mg Capsule PO (08:48)
[2022-08-04] MEDS: docusate sodium 100 mg Capsule PO (08:48)
--- NOTE | 2022-08-04 08:52 | DCPLANNER ---
IMM completed 08/04/22 @ 0851. Pt was provided a copy of rights and he stated he understood his rights.
[2022-08-04 10:35] VITALS: PULSE 71; RESP 16; O2SAT 98
[2022-08-04] MEDS: tuberculin 5 unit/0.1 mL (per dose) INTRADERMA (10:41)
--- NOTE | 2022-08-04 10:42 | PC.NURSE ---
called report to [facility] asissted business analyst project manager Adelaida. verbal report given. no further question. will need his night medication for tonight do to pharmacy delivery will be around 2300 tonight. informed doctor yamila of need for one time med orders
[2022-08-04] MEDS: sertraline 100 mg Tablet PO (14:05)
--- NOTE | 2022-08-04 14:19 | PC.NURSE ---
written discharge instruction discussed and left with patient pt stated understanding and compliance
== END 2022-08-04 15:21 | disposition home or self-care (01) | DRG 885 ==
LOC: ER 15:34 → NP 16:08
PROVIDERS: Admitting Provider Psychiatry & Neurology Psychiatry; Emergency Provider Emergency Medicine; PCP Family Medicine; Visit Provider Psychiatry & Neurology Psychiatry
DX: F20.9 Schizophrenia, unspecified (principal); R45.851 Suicidal ideations; N40.1 Benign prostatic hyperplasia with lower urinary tract symptoms; R33.8 Other retention of urine; G89.29 Other chronic pain; M54.50 Low back pain, unspecified; J44.9 Chronic obstructive pulmonary disease, unspecified; E78.5 Hyperlipidemia, unspecified; F41.1 Generalized anxiety disorder; K21.9 Gastro-esophageal reflux disease without esophagitis; Z87.891 Personal history of nicotine dependence
CPT/HCPCS: 80053; 80306; 80307; 84443; 85025; 93005; 94640; 96372; 97150; 97165; 99238; 99285; J7613; J7626

== ENCOUNTER → 2023-12-12 13:55 | Outpatient (BNVA) | payer OTHER, SELFPAY | PROVIDERS: PCP Family Medicine; Visit Provider Nurse Practitioner | DX: Z79.899 Other long term (current) drug therapy (principal); F41.1 Generalized anxiety disorder; F25.1 Schizoaffective disorder, depressive type | CPT/HCPCS: 80061; 83036 ==

== ENCOUNTER → 2025-01-02 09:09 | Outpatient (BNVA) | payer OTHER, SELFPAY ==
[2024-01-23 07:56] VITALS: BP 139/82; BMI 24.9
== END ==
PROVIDERS: PCP Family Medicine; Visit Provider Psychiatry & Neurology Psychiatry
DX: F41.1 Generalized anxiety disorder (principal); F25.1 Schizoaffective disorder, depressive type; Z79.899 Other long term (current) drug therapy
CPT/HCPCS: 80061; 83036